=== PATIENT | male | born 1950 | race Caucasian/White ===

== ENCOUNTER 2019-10-01 10:00 | Outpatient (CLI) | payer MEDICARE, OTHER, SELFPAY ==
[2019-10-01 13:16] LABS: Basophils % 0.8 %; Eosinophils # 0.2 10^3/uL (0.0-0.8); Eosinophils % 4.8 %; Hemoglobin 15.4 g/dL (11.7-16.6); Lymphocytes # 1.1 10^3/uL (0.8-4.8); Lymphocytes % 23.4 %; Mean Corpuscular HGB Conc 32.8 g/dL (30.0-36.0); Mean Corpuscular Hemoglobin 33.3 pg (28.0-34.0); Mean Corpuscular Volume 101.5 fL (80-94); Mean Platelet Volume 9.5 fL (7.4-10.4); Monocytes # 0.6 10^3/uL (0.2-0.9); Monocytes % 11.6 %; Neutrophils # 2.8 10^3/uL (1.8-7.7); Nucleated Red Blood Cells % 0 %; Platelet Count 330 10^3/cmm (130-400); Red Blood Count 4.63 10^6/uL (4.1-5.3); White Blood Count 4.8 10^3/uL (4.0-10.0)
[2019-10-01 13:28] LABS: Alanine Aminotransferase 15 U/L (0-41); Albumin Level 4.5 g/dL (3.5-5.2); Alkaline Phosphatase 76 IU/L (40-130); Aspartate Amino Transferase 16 U/L (0-40); Blood Urea Nitrogen 10 mg/dL (8-23); Calcium 9.8 mg/dL (8.5-10.5); Carbon Dioxide 25 mmol/L (22-29); Chloride 103 mmol/L (98-107); Globulin 2.9 g/dL (1.3-4.6); Glomerular Filtration Rate 74.8 mL/min (90-130); Glucose 75 mg/dL (65-115); Lactate Dehydrogenase 199 U/L (135-225); Osmolality Calculated 289 mOsm/kg (285-295); Sodium 142 mmol/L (136-145); Total Bilirubin 0.4 mg/dL (0.15-1.2); Total Protein 7.4 g/dL (6.6-8.7)
== END 2019-10-01 10:01 | disposition home or self-care (01) ==
LOC: ONCMED 15:09
PROVIDERS: Visit Provider Internal Medicine Hematology & Oncology
DX: C82.15 Follicular lymphoma grade II, lymph nodes of inguinal region and lower limb (principal)
CPT/HCPCS: 36415; 80053; 83615; 85025

== ENCOUNTER → 2019-12-31 11:06 | Outpatient (BNVA) | payer MEDICARE, OTHER, SELFPAY | PROVIDERS: Visit Provider Internal Medicine Hematology & Oncology | DX: C82.15 Follicular lymphoma grade II, lymph nodes of inguinal region and lower limb (principal) | CPT/HCPCS: 80053; 83615; 85025 ==

== ENCOUNTER 2020-01-02 08:36 | Outpatient (CLI) | payer MEDICARE, OTHER, SELFPAY ==
--- NOTE | 2020-01-02 09:17 | ONC FU_ITS ---
Dr. Landaverde follow up note Patient: Ricky Lobo Unit #: [id number]: 1950 Dicatated By: Andres Landaverde M.D.Date of Visit:Jan 02, 2020 Onc Med Follow-up/Prog Note History of Present Illness: Mr. 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 Further workup including bone marrow biopsy was done on 06/02/2018 which was [address] scan of chest abdomen pelvis done on 05/03/2018 showed lymphadenopathy both sides of diaphragm. The largest conglomerate was lobulated soft tissue mass measuring 5.6 x 5.8 x 4.8 cm within the central mesentery to the left of midline. There was no splenomegaly. Patient had no B symptoms and patient was referred to Dr. Guy , oncologist in [place] and observation with active surveillance was recommended and planned. His follow-up CT scan of neck chest abdomen done on 08/31/2018 showed mild enlargement of lymph node in the left axillary region otherwise stable exam. Patient denies any specific complaint, no night sweats, no fever or chills, no weight loss, no abdominal fullness. Ulcerative colitis is under control with Asacol. Follow-up CT PET scan done on 12/23/2018 showed multiple hypermetabolic lymph nodes from the level of head and neck to the level of pelvis representing active lymphoma. Solitary malignant soft tissue implant posterior to right femur Patient was referred to lymphoma clinic at [facility] where he was seen by on 01/16/2019 and his impression was patient has stage 1-2, IPI is intermediate due to age,GELF score is low. And recommendation was to continue to monitor as patient may require treatment with the next few years given patient's existing lymph node size close to the measurements as indicated by GELF criteria warranting chemotherapy and there were focal grade 2 on the path report. She did lab workup which include CBC CMP LDH and IgG level as IgG level is some time low in patient with follicular lymphoma even untreated. These reports are not available to me at this point we will request a copy Came for follow-up, denies any specific complaints, denies any fever chills denies nausea or vomiting, denies any night sweats, denies any peripheral lymphadenopathy, in fact, as per patient, lymph node in the left lower neck is not even palpable now. Denies any abdominal fullness., Patient is watching his diet. Medications: florify 1 Capsule daily, Mesalamine 2 Tablet (of 800 mg) Tablet, enteric coated Oral b.i.d., Omeprazole 1 Capsule (of 20 mg) Capsule Delayed Release Oral daily, Probiotic 3 Tablet Tablet, enteric coated Oral b.i.d., Turmeric 1 Capsule (of 500 mg) Oral daily, Vitamin B-12 1 Tablet (of 500 mcg) Oral daily Allergies: No Known Allergies. Review of Systems: Constitutional - Appetite is good and weight is stable. No fever, chills, hot flashes, or night sweats. Energy level is good, ENMT - No sinus congestion/drainage. No mouth sores. No sore throat or difficulty swallowing, Hematologic/Lymphatic - Pt reports easy bruising, Respiratory - No shortness of breath. No cough. No pleuritic pain or hemoptysis, Cardiovascular - No angina pain. No palpitations, Gastrointestinal - No nausea or vomiting. Positive for heartburn (Pt takes medication for this). No diarrhea or constipation. No blood in the stool or black stools, Genitourinary (M) - No dysuria or hematuria. No urinary frequency. No urgency or incontinence, Musculoskeletal - No joint or bone pain, Neurologic - No headache or dizziness. No numbness/paresthesias or other focal neurologic symptoms, Psychiatric - No anxiety or depression. No insomnia. Vital Signs: Performed on Jan 02, 2020 08:47 Height - 69.00 in Weight - 185.0 lbs (LOW) BSA - 2.00 sq.m BMI - 27.32 Temperature - 98.2 F (LOW) Pulse - 81 /min Respiration - 20 /min BP - 129/85 mm(hg) O2 Sat - 96 % Pain - 0 Performance Status: 0 - Fully active, able to carry on all predisease activities without restrictions. (ECOG) Physical Examination: ENMT - No mouth sores no thrush, no jaundice, Respiratory - Lungs are clear, Cardiovascular - Regular rate and rhythm of heart, Abdomen - Soft, bowel sounds present, no obvious organomegaly, Extremities - No visible edema or rash or peripheral lymphadenopathy. Lab/Imaging: Test performed on Dec 31, 2019 11:06 Glucose 110 mg/dL BUN 12 mg/dL Creatinine 1.1 mg/dL Cr Clearance (Est) 77.35 mL/min Sodium 141 mmol/L Potassium 4.1 mmol/L Chloride 106 mmol/L CO2 21 mmol/L Calcium 8.7 mg/dL Protein, Total 6.5 g/dL Albumin 4.2 g/dL Globulin 2.3 g/dL Bilirubin, Total 0.5 mg/dL Alkaline Phosphatase 73 IU/L AST (SGOT) 15 IU/L ALT (SGPT) 12 IU/L WBC 4.9 10^9/L RBC 4.36 10^12/L HGB 14.7 g/dL HCT 43.8 % MCV 100.5 fl MCH 33.7 pg MCHC 33.6 g/dL RDW 13.1 % Platelet Count 297 10^9/L MPV 9.9 fL Neutrophils (Gran) 2.73 10^9/L Lymphocytes 1.3 10^9/L Monocytes 0.6 10^9/L Eosinophils 0.2 10^9/L Basophils 0.1 10^9/L Manual Lymphocytes 25.7 % Manual Monocytes 12.6 % Manual Eosinophils 4.9 % Manual Basophils 1.2 % Test performed on Oct 01, 2019 10:00 LDH (Total) 199 U/L Anion Gap 18.0 eGFR 74.8 mL/min Neutrophil % 59.0 % Lymphocyte % 23.4 % Monocyte % 11.6 % Eosinophil % 4.8 % Basophils % 0.8 % Impression: Stage III follicular lymphoma predominantly grade 1-2 and only 10-20% of grade 3a component in the right inguinal excisional lymph node biopsy done on 03/29/2018, [place] IPI score 4-high risk CT scan of neck chest abdomen pelvis done on 08/31/2018 showed interval enlargement of left external iliac lymph node, interval decrease in subcarinal lymph node, unchanged left mesenteric soft tissue mass, measuring 6.5 x 5.1 cm Follow-up CT PET scan done on 12/23/2018 showed multiple FDG positive lymph nodes from the level of her neck to the level of pelvis consistent with active lymphoma there are 2 nodes in the left cervical level V measuring up to 2.4 cm with SUV of 10.3. In the left upper quadrant mesentery there is a solid 4.4 x 5.2 near the duodenum/jejunal junction with SUV of 20.4. Additional smaller nodes are present in the pelvis in the left common iliac, left inguinal, bilateral femoral arteries. And index right femoral node measuring 2.7 with SUV of 19. There is an additional 1.7 cm muscle implant posterior to the right femur with SUV of 10.5 Ulcerative colitis on Asacol since 1994 Plan: Discussed with patient regarding his labs white blood count 4.9 hemoglobin 14.7 hematocrit 43.8 platelets 297,000 CMP within normal limits LDH is pending Clinically, patient doing well with no B symptoms or any other symptom suggestive of disease progression. No obvious palpable peripheral lymphadenopathy. Lab work-up is within normal range, will continue to monitor and he will return to clinic in 6 months with CBC CMP and LDH. Patient was advised to call us in case he has any drenching night sweats, unusual weight loss, recurrent fevers, any abdominal fullness or progressive peripheral lymphadenopathy. Signed By: Andres Landaverde M.D. <<Signature on File>>
== END 2020-01-02 08:37 | disposition home or self-care (01) ==
LOC: ONCMED 08:43
PROVIDERS: Visit Provider Internal Medicine Hematology & Oncology
DX: C82.15 Follicular lymphoma grade II, lymph nodes of inguinal region and lower limb (principal); K51.90 Ulcerative colitis, unspecified, without complications
CPT/HCPCS: G0463

== ENCOUNTER 2020-07-09 08:15 | Outpatient (CLI) | payer MEDICARE, OTHER, SELFPAY ==
--- NOTE | 2020-07-09 09:07 | ONC FU_ITS ---
Dr. Landaverde follow up note Patient: Ricky Lobo Unit #: [id number]: 1950 Dicatated By: Andres Landaverde M.D.Date of Visit:Jul 09, 2020 Onc Med Follow-up/Prog Note History of Present Illness: Mr. 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 Further workup including bone marrow biopsy was done on 06/02/2018 which [address] scan of chest abdomen pelvis done on 05/03/2018 showed lymphadenopathy both sides of diaphragm. The largest conglomerate was lobulated soft tissue mass measuring 5.6 x 5.8 x 4.8 cm within the central mesentery to the left of midline. There was no splenomegaly. Patient had no B symptoms and patient was referred to Dr. Guy , oncologist in [place] and observation with active surveillance was recommended and planned. His follow-up CT scan of neck chest abdomen done on 08/31/2018 showed mild enlargement of lymph node in the left axillary region otherwise stable exam. Patient denies any specific complaint, no night sweats, no fever or chills, no weight loss, no abdominal fullness. Ulcerative colitis is under control with Asacol. Follow-up CT PET scan done on 12/23/2018 showed multiple hypermetabolic lymph nodes from the level of head and neck to the level of pelvis representing active lymphoma. Solitary malignant soft tissue implant posterior to right femur Patient was referred to lymphoma clinic at [facility] where he was seen by on 01/16/2019 and his impression was patient has stage 1-2, IPI is intermediate due to age,GELF score is low. And recommendation was to continue to monitor as patient may require treatment with the next few years given patient's existing lymph node size close to the measurements as indicated by GELF criteria warranting chemotherapy and there were focal grade 2 on the path report. he did lab workup which include CBC CMP LDH and IgG level as IgG level is some time low in patient with follicular lymphoma even untreated. These reports are not available to me at this point we will request a copy Came for follow-up, patient denies any specific complaints, no fever chills, no nausea or vomiting, no diarrhea constipation, no night sweats, no weight loss rather gain, no recurrent fever, no abdominal fullness as per patient he underwent colonoscopy last week with Dr. Alberts and he was told there is no evidence of ulcerative colitis or any other abnormality and patient still taking Asacol for ulcerative colitis. Medications: florify 1 Capsule daily, Mesalamine 2 Tablet (of 800 mg) Tablet, enteric coated Oral b.i.d., Omeprazole 1 Capsule (of 20 mg) Capsule Delayed Release Oral daily, Probiotic 3 Tablet Tablet, enteric coated Oral b.i.d., Turmeric 1 Capsule (of 500 mg) Oral daily, Vitamin B-12 1 Tablet (of 500 mcg) Oral daily Allergies: No Known Allergies. Review of Systems: Constitutional - Appetite is good and weight is stable. No fever, chills, hot flashes, or night sweats. Energy level is good, ENMT - No sinus congestion/drainage. No mouth sores. No sore throat or difficulty swallowing, Hematologic/Lymphatic - Pt reports easy bruising, Respiratory - No shortness of breath. No cough. No pleuritic pain or hemoptysis, Cardiovascular - No angina pain. No palpitations, Gastrointestinal - No nausea or vomiting. Positive for heartburn (Pt takes medication for this). No diarrhea or constipation. No blood in the stool or black stools, Genitourinary (M) - No dysuria or hematuria. No urinary frequency. No urgency or incontinence, Musculoskeletal - No joint or bone pain, Neurologic - No headache or dizziness. No numbness/paresthesias or other focal neurologic symptoms, Psychiatric - No anxiety or depression. No insomnia. Vital Signs: Performed on Jul 09, 2020 08:35 Height - 69.00 in Weight - 197.2 lbs (HIGH) BSA - 2.05 sq.m BMI - 29.12 Temperature - 96.5 F (LOW) Pulse - 86 /min Respiration - 16 /min BP - 123/82 mm(hg) O2 Sat - 96 % Pain - 0 Performance Status: 0 - Fully active, able to carry on all predisease activities without restrictions. (ECOG) Physical Examination: ENMT - No mouth sores, no thrush, no jaundice no cervical or axillary lymphadenopathy, Respiratory - Lungs are clear to auscultation, Cardiovascular - Regular rate and rhythm of heart, Abdomen - Soft, bowel sounds present, Extremities - No visible edema. Lab/Imaging: Test performed on Jul 04, 2020 10:14 Glucose 86 mg/dL LDH, Total 153 IU/L BUN 11 mg/dL Creatinine 1.05 mg/dL Cr Clearance (Est) 81.03 mL/min Sodium 140 mmol/L Potassium 4.3 mmol/L Chloride 104 mmol/L CO2 28 mmol/L Calcium 9.6 mg/dL Protein, Total 6.9 g/dL Albumin 4.0 g/dL Bilirubin, Total 0.3 mg/dL Alkaline Phosphatase 82 IU/L AST (SGOT) 15 IU/L ALT (SGPT) 12 IU/L WBC 5.4 10^9/L RBC 4.6 10^12/L HGB 15.3 g/dL HCT 44.9 % MCV 97.6 fl MCH 33.3 pg MCHC 34.1 g/dL RDW 12.7 % Platelet Count 295 10^9/L Neutrophils (Gran) 3.02 10^9/L Lymphocytes 1.41 10^9/L Monocytes 0.66 10^9/L Eosinophils 0.27 10^9/L Basophils 0.05 10^9/L Impression: Stage III follicular lymphoma predominantly grade 1-2 and only 10-20% of grade 3a component in the right inguinal excisional lymph node biopsy done on 03/29/2018, [place] IPI score 4-high risk CT scan of neck chest abdomen pelvis done on 08/31/2018 showed interval enlargement of left external iliac lymph node, interval decrease in subcarinal lymph node, unchanged left mesenteric soft tissue mass, measuring 6.5 x 5.1 cm Follow-up CT PET scan done on 12/23/2018 showed multiple FDG positive lymph nodes from the level of her neck to the level of pelvis consistent with active lymphoma there are 2 nodes in the left cervical level V measuring up to 2.4 cm with SUV of 10.3. In the left upper quadrant mesentery there is a solid 4.4 x 5.2 near the duodenum/jejunal junction with SUV of 20.4. Additional smaller nodes are present in the pelvis in the left common iliac, left inguinal, bilateral femoral arteries. And index right femoral node measuring 2.7 with SUV of 19. There is an additional 1.7 cm muscle implant posterior to the right femur with SUV of 10.5 Ulcerative colitis on Asacol since 1994 Colonoscopy done in the last week of June [address] Alberts, as per patient showed no evidence of ulcerative colitis or other abnormality Plan: Discussed with patient regarding his labs white blood count 5.4 hemoglobin 15.3 hematocrit 44.9 platelets 259,000 CMP within normal limits LDH 153 Clinically, patient is doing well with no new signs symptoms or B symptoms suggestive of disease progression his lab work-up is within normal range including LDH, on physical exam no evidence of disease progression, at this point, we will continue to monitor. Patient return to clinic in 6 months with CBC CMP and LDH and follow-up CT scan of chest abdomen pelvis to assess central lymphadenopathy status Signed By: Andres Landaverde M.D. <<Signature on File>>
== END 2020-07-09 08:16 | disposition home or self-care (01) ==
LOC: ONCMED 08:20
PROVIDERS: Visit Provider Internal Medicine Hematology & Oncology
DX: K51.90 Ulcerative colitis, unspecified, without complications (principal)
CPT/HCPCS: G0463

== ENCOUNTER 2021-01-02 09:19 | Outpatient (CLI) | payer MEDICARE, OTHER, SELFPAY ==
--- NOTE | 2021-01-02 10:40 | CT_ITS ---
WS: [id number] CT CHEST, ABDOMEN, AND PELVIS TECHNIQUE: Contrast-enhanced CT of the chest, abdomen, and pelvis with coronal and sagittal reformatt ed images. CLINICAL INFORMATION: FOLLICULAR LYMPHOMA COMPARISON: CT 3 and PET/CT . CT 11 . DLP: 1716.[address] scans at [facility] use at least one of these dose optimization techniques: automat ed exposure control; mA and/or kV adjustment per patient size (includes targeted exams where dose is matched to clinical indication); or iterative reconstruction. CT CHEST: Moderate chronic emphysematous changes. No acute pulmonary infiltrates. No focal consolidation or ple ural fluid. Slight bibasilar atelectasis. A few calcified granulomas. Normal caliber thoracic aorta. No mediastinal or hilar lymphadenopathy. No axillary lymphadenopathy. CT ABDOMEN AND PELVIS: Diffuse fatty infiltration liver. Cholelithiasis. Mild hepatomegaly measuring 16.3 cm craniocaudal. C holelithiasis. Normal GE junction. Fatty atrophy of the pancreas. Adrenal glands are normal. Normal renal parenchymal enhancement. No hydronephrosis. Small right renal cyst. Caliber abdominal aorta. No evidence of small or large bowel obstruction. Normal sigmoid colon. Previously described mass at t he duodenal jejunal junction on the the prior PET/CT has significantly improved and nearly resolved. Minimal wispy mesenteric soft tissue in this region measuring 2.6 x 1.5 cm. No evidence of bowel obst ruction. No upper abdominal lymphadenopathy. No periaortic or retroperitoneal lymphadenopathy. No iliac or ing uinal lymphadenopathy. Slight prominent right inguinal lymph node measuring 8 mm not pathologically e nlarged and decreased in size from the prior studies. CT/CT chest abd pel w con* IMPRESSION: 1. No evidence of progressed disease. 2. No mediastinal or hilar lymphadenopathy. No abdominal or pelvic lymphadenop athy. 3. No suspicious pulmonary parenchymal abnormalities. 4. Previously described left duodenal jejunal mass has essentially resolved wi th a small amount of residual soft tissue thickening and induration in the mese ntery. Residual wispy soft tissue measures approximately 2.6 x 1.5 cm. 5. Slightly prominent right inguinal lymph node measuring 8 mm not pathologica lly enlarged and improved from the prior studies. 6. Cholelithiasis. 7. Mild hepatomegaly with diffuse fatty infiltration.
[2021-01-02 11:54] LABS: Blood Urea Nitrogen 12 mg/dL (8-23); Glomerular Filtration Rate 83.9 mL/min (90-130)
[2021-01-02] MEDS: iohexol 300 mg/mL 100 mL Btl IV (12:26)
[2021-01-02] MEDS: iohexol 300 mg/mL 50 mL Btl PO (12:27)
== END 2021-01-02 09:20 | disposition home or self-care (01) ==
LOC: RAD 09:30
PROVIDERS: PCP Family Medicine; Visit Provider Internal Medicine Hematology & Oncology
DX: C82.15 Follicular lymphoma grade II, lymph nodes of inguinal region and lower limb (principal); K80.20 Calculus of gallbladder without cholecystitis without obstruction; R16.0 Hepatomegaly, not elsewhere classified; K76.0 Fatty (change of) liver, not elsewhere classified
CPT/HCPCS: 71260; 74177; 82565; 84520

== ENCOUNTER 2021-01-08 11:23 | Outpatient (CLI) | payer MEDICARE, OTHER, SELFPAY ==
[2021-01-08 12:42] LABS: Basophils # 0.1 10^3/uL (0.0-0.1); Basophils % 1.1 %; Eosinophils # 0.3 10^3/uL (0.0-0.8); Eosinophils % 5.9 %; Hemoglobin 15.4 g/dL (11.7-16.6); Lymphocytes # 1.2 10^3/uL (0.8-4.8); Mean Corpuscular HGB Conc 33.5 g/dL (30.0-36.0); Mean Corpuscular Hemoglobin 33.5 pg (28.0-34.0); Mean Platelet Volume 9.5 fL (7.4-10.4); Monocytes # 0.7 10^3/uL (0.2-0.9); Monocytes % 13.1 %; Neutrophils # 3.09 10^3/uL (1.8-7.7); Neutrophils % 57.3 %; Nucleated Red Blood Cells % 0 %; Platelet Count 296 10^3/cmm (130-400); Red Cell Distribution Width 12.8 % (12.1-15.1); White Blood Count 5.4 10^3/uL (4.0-10.0)
[2021-01-08 13:11] LABS: Alanine Aminotransferase 12 U/L (0-41); Alkaline Phosphatase 79 IU/L (40-130); Anion Gap 13.3 (5-19); Aspartate Amino Transferase 15 U/L (0-40); Blood Urea Nitrogen 10 mg/dL (8-23); Calcium 9.1 mg/dL (8.5-10.5); Carbon Dioxide 26 mmol/L (22-29); Chloride 104 mmol/L (98-107); Globulin 2.7 g/dL (1.3-4.6); Glomerular Filtration Rate 83.9 mL/min (90-130); Glucose 82 mg/dL (65-115); Lactate Dehydrogenase 173 U/L (135-225); Osmolality Calculated 286 mOsm/kg (285-295); Potassium 4.3 mmol/L (3.5-5.1); Sodium 139 mmol/L (136-145); Total Bilirubin 0.4 mg/dL (0.15-1.2); Total Protein 6.7 g/dL (6.6-8.7)
--- NOTE | 2021-01-08 14:15 | ONC FU_ITS ---
Dr. Landaverde follow up note Patient: Ricky Lobo Unit #: [id number]: 1950 Dicatated By: Andres Landaverde M.D.Date of Visit:Jan 08, 2021 Onc Med Follow-up/Prog Note History of Present Illness: Mr. Ricyk Lobo is a 70-year-old gentleman with long-standing history of ulcerative colitis now being treated with Asacol since 1994, noted intermittent mass/lymph node in his right groin area, underwent excisional biopsy of on 03/29/2018 which confirmed follicular lymphoma with foci of grade 3a ( 10 to 20%) in a background of predominantly grade 1-2 (80-90%) and prior to that and ultrasound done on 03/09/2018 showed 2 mixed echogenicity masses as well as 2 adjacent lymph nodes in right inguinal area, pelvic CT scan was done on 03/15/2018 showed abnormal right inguinal lymph nodes subsequently underwent biopsy as mentioned above on 03/29/2018. Further workup including bone marrow biopsy was done on 06/02/[address] which [address] scan of chest abdomen pelvis done on 05/03/2018 showed lymphadenopathy both sides of diaphragm. The largest conglomerate was lobulated soft tissue mass measuring 5.6 x 5.8 x 4.8 cm within the central mesentery to the left of midline. There was no splenomegaly. Patient had no B symptoms and patient was referred to Dr. Guy , oncologist in [place] and observation with active surveillance was recommended and planned. His follow-up CT scan of neck chest abdomen done on 08/31/2018 showed mild enlargement of lymph node in the left axillary region otherwise stable exam. Patient denies any specific complaint, no night sweats, no fever or chills, no weight loss, no abdominal fullness. Ulcerative colitis is under control with Asacol. Follow-up CT PET scan done on 12/23/2018 showed multiple hypermetabolic lymph nodes from the level of head and neck to the level of pelvis representing active lymphoma. Solitary malignant soft tissue implant posterior to right femur Patient was referred to lymphoma clinic at [facility] where he was seen by on 01/16/2019 and his impression was patient has stage 1-2, IPI is intermediate due to age,GELF score is low. And recommendation was to continue to monitor as patient may require treatment with the next few years given patient's existing lymph node size close to the measurements as indicated by GELF criteria warranting chemotherapy and there were focal grade 2 on the path report. he did lab workup which include CBC CMP LDH and IgG level as IgG level is some time low in patient with follicular lymphoma even untreated. These reports are not available to me at this point we will request a copy CT scan of chest abdomen pelvis done on January 02, 2021 shows no evidence of disease progression no mediastinal or hilar lymphadenopathy no suspicious pulmonary parenchymal abnormalities. Previously described left duodenal jejunal mass has essentially resolved with a small amount of residual soft tissue thickening and induration in the mesentery. Residual soft tissue mass measuring 2.6 x 1.5 cm. Slightly prominent right inguinal lymph node measuring 8 mm not pathological. Cholelithiasis. Hepatomegaly with diffuse fatty infiltration mmild Came for follow-up, denies any specific complaints, no fever chills, no nausea or vomiting, no diarrhea constipation, no melena or hematochezia, no hemoptysis or hematemesis, no night sweats, no weight loss, no recurrent fever, no peripheral lymphadenopathy, no abdominal fullness Medications: florify 1 Capsule daily, Mesalamine 2 Tablet (of 800 mg) Tablet, enteric coated Oral b.i.d., Omeprazole 1 Capsule (of 20 mg) Capsule Delayed Release Oral daily, Probiotic 3 Tablet Tablet, enteric coated Oral b.i.d., Turmeric 1 Capsule (of 500 mg) Oral daily, Vitamin B-12 1 Tablet (of 500 mcg) Oral daily Allergies: No Known Allergies. Review of Systems: Review of Systems is not available for this patient. Vital Signs: Performed on Jan 08, 2021 13:50 Height - 69.00 in Weight - 196 lbs (LOW) BSA - 2.05 sq.m BMI - 28.94 Temperature - 97.7 F (LOW) Pulse - 113 /min (HIGH) Respiration - 18 /min BP - 106/74 mm(hg) O2 Sat - 96 % Pain - 0 Fatigue - 0 Performance Status: 0 - Fully active, able to carry on all predisease activities without restrictions. (ECOG) Physical Examination: ENMT - No mouth sores, no thrush, no jaundice, No cervical lymphadenopathy, Respiratory - Lungs are clear to auscultation, Cardiovascular - Regular rate and rhythm of heart, Abdomen - Soft, bowel sounds present, Extremities - No visible edema. Lab/Imaging: Most recent lab results are not available for this patient. Impression: Stage III follicular lymphoma predominantly grade 1-2 and only 10-20% of grade 3a component in the right inguinal excisional lymph node biopsy done on 03/29/2018, FL IPI score 4-high risk CT scan of neck chest abdomen pelvis done on 08/31/2018 showed interval enlargement of left external iliac lymph node, interval decrease in subcarinal lymph node, unchanged left mesenteric soft tissue mass, measuring 6.5 x 5.1 cm Follow-up CT PET scan done on 12/23/2018 showed multiple FDG positive lymph nodes from the level of her neck to the level of pelvis consistent with active lymphoma there are 2 nodes in the left cervical level V measuring up to 2.4 cm with SUV of 10.3. In the left upper quadrant mesentery there is a solid 4.4 x 5.2 near the duodenum/jejunal junction with SUV of 20.4. Additional smaller nodes are present in the pelvis in the left common iliac, left inguinal, bilateral femoral arteries. And index right femoral node measuring 2.7 with SUV of 19. There is an additional 1.7 cm muscle implant posterior to the right femur with SUV of 10.5 Ulcerative colitis on Asacol since 1994 Colonoscopy done in the last week of June [address] Alberts, as per patient showed no evidence of ulcerative colitis or other abnormality Follow-up CT scan of chest abdomen pelvis done on January 02, 2021 showed no evidence of mediastinal or hilar lymphadenopathy, no abdominal pelvic lymphadenopathy, previously described left duodenal jejunal mass has essentially resolved with small amount of residual soft tissue thickening and induration in the mesentery. Residual soft tissue minor 2.6 x 1.5 cm. Plan: Discussed with patient regarding his labs white blood count 5.4 hemoglobin 15.4 hematocrit 46 platelets 296,000 CMP within normal limits including LDH and follow-up CT scan of chest abdomen pelvis shows no evidence of disease progression or recurrence, previously seen left duodenal/jejunal mass has essentially resolved with small amount of residual soft tissue thickening and induration and mesentery. Residual soft tissue mild 2.6 x 1.5 cm Clinically, patient doing well with no new signs symptom suggestive of recurrence of disease, no B symptoms, no peripheral lymphadenopathy, no abdominal fullness his follow-up lab work-up is within normal range including LDH, follow-up CT scan of chest abdomen pelvis shows no evidence of disease progression previously seen left duodenal/jejunum or mesenteric mass is essentially resolved now with small amount of residual soft tissue measuring 2.6 x 1.5 cm. At this point we will continue to monitor he will return to clinic in 6 months with CBC CMP and LDH and follow-up CT scan of abdomen pelvis, patient was advised in case he has any B symptoms or any peripheral lymphadenopathy, he need to call us otherwise return to clinic in 6 months as mentioned above Signed By: Andres Landaverde M.D. <<Signature on File>>
== END 2021-01-08 11:24 | disposition home or self-care (01) ==
LOC: ONCMED 11:26
PROVIDERS: PCP Family Medicine; Visit Provider Internal Medicine Hematology & Oncology
DX: Z08 Encounter for follow-up examination after completed treatment for malignant neoplasm (principal); Z85.72 Personal history of non-Hodgkin lymphomas; K51.90 Ulcerative colitis, unspecified, without complications; Z79.899 Other long term (current) drug therapy
CPT/HCPCS: 36415; 80053; 83615; 85025; 99214

== ENCOUNTER 2021-07-06 10:57 | Outpatient (CLI) | payer MEDICARE, OTHER, SELFPAY ==
--- NOTE | 2021-07-06 11:06 | CT_ITS ---
WS: [id number] CT ABDOMEN AND PELVIS WITH CONTRAST HISTORY: FOLLICULAR LYMPHOMA TECHNIQUE: Imaging performed of the abdomen and pelvis with IV contrast. Single phase imaging of the abdomen. Coronal and sagittal reformats are submitted. All CT scans at [facility] use at [address] one of these dose optimization techniques: automated exposure control; mA and/or kV adjustment per patient size (includes targeted exams where dose is matched to clinical indication); or iterative re construction. IV CONTRAST: Omnipaque 300; 95 mL IV. Oral contrast: Yes. DLP: 695.73 mGy.cm COMPARISON: 01/02/2021 and 08/31/2018 Lower thorax: Increased dependent changes at the lung bases. Heart is normal size. No hiatal hernia. Liver/biliary system: Normal size with no intrahepatic dilatation. Gallbladder: Numerous stones within the gallbladder. No acute cholecystitis. No bile duct dilatation. Pancreas: Normal size pancreas and pancreatic duct. No adjacent inflammation. Spleen: Normal size spleen. No mass or infarct. Adrenal glands: Normal. Right kidney: Mild perinephric stranding. There are a few small hypodensities which are too small to characterize. No solid mass is appreciated. No obstruction. Left kidney: Normal. Aorta: Moderate atherosclerosis with no aneurysm. Lymphadenopathy: None. Free fluid: None. GI tract: No GI tract obstruction. The appendix is normal. No obstruction or acute inflammation. Ther e is mild persistent soft tissue stranding and thickening in the central mesentery measuring 3.8 x 1. 3 cm. Near the distal duodenum and proximal jejunum. Abdominal wall: Unremarkable abdominal wall. No hernia. Pelvis: Postsurgical changes in the RIGHT inguinal region may be from prior hernia repair. Urinary bl adder is moderately well distended. Very minimal encroachment into the posterior bladder by the prost ate gland. Bones: Unremarkable. CT/CT abdomen pelvis w con* [id number] IMPRESSION: 1. No adenopathy within the abdomen or pelvis. 2. No splenomegaly. 3. No ascites. 4. Cholelithiasis without acute cholecystitis. 5. Postsurgical changes in the RIGHT inguinal region. 6. Very mild persistent soft tissue stranding in the central mesentery similar to the prior study. Similar to 01/02/2021 significantly improved since 9.
[2021-07-06] MEDS: iohexol 300 mg/mL 50 mL Btl PO (12:27)
[2021-07-06 12:33] LABS: Blood Urea Nitrogen 10 mg/dL (8-23); Glomerular Filtration Rate 96.1 mL/min (90-130)
[2021-07-06] MEDS: iohexol 300 mg/mL 100 mL Btl IV (12:50)
== END 2021-07-06 10:58 | disposition home or self-care (01) ==
LOC: RAD 10:59
PROVIDERS: PCP Family Medicine; Visit Provider Internal Medicine Hematology & Oncology
DX: C82.15 Follicular lymphoma grade II, lymph nodes of inguinal region and lower limb (principal); K80.20 Calculus of gallbladder without cholecystitis without obstruction
CPT/HCPCS: 74177; 82565; 84520

== ENCOUNTER 2021-07-17 08:04 | Outpatient (CLI) | payer MEDICARE, OTHER, SELFPAY ==
[2021-07-17 08:40] LABS: Basophils # 0.1 10^3/uL (0.0-0.1); Eosinophils # 0.3 10^3/uL (0.0-0.8); Eosinophils % 6.6 %; Hematocrit 42.3 % (42.0-52.0); Hemoglobin 14.1 g/dL (11.7-16.6); Lymphocytes # 1.2 10^3/uL (0.8-4.8); Lymphocytes % 23.6 %; Mean Corpuscular HGB Conc 33.3 g/dL (30.0-36.0); Mean Corpuscular Hemoglobin 33.6 pg (28.0-34.0); Mean Corpuscular Volume 100.7 fl (80-94); Mean Platelet Volume 8.6 fL (7.4-10.4); Monocytes # 0.8 10^3/uL (0.2-0.9); Monocytes % 14.9 %; Neutrophils # 2.77 10^3/uL (1.8-7.7); Neutrophils % 53.3 %; Nucleated Red Blood Cells % 0 %; Platelet Count 405 10^3/cmm (130-400); Red Cell Distribution Width 13.2 % (12.1-15.1); White Blood Count 5.2 10^3/uL (4.0-10.0)
[2021-07-17 09:06] LABS: Alanine Aminotransferase 18 U/L (0-41); Albumin Level 3.9 g/dL (3.5-5.2); Alkaline Phosphatase 101 IU/L (40-130); Anion Gap 15.2 (5-19); Aspartate Amino Transferase 17 U/L (0-40); Blood Urea Nitrogen 7 mg/dL (8-23); Calcium 8.6 mg/dL (8.5-10.5); Carbon Dioxide 24 mmol/L (22-29); Chloride 106 mmol/L (98-107); Glomerular Filtration Rate 74.3 mL/min (90-130); Glucose 87 mg/dL (65-115); Lactate Dehydrogenase 186 U/L (135-225); Osmolality Calculated 289 mOsm/kg (285-295); Potassium 4.2 mmol/L (3.5-5.1); Sodium 141 mmol/L (136-145); Total Bilirubin 0.3 mg/dL (0.15-1.2); Total Protein 6.9 g/dL (6.6-8.7)
--- NOTE | 2021-07-20 18:28 | ONC FU_ITS ---
Dr. Landaverde follow up note Patient: Ricky Lobo Unit #: [id number]: 1950 Dicatated By: Andres Landaverde M.D.Date of Visit:Jul 17, 2021 Onc Med Follow-up/Prog Note History of Present Illness: Mr. Ricky Lobo is a 70-year-old gentleman with long-standing history of ulcerative colitis now being treated with Asacol since 1994, noted intermittent mass/lymph node in his right groin area, underwent excisional biopsy of on 03/29/2018 which confirmed follicular lymphoma with foci of grade 3a ( 10 to 20%) in a background of predominantly grade 1-2 (80-90%) and prior to that and ultrasound done on 03/09/2018 showed 2 mixed echogenicity masses as well as 2 adjacent lymph nodes in right inguinal area, pelvic CT scan was done on 03/15/2018 showed abnormal right inguinal lymph nodes subsequently underwent biopsy as mentioned above on 03/29/2018. Further workup including bone marrow biopsy was done on 06/02/2018 which was [address]. CT scan of chest abdomen pelvis done on 05/03/2018 showed lymphadenopathy both sides of diaphragm. The largest conglomerate was lobulated soft tissue mass measuring 5.6 x 5.8 x 4.8 cm within the central mesentery to the left of midline. There was no splenomegaly. Patient had no B symptoms and patient was referred to Dr. Guy , oncologist in [place] and observation with active surveillance was recommended and planned. His follow-up CT scan of neck chest abdomen done on 08/31/2018 showed mild enlargement of lymph node in the left axillary region otherwise stable exam. Patient denies any specific complaint, no night sweats, no fever or chills, no weight loss, no abdominal fullness. Ulcerative colitis is under control with Asacol. Follow-up CT PET scan done on 12/23/2018 showed multiple hypermetabolic lymph nodes from the level of head and neck to the level of pelvis representing active lymphoma. Solitary malignant soft tissue implant posterior to right femur Patient was referred to lymphoma clinic at [facility] where he was seen by on 01/16/2019 and his impression was patient has stage 1-2, IPI is intermediate due to age,GELF score is low. And recommendation was to continue to monitor as patient may require treatment with the next few years given patient's existing lymph node size close to the measurements as indicated by GELF criteria warranting chemotherapy and there were focal grade 2 on the path report. he did lab workup which include CBC CMP LDH and IgG level as IgG level is some time low in patient with follicular lymphoma even untreated. These reports are not available to me at this point we will request a copy CT scan of chest abdomen pelvis done on January 02, 2021 shows no evidence of disease progression no mediastinal or hilar lymphadenopathy no suspicious pulmonary parenchymal abnormalities. Previously described left duodenal jejunal mass has essentially resolved with a small amount of residual soft tissue thickening and induration in the mesentery. Residual soft tissue mass measuring 2.6 x 1.5 cm. Slightly prominent right inguinal lymph node measuring 8 mm not pathological. Cholelithiasis. Hepatomegaly with diffuse fatty infiltration mmild Follow-up CT scan of abdomen pelvis done on July 06, 2021 showed no adenopathy within the abdomen pelvis, no splenomegaly, no ascites, postsurgical change in the right inguinal region. Very mild persistent soft tissue stranding in the central mesentery similar to prior study done on January 02, 2021 Came for follow-up, denies any specific complaint except was diagnosed with Covid infection about a month ago, did not require any treatment now recovered, denies any fever chills, denies any nausea or vomiting denies any diarrhea constipation denies any loss of smell, denies any night sweats, denies any weight loss, denies any recurrent fever, denies any peripheral lymphadenopathy denies any abdominal fullness. Medications: florify 1 Capsule daily, Mesalamine 2 Tablet (of 800 mg) Tablet, enteric coated Oral b.i.d., Omeprazole 1 Capsule (of 20 mg) Capsule Delayed Release Oral daily, Probiotic 3 Tablet Tablet, enteric coated Oral b.i.d., Turmeric 1 Capsule (of 500 mg) Oral daily, Vitamin B-12 1 Tablet (of 500 mcg) Oral daily Allergies: No Known Allergies. Review of Systems: Review of Systems is not available for this patient. Vital Signs: Performed on Jul 17, 2021 09:19 Height - 69.00 in Weight - 189.6 lbs (LOW) BSA - 2.02 sq.m BMI - 28.00 Temperature - 97.1 F (LOW) Pulse - 104 /min (HIGH) Respiration - 17 /min BP - 136/89 mm(hg) O2 Sat - 93 % (LOW) Pain - 0 Fatigue - 2 Performance Status: 0 - Fully active, able to carry on all predisease activities without restrictions. (ECOG) Physical Examination: ENMT - No mouth sores, no thrush, no jaundice, no cervical lymphadenopathy, Respiratory - Lungs are clear to auscultation, Cardiovascular - Regular rate and rhythm of heart, Abdomen - Soft, bowel sounds present, Extremities - No visible edema. Lab/Imaging: Most recent lab results are not available for this patient. Impression: Stage III follicular lymphoma predominantly grade 1-2 and only 10-20% of grade 3a component in the right inguinal excisional lymph node biopsy done on 03/29/2018, [place] IPI score 4-high risk CT scan of neck chest abdomen pelvis done on 08/31/2018 showed interval enlargement of left external iliac lymph node, interval decrease in subcarinal lymph node, unchanged left mesenteric soft tissue mass, measuring 6.5 x 5.1 cm Follow-up CT PET scan done on 12/23/2018 showed multiple FDG positive lymph nodes from the level of her neck to the level of pelvis consistent with active lymphoma there are 2 nodes in the left cervical level V measuring up to 2.4 cm with SUV of 10.3. In the left upper quadrant mesentery there is a solid 4.4 x 5.2 near the duodenum/jejunal junction with SUV of 20.4. Additional smaller nodes are present in the pelvis in the left common iliac, left inguinal, bilateral femoral arteries. And index right femoral node measuring 2.7 with SUV of 19. There is an additional 1.7 cm muscle implant posterior to the right femur with SUV of 10.5 Ulcerative colitis on Asacol since 1994 Colonoscopy done in the last week of June [address] Alberts, as per patient showed no evidence of ulcerative colitis or other abnormality Follow-up CT scan of chest abdomen pelvis done on January 02, 2021 showed no evidence of mediastinal or hilar lymphadenopathy, no abdominal pelvic lymphadenopathy, previously described left duodenal jejunal mass has essentially resolved with small amount of residual soft tissue thickening and induration in the mesentery. Residual soft tissue minor 2.6 x 1.5 cm. follow-up CT scan of abdomen pelvis done on July 06, 2021 showed no adenopathy within abdomen pelvis. Very mild persistent soft tissue stranding in the central mesentery similar to the prior study done on January 02, 2021 Plan: Discussed with patient regarding his labs white blood count 5.2 hemoglobin 14.1 hematocrit 42.3 platelets 405,000 CMP within normal limits including LDH which is 186 and follow-up CT scan of abdomen pelvis done on July 06, 2021 showed no adenopathy within abdomen pelvis. Very mild persistent soft tissue stranding in the central mesentery similar to the prior study done on January 02, 2021 Clinically, patient doing well with no new signs symptom including B symptoms suggestive of recurrence of disease, his follow-up CT scan of abdomen pelvis shows no lymphadenopathy or organomegaly, his lab work-up is also within normal range including LDH, at this point patient has no evidence of recurrence, clinically as well as radiologically, will continue to monitor and he will return to clinic in 6 months with CBC CMP LDH and CT scan of abdomen pelvis Signed By: Andres Landaverde M.D. <<Signature on File>>
== END 2021-07-17 08:05 | disposition home or self-care (01) ==
LOC: ONCMED 08:11
PROVIDERS: PCP Family Medicine; Visit Provider Internal Medicine Hematology & Oncology
DX: Z08 Encounter for follow-up examination after completed treatment for malignant neoplasm (principal); Z85.72 Personal history of non-Hodgkin lymphomas; K51.90 Ulcerative colitis, unspecified, without complications; Z79.899 Other long term (current) drug therapy
CPT/HCPCS: 36415; 80053; 83615; 85025; 99214

== ENCOUNTER 2022-01-29 11:37 | Oncology outpatient (recurring) (ONCR) | payer MEDICARE, OTHER, SELFPAY ==
--- NOTE | 2022-01-29 11:57 | CT_ITS ---
WS: [id number] CT CHEST, ABDOMEN AND PELVIS WITH CONTRAST HISTORY: FOLLICULAR LYMPHOMA TECHNIQUE: Contiguous 5 mm axial imaging performed through the chest, abdomen and pelvis with IV cont rast, oral contrast has been provided. Coronal and sagittal reformats chest. Coronal and sagittal ref ormats through the abdomen and pelvis. All CT scans at [facility] use at least one of these d ose optimization techniques: automated exposure control; mA and/or kV adjustment per patient size (in cludes targeted exams where dose is matched to clinical indication); or iterative reconstruction. CONTRAST: Omnipaque 350; 95 mL IV. DLP: 1844.38 mGy.cm COMPARISON: 07/06/2021, 01/02/[address] 12/23/[address]: Mild pulmonary hyperexpansion. Peripheral reticular interstitial opacities. No interval paty nge since the prior examinations. Bilateral increased pleural-based fat noted posteriorly. LEFT supra clavicular 6.3 mm lymph node. There is been a slight increase in size of the hilar and subcarinal lym ph nodes. The largest lymph node is subcarinal measuring 41 x 21 mm. Maximum diameter RIGHT hilar lym ph node is 12 mm which has slightly increased in size. The lymphoid tissue at the hilar regions is al so more prominent. RIGHT thyroid lobe extends substernal. Mild atherosclerosis aorta. Normal size pulmonary artery with no proximal filling defect. Heart is normal size with no pericardial effusion. Abdomen CT: Small hiatal hernia. Liver is normal size. Normal portal vein. No bile duct dilatation. N ormally distended gallbladder with numerous stones. No acute cholecystitis. Spleen is normal size. No adrenal mass. Normal pancreas. Extensive atherosclerosis aorta. Kidneys are normal size with no mass or obstruction. No gastrohepatic or gastrosplenic adenopathy. No lymph nodes at the naman hepatis around the celiac a xis. Wispy soft tissue stranding at the junction of the duodenum and jejunum is stable measuring 37 x 11 mm. No additional lymph nodes in the abdomen. No increase in size of lymph nodes or new lymph nod es along the iliac chains. No obturator lymph nodes. No GI tract obstruction. No wall thickening. There are small filling defects in the small bowel surro unded by contrast. Filling defects or just to the RIGHT of midline. Very nonspecific and may be vinod l GI contents. Pelvic CT: No change in the RIGHT inguinal lymph node measuring 10 mm in diameter. Postsurgical clips are present at the RIGHT inguinal region also. Bladder is normally distended. No prostate gland enla rgement. Degenerative spondylitic changes throughout the spine thoracic and lumbar spines. Bilateral femoral h ead osteonecrosis. No destructive bone lesions. CT/CT chest abd pel w con* IMPRESSION: 1. Mild progression of hilar and subcarinal lymph nodes. The largest lymph nod e is subcarinal measuring 41 x 21 mm. Increased in size from the prior examinat ion of 01/02/2021, measurement at that time was 28 x 16 mm. 2. No pulmonary mass. 3. 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 4. No new or increasing retroperitoneal or iliac chain lymph nodes. Stable RIG HT inguinal lymph node. 5. No splenomegaly. 6. Cholelithiasis without acute cholecystitis.
[2022-01-29] MEDS: iohexol 350 mg/mL 100 mL Btl IV (12:20)
[2022-01-29 13:57] LABS: Blood Urea Nitrogen 12 mg/dL (8-23); Glomerular Filtration Rate 74.1 mL/min (90-130)
== END 2022-02-03 23:59 | disposition home or self-care (01) ==
LOC: RAD 11:41 → ONCMED 02-02 04:35
PROVIDERS: PCP Family Medicine; Visit Provider Internal Medicine Hematology & Oncology
DX: C82.15 Follicular lymphoma grade II, lymph nodes of inguinal region and lower limb (principal); K80.20 Calculus of gallbladder without cholecystitis without obstruction
CPT/HCPCS: 71260; 74177; 82565; 84520

== ENCOUNTER 2022-02-05 08:37 | Oncology outpatient (recurring) (ONCR) | payer MEDICARE, OTHER, SELFPAY ==
[2022-02-05 09:15] LABS: Basophils # 0.1 10^3/uL (0.0-0.1); Basophils % 0.9 %; Eosinophils # 0.6 10^3/uL (0.0-0.8); Eosinophils % 10.8 %; Hematocrit 45.3 % (42.0-52.0); Lymphocytes # 1.2 10^3/uL (0.8-4.8); Lymphocytes % 21.7 %; Mean Corpuscular HGB Conc 33.1 g/dL (30.0-36.0); Mean Corpuscular Hemoglobin 33.6 pg (28.0-34.0); Mean Corpuscular Volume 101.3 fl (80-94); Mean Platelet Volume 9.1 fL (7.4-10.4); Monocytes # 0.7 10^3/uL (0.2-0.9); Monocytes % 13.8 %; Neutrophils # 2.81 10^3/uL (1.8-7.7); Neutrophils % 52.2 %; Nucleated Red Blood Cells % 0 %; Platelet Count 277 10^3/cmm (130-400); Red Blood Count 4.47 10^6/uL (4.1-5.3); Red Cell Distribution Width 13.1 % (12.1-15.1); White Blood Count 5.4 10^3/uL (4.0-10.0)
[2022-02-05 09:36] LABS: Alanine Aminotransferase 16 U/L (0-41); Albumin Level 4.1 g/dL (3.5-5.2); Alkaline Phosphatase 88 U/L (40-130); Anion Gap 15.6 (5-19); Aspartate Amino Transferase 18 U/L (0-40); Blood Urea Nitrogen 10 mg/dL (8-23); Calcium 9.2 mg/dL (8.5-10.5); Carbon Dioxide 25 mmol/L (22-29); Chloride 104 mmol/L (98-107); Globulin 2.7 g/dL (1.3-4.6); Glomerular Filtration Rate 83.7 mL/min (90-130); Glucose 97 mg/dL (65-115); Lactate Dehydrogenase 177 U/L (135-225); Osmolality Calculated 289 mOsm/kg (285-295); Potassium 4.6 mmol/L (3.5-5.1); Sodium 140 mmol/L (136-145); Total Bilirubin 0.5 mg/dL (0.15-1.2); Total Protein 6.8 g/dL (6.6-8.7)
== END 2022-03-05 23:59 | disposition home or self-care (01) ==
LOC: ONCMED 08:38
PROVIDERS: PCP Family Medicine; Visit Provider Internal Medicine Hematology & Oncology
DX: C82.15 Follicular lymphoma grade II, lymph nodes of inguinal region and lower limb (principal); K51.90 Ulcerative colitis, unspecified, without complications; K80.20 Calculus of gallbladder without cholecystitis without obstruction; R16.0 Hepatomegaly, not elsewhere classified; K76.0 Fatty (change of) liver, not elsewhere classified; Z79.899 Other long term (current) drug therapy
CPT/HCPCS: 36415; 80053; 83615; 85025; 99214

== ENCOUNTER 2022-06-21 13:59 | Outpatient (CLI) | payer OTHER, SELFPAY ==
--- NOTE | 2022-06-21 14:10 | USCV_ITS ---
Ricky Lobo Age: 71 Gender: M : 1950 Exam Date: 06/21/2022 14:31 Ordering Phys: Nicolasa Trujillo MD Technologist: ANDERS [place] [facility] [place] AAA Screen. HX of Smoker HISTORY: Diameter (cm) AP x Transverse x Length Velocity (cm/s) Waveform Prox Aorta: 1.88 x 1.76 x 92.40 Triphasic Mid Aorta: 1.62 x 1.42 x 103.70 Triphasic Distal Aorta: 1.19 x 1.38 x 173.90 Triphasic Right Iliac Prox: 1.20 x 1.16 x 82.40 Triphasic Left Iliac Prox: 1.17 x 1.16 x 61.00 Triphasic Stent Prox Landing x x Aneurysmal Sac Max x x Lt Lat Sac Dim Rt Lat Sac Dim Stent Dist Landing x x Right Iliac Stent x x Left Iliac Stent x x Right Renal Art Left Renal Art FINDINGS: Comparison: none available. A complete assessment of the abdominal aorta was not possible. Limited by body habitus. No evidence of abdominal aortic aneurysm. Ectatic abdominal aorta with evidence of atherosclerotic plaque noted. There is evidence of atherosclerotic plaque no significan stenosis in the right common iliac artery. There is evidence of atherosclerotic plaque no significan stenosis in the left common iliac artery. CONCLUSIONS Limited but NO AAA seen. Dr. Melida Barron DO (Electronically Signed) Final Date: 21 June 2022 15:24 S
== END 2022-06-21 14:00 | disposition home or self-care (01) ==
LOC: RAD 14:02
PROVIDERS: PCP Family Medicine; Visit Provider Family Medicine
DX: Z13.6 Encounter for screening for cardiovascular disorders (principal)
CPT/HCPCS: 76706

== ENCOUNTER 2022-09-18 05:47 | Outpatient (CLI) | payer OTHER, SELFPAY ==
--- NOTE | 2022-09-18 07:30 | PETR_ITS ---
PROCEDURE INFORMATION: Exam: PET/CT Skull Base to Mid-thigh Exam date and time: 09/18/2022 8:17 AM Age: 71 years old Clinical indication: Condition or disease and abnormal findings; Primary cancer: Follicular lymphoma grade iiia; CT shows progression; Additional info: CT shows progression, cassandra LABS AND CLINICAL REPORTS: Glucose: 116 mg/dl Treatment strategy for malignancy (PET staging): Restaging (PS) TECHNIQUE: Imaging protocol: Following at least four-hour fasting and following the injection of radiopharmaceutical, low dose CT images were obtained. Then, PET images were obtained. Attenuation corrected images were constructed using the CT scan. Fused images of PET and CT were reviewed. The standardized uptake values (SUV) reported below are maximum values within a region of interest, expressed in gm/ml. Exam includes orbital meatal line to mid-thigh. Radiopharmaceutical: 13.59 mCi F-18 FDG (Fluorodeoxyglucose), IV. Time of imaging post radiopharmaceutical administration: 1 hour Injection site: Right antecubital vein COMPARISON: PET-CT 12/23/2018, CT chest abdomen pelvis 01/29/2022 FINDINGS: Brain: Visualized brain has normal physiologic uptake. Paranasal sinuses: There is persistent mucosal thickening in paranasal sinuses with no air-fluid levels compatible with chronic sinusitis currently more prominent in the left maxillary sinus. Pharynx: No abnormal uptake. Larynx: No abnormal uptake. Lungs, pleura and trachea: Slightly increased uptake of 3.4 SUV noted adjacent to the anterior segment of the left 3rd rib on image 73 representing either peripheral lung consolidation or focal pleural thickening. There are stable calcified granulomas in both lungs. Heart: There is no cardiomegaly. There is no pericardial effusion. Coronary arteries: Coronary artery calcification is present. Mediastinal space: No abnormal uptake. Liver: No abnormal uptake. Gallbladder and bile ducts: No abnormal uptake. There are stable calcified gallstones in the gallbladder measuring up to 1 cm. Pancreas: No abnormal uptake. Spleen: No abnormal uptake. No splenomegaly. Adrenal glands: No abnormal uptake. No nodules. Kidneys and ureters: Normal physiologic uptake. No hydronephrosis. Stomach and bowel: No abnormal uptake. Vasculature: No abnormal uptake. No aortic aneurysm. Lymph nodes: Right inguinal lymph node with a short axis of 1.1 cm measures 6.5 SUV stable in size since 01/29/2022 (previously 2 cm/19 SUV on 12/23/2018). Borderline uptake of 2 SUV noted within normal size left superficial inguinal lymph node with a short axis of 0.7 cm on image 173. There is stable sequela of exposure to granulomatous disease with small calcified mediastinal and bilateral hilar lymph nodes. Bones/joints: No abnormal uptake. No suspicious lytic or sclerotic bone lesions. Soft tissues: No abnormal uptake in the visualized head, neck, chest, abdomen, pelvis, and extremities. Stable surgical clips in the right groin. PET/PET [facility] SUBSEQ [id number] IMPRESSION: Abnormal uptake of 6.5 SUV in a single right superficial inguinal lymph node which is stable in size since 01/29/2022 may be due to malignancy or benign active inflammatory process. All other implants of lymphoma in the left lower neck, mesentery, left pelvis, both groins and the right proximal thigh present on the prior exam on 12/23/2018 have completely resolved. Mildly FDG avid linear opacity in the left upper lobe adjacent to the chest wall likely represents benign inflammatory finding.
== END 2022-09-18 05:48 | disposition home or self-care (01) ==
LOC: RAD 09-20 05:47
PROVIDERS: Family Provider Family Medicine; PCP Family Medicine; Visit Provider Internal Medicine Hematology & Oncology
DX: C82.30 Follicular lymphoma grade IIIa, unspecified site (principal)
CPT/HCPCS: 78815; A9552

== ENCOUNTER 2022-09-29 09:57 | Oncology outpatient (recurring) (ONCR) | payer OTHER, SELFPAY ==
[2022-09-29 10:30] LABS: Basophils % 0.6 %; Eosinophils # 0.2 10^3/uL (0.0-0.8); Eosinophils % 4.6 %; Hematocrit 43.8 % (42.0-52.0); Hemoglobin 14.6 g/dL (11.7-16.6); Lymphocytes # 1.4 10^3/uL (0.8-4.8); Lymphocytes % 28.6 %; Mean Corpuscular HGB Conc 33.3 g/dL (30.0-36.0); Mean Corpuscular Hemoglobin 32.8 pg (28.0-34.0); Mean Corpuscular Volume 98.4 fl (80-94); Mean Platelet Volume 8.9 fL (7.4-10.4); Monocytes # 0.8 10^3/uL (0.2-0.9); Neutrophils # 2.54 10^3/uL (1.8-7.7); Neutrophils % 50.8 %; Nucleated Red Blood Cells % 0 %; Platelet Count 280 10^3/cmm (130-400); Red Blood Count 4.45 10^6/uL (4.1-5.3); Red Cell Distribution Width 12.9 % (12.1-15.1)
[2022-09-29 10:46] LABS: Alanine Aminotransferase 14 U/L (0-41); Albumin Level 4.1 g/dL (3.5-5.2); Alkaline Phosphatase 84 U/L (40-130); Anion Gap 15.1 (5-19); Aspartate Amino Transferase 16 U/L (0-40); Blood Urea Nitrogen 11 mg/dL (8-23); Carbon Dioxide 24 mmol/L (22-29); Chloride 103 mmol/L (98-107); Globulin 2.6 g/dL (1.3-4.6); Glomerular Filtration Rate 83.7 mL/min (90-130); Glucose 91 mg/dL (65-115); Lactate Dehydrogenase 148 U/L (135-225); Osmolality Calculated 285 mOsm/kg (285-295); Potassium 4.1 mmol/L (3.5-5.1); Sodium 138 mmol/L (136-145); Total Bilirubin 0.5 mg/dL (0.15-1.2); Total Protein 6.7 g/dL (6.6-8.7)
== END 2022-10-03 23:59 | disposition home or self-care (01) ==
PROVIDERS: Absent Provider Family Medicine; Family Provider Family Medicine; PCP Family Medicine; Visit Provider Internal Medicine Hematology & Oncology
DX: C82.15 Follicular lymphoma grade II, lymph nodes of inguinal region and lower limb (principal); R06.01 Orthopnea; Z79.899 Other long term (current) drug therapy; K80.20 Calculus of gallbladder without cholecystitis without obstruction; Z87.891 Personal history of nicotine dependence
CPT/HCPCS: 36415; 80053; 83615; 85025; 99214

== ENCOUNTER → 2022-11-11 14:14 | Outpatient (BNVA) | payer OTHER, SELFPAY | PROVIDERS: Family Provider Family Medicine; PCP Family Medicine; Visit Provider Internal Medicine | DX: R07.9 Chest pain, unspecified (principal); I45.10 Unspecified right bundle-branch block; R06.01 Orthopnea; C82.30 Follicular lymphoma grade IIIa, unspecified site | CPT/HCPCS: 93005; 99204 ==

== ENCOUNTER 2022-11-26 12:59 | Outpatient (CLI) | payer OTHER, SELFPAY ==
--- NOTE | 2022-11-26 13:30 | USCV_ITS ---
Yamil Ricky Age: 71 Gender: M : 1950 Exam Date: 11/26/2022 13:08 Ordering Phys: David Cleaning M.D ([email or web address]) Technologist: CT Exam [place] [facility] [place]: sob BP: 145 / 73 HR: 67 Rhythm: Sinus Technical Quality: Adequate MEASUREMENTS (Male / Female) Normal Values 2D ECHO LV Diastolic Diameter PLAX 5.4 cm 4.2 - 5.9 / 3.9 - 5.3 cm LV Systolic Diameter PLAX 3.4 cm IVS Diastolic Thickness 0.8 cm 0.6 - 1.0 / 0.6 - 0.9 cm IVS Systolic Thickness 1.4 cm LVPW Diastolic Thickness 1.1 cm 0.6 - 1.0 / 0.6 - 0.9 cm LVPW Systolic Thickness 1.3 cm LVOT Diameter 2.2 cm LV Ejection Fraction 2D Teich 67.4 % LV Ejection Fraction MOD 2C 62.4 % LV Ejection Fraction 2C AL 63.5 % LA Diameter 4.6 cm Aorta at Sinotubular Diameter 2.8 cm IVC Diameter 2.1 cm M-MODE Aortic Annulus Diameter 2.7 cm LA Ao Ratio MM 1.7 MV E Point Septal Separation 0.8 cm DOPPLER AV Peak Velocity 132.0 cm/s LVOT Peak Velocity 87.0 cm/s AV Area Cont Eq vti 2.9 cm squared AV Area Cont Eq pk 2.5 cm squared MV Peak Velocity 69.0 cm/s MV Area PHT 4.3 cm squared Mitral E to A Ratio 0.9 MV E' Velocity 36.0 cm/s Mitral E to MV E' Ratio 5.1 Mitral E to LV E' Lateral Ratio 5.0 Mitral E to LV E' Septal Ratio 5.2 Right Atrial Pressure 3.0 mmHg PV Peak Velocity 108.0 cm/s FINDINGS Left Ventricle Left ventricle is normal size. LV systolic function is normal with EF of 55 to 60%. No regional wall motion abnormalities are seen. Grade 1 diastolic dysfunction Right Ventricle Normal in size and function Right Atrium Normal in size Left Atrium Dilated Mitral Valve Structurally normal mitral valve. Mild mitral regurgitation. Aortic Valve Structurally normal aortic valve. No significant stenosis or regurgitation. Tricuspid Valve Trace tricuspid regurgitation. Pulmonic Valve Not well visualized Pericardium Normal Aorta Normal in size IVC Appears to be normal CONCLUSIONS LV systolic function is normal with EF 55 to 60%. Grade 1 diastolic dysfunction Left atrial dilation Mild mitral regurgitation Trace tricuspid regurgitation No comparison studies are available. David Cleaning MD (Electronically Signed) Final Date: 05 December 2022 12:47 S
== END 2022-11-26 13:00 | disposition home or self-care (01) ==
PROVIDERS: Family Provider Family Medicine; PCP Family Medicine; Visit Provider Internal Medicine
DX: R07.9 Chest pain, unspecified (principal); R06.02 Shortness of breath
CPT/HCPCS: 93306

== ENCOUNTER → 2022-12-21 14:03 | Outpatient (BNVA) | payer OTHER, SELFPAY | PROVIDERS: Family Provider Family Medicine; PCP Family Medicine; Visit Provider Dermatology | DX: L57.0 Actinic keratosis (principal); Z85.828 Personal history of other malignant neoplasm of skin; Z87.891 Personal history of nicotine dependence | CPT/HCPCS: 17004; 99213 ==

== ENCOUNTER → 2023-03-24 14:05 | Outpatient (BNVA) | payer OTHER, SELFPAY | PROVIDERS: Family Provider Family Medicine; PCP Family Medicine; Visit Provider Dermatology | DX: L57.0 Actinic keratosis (principal) | CPT/HCPCS: 96567 ==

== ENCOUNTER 2023-03-29 07:58 | Outpatient (CLI) | payer OTHER, SELFPAY ==
[2023-03-29 08:23] LABS: Basophils % 0.7 %; Eosinophils # 0.3 10^3/uL (0.0-0.8); Eosinophils % 5.3 %; Hematocrit 45.1 % (37-53); Lymphocytes # 1.2 10^3/uL (0.8-4.8); Lymphocytes % 22.5 %; Mean Corpuscular HGB Conc 33.9 g/dL (30-55); Mean Corpuscular Hemoglobin 33.8 pg (27-33); Mean Corpuscular Volume 99.6 fl (82-101); Mean Platelet Volume 8.8 fL (7.4-10.4); Monocytes # 0.9 10^3/uL (0.2-0.9); Monocytes % 15.6 %; Neutrophils # 3.04 10^3/uL (1.8-7.7); Neutrophils % 55.4 %; Nucleated Red Blood Cells % 0 %; Platelet Count 245 10^3/cmm (157-399); Red Blood Count 4.53 10^6/uL (3.85-5.65); Red Cell Distribution Width 13.1 % (12.1-15.1)
[2023-03-29 08:40] LABS: Alanine Aminotransferase 16 U/L (0-41); Albumin Level 4.3 g/dL (3.5-5.2); Alkaline Phosphatase 94 U/L (40-130); Anion Gap 13.1 (5-19); Aspartate Amino Transferase 16 U/L (0-40); Blood Urea Nitrogen 12 mg/dL (8-23); Calcium 9.3 mg/dL (8.5-10.5); Carbon Dioxide 26 mmol/L (22-29); Chloride 101 mmol/L (98-107); Globulin 2.5 g/dL (1.3-4.6); Glomerular Filtration Rate 73.9 mL/min (90-130); Glucose 112 mg/dL (65-115); Lactate Dehydrogenase 146 U/L (135-225); Osmolality Calculated 283 mOsm/kg (285-295); Potassium 4.1 mmol/L (3.5-5.1); Sodium 136 mmol/L (136-145); Total Bilirubin 0.5 mg/dL (0.15-1.2); Total Protein 6.8 g/dL (6.6-8.7)
[2023-03-29] MEDS: iohexol 350 mg/mL 500 mL Btl (per mL) PO (08:50)
[2023-03-29] MEDS: iohexol 350 mg/mL 500 mL Btl (per mL) IV (09:06)
--- NOTE | 2023-03-29 09:15 | CT_ITS ---
WS: [id number] CT CHEST, ABDOMEN AND PELVIS WITH CONTRAST HISTORY: Follow up follicular lymphoma TECHNIQUE: Contiguous 5 mm axial imaging performed through the chest, abdomen and pelvis with IV cont rast, oral contrast has been provided. Coronal and sagittal reformats chest. Coronal and sagittal ref ormats through the abdomen and pelvis. All CT scans at [facility] use at least one of these d ose optimization techniques: automated exposure control; mA and/or kV adjustment per patient size (in cludes targeted exams where dose is matched to clinical indication); or iterative reconstruction. CONTRAST: Omnipaque 350; 100 mL IV. DLP: 1129.93 mGy.cm COMPARISON: 01/29/2022, PET/CT 09/18/[address]: Mild peripheral interstitial thickening throughout both lungs. Similar to the prior studies . Benign calcified granulomata. No new or enlarging nodules. Mild pleural thickening at the lung base s is prominent pleural fat. Heart is normal size. No pericardial or pleural effusions. Mild atheroscl erosis aorta. Normal sized pulmonary artery. Mediastinal and hilar lymph nodes are reidentified. Lymp h nodes have not increased in size. RIGHT hilar lymph node measures 1.6 x 1.0 cm. Subcarinal lymph no de measures 1.6 x 1.8 cm. These lymph nodes appears stable. No axillary lymph nodes. Abdomen CT: Normal size liver with mild hepatic steatosis. Normal portal vein. Cholelithiasis without acute cholecystitis. Normal spleen and pancreas. No adrenal mass. No renal obstruction or solid mass . Moderate atherosclerotic plaque aorta. No GI tract obstruction. No submucosal edema. Normal appendix. No mesenteric or retroperitoneal adenopathy. No ascites. Pelvic CT: No free fluid. Urinary bladder is negative. No intraluminal filling defect. Small inguinal lymph nodes are identified. The largest has a normal fatty hilum. There is surgical clips at the RIG HT inguinal region from a prior lymph node biopsy most likely. Early changes of bilateral femoral head osteonecrosis. IMPRESSION: 1. No new or enlarging adenopathy within the chest, abdomen or pelvis. 2. No metastatic nodules within the lungs. 3. Mild hepatic steatosis. 4. Cholelithiasis without acute cholecystitis. 5. Bilateral femoral head osteonecrosis.
== END 2023-03-29 07:59 | disposition home or self-care (01) ==
PROVIDERS: Family Provider Family Medicine; PCP Family Medicine; Visit Provider Internal Medicine Medical Oncology
DX: C82.30 Follicular lymphoma grade IIIa, unspecified site (principal); D50.8 Other iron deficiency anemias; K76.0 Fatty (change of) liver, not elsewhere classified; K80.20 Calculus of gallbladder without cholecystitis without obstruction; M87.852 Other osteonecrosis, left femur; M87.851 Other osteonecrosis, right femur
CPT/HCPCS: 36415; 71260; 74177; 80053; 83615; 85025; Q9967

== ENCOUNTER → 2023-03-30 07:56 | Outpatient (BNVA) | payer OTHER, SELFPAY | PROVIDERS: Family Provider Family Medicine; PCP Family Medicine; Visit Provider Dermatology | DX: L57.0 Actinic keratosis (principal) | CPT/HCPCS: 96567 ==

== ENCOUNTER 2023-03-31 11:24 | Oncology outpatient (recurring) (ONCR) | payer OTHER, SELFPAY | END 2023-04-05 23:59 | disposition home or self-care (01) | PROVIDERS: Absent Provider Family Medicine; Family Provider Family Medicine; PCP Family Medicine; Visit Provider Internal Medicine Medical Oncology | DX: C82.15 Follicular lymphoma grade II, lymph nodes of inguinal region and lower limb (principal); K51.90 Ulcerative colitis, unspecified, without complications; K80.20 Calculus of gallbladder without cholecystitis without obstruction; R16.0 Hepatomegaly, not elsewhere classified; K76.0 Fatty (change of) liver, not elsewhere classified; Z79.899 Other long term (current) drug therapy | CPT/HCPCS: 99214 ==

== ENCOUNTER 2023-05-04 08:27 | Outpatient (CLI) | payer OTHER, SELFPAY ==
--- NOTE | 2023-05-04 08:35 | USCV_ITS ---
Ricky Lobo Age: 72 Gender: M : 1950 Exam Date: 05/04/2023 08:55 Ordering Phys: Nicolasa Trujillo MD Technologist: [place] [facility] [place] screening aaa HISTORY: Diameter (cm) AP x Transverse x Length Velocity (cm/s) Waveform Prox Aorta: 1.92 x 1.92 x 81.60 Mid Aorta: 1.88 x 1.85 x 83.50 Distal Aorta: 2.16 x 1.71 x 102.50 Right Iliac Prox: 1.10 x 1.16 x 71.90 Left Iliac Prox: 1.19 x 1.19 x 89.20 Stent Prox Landing x x Aneurysmal Sac Max x x Lt Lat Sac Dim Rt Lat Sac Dim Stent Dist Landing x x Right Iliac Stent x x Left Iliac Stent x x Right Renal Art Left Renal Art FINDINGS: Comparison 06/28 CONCLUSIONS No abdominal aortic aneurysm Slightly ectatic distal abdominal aorta measuring 2.1 x 1.7cm AP x trans Normal iliac arteries Moderate atheromatous disease Abel Rubio MD (Electronically Signed) Final Date: 04 May 2023 10:44 S
== END 2023-05-04 08:28 | disposition home or self-care (01) ==
LOC: RAD 08:28
PROVIDERS: Family Provider Family Medicine; PCP Family Medicine; Visit Provider Family Medicine
DX: Z13.6 Encounter for screening for cardiovascular disorders (principal); I77.811 Abdominal aortic ectasia
CPT/HCPCS: 17004; 76706; 99213

== ENCOUNTER → 2023-05-19 08:38 | Outpatient (BNVA) | payer OTHER, SELFPAY | PROVIDERS: Family Provider Family Medicine; PCP Family Medicine; Visit Provider Student in an Organized Health Care Education/Training Program | DX: M25.551 Pain in right hip (principal); M25.552 Pain in left hip; M87.051 Idiopathic aseptic necrosis of right femur; M87.052 Idiopathic aseptic necrosis of left femur; R06.01 Orthopnea; C82.30 Follicular lymphoma grade IIIa, unspecified site; Z87.891 Personal history of nicotine dependence | CPT/HCPCS: 73523; 99203; 99214 ==

== ENCOUNTER 2023-08-24 12:30 | Oncology outpatient (recurring) (ONCR) | payer OTHER, SELFPAY ==
[2023-08-24 14:29] LABS: Basophils % 0.7 %; Eosinophils # 0.3 10^3/uL (0.0-0.8); Eosinophils % 6.3 %; Lymphocytes # 1.5 10^3/uL (0.8-4.8); Lymphocytes % 32.5 %; Mean Corpuscular HGB Conc 33.9 g/dL (30-55); Mean Corpuscular Hemoglobin 33.2 pg (27-33); Mean Platelet Volume 9.1 fL (7.4-10.4); Monocytes # 0.7 10^3/uL (0.2-0.9); Monocytes % 14.4 %; Neutrophils # 2.09 10^3/uL (1.8-7.7); Neutrophils % 45.7 %; Nucleated Red Blood Cells % 0 %; Platelet Count 259 10^3/cmm (157-399); Red Blood Count 4.49 10^6/uL (3.85-5.65); Red Cell Distribution Width 13.1 % (12.1-15.1); White Blood Count 4.58 10^3/uL (3.29-11.43)
[2023-08-24 14:30] LABS: Erythrocyte Sedimentation Rate 4 mm/hr (0-10)
[2023-08-24 14:51] LABS: Alanine Aminotransferase 12 U/L (0-41); Alkaline Phosphatase 94 U/L (40-130); Aspartate Amino Transferase 14 U/L (0-40); Blood Urea Nitrogen 11 mg/dL (8-23); C Reactive Protein 4.1 mg/L (0.0-4.9); Carbon Dioxide 26 mmol/L (22-29); Chloride 106 mmol/L (98-107); Creatinine Clr Calc Pharmacy 77.9508; Glomerular Filtration Rate 73.9 mL/min (90-130); Glucose 94 mg/dL (65-115); Osmolality Calculated 291 mOsm/kg (285-295); Sodium 141 mmol/L (136-145); Total Bilirubin 0.3 mg/dL (0.15-1.2)
[2023-08-24 14:57] LABS: Anion Gap 13.4 (5-19); Potassium 4.4 mmol/L (3.5-5.1)
[2023-08-24 14:58] LABS: Lactate Dehydrogenase 166 U/L (135-225)
== END 2023-09-04 23:59 | disposition home or self-care (01) ==
PROVIDERS: Absent Provider Family Medicine; Family Provider Family Medicine; PCP Family Medicine; Visit Provider Internal Medicine Medical Oncology
DX: C82.15 Follicular lymphoma grade II, lymph nodes of inguinal region and lower limb (principal); K51.90 Ulcerative colitis, unspecified, without complications; K80.20 Calculus of gallbladder without cholecystitis without obstruction; R16.0 Hepatomegaly, not elsewhere classified; K76.0 Fatty (change of) liver, not elsewhere classified; Z79.899 Other long term (current) drug therapy
CPT/HCPCS: 36415; 80053; 83615; 85025; 85651; 86140; 99214

== ENCOUNTER 2023-09-06 10:19 | Outpatient (CLI) | payer OTHER, SELFPAY ==
--- NOTE | 2023-09-06 11:00 | PETR_ITS ---
PROCEDURE INFORMATION: Exam: PET/CT Skull Base to Mid-thigh Exam date and time: 09/06/2023 11:19 AM Age: 72 years old Clinical indication: Condition or disease; Primary cancer: Follicular lymphoma grade iiia; Prior surgery; Surgery date: 6+ months; Surgery type: Hernia LABS AND CLINICAL REPORTS: Glucose: 91 mg/dl Treatment strategy for malignancy (PET staging): Restaging (PS) TECHNIQUE: Imaging protocol: Following at least four-hour fasting and following the injection of radiopharmaceutical, low dose CT images were obtained. Then, PET images were obtained. Attenuation corrected images were constructed using the CT scan. Fused images of PET and CT were reviewed. The standardized uptake values (SUV) reported below are maximum values within a region of interest, expressed in gm/ml. Exam includes orbital meatal line to mid-thigh. Radiopharmaceutical: 13.1 mCi F-18 FDG (Fluorodeoxyglucose), IV. Time of imaging post radiopharmaceutical administration: 1 hour Injection site: Right antecubital vein COMPARISON: PET -CT 09/18/2022, CT chest abdomen pelvis 03/29/2023 FINDINGS: Brain: Visualized brain has normal physiologic uptake. New line paranasal sinuses: No abnormal uptake. Stable mucosal thickening in the maxillary sinuses with no air-fluid levels compatible with chronic sinusitis Pharynx: Focal uptake in the right side of the nasopharynx on axial image 10 currently measures 8.5 SUV increased from 5.9 SUV on the prior exam. Slightly increased uptake in the right tonsil Larynx: No abnormal uptake. Lungs, pleura and trachea: There is progressive FDG avid small linear subpleural consolidation in the left upper lobe concerning for lymphoma. Currently it measures about 2 cm in width and 0.6 cm in thickness with maximum uptake of 6.6 SUV increased from 3.4 SUV on the prior exam. Stable calcified granulomas in both lungs. No pleural effusion. Heart: Normal physiologic uptake. Mediastinal space: No abnormal uptake. Liver: No abnormal uptake. Gallbladder and bile ducts: No abnormal uptake. Stable calcified gallstones in the gallbladder measuring up to 1 cm. pancreas: No abnormal uptake. Spleen: No abnormal uptake. No splenomegaly. Adrenal glands: No abnormal uptake. No nodules. Kidneys and ureters: Normal physiologic uptake. No hydronephrosis. Stomach and bowel: No abnormal uptake. Vasculature: No abnormal uptake. No aortic aneurysm. Lymph nodes: There is new and progressive FDG avid lymphadenopathy compatible with progressive disease. New about 1 cm right retropharyngeal lymph node on axial image 20 measures will 4.6 SUV. New 1.6 x 1.2 cm right upper jugular lymph node on axial image 25 measures 7.5 SUV. New left mesenteric node on axial image 135 measures 2.1 x 2.1 cm/8 SUV. The largest right inguinal lymph node on axial image 233 increased in uptake from 6.5 SUV to 11 SUV and increased in the short axis from 1.2 cm to 1.7 cm. There is new lower right inguinal lymph node on axial image 257 measuring 1.3 x 1.2 cm/6.7 SUV. New 1.5 x 1.1 cm left inguinal lymph node measures 6.8 SUV. No FDG avid lymphadenopathy in the chest, pelvis, and the axillas. Stable sequela of exposure to granulomatous disease with small calcified subcarinal and bilateral hilar lymph nodes. Bones/joints: No abnormal uptake in the visualized axial and appendicular skeleton. Soft tissues: No abnormal uptake in the visualized head, neck, chest, abdomen, pelvis, and extremities. PET/PET [facility] SUBSEQ [id number] IMPRESSION: There is progressive disease with increase in size and activity of previously present right inguinal lymph node, and new FDG avid lymphadenopathy in bilateral groins, left mesentery, right upper neck, right retropharyngeal area. Progressive small subpleural FDG avid consolidation in the left upper lobe is concerning for extranodal lymphoma. Increased uptake focally in the right side of the nasopharynx is indeterminate, can be malignant or benign.
== END 2023-09-06 10:20 | disposition home or self-care (01) ==
LOC: RAD 10:21
PROVIDERS: PCP Family Medicine; Visit Provider Internal Medicine Medical Oncology
DX: C82.30 Follicular lymphoma grade IIIa, unspecified site (principal); R59.1 Generalized enlarged lymph nodes; R91.8 Other nonspecific abnormal finding of lung field
CPT/HCPCS: 78815; A9552

== ENCOUNTER → 2023-09-22 10:47 | Outpatient (BNVA) | payer OTHER, SELFPAY | PROVIDERS: PCP Family Medicine; Visit Provider Dermatology | DX: L57.0 Actinic keratosis (principal); L82.0 Inflamed seborrheic keratosis; L85.3 Xerosis cutis; L81.4 Other melanin hyperpigmentation; Z85.828 Personal history of other malignant neoplasm of skin | CPT/HCPCS: 17004; 17110; 99213 ==

== ENCOUNTER 2023-11-22 13:20 | Oncology outpatient (recurring) (ONCR) | payer OTHER, SELFPAY ==
[2023-11-22 13:42] LABS: Basophils % 0.4 %; Eosinophils # 0.2 10^3/uL (0.0-0.8); Eosinophils % 4.2 %; Hematocrit 43.4 % (37-53); Lymphocytes # 1.3 10^3/uL (0.8-4.8); Lymphocytes % 24.2 %; Mean Corpuscular HGB Conc 34.6 g/dL (30-55); Mean Corpuscular Volume 98.4 fl (82-101); Mean Platelet Volume 9.3 fL (7.4-10.4); Monocytes # 0.6 10^3/uL (0.2-0.9); Monocytes % 10.9 %; Neutrophils # 3.15 10^3/uL (1.8-7.7); Neutrophils % 59.9 %; Nucleated Red Blood Cells % 0 %; Platelet Count 260 10^3/cmm (157-399); Red Blood Count 4.41 10^6/uL (3.85-5.65); Red Cell Distribution Width 13.2 % (12.1-15.1); White Blood Count 5.25 10^3/uL (3.29-11.43)
[2023-11-22 13:55] LABS: Anion Gap 15.1 (5-19); Blood Urea Nitrogen 14 mg/dL (8-23); Carbon Dioxide 25 mmol/L (22-29); Chloride 103 mmol/L (98-107); Glomerular Filtration Rate 73.9 mL/min (90-130); Potassium 4.1 mmol/L (3.5-5.1); Sodium 139 mmol/L (136-145)
[2023-11-22 13:56] LABS: Alanine Aminotransferase 15 U/L (0-41); Albumin Level 4.1 g/dL (3.5-5.2); Alkaline Phosphatase 97 U/L (40-130); Aspartate Amino Transferase 15 U/L (0-40); Calcium 8.8 mg/dL (8.5-10.5); Globulin 2.8 g/dL (1.3-4.6); Glucose 132 mg/dL (65-115); Lactate Dehydrogenase 162 U/L (135-225); Osmolality Calculated 290 mOsm/kg (285-295); Total Bilirubin 0.3 mg/dL (0.15-1.2); Total Protein 6.9 g/dL (6.6-8.7)
== END 2023-12-04 23:59 | disposition home or self-care (01) ==
PROVIDERS: Nurse Practitioner Family; Absent Provider Family Medicine; PCP Family Medicine; Visit Provider Internal Medicine Medical Oncology
DX: C82.15 Follicular lymphoma grade II, lymph nodes of inguinal region and lower limb (principal); C82.30 Follicular lymphoma grade IIIa, unspecified site
CPT/HCPCS: 36415; 80053; 83615; 85025; 99214

== ENCOUNTER → 2023-12-05 10:35 | Outpatient (BNVA) | payer OTHER, SELFPAY | PROVIDERS: PCP Family Medicine; Visit Provider Podiatrist Foot & Ankle Surgery | DX: L60.3 Nail dystrophy (principal) | CPT/HCPCS: 99203 ==

== ENCOUNTER 2023-12-20 15:07 | Oncology outpatient (recurring) (ONCR) | payer OTHER, SELFPAY | END 2024-01-04 23:59 | disposition home or self-care (01) | LOC: ONCMED 15:07 | PROVIDERS: Absent Provider Family Medicine; PCP Family Medicine; Visit Provider Internal Medicine Medical Oncology | DX: C82.15 Follicular lymphoma grade II, lymph nodes of inguinal region and lower limb (principal); C82.30 Follicular lymphoma grade IIIa, unspecified site; K51.90 Ulcerative colitis, unspecified, without complications; K80.20 Calculus of gallbladder without cholecystitis without obstruction; R16.0 Hepatomegaly, not elsewhere classified; K76.0 Fatty (change of) liver, not elsewhere classified; Z79.899 Other long term (current) drug therapy | CPT/HCPCS: 99214 ==

== ENCOUNTER → 2024-01-02 10:32 | Outpatient (BNVA) | payer OTHER, SELFPAY | PROVIDERS: PCP Family Medicine; Visit Provider Podiatrist Foot & Ankle Surgery | DX: L60.3 Nail dystrophy (principal); L30.9 Dermatitis, unspecified; G57.63 Lesion of plantar nerve, bilateral lower limbs | CPT/HCPCS: 99213 ==

== ENCOUNTER → 2024-02-02 12:09 | Outpatient (BNVA) | payer OTHER, SELFPAY | PROVIDERS: PCP Family Medicine; Visit Provider Nurse Practitioner Family | DX: D48.5 Neoplasm of uncertain behavior of skin (principal); L57.0 Actinic keratosis; L57.8 Other skin changes due to chronic exposure to nonionizing radiation; L81.4 Other melanin hyperpigmentation; L82.1 Other seborrheic keratosis; Z85.828 Personal history of other malignant neoplasm of skin | CPT/HCPCS: 11102; 17000; 99214 ==

== ENCOUNTER → 2024-02-16 09:37 | Outpatient (BNVA) | payer OTHER, SELFPAY | PROVIDERS: PCP Family Medicine; Visit Provider Dermatology | DX: C44.319 Basal cell carcinoma of skin of other parts of face (principal) | CPT/HCPCS: 99214 ==

== ENCOUNTER 2024-02-21 07:42 | Outpatient (CLI) | payer OTHER, SELFPAY ==
--- NOTE | 2024-02-21 08:00 | PETR_ITS ---
PROCEDURE INFORMATION: Exam: PET/CT Skull Base to Mid-thigh Exam date and time: 02/21/2024 9:07 AM Age: 73 years old Clinical indication: Grade 3A follicular lymphoma; Follow-up oncological assessment. LABS AND CLINICAL REPORTS: Glucose: 116 mg/dl Treatment strategy for malignancy (PET staging): Restaging (PS) TECHNIQUE: Imaging protocol: Following at least four-hour fasting and following the injection of radiopharmaceutical, low dose CT images were obtained. Then, PET images were obtained. Attenuation corrected images were constructed using the CT scan. Fused images of PET and CT were reviewed. The standardized uptake values (SUV) reported below are maximum values within a region of interest, expressed in gm/ml. Exam includes orbital meatal line to mid-thigh. Radiopharmaceutical: 9.97 mCi F-18 FDG (Fluorodeoxyglucose), IV. Time of imaging post radiopharmaceutical administration: 1 hour Injection site: Left antecubital vein COMPARISON: PT PET skull to thigh SUBS [id number] 09/06/2023 FINDINGS: Brain: Visualized brain has normal physiologic uptake. Pharynx: No abnormal uptake. Larynx: No abnormal uptake. Lungs, pleura and trachea: Stable elongated subpleural opacity anteriorly in the left upper lobe with the highest thickness of 0.6 cm measures 6.6 SUV, previously 6.7 SUV. There are stable calcified granulomas in the lingula and in the bilateral lower lobes. No pleural effusion. Heart: Normal physiologic uptake. Mediastinal space: See below in lymph nodes . Stable small hiatal hernia. Liver: No abnormal uptake. Gallbladder and biliary ducts: No abnormal uptake. Stable calcified gallstones measuring up to 1.2 cm. Pancreas: No abnormal uptake. Spleen: No abnormal uptake. No splenomegaly. Adrenal glands: No abnormal uptake. No nodules. Kidneys and ureters: Normal physiologic uptake. No hydronephrosis. Stomach and bowel: No abnormal uptake. Vasculature: No abnormal uptake. No aortic aneurysm. Lymph nodes: There is progressive lymphadenopathy. Right retropharyngeal lymph node increased in size and increased in uptake from 8.6 SUV to 16.2 SUV. There is new FDG avid left retropharyngeal lymph node measuring 13.1 SUV. Previously present right upper jugular lymph node increased from 1.5 x 1 cm/8.6 SUV to 3.4 x 2 cm/15.7 SUV. There are multiple new right jugular and supraclavicular lymph nodes measuring up to 1.8 cm in the short axis with the highest uptake of 15.8 SUV. There is new increased uptake of 5.9 SUV within normal size right hilar lymph nodes. Left lateral mesenteric mass in the upper abdomen increased from 2.2 x 1.7 cm/8 SUV to 3.8 x 3.2 cm/10.2 SUV. There is new 3.6 x 2.4 cm mesenteric mass adjacent to the loop of jejunum in the upper abdomen measuring 17.3 SUV. There is new uptake of 9.7 SUV within small elongated right obturator lymph node in the pelvis. There is progressive bilateral inguinal lymphadenopathy with the largest right superficial inguinal lymph node increased from 2.5 x 1.4 cm/11.2 SUV to 3.2 x 2.1 cm/14.2 SUV. Inferior right inguinal lymph node increased from 1.4 x 1.1 cm/6.7 SUV to 1.6 x 1.3 cm/14.7 SUV. Stable in size left superficial inguinal lymph node increased in uptake from 6.8 SUV to 12.9 SUV. There are new small bilateral inguinal lymph nodes with the highest uptake up to 11.5 SUV. There is stable sequela of exposure to granulomatous disease with calcified subcarinal and bilateral hilar lymph nodes. Skeleton: There is new subarticular subcentimeter focus of increased uptake of 5.8 SUV in the right distal clavicle. Soft tissues: No abnormal uptake in the visualized head, neck, chest, abdomen, pelvis, and extremities. Stable sequela of the right inguinal hernia repair. PET/PET skull to thigh SUBS [id number] IMPRESSION: In comparison with 09/06/2023 there is progressive disease. Multicompartmental lymphadenopathy increased in size and activity, and there is new new lymphadenopathy in the left retropharyngeal area, right neck, mesentery, right pelvis and the groins.New increased uptake in the right hilum is indeterminate. Small left lung opacity concerning for lymphomatous involvement is unchanged. New subarticular subcentimeter FDG avid focus in the right distal clavicle is indeterminate.
== END 2024-02-21 07:43 | disposition home or self-care (01) ==
PROVIDERS: PCP Family Medicine; Visit Provider Internal Medicine Medical Oncology
DX: C82.30 Follicular lymphoma grade IIIa, unspecified site (principal); J91.8 Pleural effusion in other conditions classified elsewhere; J84.10 Pulmonary fibrosis, unspecified; K80.20 Calculus of gallbladder without cholecystitis without obstruction; R59.9 Enlarged lymph nodes, unspecified; R93.7 Abnormal findings on diagnostic imaging of other parts of musculoskeletal system
CPT/HCPCS: 78815; A9552

== ENCOUNTER 2024-02-23 12:01 | Oncology outpatient (recurring) (ONCR) | payer OTHER, SELFPAY ==
[2024-02-23 13:09] LABS: Basophils % 0.7 %; Eosinophils # 0.2 10^3/uL (0.0-0.8); Eosinophils % 4.1 %; Hematocrit 43.6 % (37-53); Lymphocytes # 1.2 10^3/uL (0.8-4.8); Lymphocytes % 20.9 %; Mean Corpuscular HGB Conc 33.7 g/dL (30-55); Mean Corpuscular Hemoglobin 33.3 pg (27-33); Mean Corpuscular Volume 98.9 fl (82-101); Mean Platelet Volume 9.1 fL (7.4-10.4); Monocytes # 0.8 10^3/uL (0.2-0.9); Neutrophils # 3.33 10^3/uL (1.8-7.7); Neutrophils % 59.9 %; Nucleated Red Blood Cells % 0 %; Platelet Count 266 10^3/cmm (157-399); Red Blood Count 4.41 10^6/uL (3.85-5.65); Red Cell Distribution Width 13.1 % (12.1-15.1); White Blood Count 5.56 10^3/uL (3.29-11.43)
[2024-02-23 13:35] LABS: Alanine Aminotransferase 10 U/L (0-41); Albumin Level 4.1 g/dL (3.5-5.2); Alkaline Phosphatase 98 U/L (40-130); Anion Gap 14.7 (5-19); Aspartate Amino Transferase 12 U/L (0-40); Blood Urea Nitrogen 15 mg/dL (8-23); Calcium 8.8 mg/dL (8.5-10.5); Carbon Dioxide 26 mmol/L (22-29); Chloride 107 mmol/L (98-107); Creatinine Clr Calc Pharmacy 74.8378; Globulin 2.8 g/dL (1.3-4.6); Glucose 95 mg/dL (65-115); Lactate Dehydrogenase 144 U/L (135-225); Osmolality Calculated 297 mOsm/kg (285-295); Potassium 4.7 mmol/L (3.5-5.1); Sodium 143 mmol/L (136-145); Total Bilirubin 0.4 mg/dL (0.15-1.2); Total Protein 6.9 g/dL (6.6-8.7)
== END 2024-03-05 23:59 | disposition home or self-care (01) ==
LOC: ONCMED 12:01
PROVIDERS: Absent Provider Family Medicine; PCP Family Medicine; Visit Provider Internal Medicine Medical Oncology
DX: C82.38 Follicular lymphoma grade IIIa, lymph nodes of multiple sites; Z87.891 Personal history of nicotine dependence
CPT/HCPCS: 36415; 80053; 83615; 85025; 99214

== ENCOUNTER → 2024-05-14 09:30 | Outpatient (BNVA) | payer OTHER, SELFPAY | PROVIDERS: PCP Family Medicine; Visit Provider Podiatrist Foot & Ankle Surgery | DX: L60.8 Other nail disorders (principal); L60.3 Nail dystrophy; I73.9 Peripheral vascular disease, unspecified | CPT/HCPCS: 99213 ==

== ENCOUNTER 2024-05-16 11:01 | Oncology outpatient (recurring) (ONCR) | payer OTHER, SELFPAY ==
[2024-05-16 12:08] LABS: Basophils # 0.1 10^3/uL (0.0-0.1); Eosinophils # 0.2 10^3/uL (0.0-0.8); Eosinophils % 4.8 %; Hematocrit 44.9 % (37-53); Lymphocytes # 0.9 10^3/uL (0.8-4.8); Lymphocytes % 17.7 %; Mean Corpuscular HGB Conc 33.4 g/dL (30-55); Mean Corpuscular Hemoglobin 32.8 pg (27-33); Mean Platelet Volume 8.9 fL (7.4-10.4); Monocytes # 0.7 10^3/uL (0.2-0.9); Monocytes % 15.4 %; Neutrophils % 60.7 %; Nucleated Red Blood Cells % 0 %; Platelet Count 276 10^3/cmm (157-399); Red Blood Count 4.58 10^6/uL (3.85-5.65); Red Cell Distribution Width 13.2 % (12.1-15.1); White Blood Count 4.79 10^3/uL (3.29-11.43)
[2024-05-16 12:30] LABS: Alanine Aminotransferase 11 U/L (0-41); Albumin Level 4.3 g/dL (3.5-5.2); Alkaline Phosphatase 99 U/L (40-130); Anion Gap 14.6 (5-19); Aspartate Amino Transferase 15 U/L (0-40); Blood Urea Nitrogen 12 mg/dL (8-23); Calcium 9.6 mg/dL (8.5-10.5); Carbon Dioxide 26 mmol/L (22-29); Chloride 102 mmol/L (98-107); Creatinine Clr Calc Pharmacy 94.0633; Globulin 3.1 g/dL (1.3-4.6); Glucose 98 mg/dL (65-115); Lactate Dehydrogenase 207 U/L (135-225); Osmolality Calculated 286 mOsm/kg (285-295); Potassium 4.6 mmol/L (3.5-5.1); Sodium 138 mmol/L (136-145); Total Bilirubin 0.4 mg/dL (0.15-1.2); Total Protein 7.4 g/dL (6.6-8.7)
[2024-05-16 15:46] LABS: Hepatitis A Antibody IgM Non-Reactive (Nonreactive); Hepatitis B Core AB, Total Non-Reactive (Nonreactive); Hepatitis B Surface AB < 3.5 (11.5-1000); Hepatitis B Surface Antigen Non-Reactive (Nonreactive); Hepatitis C Virus Antibody Non-Reactive (Nonreactive)
== END 2024-06-05 23:59 | disposition home or self-care (01) ==
PROVIDERS: Internal Medicine Medical Oncology; Absent Provider Family Medicine; PCP Family Medicine; Visit Provider Internal Medicine Medical Oncology
DX: C82.38 Follicular lymphoma grade IIIa, lymph nodes of multiple sites (principal); Z87.891 Personal history of nicotine dependence
CPT/HCPCS: 36415; 80053; 83615; 85025; 86705; 86706; 86709; 86803; 87340; 99214

== ENCOUNTER → 2024-05-17 10:00 | Outpatient (BNVA) | payer OTHER, SELFPAY | PROVIDERS: PCP Family Medicine; Visit Provider Internal Medicine | DX: R06.01 Orthopnea (principal); C82.30 Follicular lymphoma grade IIIa, unspecified site; I34.0 Nonrheumatic mitral (valve) insufficiency | CPT/HCPCS: 99213 ==

== ENCOUNTER → 2024-06-07 12:53 | Outpatient (BNVA) | payer OTHER, SELFPAY | PROVIDERS: PCP Family Medicine; Referring Provider Internal Medicine Medical Oncology; Visit Provider Student in an Organized Health Care Education/Training Program | DX: C82.30 Follicular lymphoma grade IIIa, unspecified site (principal) | CPT/HCPCS: 99204 ==

== ENCOUNTER 2024-06-11 06:22 | Day surgery (SDC) | payer OTHER, SELFPAY ==
[2024-06-11] VITALS (7 sets, daily range): BP systolic 82–127; BP diastolic 62–94; PULSE 84–100; RESP 7–20; TEMP 36.1–36.4; O2SAT 91–95; BMI 27.5
--- NOTE | 2024-06-11 06:27 | SC_ITS ---
WS: [id number] INTRAOPERATIVE TECHNIQUE: 2 Spot fluoroscopic images for intraoperative purposes. FLUOROSCOPY TIME: 12.0 seconds CLINICAL INFORMATION: port placement FINDINGS: LEFT Port-A-Cath with tip in the distal LEFT brachiocephalic vein/SVC junction. No pneumothorax. SC/C-arm [place] for CVA [id number] IMPRESSION: Images obtained for intraoperative purposes.
[2024-06-11] MEDS: sodium chloride 0.9% 1,000 ML 30 ML IV (06:47)
--- NOTE | 2024-06-11 08:46 | ANES.PREANE2 ---
Pre-Anesthetic Assessment Height/Weight: Height 1.78 m Weight 87.09 kg Temp Pulse Resp BP Pulse Ox O2 Del Method 97.3 F L 100 16 105/81 95 Room Air 06/11/24 06:32 06/11/24 06:32 06/11/24 06:32 06/11/24 06:32 06/11/24 06:32 06/11/24 06:32 Operation Date: 06/11/24 07:00 Proposed Procedures p Portacath Placement 58762, C82.30(Not Applicable) - Milton Westbrook MD Familial anesthetic complications: none Was Beta Terrance taken within 24 hours: N/A Was Clonidine taken within 24 hours: N/A Last intake: Intake Last Liquid Date 06/10/24 Last Liquid Time 20:30 Last Solid Date 06/10/24 Last Solid Time 17:00 Social No alcohol and No tobacco Exam alert, oriented x 3, clear to auscultation bilaterally and regular rate & rhythm Airway Submandibular: within normal limits Cervical ROM: within normal limits Mallampati: Class II Dentition: chipped Comments: Comments: Missing some CV/HEM Murmur (MR) and Peripheral Vascular Disease Lymphoma GI Gastroesophageal Reflux Disease Anesthetic Plan ASA status: 3 Anesthesia: MAC Medications/Allergies Home Medications Medication Instructions Recorded Confirmed Last Taken Type mesalamine 800 mg tablet,delayed 3,400 mg PO DAILY 09/01/21 06/08/24 06/10/24 History release omeprazole 40 mg capsule,delayed 40 mg PO DAILY 09/01/21 06/08/24 06/10/24 History release white petrolatum (Vaseline jelly, 1 applic topical DAILY 03/31/23 06/08/24 06/10/24 History topical) custom molded accomodative #1 ea 01/02/24 06/07/24 Unknown Rx orthotics triamcinolone acetonide 0.1 % 1 applic topical BID #454 grams 01/02/24 06/08/24 06/10/24 Rx topical cream imiquimod 5 % topical cream packet 1 applic topical PRN PRN scaly skin 02/23/24 06/08/24 Unknown History urea 40 % topical cream 1 applic topical TID #198 grams 05/14/24 06/08/24 06/10/24 Rx allopurinol 300 mg tablet 300 mg PO DAILY #30 tabs 05/17/24 06/08/24 06/10/24 Rx fluconazole 100 mg tablet 100 mg PO DAILY #90 tabs 05/17/24 06/08/24 06/10/24 Rx lorazepam 1 mg tablet 0.5 - 1 mg (0.5 - 1 x 1 mg) PO Q6H 05/17/24 06/08/24 Unknown Rx PRN severe nausea #30 tabs ondansetron HCl 4 mg tablet 4 mg PO Q6H PRN nausea and 05/17/24 06/08/24 Unknown Rx vomiting #30 tabs prochlorperazine maleate 10 mg 10 mg PO Q4H PRN mild nausea #30 05/17/24 06/08/24 Unknown Rx tablet (Compazine) tabs sulfamethoxazole 800 1 tab PO MOWEFR #24 tabs 05/17/24 06/08/24 Unknown Rx mg-trimethoprim 160 mg tablet (Bactrim DS) valacyclovir 500 mg tablet 500 mg PO BID #60 tabs 05/17/24 06/08/24 06/10/24 Rx Allergies Allergy/AdvReac Type Severity Reaction Status Date / Time No Known Allergies Allergy Verified 06/08/24 09:02 Current Medications Generic Name Dose Route Start Last Admin Trade Name Freq PRN Reason Stop Dose Admin Sodium Chloride 1,000 mls @ 30 mls/hr 06/11/24 06:30 06/11/24 06:47 Sodium Chloride 0.9% IV 06/12/24 06:29 30 mls/hr .Q24H SARAH Administration PFSH Anesthesia Medical History Avascular necrosis of bones of both hips History of nonmelanoma skin cancer Follicular lymphoma grade 3a Ulcerative colitis Surgical History History of bone marrow biopsy (05/04/18) History of lymph node biopsy (03/29/18) Right inguinal lymph node biopsy History of facial fracture repair Bilateral femur fractures History of shoulder surgery History of umbilical hernia repair Family History Father Cancer Lung Mother Dementia Other Clotting disorder Hypertension Denies family history of Diabetes CAD (coronary artery disease) Hyperlipidemia Psychiatric illness Chronic kidney disease (CKD) Suicide Anesthesia complication Bleeding disorder Lung disease Stroke Social History Smoking and tobacco/nicotine status: former use of tobacco/nicotine Quit status (tobacco/nicotine): has quit using Year quit tobacco: 1984 Former quit date comment: approx 35 years Second hand smoke exposure: Yes Alcohol intake: current Alcohol intake frequency: holidays/special occasions only Data Anesthesia Cardiac Studies: Echocardiogram 11/26/22
[2024-06-11] MEDS: ceFAZolin 2,000 mg SDV 2000 MG IVP (09:15)
[2024-06-11] MEDS: BUPivacaine 0.25% INJ 30 mL INJECTION (09:37)
[2024-06-11] MEDS: heparin, porcine 1,000 unit/mL INJ 10 mL 10000 UNIT IRRIGATION (09:37)
[2024-06-11] MEDS: lidocaine-epi 1% PF 1:200,000 30 mL SDV INJECTION (09:37)
--- NOTE | 2024-06-11 10:04 | P.OP_ITS ---
Operative Report Date of procedure: June 11, 2024 Pre-op diagnosis: lymphoma Post-op diagnosis: same Post-op findings: Left IJ port placed. Tip confirmed at atriocaval junction using intraoperative fluoroscopy. Procedure done: Port placement (left internal jugular vein accessed) Implants: Port-a-cath Specimens removed/disposition: NA Pathology: none sent Surgeon: Milton Westbrook MD Applications Engineer Manufacturing: [employer] Anesthesia: MAC Estimated blood loss (mL): 5 Complications: None Findings: Left IJ port placed. Tip confirmed at atriocaval junction using intraoperative fluoroscopy. Condition: stable Disposition: same day Brief History: 73yo male who presented for port placement for chemotherapy administration. D iscussed risks and benefits and patient agreed to proceed. Procedure: Patient was brought into the operating room and a timeout was carried out. Procedure was done under MAC. Patient was placed supine with the arms tucked and in Trendelenburg. Patient was prepped and draped in the usual sterile fashion. Using ultrasound guidance the left internal jugular vein was accessed. A guidewire was then placed down to the atriocaval junction using fluoroscopy. The finder needle was removed and the guidewire was secured. I then turned my attention to creating a pocket over the left chest. Make sure to locally infiltrated using plain lidocaine and bupivacaine at the site of the pocket and throughout the tunnel site. I confirmed adequate hemostasis at the pocket. I then proceeded to place the port that was already preassembled and flushed with heparinized saline and the chest pocket. I tunneled the catheter from the chest to the neck at the site where I accessed the internal jugular vein. I measured and adjusted the length of the catheter so it would reach the atrial caval junction. At this point, I used a dilator to dilate the tract into the internal jugular vein using fluoroscopy. I removed the guidewire and proceeded to thread the central venous catheter through the introducer. In the process, I removed the sheath as a completely pushed the catheter into the internal jugular vein. I then confirmed adequate placement of the catheter by performing intraoperative interpretation of fluoroscopy. The tip of the catheter was confirmed to be placed in the atriocaval junction. There were no kinks noted throughout the trajectory of the catheter. I then proceeded to test the port and was satisfied with its functionality. I proceeded to flushed the catheter without any issues. I then hep-locked the port. Skin was closed using deep dermal 3-0 Vicryl, subcuticular 4-0 Monocryl, and Dermabond. Patient was then transferred to PACU without any complications.
--- NOTE | 2024-06-11 10:08 | W.PM.OPSUD ---
Surgery/Procedure H&P Update DATE OF PROCEDURE: June 11, 2024 DATE H&P PERFORMED: 06/07/23 H&P UPDATE INFORMATION: I have reviewed H&P completed within last 30 days, I have examined patient prior to procedure and No changes to prior documentation PLANNED PROCEDURE: Operation Date: 06/11/24 07:00 Proposed Procedures p Portacath Placement 26560, C82.30(Not Applicable) - Milton Westbrook MD
--- NOTE | 2024-06-11 12:15 | ANE.PACU2 ---
Inpatient post-anesthesia follow up: Airway intact: Yes Vital signs: Temperature 97.5 F Pulse Rate 84 Respiratory Rate 18 Blood Pressure 127/94 Pulse Oximetry 94 Oxygen Delivery Me thod Room Air Oxygen Flow Rate 8 Fraction of Inspir ed Oxygen Hydration adequate: Yes Nausea and vomiting: No Pain level: 1 Mental status: Baseline
== END 2024-06-11 11:19 | disposition home or self-care (01) ==
PROVIDERS: PCP Family Medicine; Visit Provider Student in an Organized Health Care Education/Training Program
PROC: (CPT 36561; principal; 2024-06-11 07:00)
DX: C82.30 Follicular lymphoma grade IIIa, unspecified site (principal); K21.9 Gastro-esophageal reflux disease without esophagitis; Z87.891 Personal history of nicotine dependence
CPT/HCPCS: 36561; 77001; C1788; J0690; J1644; J2250; J2704; J3010; J3490; J7030

== ENCOUNTER 2024-06-20 07:30 | Oncology outpatient (recurring) (ONCR) | payer OTHER, SELFPAY ==
--- NOTE | 2024-06-13 12:00 | USCV_ITS ---
Ricky Lobo Age: 73 Gender: M : 1950 Exam Date: 06/13/2024 11:43 Ordering Phys: David Cleaning M.D ([email or web address]) Technologist: CT Exam Location: [facility] [place] Indication: sob BP: 119 / 82 HR: 70 Rhythm: Sinus Technical Quality: Adequate MEASUREMENTS (Male / Female) Normal Values 2D ECHO LVOT Diameter 2.1 cm LV Ejection Fraction MOD 4C 54.5 % LV Ejection Fraction MOD 2C 68.5 % LV Ejection Fraction 2C AL 69.8 % LA Diameter 4.3 cm RA Systolic Volume 4C AL 39.3 ml RA Systolic Volume 4C MOD 38.4 ml LA Sys Volume AL 63.5 cm cubed LA Sys Volume Index AL 30.5 cm cubed/m squared Aorta at Sinotubular Diameter 3.0 cm M-MODE LA Ao Ratio MM 1.4 AV Cusp Separation MM 2.3 cm DOPPLER AV Peak Velocity 102.0 cm/s LVOT Peak Velocity 85.0 cm/s AV Area Cont Eq vti 2.5 cm squared AV Area Cont Eq pk 2.8 cm squared MV Peak Velocity 66.0 cm/s MV Area PHT 3.5 cm squared Mitral E to A Ratio 1.0 TR Peak Velocity 160.0 cm/s TR Peak Gradient 10.2 mmHg TV Peak E Velocity 72.0 cm/s PV Peak Velocity 109.0 cm/s FINDINGS Left Ventricle Left ventricle is normal size. LV systolic function is normal with EF 55 to 60%. No regional wall abnormalities seen. Right Ventricle Normal in size and function Right Atrium Normal in size Left Atrium Normal in size Mitral Valve Structurally normal mitral valve. Trace mitral regurgitation. Aortic Valve Structurally normal aortic valve. Mild aortic regurgitation. Tricuspid Valve Insufficient TR jet to evaluate RVSP. Pulmonic Valve Not well visualized Pericardium Normal Aorta Normal in size IVC Appears to be normal CONCLUSIONS LV systolic function is normal with EF of 55-60% Trace mitral regurgitation Mild aortic regurgitation David Cleaning MD (Electronically Signed) Final Date: 15 June 2024 11:54 S
[2024-06-20] VITALS (14 sets, daily range): BP systolic 112–139; BP diastolic 65–86; PULSE 64–88; RESP 16–17; TEMP 35.6–36.8; O2SAT 93–98; BMI 27.3
[2024-06-20 07:45] LABS: Basophils # 0.1 10^3/uL (0.0-0.1); Eosinophils # 0.4 10^3/uL (0.0-0.8); Eosinophils % 7.8 %; Hematocrit 43.3 % (37-53); Lymphocytes # 1.2 10^3/uL (0.8-4.8); Lymphocytes % 23.1 %; Mean Corpuscular HGB Conc 33.9 g/dL (30-55); Mean Corpuscular Volume 97.1 fl (82-101); Mean Platelet Volume 8.7 fL (7.4-10.4); Monocytes # 0.8 10^3/uL (0.2-0.9); Monocytes % 16.1 %; Neutrophils # 2.66 10^3/uL (1.8-7.7); Neutrophils % 51.4 %; Nucleated Red Blood Cells % 0 %; Platelet Count 254 10^3/cmm (157-399); Red Blood Count 4.46 10^6/uL (3.85-5.65); Red Cell Distribution Width 13.2 % (12.1-15.1); White Blood Count 5.16 10^3/uL (3.29-11.43)
[2024-06-20 08:04] LABS: Alanine Aminotransferase 10 U/L (0-41); Alkaline Phosphatase 99 U/L (40-130); Anion Gap 14.2 (5-19); Aspartate Amino Transferase 15 U/L (0-40); Blood Urea Nitrogen 17 mg/dL (8-23); Calcium 9.2 mg/dL (8.5-10.5); Carbon Dioxide 25 mmol/L (22-29); Chloride 102 mmol/L (98-107); Creatinine Clr Calc Pharmacy 75.1855; Globulin 2.6 g/dL (1.3-4.6); Glucose 121 mg/dL (65-115); Lactate Dehydrogenase 185 U/L (135-225); Osmolality Calculated 287 mOsm/kg (285-295); Potassium 4.2 mmol/L (3.5-5.1); Sodium 137 mmol/L (136-145); Total Bilirubin 0.5 mg/dL (0.15-1.2); Total Protein 6.6 g/dL (6.6-8.7)
[2024-06-20 09:29] LABS: Bilirubin Urine Negative (Negative); Blood Urine Negative (Negative); Glucose Urine UA Negative (Normal); Ketones Urine Negative (Negative); Leukocyte Esterase Urine Negative (Negative); Nitrate Urine Negative (Negative); Protein Urine Negative (Negative); Specific Gravity, Urine 1.019 (1.005-1.030); Urine Appearance Clear (CLEAR); Urine Color Yellow (Yellow); pH Urine 5.5 (5-7)
[2024-06-20 09:34] LABS: Add Urine Microscopic? YES; Bacteria Urine None Seen /hpf; Hyaline Casts Urine 0-4 /lpf; RBC Urine 0-2 /hpf (0-2); Squamous Epithelial Cell Urine 0-5 /hpf (0-5); WBC Urine 0-5 /hpf (0-5)
[2024-06-20] MEDS: acetaminophen 325 mg Tablet 650 MG PO (10:06)
[2024-06-20] MEDS: sodium chloride 0.9% 250 ML 75 ML IV (10:08)
[2024-06-20] MEDS: dexamethasone 4 mg/mL INJ 5 mL 12 MG IVP (10:09)
[2024-06-20] MEDS: diphenhydrAMINE 50 mg/mL SDV 1mL 25 MG IVP ×2 (10:11→12:46)
[2024-06-20] MEDS: ondansetron 2 mg/ML SDV 2 mL 8 MG IVP (10:12)
[2024-06-20] MEDS: RITUXIMAB PVVR IV (10:35)
[2024-06-20] MEDS: SODIUM CHLORIDE 0.9% IV ×2 (10:35→15:56)
[2024-06-20] MEDS: sodium chloride 0.9% 1,000 ML 250 ML IV (12:47)
[2024-06-20] MEDS: methylPREDNISolone sod succ 40 mg/mL INJ IVP (12:53)
[2024-06-20] MEDS: BENDAMUSTINE IV (15:56)
== END 2024-06-20 23:59 | disposition home or self-care (01) ==
PROVIDERS: Nurse Practitioner Family; Absent Provider Family Medicine; PCP Family Medicine; Visit Provider Internal Medicine
DX: Z51.11 Encounter for antineoplastic chemotherapy (principal); Z53.9 Procedure and treatment not carried out, unspecified reason; Z51.12 Encounter for antineoplastic immunotherapy; C82.30 Follicular lymphoma grade IIIa, unspecified site; R39.89 Other symptoms and signs involving the genitourinary system; Z79.899 Other long term (current) drug therapy; Z79.52 Long term (current) use of systemic steroids; Z87.891 Personal history of nicotine dependence
CPT/HCPCS: 80053; 81001; 83615; 85025; 93306; 96375; 96376; 96413; 96415; 96417; 99215; J1100; J1200; J2405; J2919; J7030; J7040; J7050; J9034; Q5119

== ENCOUNTER → 2024-06-25 08:33 | Outpatient (BNVA) | payer OTHER, SELFPAY | PROVIDERS: PCP Family Medicine; Visit Provider Student in an Organized Health Care Education/Training Program | DX: Z95.828 Presence of other vascular implants and grafts (principal) | CPT/HCPCS: 99213 ==

== ENCOUNTER 2024-07-03 11:15 | Oncology outpatient (recurring) (ONCR) | payer OTHER, SELFPAY ==
[2024-06-21] MEDS: dexamethasone 4 mg/mL INJ 5 mL 12 MG IVP (11:25)
[2024-06-21] MEDS: sodium chloride 0.9% 250 ML 75 ML IV (11:25)
[2024-06-21] MEDS: palonosetron 0.25 mg/5 mL SDV IVP (11:27)
[2024-06-21] MEDS: SODIUM CHLORIDE 0.9% IV (11:51)
[2024-06-21] MEDS: BENDAMUSTINE IV (11:51)
[2024-06-21 12:10] VITALS: BP 124/67; PULSE 76; RESP 18; TEMP 36.6; O2SAT 98
[2024-06-27 09:50] LABS: Basophils # 0.1 10^3/uL (0.0-0.1); Basophils % 0.8 %; Eosinophils # 0.6 10^3/uL (0.0-0.8); Eosinophils % 8.8 %; Hematocrit 42.8 % (37-53); Lymphocytes # 0.3 10^3/uL (0.8-4.8); Lymphocytes % 4.2 %; Mean Corpuscular HGB Conc 33.2 g/dL (30-55); Mean Corpuscular Hemoglobin 32.9 pg (27-33); Mean Corpuscular Volume 99.3 fl (82-101); Monocytes # 1.1 10^3/uL (0.2-0.9); Monocytes % 16.9 %; Neutrophils # 4.23 10^3/uL (1.8-7.7); Neutrophils % 67.9 %; Nucleated Red Blood Cells % 0 %; Platelet Count 266 10^3/cmm (157-399); Red Blood Count 4.31 10^6/uL (3.85-5.65); Red Cell Distribution Width 13.2 % (12.1-15.1); White Blood Count 6.23 10^3/uL (3.29-11.43)
[2024-06-27 10:08] LABS: Alanine Aminotransferase 10 U/L (0-41); Alkaline Phosphatase 100 U/L (40-130); Anion Gap 15.6 (5-19); Aspartate Amino Transferase 13 U/L (0-40); Blood Urea Nitrogen 13 mg/dL (8-23); Calcium 9.2 mg/dL (8.5-10.5); Carbon Dioxide 25 mmol/L (22-29); Chloride 103 mmol/L (98-107); Creatinine Clr Calc Pharmacy 75.1855; Globulin 2.9 g/dL (1.3-4.6); Glucose 89 mg/dL (65-115); Lactate Dehydrogenase 181 U/L (135-225); Osmolality Calculated 288 mOsm/kg (285-295); Potassium 4.6 mmol/L (3.5-5.1); Sodium 139 mmol/L (136-145); Total Bilirubin 0.5 mg/dL (0.15-1.2); Total Protein 6.9 g/dL (6.6-8.7)
[2024-07-03 11:03] LABS: Basophils # 0.1 10^3/uL (0.0-0.1); Basophils % 0.9 %; Eosinophils # 0.4 10^3/uL (0.0-0.8); Eosinophils % 6.8 %; Hematocrit 41.9 % (37-53); Lymphocytes # 0.6 10^3/uL (0.8-4.8); Lymphocytes % 10.8 %; Mean Corpuscular HGB Conc 33.7 g/dL (30-55); Mean Corpuscular Hemoglobin 32.9 pg (27-33); Mean Corpuscular Volume 97.9 fl (82-101); Mean Platelet Volume 8.6 fL (7.4-10.4); Monocytes # 1.4 10^3/uL (0.2-0.9); Monocytes % 24.7 %; Neutrophils # 3.11 10^3/uL (1.8-7.7); Neutrophils % 56.1 %; Nucleated Red Blood Cells % 0 %; Platelet Count 307 10^3/cmm (157-399); Red Blood Count 4.28 10^6/uL (3.85-5.65); White Blood Count 5.55 10^3/uL (3.29-11.43)
[2024-07-03 11:34] LABS: Alanine Aminotransferase 11 U/L (0-41); Albumin Level 3.9 g/dL (3.5-5.2); Alkaline Phosphatase 110 U/L (40-130); Anion Gap 17.3 (5-19); Aspartate Amino Transferase 19 U/L (0-40); Blood Urea Nitrogen 9 mg/dL (8-23); Calcium 8.9 mg/dL (8.5-10.5); Carbon Dioxide 23 mmol/L (22-29); Chloride 102 mmol/L (98-107); Creatinine Clr Calc Pharmacy 75.1855; Globulin 2.5 g/dL (1.3-4.6); Glucose 96 mg/dL (65-115); Lactate Dehydrogenase 244 U/L (135-225); Osmolality Calculated 285 mOsm/kg (285-295); Potassium 4.3 mmol/L (3.5-5.1); Sodium 138 mmol/L (136-145); Total Bilirubin 0.5 mg/dL (0.15-1.2); Total Protein 6.4 g/dL (6.6-8.7)
[2024-07-03 14:03] LABS: Uric Acid 4.4 mg/dL (3.4-7.0)
== END 2024-07-06 23:59 | disposition home or self-care (01) ==
PROVIDERS: Nurse Practitioner Family; Absent Provider Family Medicine; PCP Family Medicine; Visit Provider Internal Medicine Medical Oncology
DX: Z53.9 Procedure and treatment not carried out, unspecified reason (principal); C82.30 Follicular lymphoma grade IIIa, unspecified site
CPT/HCPCS: 36591; 80053; 83615; 84550; 85025; 96375; 96409; 99213; J1100; J2469; J7050; J9034

== ENCOUNTER 2024-07-18 08:18 | Oncology outpatient (recurring) (ONCR) | payer OTHER, SELFPAY ==
[2024-07-18] MEDS: alteplase 1 mg/mL SDV 2 mL 2 MG INTRACATH (08:43)
[2024-07-18 08:46] LABS: Basophils # 0.1 10^3/uL (0.0-0.1); Basophils % 1.4 %; Eosinophils # 0.3 10^3/uL (0.0-0.8); Eosinophils % 9.8 %; Hematocrit 42.4 % (37-53); Lymphocytes # 0.8 10^3/uL (0.8-4.8); Mean Corpuscular HGB Conc 34.2 g/dL (30-55); Mean Corpuscular Hemoglobin 33.7 pg (27-33); Mean Corpuscular Volume 98.6 fl (82-101); Mean Platelet Volume 8.8 fL (7.4-10.4); Monocytes # 0.8 10^3/uL (0.2-0.9); Neutrophils # 1.46 10^3/uL (1.8-7.7); Neutrophils % 42.2 %; Nucleated Red Blood Cells % 0 %; Platelet Count 182 10^3/cmm (157-399); Red Cell Distribution Width 14.6 % (12.1-15.1); White Blood Count 3.46 10^3/uL (3.29-11.43)
[2024-07-18 09:02] LABS: Alanine Aminotransferase 14 U/L (0-41); Alkaline Phosphatase 114 U/L (40-130); Anion Gap 17.9 (5-19); Aspartate Amino Transferase 19 U/L (0-40); Blood Urea Nitrogen 13 mg/dL (8-23); Calcium 8.6 mg/dL (8.5-10.5); Carbon Dioxide 21 mmol/L (22-29); Chloride 103 mmol/L (98-107); Creatinine Clr Calc Pharmacy 93.5472; Globulin 2.6 g/dL (1.3-4.6); Glucose 90 mg/dL (65-115); Lactate Dehydrogenase 169 U/L (135-225); Osmolality Calculated 286 mOsm/kg (285-295); Potassium 3.9 mmol/L (3.5-5.1); Sodium 138 mmol/L (136-145); Total Bilirubin 0.3 mg/dL (0.15-1.2); Total Protein 6.6 g/dL (6.6-8.7)
[2024-07-18] MEDS: sodium chloride 0.9% 250 ML 75 ML IV (10:29)
[2024-07-18] MEDS: acetaminophen 325 mg Tablet 650 MG PO (10:29)
[2024-07-18] MEDS: dexamethasone 4 mg/mL INJ 5 mL 12 MG IVP (10:35)
[2024-07-18] MEDS: diphenhydrAMINE 50 mg/mL SDV 1mL 25 MG IVP (10:37)
[2024-07-18] MEDS: ondansetron 2 mg/ML SDV 2 mL 8 MG IVP (10:41)
[2024-07-18 11:23] VITALS: BP 129/80; PULSE 57; RESP 18; TEMP 36.6; O2SAT 97
[2024-07-18] MEDS: BENDAMUSTINE IV (14:09)
[2024-07-18] MEDS: SODIUM CHLORIDE 0.9% IV (14:09)
[2024-07-18 14:45] VITALS: BP 130/75; PULSE 66; RESP 18; TEMP 36.6; O2SAT 97
== END 2024-07-18 23:59 | disposition home or self-care (01) ==
PROVIDERS: Nurse Practitioner Family; Absent Provider Family Medicine; PCP Family Medicine; Visit Provider Internal Medicine Medical Oncology
DX: Z51.11 Encounter for antineoplastic chemotherapy (principal); Z51.12 Encounter for antineoplastic immunotherapy; C82.38 Follicular lymphoma grade IIIa, lymph nodes of multiple sites; Z87.891 Personal history of nicotine dependence; Z79.899 Other long term (current) drug therapy
CPT/HCPCS: 36415; 80053; 83615; 85025; 96375; 96413; 96415; 96417; 99214; J1100; J1200; J2405; J2997; J7040; J7050; J9034; Q5119

== ENCOUNTER 2024-08-02 11:00 | Oncology outpatient (recurring) (ONCR) | payer OTHER, SELFPAY ==
[2024-07-19] MEDS: sodium chloride 0.9% 250 ML 75 ML IV (10:59)
[2024-07-19] MEDS: palonosetron 0.25 mg/5 mL SDV IVP (11:01)
[2024-07-19] MEDS: dexamethasone 4 mg/mL INJ 5 mL 12 MG IVP (11:05)
[2024-07-19] MEDS: BENDAMUSTINE IV (11:31)
[2024-07-19] MEDS: SODIUM CHLORIDE 0.9% IV (11:31)
[2024-07-19 11:45] VITALS: BP 124/80; PULSE 64; RESP 17; TEMP 36.6; O2SAT 98
[2024-07-26 11:44] LABS: Basophils % 0.8 %; Eosinophils # 0.4 10^3/uL (0.0-0.8); Hematocrit 38.6 % (37-53); Lymphocytes # 0.2 10^3/uL (0.8-4.8); Lymphocytes % 2.8 %; Mean Corpuscular HGB Conc 34.5 g/dL (30-55); Mean Corpuscular Hemoglobin 34.8 pg (27-33); Mean Platelet Volume 9.3 fL (7.4-10.4); Monocytes # 0.9 10^3/uL (0.2-0.9); Neutrophils # 3.74 10^3/uL (1.8-7.7); Neutrophils % 70.7 %; Nucleated Red Blood Cells % 0 %; Platelet Count 225 10^3/cmm (157-399); Red Blood Count 3.82 10^6/uL (3.85-5.65); White Blood Count 5.29 10^3/uL (3.29-11.43)
[2024-07-26 12:02] LABS: Alanine Aminotransferase 17 U/L (0-41); Albumin Level 3.8 g/dL (3.5-5.2); Alkaline Phosphatase 96 U/L (40-130); Aspartate Amino Transferase 19 U/L (0-40); Blood Urea Nitrogen 12 mg/dL (8-23); Calcium 8.9 mg/dL (8.5-10.5); Carbon Dioxide 25 mmol/L (22-29); Chloride 105 mmol/L (98-107); Globulin 2.6 g/dL (1.3-4.6); Glucose 94 mg/dL (65-115); Osmolality Calculated 296 mOsm/kg (285-295); Sodium 143 mmol/L (136-145); Total Bilirubin 0.5 mg/dL (0.15-1.2); Total Protein 6.4 g/dL (6.6-8.7)
[2024-07-26 12:15] LABS: Anion Gap 17.7 (5-19); Lactate Dehydrogenase 200 U/L (135-225); Potassium 4.7 mmol/L (3.5-5.1)
[2024-08-02 10:39] LABS: Basophils % 1.3 %; Eosinophils # 0.2 10^3/uL (0.0-0.8); Eosinophils % 7.7 %; Hematocrit 39.5 % (37-53); Lymphocytes # 0.5 10^3/uL (0.8-4.8); Lymphocytes % 16.4 %; Mean Corpuscular HGB Conc 33.9 g/dL (30-55); Mean Corpuscular Hemoglobin 33.8 pg (27-33); Mean Corpuscular Volume 99.5 fl (82-101); Mean Platelet Volume 8.9 fL (7.4-10.4); Monocytes # 0.9 10^3/uL (0.2-0.9); Monocytes % 31.2 %; Neutrophils # 1.28 10^3/uL (1.8-7.7); Neutrophils % 43.1 %; Nucleated Red Blood Cells % 0 %; Platelet Count 290 10^3/cmm (157-399); Red Blood Count 3.97 10^6/uL (3.85-5.65); Red Cell Distribution Width 15.8 % (12.1-15.1); White Blood Count 2.98 10^3/uL (3.29-11.43)
[2024-08-02 10:51] LABS: Alanine Aminotransferase 19 U/L (0-41); Alkaline Phosphatase 95 U/L (40-130); Aspartate Amino Transferase 25 U/L (0-40); Blood Urea Nitrogen 13 mg/dL (8-23); Calcium 8.9 mg/dL (8.5-10.5); Carbon Dioxide 24 mmol/L (22-29); Chloride 107 mmol/L (98-107); Globulin 2.6 g/dL (1.3-4.6); Glucose 110 mg/dL (65-115); Osmolality Calculated 295 mOsm/kg (285-295); Sodium 142 mmol/L (136-145); Total Bilirubin 0.3 mg/dL (0.15-1.2); Total Protein 6.6 g/dL (6.6-8.7)
[2024-08-02 10:58] LABS: Anion Gap 15.4 (5-19); Lactate Dehydrogenase 216 U/L (135-225); Potassium 4.4 mmol/L (3.5-5.1)
== END 2024-08-03 23:59 | disposition home or self-care (01) ==
PROVIDERS: Nurse Practitioner Family; Absent Provider Family Medicine; PCP Family Medicine; Visit Provider Internal Medicine Medical Oncology
DX: Z53.9 Procedure and treatment not carried out, unspecified reason (principal); C82.30 Follicular lymphoma grade IIIa, unspecified site
CPT/HCPCS: 36591; 80053; 83615; 85025; 96375; 96413; J1100; J2469; J7050; J9034

== ENCOUNTER 2024-08-15 08:15 | Oncology outpatient (recurring) (ONCR) | payer OTHER, SELFPAY ==
[2024-08-08 09:43] LABS: Basophils # 0.1 10^3/uL (0.0-0.1); Basophils % 1.8 %; Eosinophils # 0.3 10^3/uL (0.0-0.8); Eosinophils % 10.3 %; Lymphocytes # 0.6 10^3/uL (0.8-4.8); Lymphocytes % 20.5 %; Mean Corpuscular HGB Conc 33.9 g/dL (30-55); Mean Corpuscular Hemoglobin 34.2 pg (27-33); Mean Platelet Volume 8.8 fL (7.4-10.4); Monocytes % 36.6 %; Neutrophils % 30.1 %; Nucleated Red Blood Cells % 0 %; Platelet Count 229 10^3/cmm (157-399); Red Blood Count 4.06 10^6/uL (3.85-5.65); Red Cell Distribution Width 15.5 % (12.1-15.1); White Blood Count 2.73 10^3/uL (3.29-11.43)
[2024-08-08 10:00] LABS: Alanine Aminotransferase 14 U/L (0-41); Albumin Level 4.1 g/dL (3.5-5.2); Alkaline Phosphatase 96 U/L (40-130); Anion Gap 15.2 (5-19); Aspartate Amino Transferase 17 U/L (0-40); Blood Urea Nitrogen 12 mg/dL (8-23); Calcium 8.8 mg/dL (8.5-10.5); Carbon Dioxide 21 mmol/L (22-29); Chloride 107 mmol/L (98-107); Globulin 2.3 g/dL (1.3-4.6); Glucose 75 mg/dL (65-115); Lactate Dehydrogenase 172 U/L (135-225); Osmolality Calculated 286 mOsm/kg (285-295); Potassium 4.2 mmol/L (3.5-5.1); Sodium 139 mmol/L (136-145); Total Bilirubin 0.3 mg/dL (0.15-1.2); Total Protein 6.4 g/dL (6.6-8.7)
[2024-08-08 10:13] LABS: Neutrophils # 0.82 10^3/uL (1.8-7.7)
[2024-08-10 14:23] LABS: Testosterone Total 620.4 ng/dL (193-740)
[2024-08-15 08:38] LABS: Basophils # 0.1 10^3/uL (0.0-0.1); Basophils % 1.7 %; Eosinophils # 0.2 10^3/uL (0.0-0.8); Eosinophils % 6.9 %; Hematocrit 39.5 % (37-53); Lymphocytes # 0.6 10^3/uL (0.8-4.8); Lymphocytes % 18.5 %; Mean Corpuscular HGB Conc 33.9 g/dL (30-55); Mean Corpuscular Hemoglobin 34.2 pg (27-33); Mean Corpuscular Volume 100.8 fl (82-101); Mean Platelet Volume 9.2 fL (7.4-10.4); Monocytes # 0.9 10^3/uL (0.2-0.9); Monocytes % 29.7 %; Neutrophils % 42.9 %; Nucleated Red Blood Cells % 0 %; Platelet Count 185 10^3/cmm (157-399); Red Blood Count 3.92 10^6/uL (3.85-5.65); Red Cell Distribution Width 15.5 % (12.1-15.1); White Blood Count 3.03 10^3/uL (3.29-11.43)
[2024-08-15 09:36] VITALS: BP 130/87; PULSE 56; RESP 18; TEMP 36.1; O2SAT 98
[2024-08-15 09:44] LABS: Alanine Aminotransferase 16 U/L (0-41); Albumin Level 3.9 g/dL (3.5-5.2); Alkaline Phosphatase 93 U/L (40-130); Anion Gap 13.9 (5-19); Aspartate Amino Transferase 18 U/L (0-40); Blood Urea Nitrogen 9 mg/dL (8-23); Calcium 8.9 mg/dL (8.5-10.5); Carbon Dioxide 24 mmol/L (22-29); Chloride 104 mmol/L (98-107); Creatinine Clr Calc Pharmacy 94.2669; Globulin 2.5 g/dL (1.3-4.6); Glucose 85 mg/dL (65-115); Osmolality Calculated 284 mOsm/kg (285-295); Potassium 3.9 mmol/L (3.5-5.1); Sodium 138 mmol/L (136-145); Total Bilirubin 0.3 mg/dL (0.15-1.2); Total Protein 6.4 g/dL (6.6-8.7)
[2024-08-15] MEDS: acetaminophen 325 mg Tablet 650 MG PO (10:20)
[2024-08-15] MEDS: sodium chloride 0.9% 250 ML 75 ML IV (10:20)
[2024-08-15] MEDS: ondansetron 2 mg/ML SDV 2 mL 8 MG IVP (10:24)
[2024-08-15] MEDS: diphenhydrAMINE 50 mg/mL SDV 1mL 25 MG IVP (10:27)
[2024-08-15] MEDS: dexamethasone 4 mg/mL INJ 5 mL 12 MG IVP (10:30)
[2024-08-15] MEDS: SODIUM CHLORIDE 0.9% IV ×2 (10:59→13:54)
[2024-08-15] MEDS: RITUXIMAB PVVR IV (10:59)
[2024-08-15 11:00] VITALS: BP 144/89; PULSE 54; RESP 18; TEMP 36.1; O2SAT 98
[2024-08-15 11:30] VITALS: BP 151/88; PULSE 84; RESP 16; TEMP 36.1; O2SAT 98
[2024-08-15 12:00] VITALS: BP 147/86; PULSE 61; RESP 17; TEMP 36.1; O2SAT 98
[2024-08-15 12:30] VITALS: BP 147/88; PULSE 61; RESP 16; TEMP 36.1; O2SAT 98
[2024-08-15] MEDS: BENDAMUSTINE IV (13:54)
[2024-08-15 14:03] VITALS: BP 157/76; PULSE 76; RESP 18; TEMP 36.1; O2SAT 97
== END 2024-08-15 23:59 | disposition home or self-care (01) ==
PROVIDERS: Internal Medicine; Nurse Practitioner Family; Urology; Absent Provider Family Medicine; PCP Family Medicine; Visit Provider Internal Medicine Medical Oncology
DX: Z53.9 Procedure and treatment not carried out, unspecified reason; Z51.11 Encounter for antineoplastic chemotherapy; C82.38 Follicular lymphoma grade IIIa, lymph nodes of multiple sites; Z79.52 Long term (current) use of systemic steroids; Z87.891 Personal history of nicotine dependence; Z79.899 Other long term (current) drug therapy; D70.1 Agranulocytosis secondary to cancer chemotherapy; T45.1X5A Adverse effect of antineoplastic and immunosuppressive drugs, initial encounter
CPT/HCPCS: 36591; 80053; 83615; 84153; 84403; 85025; 96368; 96375; 96413; 96415; 99213; J1100; J1200; J2405; J7040; J7050; J9034; Q5119

== ENCOUNTER → 2024-08-21 11:07 | Outpatient (BNVA) | payer OTHER, SELFPAY | PROVIDERS: PCP Family Medicine; Visit Provider Dermatology | DX: L24.9 Irritant contact dermatitis, unspecified cause (principal); L57.0 Actinic keratosis | CPT/HCPCS: 17000; 99213 ==

== ENCOUNTER 2024-08-22 13:45 | Oncology outpatient (recurring) (ONCR) | payer OTHER, SELFPAY ==
[2024-08-16] MEDS: dexamethasone 4 mg/mL INJ 5 mL 12 MG IVP (09:32)
[2024-08-16] MEDS: palonosetron 0.25 mg/5 mL SDV IVP (09:32)
[2024-08-16] MEDS: sodium chloride 0.9% 250 ML 75 ML IV (09:32)
[2024-08-16] MEDS: BENDAMUSTINE IV (09:59)
[2024-08-16] MEDS: SODIUM CHLORIDE 0.9% IV (09:59)
[2024-08-16 10:33] VITALS: BP 118/74; PULSE 73; RESP 18; TEMP 36.6; O2SAT 97
[2024-08-22 13:23] LABS: Basophils % 1.1 %; Eosinophils # 0.2 10^3/uL (0.0-0.8); Eosinophils % 5.7 %; Hematocrit 37.8 % (37-53); Lymphocytes # 0.1 10^3/uL (0.8-4.8); Lymphocytes % 3.4 %; Mean Corpuscular HGB Conc 34.7 g/dL (30-55); Mean Corpuscular Hemoglobin 35.8 pg (27-33); Mean Corpuscular Volume 103.3 fl (82-101); Mean Platelet Volume 9.1 fL (7.4-10.4); Monocytes # 0.5 10^3/uL (0.2-0.9); Monocytes % 19.7 %; Neutrophils # 1.81 10^3/uL (1.8-7.7); Neutrophils % 68.6 %; Nucleated Red Blood Cells % 0 %; Platelet Count 231 10^3/cmm (157-399); Red Blood Count 3.66 10^6/uL (3.85-5.65); Red Cell Distribution Width 15.9 % (12.1-15.1); White Blood Count 2.64 10^3/uL (3.29-11.43)
[2024-08-22 13:41] LABS: Alanine Aminotransferase 12 U/L (0-41); Albumin Level 3.8 g/dL (3.5-5.2); Alkaline Phosphatase 90 U/L (40-130); Anion Gap 14.7 (5-19); Aspartate Amino Transferase 15 U/L (0-40); Blood Urea Nitrogen 13 mg/dL (8-23); Calcium 8.7 mg/dL (8.5-10.5); Carbon Dioxide 26 mmol/L (22-29); Chloride 106 mmol/L (98-107); Globulin 2.2 g/dL (1.3-4.6); Glucose 138 mg/dL (65-115); Lactate Dehydrogenase 168 U/L (135-225); Osmolality Calculated 298 mOsm/kg (285-295); Potassium 3.7 mmol/L (3.5-5.1); Sodium 143 mmol/L (136-145); Total Bilirubin 0.3 mg/dL (0.15-1.2); Uric Acid 7.7 mg/dL (3.4-7.0)
== END 2024-09-03 23:59 | disposition home or self-care (01) ==
PROVIDERS: Internal Medicine; Nurse Practitioner Family; Absent Provider Family Medicine; PCP Family Medicine; Visit Provider Internal Medicine Medical Oncology
DX: Z53.9 Procedure and treatment not carried out, unspecified reason (principal); C82.31 Follicular lymphoma grade IIIa, lymph nodes of head, face, and neck; C82.35 Follicular lymphoma grade IIIa, lymph nodes of inguinal region and lower limb; R82.90 Unspecified abnormal findings in urine; K51.90 Ulcerative colitis, unspecified, without complications; Z79.899 Other long term (current) drug therapy; Z87.891 Personal history of nicotine dependence
CPT/HCPCS: 80053; 83615; 84550; 85025; 96375; 96413; 99214; J1100; J2469; J7050; J9034

== ENCOUNTER 2024-09-12 08:21 | Oncology outpatient (recurring) (ONCR) | payer OTHER, SELFPAY ==
--- NOTE | 2024-09-07 09:00 | PETR_ITS ---
PROCEDURE INFORMATION: Exam: PET/CT Skull Base to Mid-thigh Exam date and time: 09/07/2024 9:56 AM Age: 73 years old Clinical indication: Restaging of lymphoma. 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 Dr. Mcgee would like this on 09/07/24 due to patient treatment LABS AND CLINICAL REPORTS: Glucose: 96 mg/dl Treatment strategy for malignancy (PET staging): Restaging (PS) TECHNIQUE: Imaging protocol: Following at least four-hour fasting and following the injection of radiopharmaceutical, low dose CT images were obtained. Then, PET images were obtained. Attenuation corrected images were constructed using the CT scan. Fused images of PET and CT were reviewed. The standardized uptake values (SUV) reported below are maximum values within a region of interest, expressed in gm/ml. Exam includes orbital meatal line to mid-thigh. SUV normalization method: BodyWeight Radiopharmaceutical: 11.64 mCi F-18 FDG (Fluorodeoxyglucose), IV. Time of imaging post radiopharmaceutical administration: 47 minutes Injection site: left ac COMPARISON: PT PET skull to thigh SUBS [id number] 02/21/2024 FINDINGS: Tubes, catheters and devices: Port catheter placed via the left internal jugular vein terminates in the superior vena cava. Brain: Normal physiologic uptake. Pharynx: No abnormal uptake. Larynx: No abnormal uptake. Lungs, pleura and trachea: No abnormal uptake. FDG avid subpleural opacity in the left upper lobe present on the prior exam has resolved. Stable small calcified granulomas in the lungs. No pleural effusion. Heart: No abnormal uptake. No cardiomegaly. Coronary artery calcification is present. There is no pericardial effusion. Mediastinal space: No abnormal uptake. Maximal mediastinal blood pool uptake 3 SUV. Liver: No abnormal uptake. Maximum uptake is 3.7 SUV. Gallbladder and biliary ducts: No abnormal uptake. There are stable calcified gallstones. Pancreas: No abnormal uptake. Spleen: No abnormal uptake. No splenomegaly. Adrenal glands: No abnormal uptake. No nodules. Kidneys and ureters: Normal physiologic uptake. No hydronephrosis. Stomach and bowel: Focal increased uptake involving about 4 cm long segment in the splenic flexure of the colon with no corresponding CT abnormality new since prior exam is probably benign. Intraperitoneal and retroperitoneal spaces: No abnormal uptake. No ascites. Urinary bladder: Normal physiologic uptake. Reproductive: No abnormal uptake. Vasculature: No abnormal uptake. Lymph nodes: No FDG avid lymphadenopathy in the neck, chest, abdomen, pelvis, and extremities. Previously present FDG avid lymphadenopathy in bilateral neck, bilateral pelvis and in bilateral groins has resolved. Previously present mesenteric masses in the central and left abdomen have nearly completely resolved. The largest mass in the root of mesentery decreased from 3.5 x 3.2 cm to 2.4 x 1 cm as seen on axial image 198 with low-grade uptake of 1.7 SUV. 3.5 x 2.8 cm left mesenteric/omental tumor decreased to 1.4 x 0.9 cm with low-grade uptake of 1.1 SUV. Skeleton: No abnormal uptake in the visualized axial and appendicular skeleton. Soft tissues: No abnormal uptake in the visualized head, neck, chest, abdomen, pelvis, and extremities. PET/PET skull to thigh SUBS [id number] IMPRESSION: In comparison with prior exam on 02/21/2024 there is complete response to treatment with no abnormal radiotracer uptake to suggest residual malignancy. The response score is 2 based on Deauville 5 point scale. New segmental increased uptake in the splenic flexure of the colon with no corresponding CT abnormality is probably benign.
[2024-09-12 08:48] LABS: Basophils # 0.1 10^3/uL (0.0-0.1); Basophils % 1.5 %; Eosinophils # 0.3 10^3/uL (0.0-0.8); Eosinophils % 6.9 %; Hematocrit 39.2 % (37-53); Lymphocytes # 0.6 10^3/uL (0.8-4.8); Lymphocytes % 15.3 %; Mean Corpuscular HGB Conc 34.7 g/dL (30-55); Mean Corpuscular Hemoglobin 35.9 pg (27-33); Mean Corpuscular Volume 103.4 fl (82-101); Mean Platelet Volume 9.2 fL (7.4-10.4); Monocytes % 24.7 %; Neutrophils # 1.95 10^3/uL (1.8-7.7); Neutrophils % 49.6 %; Nucleated Red Blood Cells % 0 %; Platelet Count 182 10^3/cmm (157-399); Red Blood Count 3.79 10^6/uL (3.85-5.65); Red Cell Distribution Width 15.7 % (12.1-15.1); White Blood Count 3.93 10^3/uL (3.29-11.43)
[2024-09-12 09:04] LABS: Alanine Aminotransferase 18 U/L (0-41); Albumin Level 4.2 g/dL (3.5-5.2); Alkaline Phosphatase 97 U/L (40-130); Aspartate Amino Transferase 26 U/L (0-40); Blood Urea Nitrogen 11 mg/dL (8-23); Calcium 9.2 mg/dL (8.5-10.5); Carbon Dioxide 22 mmol/L (22-29); Chloride 108 mmol/L (98-107); Creatinine Clr Calc Pharmacy 74.6638; Globulin 2.5 g/dL (1.3-4.6); Glucose 87 mg/dL (65-115); Lactate Dehydrogenase 292 U/L (135-225); Osmolality Calculated 293 mOsm/kg (285-295); Sodium 142 mmol/L (136-145); Total Bilirubin 0.5 mg/dL (0.15-1.2); Total Protein 6.7 g/dL (6.6-8.7)
[2024-09-12] MEDS: sodium chloride 0.9% 250 ML 75 ML IV (09:41)
[2024-09-12] MEDS: alteplase 1 mg/mL SDV 2 mL 2 MG INTRACATH (10:06)
[2024-09-12] MEDS: acetaminophen 325 mg Tablet 650 MG PO (10:51)
[2024-09-12] MEDS: dexamethasone 4 mg/mL INJ 5 mL 12 MG IVP (10:52)
[2024-09-12] MEDS: diphenhydrAMINE 50 mg/mL SDV 1mL 25 MG IVP (10:55)
[2024-09-12] MEDS: ondansetron 2 mg/ML SDV 2 mL 8 MG IVP (10:57)
[2024-09-12] MEDS: SODIUM CHLORIDE 0.9% IV ×2 (11:04→13:56)
[2024-09-12] MEDS: RITUXIMAB PVVR IV (11:04)
[2024-09-12 11:10] VITALS: BP 132/88; PULSE 63; RESP 16; TEMP 36.2; O2SAT 97
[2024-09-12 11:40] VITALS: BP 138/80; PULSE 53; RESP 18; TEMP 36.4; O2SAT 97
[2024-09-12 12:40] VITALS: BP 119/70; PULSE 56; RESP 17; TEMP 36.4; O2SAT 97
[2024-09-12 13:35] VITALS: BP 122/77; PULSE 56; RESP 18; TEMP 36.4; O2SAT 97
[2024-09-12] MEDS: BENDAMUSTINE IV (13:56)
== END 2024-09-12 23:59 | disposition home or self-care (01) ==
PROVIDERS: Absent Provider Family Medicine; PCP Family Medicine; Visit Provider Internal Medicine
DX: Z53.9 Procedure and treatment not carried out, unspecified reason; Z51.11 Encounter for antineoplastic chemotherapy; Z51.12 Encounter for antineoplastic immunotherapy; C82.38 Follicular lymphoma grade IIIa, lymph nodes of multiple sites; D70.9 Neutropenia, unspecified; Z79.52 Long term (current) use of systemic steroids; Z87.891 Personal history of nicotine dependence; Z79.899 Other long term (current) drug therapy
CPT/HCPCS: 36593; 78815; 80053; 83615; 85025; 96368; 96375; 96413; 96415; 99213; A9552; J1100; J1200; J2405; J2997; J7040; J7050; J9034; J9999; Q5119

== ENCOUNTER → 2024-09-17 09:33 | Outpatient (BNVA) | payer OTHER, SELFPAY | PROVIDERS: PCP Family Medicine; Visit Provider Podiatrist Foot & Ankle Surgery | DX: I73.9 Peripheral vascular disease, unspecified (principal); L60.8 Other nail disorders; L60.3 Nail dystrophy | CPT/HCPCS: 11721 ==

== ENCOUNTER 2024-09-19 08:31 | Oncology outpatient (recurring) (ONCR) | payer OTHER, SELFPAY ==
[2024-09-13] MEDS: sodium chloride 0.9% 250 ML 75 ML IV (09:23)
[2024-09-13] MEDS: dexamethasone 4 mg/mL INJ 5 mL 12 MG IVP (09:25)
[2024-09-13] MEDS: palonosetron 0.25 mg/5 mL SDV IVP (09:25)
[2024-09-13] MEDS: SODIUM CHLORIDE 0.9% IV (10:05)
[2024-09-13] MEDS: BENDAMUSTINE IV (10:05)
[2024-09-13 10:30] VITALS: BP 127/78; PULSE 37; RESP 17; TEMP 35.8; O2SAT 95
[2024-09-19 09:05] LABS: Basophils % 0.9 %; Eosinophils # 0.3 10^3/uL (0.0-0.8); Eosinophils % 12.1 %; Hematocrit 36.3 % (37-53); Lymphocytes # 0.1 10^3/uL (0.8-4.8); Lymphocytes % 2.6 %; Mean Corpuscular HGB Conc 34.7 g/dL (30-55); Mean Corpuscular Volume 103.7 fl (82-101); Mean Platelet Volume 9.2 fL (7.4-10.4); Monocytes # 0.5 10^3/uL (0.2-0.9); Monocytes % 22.5 %; Neutrophils % 60.6 %; Nucleated Red Blood Cells % 0 %; Platelet Count 178 10^3/cmm (157-399); Red Cell Distribution Width 15.2 % (12.1-15.1); White Blood Count 2.31 10^3/uL (3.29-11.43)
[2024-09-19 09:20] LABS: Alanine Aminotransferase 12 U/L (0-41); Alkaline Phosphatase 85 U/L (40-130); Aspartate Amino Transferase 21 U/L (0-40); Blood Urea Nitrogen 12 mg/dL (8-23); Calcium 8.9 mg/dL (8.5-10.5); Carbon Dioxide 26 mmol/L (22-29); Chloride 103 mmol/L (98-107); Globulin 2.3 g/dL (1.3-4.6); Glucose 90 mg/dL (65-115); Lactate Dehydrogenase 261 U/L (135-225); Osmolality Calculated 289 mOsm/kg (285-295); Phosphorus 2.7 mg/dL (2.5-4.5); Sodium 140 mmol/L (136-145); Total Bilirubin 0.5 mg/dL (0.15-1.2); Total Protein 6.3 g/dL (6.6-8.7); Uric Acid 7.2 mg/dL (3.4-7.0)
== END 2024-10-03 23:59 | disposition home or self-care (01) ==
PROVIDERS: Absent Provider Family Medicine; PCP Family Medicine; Visit Provider Internal Medicine
DX: Z53.9 Procedure and treatment not carried out, unspecified reason; C82.35 Follicular lymphoma grade IIIa, lymph nodes of inguinal region and lower limb; E79.0 Hyperuricemia without signs of inflammatory arthritis and tophaceous disease; Z87.891 Personal history of nicotine dependence; Z79.899 Other long term (current) drug therapy; Z87.19 Personal history of other diseases of the digestive system
CPT/HCPCS: 36591; 80053; 83615; 84100; 84550; 85025; 96375; 96413; 99213; J1100; J2469; J7050; J9034

== ENCOUNTER 2024-10-10 08:40 | Oncology outpatient (recurring) (ONCR) | payer OTHER, SELFPAY ==
[2024-10-10 09:24] LABS: Basophils # 0.1 10^3/uL (0.0-0.1); Basophils % 1.7 %; Eosinophils # 0.2 10^3/uL (0.0-0.8); Eosinophils % 7.1 %; Lymphocytes # 0.6 10^3/uL (0.8-4.8); Lymphocytes % 19.6 %; Mean Corpuscular HGB Conc 34.7 g/dL (30-55); Mean Corpuscular Hemoglobin 36.7 pg (27-33); Mean Corpuscular Volume 105.6 fl (82-101); Mean Platelet Volume 9.2 fL (7.4-10.4); Monocytes # 0.9 10^3/uL (0.2-0.9); Monocytes % 30.7 %; Neutrophils # 1.19 10^3/uL (1.8-7.7); Neutrophils % 40.2 %; Nucleated Red Blood Cells % 0 %; Platelet Count 219 10^3/cmm (157-399); White Blood Count 2.96 10^3/uL (3.29-11.43)
[2024-10-10 09:41] LABS: Alanine Aminotransferase 15 U/L (0-41); Albumin Level 4.1 g/dL (3.5-5.2); Alkaline Phosphatase 100 U/L (40-130); Anion Gap 16.9 (5-19); Aspartate Amino Transferase 19 U/L (0-40); Blood Urea Nitrogen 12 mg/dL (8-23); Carbon Dioxide 24 mmol/L (22-29); Chloride 101 mmol/L (98-107); Creatinine Clr Calc Pharmacy 82.9597; Globulin 2.6 g/dL (1.3-4.6); Glucose 84 mg/dL (65-115); Lactate Dehydrogenase 193 U/L (135-225); Osmolality Calculated 285 mOsm/kg (285-295); Potassium 3.9 mmol/L (3.5-5.1); Sodium 138 mmol/L (136-145); Total Bilirubin 0.4 mg/dL (0.15-1.2); Total Protein 6.7 g/dL (6.6-8.7)
[2024-10-10] MEDS: sodium chloride 0.9% 250 ML IV (10:13)
[2024-10-10] MEDS: acetaminophen 325 mg Tablet 650 MG PO (10:13)
[2024-10-10] MEDS: dexamethasone 4 mg/mL INJ 5 mL 12 MG IVP (10:14)
[2024-10-10] MEDS: diphenhydrAMINE 50 mg/mL SDV 1mL 25 MG IVP (10:14)
[2024-10-10] MEDS: ondansetron 2 mg/ML SDV 2 mL 8 MG IVP (10:15)
[2024-10-10] MEDS: SODIUM CHLORIDE 0.9% IV ×2 (10:47→13:49)
[2024-10-10] MEDS: RITUXIMAB PVVR IV (10:47)
[2024-10-10 10:53] VITALS: BP 119/76; PULSE 55; RESP 18; TEMP 36.4; O2SAT 98
[2024-10-10 11:22] VITALS: BP 125/75; PULSE 51; TEMP 36.5
[2024-10-10 12:25] VITALS: BP 132/69; PULSE 66; RESP 18; TEMP 36.1; O2SAT 96
[2024-10-10] MEDS: BENDAMUSTINE IV (13:49)
[2024-10-10 13:57] VITALS: BP 120/77; PULSE 48; RESP 17; TEMP 36.1; O2SAT 99
[2024-10-10 14:05] VITALS: BP 124/74; PULSE 75; RESP 18; TEMP 36.4; O2SAT 98
== END 2024-10-10 23:59 | disposition home or self-care (01) ==
PROVIDERS: PCP Family Medicine; Visit Provider Internal Medicine
DX: Z51.11 Encounter for antineoplastic chemotherapy (principal); Z51.12 Encounter for antineoplastic immunotherapy; C82.35 Follicular lymphoma grade IIIa, lymph nodes of inguinal region and lower limb; K51.90 Ulcerative colitis, unspecified, without complications; Z79.52 Long term (current) use of systemic steroids; Z87.891 Personal history of nicotine dependence; Z79.899 Other long term (current) drug therapy
CPT/HCPCS: 80053; 83615; 85025; 96375; 96411; 96413; 96415; 99213; J1100; J1200; J2405; J7040; J7050; J9034; J9999; Q5119

== ENCOUNTER 2024-10-11 08:38 | Oncology outpatient (recurring) (ONCR) | payer OTHER, SELFPAY | END 2024-10-12 15:33 | disposition home or self-care (01) | PROVIDERS: PCP Family Medicine; Visit Provider Internal Medicine | DX: Z53.9 Procedure and treatment not carried out, unspecified reason (principal) ==

== ENCOUNTER 2024-10-17 10:00 | Oncology outpatient (recurring) (ONCR) | payer OTHER, SELFPAY ==
[2024-10-11] MEDS: sodium chloride 0.9% 250 ML IV (09:01)
[2024-10-11] MEDS: dexamethasone 4 mg/mL INJ 5 mL 12 MG IVP (09:02)
[2024-10-11] MEDS: palonosetron 0.25 mg/5 mL SDV IVP (09:03)
[2024-10-11] MEDS: SODIUM CHLORIDE 0.9% IV (09:27)
[2024-10-11] MEDS: BENDAMUSTINE IV (09:27)
[2024-10-11 09:58] VITALS: BP 119/76; PULSE 61; RESP 17; TEMP 36.7; O2SAT 94
[2024-10-17 10:25] LABS: Basophils % 1.5 %; Eosinophils # 0.2 10^3/uL (0.0-0.8); Eosinophils % 8.1 %; Hematocrit 35.3 % (37-53); Lymphocytes # 0.1 10^3/uL (0.8-4.8); Lymphocytes % 3.3 %; Mean Corpuscular HGB Conc 34.8 g/dL (30-55); Mean Corpuscular Hemoglobin 36.7 pg (27-33); Mean Corpuscular Volume 105.4 fl (82-101); Mean Platelet Volume 9.4 fL (7.4-10.4); Monocytes # 0.7 10^3/uL (0.2-0.9); Monocytes % 25.6 %; Neutrophils # 1.65 10^3/uL (1.8-7.7); Neutrophils % 60.4 %; Nucleated Red Blood Cells % 0 %; Platelet Count 245 10^3/cmm (157-399); Red Blood Count 3.35 10^6/uL (3.85-5.65); Red Cell Distribution Width 13.9 % (12.1-15.1); White Blood Count 2.73 10^3/uL (3.29-11.43)
[2024-10-17 10:49] LABS: Alanine Aminotransferase 14 U/L (0-41); Albumin Level 3.9 g/dL (3.5-5.2); Alkaline Phosphatase 96 U/L (40-130); Anion Gap 14.9 (5-19); Aspartate Amino Transferase 20 U/L (0-40); Blood Urea Nitrogen 12 mg/dL (8-23); Calcium 8.9 mg/dL (8.5-10.5); Carbon Dioxide 26 mmol/L (22-29); Chloride 105 mmol/L (98-107); Creatinine Clr Calc Pharmacy 74.6638; Globulin 2.6 g/dL (1.3-4.6); Glucose 102 mg/dL (65-115); Magnesium 2.2 mg/dL (1.7-2.3); Osmolality Calculated 294 mOsm/kg (285-295); Potassium 3.9 mmol/L (3.5-5.1); Sodium 142 mmol/L (136-145); Total Bilirubin 0.6 mg/dL (0.15-1.2); Total Protein 6.5 g/dL (6.6-8.7); Uric Acid 7.5 mg/dL (3.4-7.0)
== END 2024-11-03 23:59 | disposition home or self-care (01) ==
PROVIDERS: Internal Medicine; Absent Provider Family Medicine; PCP Family Medicine; Visit Provider Internal Medicine Medical Oncology
DX: Z53.9 Procedure and treatment not carried out, unspecified reason; C82.18 Follicular lymphoma grade II, lymph nodes of multiple sites; K51.90 Ulcerative colitis, unspecified, without complications; Z87.891 Personal history of nicotine dependence; Z79.899 Other long term (current) drug therapy; Z95.828 Presence of other vascular implants and grafts
CPT/HCPCS: 36591; 80053; 83735; 84550; 85025; 96375; 96413; 99214; J1100; J2469; J7050; J9034

== ENCOUNTER 2024-11-14 07:30 | Oncology outpatient (recurring) (ONCR) | payer OTHER, SELFPAY ==
[2024-11-07 08:02] LABS: Basophils # 0.1 10^3/uL (0.0-0.1); Basophils % 1.9 %; Eosinophils # 0.4 10^3/uL (0.0-0.8); Eosinophils % 16.5 %; Hematocrit 35.9 % (37-53); Lymphocytes # 0.3 10^3/uL (0.8-4.8); Lymphocytes % 12.7 %; Mean Corpuscular HGB Conc 34.5 g/dL (30-55); Mean Corpuscular Hemoglobin 36.9 pg (27-33); Mean Corpuscular Volume 106.8 fl (82-101); Mean Platelet Volume 8.9 fL (7.4-10.4); Monocytes # 0.8 10^3/uL (0.2-0.9); Neutrophils % 35.5 %; Nucleated Red Blood Cells % 0 %; Platelet Count 177 10^3/cmm (157-399); Red Blood Count 3.36 10^6/uL (3.85-5.65); White Blood Count 2.67 10^3/uL (3.29-11.43)
[2024-11-07 08:21] LABS: Alanine Aminotransferase 12 U/L (0-41); Albumin Level 4.1 g/dL (3.5-5.2); Alkaline Phosphatase 98 U/L (40-130); Aspartate Amino Transferase 19 U/L (0-40); Blood Urea Nitrogen 12 mg/dL (8-23); Calcium 9.1 mg/dL (8.5-10.5); Carbon Dioxide 23 mmol/L (22-29); Chloride 105 mmol/L (98-107); Creatinine Clr Calc Pharmacy 82.9597; Globulin 2.2 g/dL (1.3-4.6); Glucose 76 mg/dL (65-115); Lactate Dehydrogenase 225 U/L (135-225); Osmolality Calculated 289 mOsm/kg (285-295); Sodium 140 mmol/L (136-145); Total Bilirubin 0.4 mg/dL (0.15-1.2); Total Protein 6.3 g/dL (6.6-8.7)
[2024-11-07 08:36] LABS: Neutrophils # 0.95 10^3/uL (1.8-7.7)
[2024-11-14 07:55] LABS: Basophils % 1.1 %; Eosinophils # 0.5 10^3/uL (0.0-0.8); Eosinophils % 18.2 %; Hematocrit 36.9 % (37-53); Lymphocytes # 0.4 10^3/uL (0.8-4.8); Lymphocytes % 13.8 %; Mean Corpuscular HGB Conc 34.7 g/dL (30-55); Mean Corpuscular Hemoglobin 36.9 pg (27-33); Mean Corpuscular Volume 106.3 fl (82-101); Mean Platelet Volume 8.8 fL (7.4-10.4); Monocytes # 0.5 10^3/uL (0.2-0.9); Monocytes % 19.3 %; Neutrophils # 1.26 10^3/uL (1.8-7.7); Neutrophils % 45.8 %; Nucleated Red Blood Cells % 0 %; Platelet Count 231 10^3/cmm (157-399); Red Blood Count 3.47 10^6/uL (3.85-5.65); Red Cell Distribution Width 13.9 % (12.1-15.1); White Blood Count 2.75 10^3/uL (3.29-11.43)
[2024-11-14 08:12] LABS: Alanine Aminotransferase 16 U/L (0-41); Alkaline Phosphatase 102 U/L (40-130); Anion Gap 14.8 (5-19); Aspartate Amino Transferase 22 U/L (0-40); Blood Urea Nitrogen 11 mg/dL (8-23); Calcium 8.9 mg/dL (8.5-10.5); Carbon Dioxide 22 mmol/L (22-29); Chloride 107 mmol/L (98-107); Creatinine Clr Calc Pharmacy 75.0118; Globulin 2.4 g/dL (1.3-4.6); Glucose 113 mg/dL (65-115); Lactate Dehydrogenase 218 U/L (135-225); Osmolality Calculated 290 mOsm/kg (285-295); Potassium 3.8 mmol/L (3.5-5.1); Sodium 140 mmol/L (136-145); Total Bilirubin 0.3 mg/dL (0.15-1.2); Total Protein 6.4 g/dL (6.6-8.7)
[2024-11-14] MEDS: sodium chloride 0.9% 250 ML 75 ML IV (09:10)
[2024-11-14] MEDS: acetaminophen 325 mg Tablet 650 MG PO (09:11)
[2024-11-14] MEDS: diphenhydrAMINE 50 mg/mL SDV 1mL 25 MG IVP (09:18)
[2024-11-14] MEDS: dexamethasone 4 mg/mL INJ 5 mL 12 MG IVP (09:18)
[2024-11-14] MEDS: ondansetron 2 mg/ML SDV 2 mL 8 MG IVP (09:19)
[2024-11-14] MEDS: RITUXIMAB PVVR IV (10:04)
[2024-11-14] MEDS: SODIUM CHLORIDE 0.9% IV ×2 (10:04→13:47)
[2024-11-14 10:05] VITALS: BP 121/81; PULSE 56; RESP 17; TEMP 36.3; O2SAT 99
[2024-11-14 10:35] VITALS: BP 133/84; PULSE 57; RESP 18; TEMP 36.3; O2SAT 98
[2024-11-14 11:10] VITALS: BP 135/85; PULSE 54; RESP 18; TEMP 36.3; O2SAT 99
[2024-11-14 11:40] VITALS: BP 149/84; PULSE 68; RESP 18; TEMP 36.3; O2SAT 98
[2024-11-14 12:55] VITALS: BP 119/70; PULSE 85; RESP 18; TEMP 36.1; O2SAT 95
[2024-11-14] MEDS: BENDAMUSTINE IV (13:47)
== END 2024-11-14 23:59 | disposition home or self-care (01) ==
PROVIDERS: Nurse Practitioner Family; Absent Provider Family Medicine; PCP Family Medicine; Visit Provider Internal Medicine
DX: Z51.11 Encounter for antineoplastic chemotherapy (principal); Z79.52 Long term (current) use of systemic steroids; C82.35 Follicular lymphoma grade IIIa, lymph nodes of inguinal region and lower limb; R03.0 Elevated blood-pressure reading, without diagnosis of hypertension; K51.90 Ulcerative colitis, unspecified, without complications; Z87.891 Personal history of nicotine dependence; Z95.828 Presence of other vascular implants and grafts; Z79.899 Other long term (current) drug therapy
CPT/HCPCS: 80053; 83615; 85025; 96375; 96413; 96415; 99214; J1100; J1200; J2405; J7040; J7050; J9034; J9999; Q5119

== ENCOUNTER 2024-11-22 11:45 | Oncology outpatient (recurring) (ONCR) | payer OTHER, SELFPAY ==
[2024-11-15 09:38] VITALS: BP 113/76; PULSE 78; RESP 18; TEMP 36.3; O2SAT 95
[2024-11-15] MEDS: sodium chloride 0.9% 250 ML IV (10:12)
[2024-11-15] MEDS: dexamethasone 4 mg/mL INJ 5 mL 12 MG IVP (10:13)
[2024-11-15] MEDS: palonosetron 0.25 mg/5 mL SDV IVP (10:13)
[2024-11-15] MEDS: SODIUM CHLORIDE 0.9% IV (10:56)
[2024-11-15] MEDS: BENDAMUSTINE IV (10:56)
[2024-11-22 11:56] LABS: Basophils % 1.9 %; Eosinophils # 0.4 10^3/uL (0.0-0.8); Eosinophils % 17.1 %; Hematocrit 35.2 % (37-53); Lymphocytes # 0.1 10^3/uL (0.8-4.8); Lymphocytes % 5.6 %; Mean Corpuscular HGB Conc 35.8 g/dL (30-55); Mean Corpuscular Hemoglobin 37.7 pg (27-33); Mean Corpuscular Volume 105.4 fl (82-101); Mean Platelet Volume 9.1 fL (7.4-10.4); Monocytes # 0.5 10^3/uL (0.2-0.9); Monocytes % 22.7 %; Neutrophils % 42.5 %; Nucleated Red Blood Cells % 0 %; Platelet Count 259 10^3/cmm (157-399); Red Blood Count 3.34 10^6/uL (3.85-5.65); Red Cell Distribution Width 14.2 % (12.1-15.1); White Blood Count 2.16 10^3/uL (3.29-11.43)
[2024-11-22 12:08] LABS: Alanine Aminotransferase 12 U/L (0-41); Albumin Level 4.1 g/dL (3.5-5.2); Alkaline Phosphatase 99 U/L (40-130); Anion Gap 16.6 (5-19); Aspartate Amino Transferase 19 U/L (0-40); Blood Urea Nitrogen 13 mg/dL (8-23); Calcium 9.1 mg/dL (8.5-10.5); Carbon Dioxide 25 mmol/L (22-29); Chloride 105 mmol/L (98-107); Globulin 2.5 g/dL (1.3-4.6); Glucose 91 mg/dL (65-115); Lactate Dehydrogenase 251 U/L (135-225); Osmolality Calculated 294 mOsm/kg (285-295); Potassium 4.6 mmol/L (3.5-5.1); Sodium 142 mmol/L (136-145); Total Bilirubin 0.3 mg/dL (0.15-1.2); Total Protein 6.6 g/dL (6.6-8.7)
[2024-11-22 12:31] LABS: Neutrophils # 0.92 10^3/uL (1.8-7.7)
[2024-11-22 12:32] LABS: Slide Review Slide Review Perform
== END 2024-12-03 23:59 | disposition home or self-care (01) ==
PROVIDERS: Absent Provider Family Medicine; PCP Family Medicine; Visit Provider Internal Medicine
DX: Z53.9 Procedure and treatment not carried out, unspecified reason; C82.30 Follicular lymphoma grade IIIa, unspecified site; Z85.828 Personal history of other malignant neoplasm of skin; L57.0 Actinic keratosis; L24.9 Irritant contact dermatitis, unspecified cause; L81.4 Other melanin hyperpigmentation; L82.1 Other seborrheic keratosis; D18.01 Hemangioma of skin and subcutaneous tissue
CPT/HCPCS: 17000; 36591; 80053; 83615; 85025; 96375; 96413; 96523; 99213; J1100; J2469; J7050; J9034

== ENCOUNTER → 2024-12-18 13:46 | Outpatient (BNVA) | payer OTHER, SELFPAY | PROVIDERS: PCP Family Medicine; Visit Provider Podiatrist Foot & Ankle Surgery | DX: E11.8 Type 2 diabetes mellitus with unspecified complications (principal); L60.3 Nail dystrophy; L60.8 Other nail disorders; I73.9 Peripheral vascular disease, unspecified | CPT/HCPCS: 11721 ==

== ENCOUNTER 2024-12-26 10:45 | Oncology outpatient (recurring) (ONCR) | payer OTHER, SELFPAY ==
--- NOTE | 2024-12-21 08:00 | PETR_ITS ---
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 Then, PET images were obtained. Attenuation corrected images were constructed using the CT scan. Fused images of PET and CT were reviewed. The standardized uptake values (SUV) reported below are maximum values within a region of interest, expressed in gm/ml. Exam includes orbital meatal line to mid-thigh. SUV normalization method: BodyWeight Radiopharmaceutical: 12.28 mCi F-18 FDG (Fluorodeoxyglucose), IV. Time of imaging post radiopharmaceutical administration: 47 minutes Injection site: RAC COMPARISON: PT PET skull to thigh SUBS [id number] 09/07/2024 9:56 AM FINDINGS: Brain: Visualized brain has normal physiologic uptake. Pharynx: No abnormal uptake. Larynx: No abnormal uptake. Lungs, pleura and trachea: No abnormal uptake. Heart: Normal physiologic uptake. Mediastinal space: No abnormal uptake. Liver: No abnormal uptake. Gallbladder and biliary ducts: No abnormal uptake. Pancreas: No abnormal uptake. Spleen: No abnormal uptake. Adrenal glands: No abnormal uptake. Kidneys and ureters: Normal physiologic uptake. Stomach and bowel: Colonic diverticulosis with similar focal metabolic activity in the splenic flexure, favored benign. Attention on follow-up. Vasculature: No abnormal uptake. Lymph nodes: Subcarinal lymph node measures 1.5 cm with SUV max of 4.5 (greater than liver). Skeleton: Moderate degenerative changes with associated tracer uptake in the right acromioclavicular and glenohumeral joints. Soft tissues: No abnormal uptake in the visualized head, neck, chest, abdomen, pelvis, and extremities. METRICS: Mediastinal blood pool: SUV max = 2.9 Liver uptake: SUV max = 3.6 PET/PET skull to thigh SUBS [id number] IMPRESSION: Increased metabolic activity of mildly enlarged subcarinal lymph node with SUV max now slightly greater than liver. Yesica 4.
[2024-12-26 11:07] LABS: Hematocrit 33.9 % (37-53); Hemoglobin 11.90 g/dL (11.27-16.99); Mean Corpuscular HGB Conc 35.1 g/dL (30-55); Mean Corpuscular Hemoglobin 38.4 pg (27-33); Mean Corpuscular Volume 109.4 fl (82-101); Nucleated Red Blood Cells % 0 %; Platelet Count 230 10^3/cmm (157-399); Red Blood Count 3.10 10^6/uL (3.85-5.65); White Blood Count 2.55 10^3/uL (3.29-11.43)
[2024-12-26 11:23] LABS: Alanine Aminotransferase 16 U/L (0-41); Albumin Level 4.1 g/dL (3.5-5.2); Alkaline Phosphatase 86 U/L (40-130); Anion Gap 14.0 (5-19); Aspartate Amino Transferase 20 U/L (0-40); Blood Urea Nitrogen 11 mg/dL (8-23); Calcium 8.7 mg/dL (8.5-10.5); Carbon Dioxide 23 mmol/L (22-29); Chloride 106 mmol/L (98-107); Globulin 2.1 g/dL (1.3-4.6); Glucose 88 mg/dL (65-115); Osmolality Calculated 287 mOsm/kg (285-295); Potassium 4.0 mmol/L (3.5-5.1); Sodium 139 mmol/L (136-145); Total Protein 6.2 g/dL (6.6-8.7)
== END 2025-01-03 23:59 | disposition home or self-care (01) ==
PROVIDERS: Nurse Practitioner Family; Absent Provider Family Medicine; PCP Family Medicine; Visit Provider Internal Medicine
DX: Z53.9 Procedure and treatment not carried out, unspecified reason; Z08 Encounter for follow-up examination after completed treatment for malignant neoplasm; Z85.72 Personal history of non-Hodgkin lymphomas; R03.0 Elevated blood-pressure reading, without diagnosis of hypertension; Z95.828 Presence of other vascular implants and grafts; Z92.21 Personal history of antineoplastic chemotherapy
CPT/HCPCS: 36591; 78815; 80053; 83615; 85025; 99213; A9552

== ENCOUNTER 2025-01-23 11:06 | Oncology outpatient (recurring) (ONCR) | payer OTHER, SELFPAY | END 2025-02-03 23:59 | disposition home or self-care (01) | PROVIDERS: Absent Provider Family Medicine; PCP Family Medicine; Visit Provider Internal Medicine | DX: Z45.2 Encounter for adjustment and management of vascular access device (principal); Z95.828 Presence of other vascular implants and grafts | CPT/HCPCS: 96523 ==

== ENCOUNTER 2025-02-20 11:05 | Oncology outpatient (recurring) (ONCR) | payer OTHER, SELFPAY ==
[2025-02-20 11:26] LABS: Hematocrit 34.5 % (37-53); Hemoglobin 12.10 g/dL (11.27-16.99); Mean Corpuscular HGB Conc 35.1 g/dL (30-55); Mean Corpuscular Hemoglobin 36.2 pg (27-33); Mean Corpuscular Volume 103.3 fl (82-101); Nucleated Red Blood Cells % 0 %; Platelet Count 220 10^3/cmm (157-399); Red Blood Count 3.34 10^6/uL (3.85-5.65); White Blood Count 3.00 10^3/uL (3.29-11.43)
[2025-02-20 11:45] LABS: Alanine Aminotransferase 14 U/L (0-41); Albumin Level 3.8 g/dL (3.5-5.2); Alkaline Phosphatase 97 U/L (40-130); Anion Gap 14.8 (5-19); Aspartate Amino Transferase 22 U/L (0-40); Blood Urea Nitrogen 7 mg/dL (8-23); Calcium 8.9 mg/dL (8.5-10.5); Carbon Dioxide 25 mmol/L (22-29); Chloride 104 mmol/L (98-107); Creatinine Clr Calc Pharmacy 74.4385; Globulin 2.9 g/dL (1.3-4.6); Glucose 114 mg/dL (65-115); Osmolality Calculated 289 mOsm/kg (285-295); Potassium 3.8 mmol/L (3.5-5.1); Sodium 140 mmol/L (136-145); Total Protein 6.7 g/dL (6.6-8.7)
--- NOTE | 2025-02-20 13:00 | XR_ITS ---
WS: [id number] XR chest 2V* [id number] REASON FOR EXAM: shortness of breath, cough FINDINGS: No previous chest x-ray for comparison. Chemotherapy infusion port overlying the left chest with trans left internal jugular infusion catheter. The tip is just beyond the junction of the innominate vein and superior vena cava. Mild to moderate tortuosity and ectasia of the thoracic aorta. Normal heart size. Flattening of the hemidiaphragms. Coarse reticular interstitial lung opacities in both lower lung finney of unknown chronicity. Right costophrenic angle is blunted. Cholelithiasis. XR/XR chest 2V* [id number] IMPRESSION: Hemidiaphragm and costophrenic angle changes may be pleural scarring. Interstitial changes in the lungs may be chronic as compared to a previous CT s can of the chest abdomen and pelvis 03/29/2023. Otherwise no acute chest abnormality identified.
== END 2025-03-05 23:59 | disposition home or self-care (01) ==
LOC: ONCMED 11:05
PROVIDERS: Nurse Practitioner Family; Absent Provider Family Medicine; PCP Family Medicine; Visit Provider Internal Medicine
DX: C82.30 Follicular lymphoma grade IIIa, unspecified site (principal); C44.91 Basal cell carcinoma of skin, unspecified; R03.0 Elevated blood-pressure reading, without diagnosis of hypertension; R05.9 Cough, unspecified; R06.02 Shortness of breath; Z87.891 Personal history of nicotine dependence; Z92.21 Personal history of antineoplastic chemotherapy; Z92.25 Personal history of immunosuppression therapy
CPT/HCPCS: 36591; 71046; 80053; 85025; 99214

== ENCOUNTER → 2025-02-25 10:06 | Outpatient (BNVA) | payer OTHER, SELFPAY | PROVIDERS: PCP Family Medicine; Visit Provider Dermatology | DX: L81.4 Other melanin hyperpigmentation (principal); L57.8 Other skin changes due to chronic exposure to nonionizing radiation; Z08 Encounter for follow-up examination after completed treatment for malignant neoplasm; Z85.828 Personal history of other malignant neoplasm of skin; L57.0 Actinic keratosis; D48.5 Neoplasm of uncertain behavior of skin | CPT/HCPCS: 11102; 17004; 99213 ==

== ENCOUNTER 2025-02-27 11:27 | Emergency (ER) | payer OTHER, SELFPAY ==
--- OUTSIDE RECORDS SUMMARY | 2025-01-16 06:10 | XMS_ITS ---
Author Organization [facility] Address [address] [place] [address] Care Team Providers Care Canal Equipment Mechanic Name Role Phone uLke ATWOOD, Simon Primary Care Provider Obed Lazaro Unavailable [phone] REASON FOR VISIT 5m f/u w repeat prostate exam Encounters Encounter Location Date Provider Diagnosis Counts Include [address] [facility] [address] [place] [address] 01/16/2025 Obed Boyd Plan Of Treatment Next Appt Details Provider Name:Nuris Person, 08/13/2025 11:00:00 AM, [address], [place], [address], Progress Notes * ANGELIKARickywardDOB: (74 yo M)Acc No.[id number]:01/16/2025 Progress Notes Patient: Ricky Jacques Provider: Lupillo Boyd MD :1950 A ge:74 Y S ex:Male Date:01/16/2025 Address:[address] Pcp:Simon Butler MD Subjective: * Chief Complaints: * 5 m f/u w repeat prostate exam * Electronic signature of Romel Boyd MD on 02/27/2025 at 11:31 AM CDT Sign off status: Pending * Provider: Lupillo Boyd MD Date: 0 01/16/2025 Generated for Esei ng/Fanicolleg/eTransmitting on: 0 02/27/2025 11:31 AM CDT
[2025-02-27] VITALS (12 sets, daily range): BP systolic 102–137; BP diastolic 66–85; PULSE 84–115; RESP 15–25; TEMP 37.7; O2SAT 85–97; BMI 25.2
--- NOTE | 2025-02-27 11:28 | XR_ITS ---
WS: [id number] Exam: XR chest 1V portable [id number] Date/Time of Exam: 02/27/2025 11:28 AM Reason For Exam: dyspnea/cough Comparison 02/20/2025. Lungs are fully inflated. No acute infiltrates. Chronic bibasal pulmonary changes. Unremarkable cardiomediastinal silhouette. LEFT subclavian port ends in the lower one third of the SVC. Bony structures are unremarkable. XR/XR chest 1V portable [id number] IMPRESSION: 1. Chronic bibasal changes. No acute process identified.
--- OUTSIDE RECORDS SUMMARY | 2025-02-27 11:31 | XMS_ITS | Encounter Summary ---
Author Organization [facility] Address [address] [place] [address] Care Team Providers Care Ribbon Inker Name Role Phone Vick Cox MD Primary Care Provider + Encounter Details Date Type Department Care Team (Latest Contact Info) Description 03/28/2002 Outpatient Historical [facility] [id number] [facility] [address] [place] [address] Josiah Hussein MD [address] [facility] [address] [place] [phone] ULCERATIVE COLITIS NOS (CMS/HCC) (Primary Dx) Social History Tobacco Use Types Packs/Day Years Used Date Smoking Tobacco: Never Assessed Sex and Gender Information Value Date Recorded Sex Assigned at Not on file Legal 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
--- OUTSIDE RECORDS SUMMARY | 2025-02-27 11:31 | XMS_ITS | Encounter Summary ---
Author Organization [facility] Address [address] [place] [address] Care Team Providers Care Spray Dry Operator Name Role Phone Vick Cox MD Primary Care Provider + Encounter Details Date Type Department Care Team (Latest Contact Info) Description 01/19/2007 Outpatient Historical [facility] [address] [place] [address] Josiah Hussein MD [address] [facility] [address] [place] [address] Other and Unspecified Noninfectious Gastroenteritis and Colitis (Primary Dx) Social History Tobacco Use Types Packs/Day Years Used Date Smoking Tobacco: Never Assessed Sex and Gender Information Value Date Recorded Sex Assigned at Not on file 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
--- OUTSIDE RECORDS SUMMARY | 2025-02-27 11:31 | XMS_ITS | Encounter Summary ---
Author Organization [facility] Address [address] [place] [address] Care Team Providers Care Gate Person Name Role Phone Vick Cox MD Primary Care Provider + Encounter Details Date Type Department Care Team (Latest Contact Info) Description 01/11/2006 Outpatient Historical [facility] [place] [id number] 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
--- OUTSIDE RECORDS SUMMARY | 2025-02-27 11:31 | XMS_ITS | Encounter Summary ---
Author Organization [facility] Address 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
--- OUTSIDE RECORDS SUMMARY | 2025-02-27 11:31 | XMS_ITS | Encounter Summary ---
Author Organization [facility] Address [address] [place] [address] Care Team Providers Care Clean Energy Policy Analyst Name Role Phone Obed Lewis MD Primary Care Provider + [phone] Encounter Details Date Type Department Care Team (Late Contact Info) Description 02/20/2025 [facility] [address] [facility] [address] [place] [phone] Sanjay Harrell MD [address] [place] [address] Social History Tobacco Use Types Packs/Day Years Used Date Smoking Tobacco: Never Smokeless Tobacco: Never Alcohol Use Standard Drinks/Week Comments Yes 0 (1 standard drink = 0.6 oz pur e alcohol) Feeling Safe Answer Date Recorded Are you in a relationship wi th someone who hurts you emotionally and/or physically? No 10/14/2024 Sex and Gender Information Value Date Recorded Sex Assigned at Not on file Legal Sex Male 2:59 PM GLASS RIBBON MACHINE OPERATOR ASSISTANT Gender Identity Not on file Sexual Orientation Not on file documented as of this encounter Plan of Treatment Upcoming Encounters Date Type Department Care Team (Late Contact Info) Description 03/13/2025 10:00 AM CDT Appointment [facility] [address] [facility] [address] [place] [address] Rene Alberts MD [address] [phone] documented as of this encounter Visit Diagnoses Not on filedocumented in this encounter Care Teams Clean Energy Policy Analyst Relationship Specialty Start Date End Date Obed Lewis MD [address] [place] [phone] PCP - General Family Practice 04/16/22 documented as of this encounter
--- OUTSIDE RECORDS SUMMARY | 2025-02-27 11:31 | XMS_ITS | Encounter Summary ---
Author Organization [facility] Address [address] [place] [address] Care Team Providers Care Sub Plant Manager Name Role Phone Vick Cox MD Primary Care Provider + Encounter Details Date Type Department Care Team (Latest Contact Info) Description 04/09/2004 Outpatient Historical [facility] Gastroenterology[address] [place] [address] Josiah Hussein MD [address] [facility] [address] [place] [phone] ULCERATIVE COLITIS NOS (CMS/HCC) (Primary Dx) Social History Tobacco Use Types Packs/Day Years Used Date Smoking Tobacco: Never Assessed Sex and Gender Information Value Date Recorded Sex Assigned at Not on file 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
--- OUTSIDE RECORDS SUMMARY | 2025-02-27 11:31 | XMS_ITS | Clinical Summary ---
Author Organization [facility] Address [address] [place]: [place] [address] Care Team Providers Care Road Tester Name Role Phone Obed Lewis MD Primary Care Provider Allergies No known active allergies Medications TURMERIC ROOT EXTRACT ORAL Take 500 mg by mouth. 8 Active cyanocobalamin (VITAMIN B-12) 500 mcg tablet Take 500 mcg by mouth daily. 8 Active Lactobac no.41/Bifidobact no.7 (PROBIOTIC-10 ORAL) Take by mouth. Activ e omeprazole (PriLOSEC) 20 mg Capsule, Delayed Release(E.C.) Take 20 mg by mouth daily. Active triamcinolone acetonide (KENALOG) 0.1 % CreamIndications :Contact dermatitis, unspecified contact dermatitis type, unspecified trigger Apply to affected area 2 times daily. 45 Gram 2 Active L. acidophilus/L. rhamnosus (PROBIOTIC ORAL) Take by mouth daily. 6 Active lactobacillus spp (BIO-K PLUS) Take by mouth daily. Active ammonium lactate (LAC-HYDRIN) 12 % Lotion APPLY SPARINGLY TO AFFECTED AREA(S) ONCE A DAY NEEDED FOR DRY SKIN. EXTERNAL USE ONLY. DO NOT APPLY TO RED, ITCHY, OR SORE SKIN. 2 Active ascorbic acid, vitamin C, (VITAMIN C) 500 mg tablet 1,000 mg. 2 Active cholecalciferol, vitamin D3, 1,000 unit 25 mcg. 2 Active predniSONE (DELTASONE) 20 mg tablet 20 mg. 2 Active zinc gluconate 50 mg Tablet 50 mg. 2 Active tadalafil (CIALIS) 10 mg tablet 10 mg. 2 Active mesalamine (LIALDA) 1.2 gram Tablet, Delayed Release (E.C.) 4,800 mg. 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 Cancer Staging:Clinical stage from 05/08/2018:Stage III(Follicular lymphoma) - Signed by Chun Guy MD on 05/08/2018 Gastroesophageal reflux disease 05/21/2016 Ulcerative colitis without complications 016 Umbilical hernia without mention of obstruction or gangrene 11/14/2008 Encounters Date Type Department Care Team Description 02/20/2025 Orders Only [facility] [address] [facility] [address] [place] [address] Sanjay Harrell MD 02/19/2025 External Device Data ST[facility] ABSTRACTION Provider, Abstract 02/05/2025 External Device Data [facility] ABSTRACTION Provider, Abstract 02/01/2025 Orders Only [facility] Admitting [address] [facility] [address] [place] [address] Nicolasa Trujillo MD Personal history of colon polyps, unspecified (Primary Dx) 01/09/2025 External Device Data STL ABSTRACTION Provider, Abstract 01/08/2025 External Device Data ST[facility] ABSTRACTION Provider, Abstract 12/11/2024 External Device Data STL ABSTRACTION Provider, Abstract from Last 3 Months Family History Medical History Relation Name Comments Lung Cancer Father Colon Cancer Neg Hx Relation Name Status Comments Father Maternal Grandfather Maternal Grandmother Mother Alive Paternal Grandfather Paternal Grandmother Sister Alive Social History Tobacco Use Types Packs/Day Years [...] on file 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 Gender Identity Not on file Sexual Orientation Not on file Last Filed Vital Signs Vital Sign Reading Time Taken Comments Blood Pressure 123/77 10/14/2024 9:26 AM CDT Pulse 90 10/14/2024 9:26 AM CDT Temperature 37 C (98.6 F) 10/14/2024 9:26 AM CDT Respiratory Rate 16 10/14/2024 9:26 AM CDT Oxygen Saturation 96% 10/14/2024 9:26 AM CDT Inhaled Oxygen Concentration - - Weight 84.6 kg (186 lb 9.6 oz) 10/14/2024 9:26 A M CDT Height 177.8 cm (5' 10 ) 10/14/2024 9:26 AM CDT Body Mass Index 26.77 10/14/2024 9:26 AM CDT Plan of Treatment Upcoming Encounters Date Type Department Care Team (Late st Contact Info) Description 03/13/2025 10:00 AM CDT Appointment [facility] [address] [address] Rene Alberts MD [address] [phone] Health Maintenance Due Date Last Done Comments FIT-DNA Q 3 years 1997 FIT/FOBT Q 1 year 1997 Flex Sig/CT Colonography Q 5 years 1997 PNEUMOCOCCAL VACCINE 50+ YEA RS (1 of 1 - PCV) 2002 ZOSTER VACCINE (1 of 2) 2002 DTAP/TDAP/TD VACCINES (4 - T d or Tdap) 03/08/2024 03/08/2014, 10/06/2005, 10/06/2005 COLORECTAL SCREENING 06/10/2024 06/10/2023, 06/11/2019, 06/11/2019, Additional history exists Colorectal Cancer Screening 06/10/2024 INFLUENZA VACCINE (#1) 2025 RSV VACCINE (60+ or ) (1 - 1-dose 75+ series) 12/01/2027 Medical Devices Implanted Type Area Treatment Plant Mechanic Device Identifier Shelf Expiration Date Model / Serial / Lot Mesh Ventralight St 6x8in [id number] - Sna Implanted:Qty: 1 on 03/04/2016 by Alvarado Yo MD Mesh N/A: Abdomen CR [employer] 12/31/2017 [id number] / NA / [id number] Procedures Procedure Name Priority Date/Time Associated Diagnosis Comments COLONOSCOPY REPORT 06/11/2019 8:25 AM BOOK EDITOR from Last 3 Months or Most Recently Relevant to Health Maintenance Results * COLONOSCOPY REPORT (06/11/2019 8:25 AM BOOK EDITOR) Josiah Hussein MD GI PROCEDURE ORDERABLES Fin al Result from Last 3 Months or Most Recently Relevant to Health Maintenance Insurance MEDICARE PART A AND B * Guarantor: [employer] [facility] Account Type Relation to Patient Date of Phone Billing Address Corporate Other DEFAULT ADDRESS [address] [employer] * Guarantor: [employer] [facility] Account Type Relation to Patient Date of Phone Billing Address Corporate Other DEFAULT ADDRESS [address] [employer] * Guarantor: [employer] Account Type Relation to Patient Date of Phone Billing Address Corporate Other DEFAULT ADDRESS [address] [employer] Advance Directives For more information, please contact: [phone] * Full Code (Latest Code Status on File) Date Activated Date Inactivated Comments 06/10/2023 8:00 AM 06/10/2023 12:[address] Tester Relationship Specialty Start Date End Date Obed Lewis MD [address] [place] [phone] PCP - General Family Practice 04/16/22
--- OUTSIDE RECORDS SUMMARY | 2025-02-27 11:31 | XMS_ITS | Encounter Summary ---
Author Organization [facility] Address [address] [place] [address] Care Team Providers Care Plating Machine Operator Name Role Phone Vick Cox MD Primary Care Provider + Encounter Details Date Type Department Care Team (Latest Contact Info) Description 06/21/2003 Outpatient Historical [facility] Gastroenterology- [address] [place] [address] Josiah Hussein MD [address] [facility] [address] [place] [address] ESOPHAGEAL REFLUX (Primary Dx); ULCERATIVE COLITIS NOS ([facility]) Social History Tobacco Use Types Packs/Day Years Used Date Smoking Tobacco: Never Assessed Sex and Gender Information Value Date Recorded Sex Assigned at Not on file 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
--- OUTSIDE RECORDS SUMMARY | 2025-02-27 11:31 | XMS_ITS | Encounter Summary ---
Author Organization [facility] Address [address] [place] [address] Care Team Providers Care Measurement Superintendent Name Role Phone Vick Cox MD Primary Care Provider + Encounter Details Date Type Department Care Team (Latest Contact Info) Description 12/20/2006 Outpatient Historical [facility] [place] [address] [facility] [address] [place] [address] Josiah Hussein MD [address] [facility] [address] [place] [phone] Unspecified Ulcerative Colitis (CMS/HCC) (Primary Dx) Social History Tobacco Use Types Packs/Day Years Used Date Smoking Tobacco: Never Assessed Sex and Gender Information Value Date Recorded Sex Assigned at Not on file 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
--- OUTSIDE RECORDS SUMMARY | 2025-02-27 11:31 | XMS_ITS | Encounter Summary ---
Author Organization [facility] Address [address] [place] [address] Care Team Providers Care Steel Analyst Name Role Phone Vick Cox MD Primary Care Provider + Encounter Details Date Type Department Care Team (Latest Contact Info) Description 02/26/2003 Outpatient Historical [facility] Gastroenterology[address] [place] [address] Josiah Hussein MD [address] [facility] [address] [place] [phone] ULCERATIVE COLITIS NOS (CMS/HCC) (Primary Dx) Social History Tobacco Use Types Packs/Day Years Used Date Smoking Tobacco: Never Assessed Sex and Gender Information Value Date Recorded Sex Assigned at Not on file 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
--- OUTSIDE RECORDS SUMMARY | 2025-02-27 11:31 | XMS_ITS | Patient Health Record ---
Author Organization [facility] Address [address] [place] [address] Care Team Providers Care Call Or Contact Centre Manager Name Role Phone Simon Butler MD Primary Care Provider Obed Lazaro Unavailable [phone] Nuris Hawkins Unavailable Allergies Allergen (clinical drug ingredient) Drug/Non Drug Allergy documented on EMR Reaction Allergy Type Onset Date Status No Known Drug Allergy Unknown Drug Allergy Active Results Component Value Reference Range Notes UA Without Micro-[place], [place] - [id number] Reviewed date:07/12/2024 09:57:44 AM Interpretation: Performing Lab: Notes/Report: Glucose - Bili - Ketones - Sp [place] 1.020 Blood - pH 5.5 Protein - Urobili - Nitrites - Leukocytes - Reason For Referral Reason Erectile Dysfunction Diagnosis 1 Erectile dysfunction (N52.9) Referring Provider First Name [facility] Referring Provider Last Name [place] [facility]erring Provider [facility] Referred Organization [facility] Referred Provider Obed Boyd Referred Address [address],[place], [place],[address], Referred Provider Specialty Urology Referral Priority Routine Medications Medication SIG (Take, Route, Frequency, Duration) Notes Start Date End Date Status Imiquimod 5 % Cream 1 application at bedtime, leave on for 8 hours then wash off Externally Three times a Week Active Fluticasone Propionate 50 MCG/ACT Suspension 1 spray in each nostril Nasally Twice a day Active Tadalafil 10 MG Tablet 1 tablet as neede d Orally every 5 days as needed 07/12/2024 Active Fluconazole 100 MG Tablet 1 tablet Orally Active Sulfamethoxazole-Trimethopri m 800-160 MG Tablet 1 tablet Orally 3 times a week 07/12/2024 Active Cetirizine HCl 10 MG Tablet 1 tablet Ora lly Once a day Active Rosuvastatin Calcium 20 MG Tablet 1 tablet Orally Once a day Active Allopurinol 300 MG Tablet 1 tablet Orall y Once a day Active Prochlorperazine Maleate 10 MG Tablet 1 tablet as needed Orally Three times a day Active Ondansetron 4 MG Tablet Disintegrating 1 tablet on the tongue and allow to dissolve Orally Once a day Active Omeprazole 20 MG Capsule Delayed Release 1 capsule 1/2 to 1 hour before morning meal Orally Once a day Active Mesalamine Active LORazepam 1 MG Tablet 1 tablet at bedtim e as needed Orally Once a day Active Zinc Gluconate 50 MG Tablet 1 tablet Ora lly Once a day Active Lactobacillus Active valACYclovir HCl 500 MG Tablet 1 tablet Orally Once a day Active Urea 40 % Cream 1 application as nee ded Externally Once a day Active Social History Section Notes: Former smoker quit 35+ years ago Admits alcohol-2-3 drinks per week Admits caffiene- 1-2 cups per day Former smoker quit 35+ years ago Admits alcohol-2-3 drinks per week Admits caffiene- 1-2 cups per day Former smoker quit 35+ years ago Admits alcohol-2-3 drinks per week Admits caffiene- 1-2 cups per day Problems Problem Type SNOMED Code ICD Code Onset Dates Problem Status W/U Status Risk Notes Problem Erectile dysfunction (623096188) Erectile dysfunction (N52.9) Active confirmed Problem 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.31) Active confirmed Vital Signs Heart Rate 80 /min 02/12/2025 Temperature 98.6 degrees Fahrenheit 02/12/2025 Height-cm 177.8 cm 02/12/2025 Blood pressure diastolic 40 mm Hg 02/12/2025 Weight-kg 86.64 kg 02/12/2025 Height 70 in 02/12/2025 Blood pressure systolic 102 mm Hg 02/12/2025 Weight 191 lbs 02/12/2025 BMI 27.4 kg/m2 02/12/2025 Encounters Encounter Location Date Provider Diagnosis [facility] [address] [place] [address] [address] [place] [address] 07/12/2024 Obed Boyd Male erectile dysfunction, unspecified N52.9 ; Prostate cancer screening Z12.5 and Orgasm dysfunction F52.31 [facility] [address] [place] [address] Dr [address] [place] [address] 08/14/2024 Obed Boyd Male erectile dysfunction, unspecified N52.9 ; Orgasm dysfunction F52.31 and Abnormal prostate on physical examination N42.9 [facility] [address] [place] [address] Dr [address] [place] [address] 02/12/2025 Obed Boyd Orgasm dysfunction F52.31 and Erectile dysfunction N52.9 [facility] [address] [place] [address] Dr [address] [place] [address] 07/12/2024 Obed Boyd Male erectile dysfunction, unspecified N52.9 [facility] [address] [place] [address] Dr [address] [place] [address] 08/02/2024 Obed Boyd Encounter for screening for malignant neoplasm of prostate Z12.5 [facility] [address] [place] [address] Dr [address] [place] [address] 01/15/2025 Obed Boyd [facility] [address] [place] [address] Dr [address] [place] [address] 02/12/2025 Nuris Hawkins Encounter for screening for malignant neoplasm of prostate Z12.5 Assessments Encounter Date Diagnosis (ICD Code) Assessment Notes Treatment Notes Treatment Clinical Notes Section Notes 07/12/2024 Male erectile dysfunction, unspecified (ICD-10 - N52.9) 08/02/2024 Encounter for screening for malignant neoplasm of prostate (ICD-10 - Z12.5) 08/14/2024 Male erectile dysfunction, unspecified (ICD-10 - N52.9) 08/14/2024 Orgasm dysfunction (ICD-10 - F52.31) 07/12/2024 Male erectile dysfunction, unspecified (ICD-10 - N52.9) 07/12/2024 Prostate cancer screening (ICD-10 - Z12.5) 02/12/2025 Erectile dysfunction (ICD-10 - N52.9) 02/12/2025 Orgasm dysfunction (ICD-10 - F52.31) 02/12/2025 Encounter for screening for malignant neoplasm of prostate (ICD-10 - Z12.5) 07/12/2024 Orgasm dysfunction (ICD-10 - F52.31) 08/14/2024 Abnormal prostate on physical examination (ICD-10 - N42.9) 07/12/2024 Other Current PSA. With testosterone Continue tadalafil 10mg as needed. May use up to 20mg. Monitor prostate exam. It is borderline firm on the right. If his psa is elevated will need to consider prostate biopsy. My next available. Discussed that delay in reaching orgasm can be related to age. He is not taking lorazepam. I do not see another medication that I am aware would delay orgasm that he is taking. 08/14/2024 Other Continue tadalafil 10 to 20 mg as needed. Bring meds with him next visit to confirm. Follow-up 5 months for repeat prostate exam. PSA is normal. 02/12/2025 Other 6 months with Maida with PSA. If PSA remains normal, then monitor yearly continue tadalafil or sildenafil as needed. Do not take within 48 hours of each medication. Erectile function is stable. Plan Of Treatment Pending Test Test Name Order Date PSA Diagnostic--[id number] 07/12/2024 PSA Diagnostic--[id number] 08/02/2024 Testosterone Total [id number] 07/12/2024 Future Test Test Name Order Date PSA Diagnostic--[id number] 07/07/2025 Next Appt Details Provider Name:Nuris Person, 08/13/2025 11:00:00 AM, [address] [facility] [address], [place], [address], Insurance Providers Payer Name Payer Address Payer Phone Subscriber Number Group Number Insured Name Patient Relationship to Insured Coverage Start Date Coverage End Date [employer] [address] [place] [address] [id number] Ricky Lobo Self - patient is the insured Medical (General) History Medical History History ICD Code lymphoma Surgical History Surgery Date(Month/Year) Vasectomy Right shoulder 1982 Bilateral legs-broken Hernia, inguinal
--- OUTSIDE RECORDS SUMMARY | 2025-02-27 11:31 | XMS_ITS | Encounter Summary ---
Author Organization [facility] Address [address] [place] [address] Care Team Providers Care Hedis Analyst Name Role Phone Vick Cox MD Primary Care Provider + Encounter Details Date Type Department Care Team (Latest Contact Info) Description 01/19/2007 Outpatient Historical [facility] [place] [address] [facility] [address] [place] [address] Josiah Hussein MD [address] [facility] [address] [place] [phone] Unspecified Ulcerative Colitis (CMS/HCC) (Primary Dx) Social History Tobacco Use Types Packs/Day Years Used Date Smoking Tobacco: Never Assessed Sex and Gender Information Value Date Recorded Sex Assigned at Not on file 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
--- OUTSIDE RECORDS SUMMARY | 2025-02-27 11:31 | XMS_ITS | Encounter Summary ---
Author Organization [facility] Address [address] [place] [address] Care Team Providers Care Heavy Threader Name Role Phone Vick Cox MD Primary Care Provider + Encounter Details Date Type Department Care Team (Latest Contact Info) Description 12/20/2001 Outpatient Historical [facility] [place] [address] [facility] [address] [place] [address] Josiah Hussein MD [address] [facility] [address] [place] [address] ULCERATIVE COLITIS NOS (CMS/HCC) (Primary Dx) Social History Tobacco Use Types Packs/Day Years Used Date Smoking Tobacco: Never Assessed Sex and Gender Information Value Date Recorded Sex Assigned at Not on file Legal Sex Male 5:36 AM AUDIT SPEC Gender Identity Not on file Sexual Orientation Not on file documented as of this encounter Plan of Treatment Not on file documented as of this encounter Visit Diagnoses Diagnosis Ulcerative colitis, unspecified- Primary documented in this encounter Care Teams Heavy Threader Relationship Specialty Start Date End Date Vick Cox MD PCP - General Family Practice 05/21/16 documented as of this encounter
--- OUTSIDE RECORDS SUMMARY | 2025-02-27 11:31 | XMS_ITS | Encounter Summary ---
Author Organization [facility] Address [address] [place] [address] Care Team Providers Care Digital Sales Planner Name Role Phone Vick Cox MD Primary Care Provider + Encounter Details Date Type Department Care Team (Latest Contact Info) Description 08/27/2003 Outpatient Historical [facility] Gastroenterology[address] [place] [address] Josiah Hussein MD [address] [facility] [address] [place] [address] ULCERATIVE COLITIS NOS (CMS/HCC) (Primary Dx) Social History Tobacco Use Types Packs/Day Years Used Date Smoking Tobacco: Never Assessed Sex and Gender Information Value Date Recorded Sex Assigned at Not on file Legal 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
--- OUTSIDE RECORDS SUMMARY | 2025-02-27 11:31 | XMS_ITS | Encounter Summary ---
Author Organization [facility] Address [address] [place] [address] Care Team Providers Care Dictionary Editor Name Role Phone Vick Cox MD Primary Care Provider + Encounter Details Date Type Department Care Team (Latest Contact Info) Description 12/02/2005 Outpatient Historical [facility] [place] [address] [facility] [address] [place] [address] Josiah Hussein MD [address] [facility] [address] [place] [address] Unspecified Ulcerative Colitis (CMS/HCC) (Primary Dx) Social History Tobacco Use Types Packs/Day Years Used Date Smoking Tobacco: Never Assessed Sex and Gender Information Value Date Recorded Sex Assigned at Not on file 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
--- OUTSIDE RECORDS SUMMARY | 2025-02-27 11:31 | XMS_ITS | Encounter Summary ---
Author Organization [facility] Address [address] [place] [address] Care Team Providers Care Slabber Name Role Phone Vick Cox MD Primary Care Provider + Encounter Details Date Type Department Care Team (Latest Contact Info) Description 08/02/2002 Outpatient Historical [facility] Gastroenterology[address] [place] [address] Josiah Hussein MD 1029 [facility] [address] [place] [phone] ULCERATIVE COLITIS NOS (CMS/HCC) (Primary Dx) Social History Tobacco Use Types Packs/Day Years Used Date Smoking Tobacco: Never Assessed Sex and Gender Information Value Date Recorded Sex Assigned at Not on file 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
--- OUTSIDE RECORDS SUMMARY | 2025-02-27 11:31 | XMS_ITS | Encounter Summary ---
Author Organization [facility] Address [address] [place] [address] Care Team Providers Care Sand Mill Operator Name Role Phone Vick Cox MD Primary Care Provider + Encounter Details Date Type Department Care Team (Latest Contact Info) Description 12/17/2004 Outpatient Historical 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
--- OUTSIDE RECORDS SUMMARY | 2025-02-27 11:31 | XMS_ITS | Clinical Summary ---
Author Organization [facility] [address] Address [address] [place] [address] Care Team Providers Care Court Manager Name Role Phone Vick Cox MD Primary Care Provider + Allergies No known active allergies Medications OMEPRAZOLE 20 mg Oral CpDR Take 20 mg by mouth daily. Active MESALAMINE 400 mg Oral TbEC Take 800 mg by mouth 3 times daily . Active L. ACIDOPHILUS/L. RHAMNOSUS (PROBIOTIC ORAL) Take by mouth daily. Active cyanocobalamin (VITAMIN B-12) 500 mcg tablet Take 500 mcg by mouth daily. Active TURMERIC ROOT EXTRACT ORAL Take 500 mg by mouth. 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 Cancer Staging:Clinical stage from 05/08/2018:Stage III(Follicular lymphoma) - Signed by Chun Guy MD on 05/08/2018 Gastroesophageal reflux disease 05/21/2016 Ulcerative colitis without complications 016 Umbilical hernia without mention of obstruction or gangrene 11/14/2008 Family History Medical History Relation Name Comments Lung Cancer Father Colon Cancer Neg Hx Relation Name Status Comments Father Maternal Grandfather Maternal Grandmother Mother Alive Paternal Grandfather Paternal Grandmother Sister Alive Social History Tobacco Use Types Packs/Day Years Used Date Smoking Tobacco: Never Smokeless Tobacco: Never Alcohol Use Standard Drinks/Week Comments Yes 0 (1 standard drink = 0.6 oz pur e alcohol) socially Sex and Gender Information Value Date Recorded Sex Assigned at Not on file Legal Sex Male 5:36 AM RESPOOLER Gender Identity Not on file Sexual Orientation Not on file Last Filed Vital Signs Vital Sign Reading Time Taken Comments Blood Pressure 111/82 06/11/2019 8:38 AM RESPOOLER Pulse 76 06/11/2019 8:38 AM RESPOOLER Temperature 36.3 C (97.3 F) 09/04/2018 2:03 PM CDT Respiratory Rate 27 06/11/2019 8:38 AM RESPOOLER Oxygen Saturation 93% 06/11/2019 8:38 AM RESPOOLER Inhaled Oxygen Concentration - - Weight 86.2 kg (190 lb) 05/29/2019 1:42 PM RESPOOLER Height 177.8 cm (5' 10 ) 05/29/2019 1:42 PM RESPOOLER Body Mass Index 27.26 05/29/2019 1:42 PM RESPOOLER Plan of Treatment Health Maintenance Due Date Last Done Comments DTAP/TDAP/TD VACCINES (1 - Tdap) 12/01/1971 FIT-DNA Q 3 years 1997 FIT/FOBT Q 1 year 1997 Flex Sig/CT Colonography Q 5 years 1997 PNEUMOCOCCAL VACCINE 50+ YEA RS (1 of 1 - PCV) 2002 ZOSTER VACCINE (1 of 2) 2002 COLORECTAL SCREENING 06/11/2020 06/11/2019, 06/11/2019, 12/16/2016, Additional history exists Colorectal Cancer Screening 06/11/2020 INFLUENZA VACCINE (#1) 2025 RSV VACCINE (60+ or ) (1 - 1-dose 75+ series) 12/01/2027 Medical Devices Implanted Type Area Upholstery Sewer Device Identifier Shelf Expiration Date Model / Serial / Lot Mesh Ventralight St 6x8in [id number] - Sna Implanted:Qty: 1 on 03/04/2016 by Alvarado Yo MD at [facility] Mesh N/A: Abdomen CR [employer] 12/31/2017 [id number] / NA / [id number] Procedures Procedure Name Priority Date/Time Associated Diagnosis Comments COLONOSCOPY REPORT 06/11/2019 8: 25 AM RESPOOLER from Last 3 Months or Most Recently Relevant to Health Maintenance Results * COLONOSCOPY REPORT (06/11/2019 8:25 AM RESPOOLER) Narrative Procedure Note Josiah Hussein MD - 06/11/2019 8:24 AM CST [facility] GI Patient Name: Ricky Lobo Procedure Date: 06/11/2019 Date of : 1950 Admit Type: Outpatient Age: 68 Attending MD: Josiah Hussein , Procedure: Colonoscopy Indications: High risk colon cancer surveillance: Ulcerative pancolitis of 8 (or more) years duration Providers: Analia Rahman, Talib Johnson, RN Referring MD: Luis A Lopez Medicines: Midazolam 3 mg IV, Fentanyl 50 micrograms IV Complications: No immediate complications. Procedure: After I obtained informed consent, the scope was passed under direct vision. Throughout the procedure, the patient's blood pressure, pulse, and oxygen saturations were monitored continuously. The Colonoscope was introduced through the anus and advanced to the terminal ileum, with identification of the appendiceal orifice and IC valve. The colonoscopy was performed without difficulty. The patient tolerated the procedure well. The quality of the bowel preparation was adequate. Estimated Blood Loss: Estimated blood loss was minimal. Findings: The perianal and digital rectal examinations were normal. The terminal ileum appeared normal. Inflammation characterized by erythema was found in a continuous and circumferential pattern from the rectum to the descending colon. This was mild in severity. Staining chromoscopy with methylene blue was performed. A 6 mm polyp was found in the sigmoid colon. The polyp was flat. The polyp was removed with a cold snare. Resection and retrieval were complete. Impression: - The examined portion of the ileum was normal. - Left-sided ulcerative colitis. Inflammation was found from the rectum to the descending colon. This was mild in severity. Chromoscopy performed. - One 6 mm polyp in the sigmoid colon, removed with a cold snare. Resected and retrieved. Recommendation: - Repeat colonoscopy in 1 year for surveillance. Josiah Hussein, 06/11/2019 8:24:16 AM Number of Addenda: 0 Note Initiated On: 06/11/2019 7:51 AM Scope Withdrawal Time 0 hours 10 minutes 12 seconds Scope In: 8:07:51 AM Scope Out: 8:19:56 AM [address] [place] Josiah Hussein MD GI PROCEDURE ORDERABLES Fin al Result from Last 3 Months or Most Recently Relevant to Health Maintenance Insurance MEDICARE PART A AND B [facility] Advance Directives For more information, please contact: [phone] * Full Code (Latest Code Status on File) Date Activated Date Inactivated Comments 06/11/2019 7:16 AM 06/11/2019 10:44 AM * Full Code Date Activated Date Inactivated Comments 03/29/2018 12:35 PM 03/29/2018 7:24 PM * Full Code Date Activated Date Inactivated Comments 03/29/2018 9:18 AM 03/29/2018 12:35 PM * Full Code Date Activated Date Inactivated Comments 12/14/2016 7:48 AM 12/14/2016 11:34 AM * Full Code Date Activated Date Inactivated Comments 03/04/2016 11:10 AM 03/04/2016 2:[address] Manager Relationship Specialty Start Date End Date Vick Cox MD PCP - General Family Practice 05/21/16
--- OUTSIDE RECORDS SUMMARY | 2025-02-27 11:31 | XMS_ITS | Encounter Summary ---
Author Organization [facility] Address [address] [place] [address] Care Team Providers Care Boom Worker Name Role Phone Vick Cox MD Primary Care Provider + Encounter Details Date Type Department Care Team (Latest Contact Info) Description 02/01/2002 Outpatient Historical [facility] Gastroenterology[address] [place] [address] Josiah Hussein MD 1029 [facility] [address] [place] [address] ULCERATIVE COLITIS NOS (CMS/HCC) (Primary Dx) Social History Tobacco Use Types Packs/Day Years Used Date Smoking Tobacco: Never Assessed Sex and Gender Information Value Date Recorded Sex Assigned at Not on file Legal 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
--- OUTSIDE RECORDS SUMMARY | 2025-02-27 11:31 | XMS_ITS | Encounter Summary ---
Author Organization [facility] Address [address] [place] [address] Care Team Providers Care Retail Branch Manager Name Role Phone Vick Cox MD Primary Care Provider + Encounter Details Date Type Department Care Team (Latest Contact Info) Description 01/04/[address] 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
--- OUTSIDE RECORDS SUMMARY | 2025-02-27 11:31 | XMS_ITS | Encounter Summary ---
Author Organization [facility] Address [address] [place] [address] Care Team Providers Care Pharmaceutical Assistant Name Role Phone Vick Cox MD Primary Care Provider + Encounter Details Date Type Department Care Team (Latest Contact Info) Description 12/17/2004 Outpatient Historical [facility] Endoscopy [place] [address] [place] [address] Josiah Hussein MD 1029 [facility] [address] [place] [address] NONINFEC GASTROENTERIT NEC (Primary Dx) Social History Tobacco Use Types Packs/Day Years Used Date Smoking Tobacco: Never Assessed Sex and Gender Information Value Date Recorded Sex Assigned at Not on file Legal Sex Male 5:36 AM 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
--- OUTSIDE RECORDS SUMMARY | 2025-02-27 11:31 | XMS_ITS | Encounter Summary ---
Author Organization [facility] Address [address] [place] [address] Care Team Providers Care Document Management Specialist Name Role Phone Vick Cox MD Primary Care Provider + Encounter Details Date Type Department Care Team (Latest Contact Info) Description 10/10/2003 Outpatient Historical [facility] Gastroenterology[address] [place] [address] Josiah Hussein MD 1029 [facility] [address] [place] [phone] ULCERATIVE COLITIS NOS (CMS/HCC) (Primary Dx) Social History Tobacco Use Types Packs/Day Years Used Date Smoking Tobacco: Never Assessed Sex and Gender Information Value Date Recorded Sex Assigned at Not on file Legal Sex Male 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
--- OUTSIDE RECORDS SUMMARY | 2025-02-27 11:31 | XMS_ITS | Encounter Summary ---
Author Organization [facility] Address [address] [place] [address] Care Team Providers Care Agricultural Research Engineer Name Role Phone Vick Cox MD Primary Care Provider + Encounter Details Date Type Department Care Team (Latest Contact Info) Description 01/25/2002 Outpatient Historical [facility] [place] [address] [facility] [address] [place] [address] Josiah Hussein MD 1029 [facility] [address] [place] [address] ULCERATIVE COLITIS NOS (CMS/HCC) (Primary Dx) Social History Tobacco Use Types Packs/Day Years Used Date Smoking Tobacco: Never Assessed Sex and Gender Information Value Date Recorded Sex Assigned at Not on file Legal Sex Male 5:36 AM DENTAL 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
--- OUTSIDE RECORDS SUMMARY | 2025-02-27 11:31 | XMS_ITS | Encounter Summary ---
Author Organization [facility] Address 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 [place] [phone] PCP - General Family Practice 04/16/22 documented as of this encounter
--- OUTSIDE RECORDS SUMMARY | 2025-02-27 11:31 | XMS_ITS ---
Author Organization [facility] Address [address] [facility] [address] 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 Past Treatment and Therapy Plans No past plan information found. Lifetime Dose Tracking * Chemical Lifetime Dose Automatic Entry Manual Entr y Effective Dose 23.3 mSv 0 mSv 23.3 mSv Total DLP 1,783 DLP 0 DLP 1,783 DLP CTDIvol Max 65.8 mGy 0 mGy 65.8 mGy CTDIvol Min 63.2 mGy 0 mGy 63.2 mGy
--- OUTSIDE RECORDS SUMMARY | 2025-02-27 11:31 | XMS_ITS | Encounter Summary ---
Author Organization [facility] Address [address] [place] [address] Care Team Providers Care Manager Special Events Name Role Phone Vick Cox MD Primary Care Provider + Encounter Details Date Type Department Care Team (Latest Contact Info) Description 01/17/2002 Outpatient Historical [facility] Gastroenterology[address] [place] [address] Josiah Hussein MD 1029 [facility] [address] [place] [address] ULCERATIVE COLITIS NOS (CMS/HCC) (Primary Dx) Social History Tobacco Use Types Packs/Day Years Used Date Smoking Tobacco: Never Assessed Sex and Gender Information Value Date Recorded Sex Assigned at Not on file Legal Sex Male 5:36 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
--- OUTSIDE RECORDS SUMMARY | 2025-02-27 11:31 | XMS_ITS ---
Author Organization [facility]3] [place] [address] Address [address] [place] [address] Care Team Providers Care Process Controller Name Role Phone Vick Cox MD Primary Care Provider + Active Problems Problem Noted Date Diagnosed Date [...] Manual Entr y Effective Dose 23.3 mSv 23.3 mSv 0 mSv Total DLP 1,783 DLP 1,783 DLP 0 DLP CTDIvol Max 65.8 mGy 65.8 mGy 0 mGy CTDIvol Min 63.2 mGy 63.2 mGy 0 mGy
--- OUTSIDE RECORDS SUMMARY | 2025-02-27 11:31 | XMS_ITS | Encounter Summary ---
Author Organization [facility] Address [address] [place] [address] Care Team Providers Care Gang Leader Name Role Phone Vick Cox MD Primary Care Provider + Encounter Details Date Type Department Care Team (Latest Contact Info) Description 12/02/2004 Outpatient Historical [facility] Gastroenterology[address] [place] [address] Josiah Hussein MD 1029 [facility] [address] [place] [address] ULCERATIVE COLITIS NOS (CMS/HCC) (Primary Dx) Social History Tobacco Use Types Packs/Day Years Used Date Smoking Tobacco: Never Assessed Sex and Gender Information Value Date Recorded Sex Assigned at Not on file Legal Sex Male 5:36 AM FLANGER Gender Identity Not on file Sexual Orientation Not on file documented as of this encounter Plan of Treatment Not on file documented as of this encounter Visit Diagnoses Diagnosis Ulcerative colitis, unspecified- Primary documented in this encounter Care Teams Gang Leader Relationship Specialty Start Date End Date Vick Cox MD PCP - General Family Practice 05/21/16 documented as of this encounter
--- OUTSIDE RECORDS SUMMARY | 2025-02-27 11:31 | XMS_ITS | Encounter Summary ---
Author Organization [facility] Address [address] [place] [address] Care Team Providers Care Manager Internship Name Role Phone Vick Cox MD Primary Care Provider + Encounter Details Date Type Department Care Team (Latest Contact Info) Description 01/11/2006 Outpatient Historical [facility] End[place] [address] [place] [address] Josiah Hussein MD 1029 [facility] [address] [place] [address] Other and Unspecified Noninfectious Gastroenteritis and Colitis (Primary Dx) Social History Tobacco Use Types Packs/Day Years Used Date Smoking Tobacco: Never Assessed Sex and Gender Information Value Date Recorded Sex Assigned at Not on file Legal 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
--- NOTE | 2025-02-27 11:32 | ECG_ITS ---
[facility] 2025-02-27 Pat Name: Ricky Lobo Department: Room: Gender: Male Marble Cleaner: : 1950 Requested By: Erick Jewell Order Number: [id number] Nasima MD: Wilmer Temple M.D. Measurements Intervals [place] Rate: 109 P: 39 ND: 170 QRS: 21 QRSD: 124 T: -21 QT: 328 QTc: 443 Interpretive Statements SINUS TACHYCARDIA RIGHT BUNDLE BRANCH BLOCK [120+ ms QRS DURATION, UPRIGHT V1, 40+ ms S IN I/aVL/V4/V5/V6] Compared to ECG 11/11/2022 14:24:33 NO SIGNIFICANT CHANGE Electronically Signed On 02-27-2025 21:29:35 CDT by Wilmer Temple M.D. [email or web address]
--- NOTE | 2025-02-27 11:36 | ED_ITS ---
HPI - Chest Pain 2 General: Chief Complaint: Chest Pain Stated Complaint: Respiratory Time Seen by Provider: 02/27/25 11:28 History of Present Illness: 74-year-old male presents emergency room complaining of shortness of breath. He is not having any chest pain at this time. He has been short of breath. Nonproductive cough generally not felt well for the last 2 weeks with shortness of breath the last couple of days. He has not had any productive cough. When he first arrived he is 85% on room air. Denies hemoptysis. Patient has a known history of lymphoma. Associated symptoms: Deny abdominal pain, dyspnea or fever(s) Related Data Home Medications ?Medication ?Instructions ?Recorded ?Confirmed mesalamine 800 mg tablet,delayed 3,400 mg PO DAILY 02/27/25 release omeprazole 40 mg capsule,delayed 40 mg PO DAILY 02/27/25 release urea 40 % topical cream 1 applic topical BID PRN Dry Skin 02/27/25 02/27/25 Previous Rx's ?Medication ?Instructions ?Recorded lorazepam 1 mg tablet 0.5 - 1 mg (0.5 - 1 x 1 mg) PO Q6H 05/17/24 PRN severe nausea #30 tabs albuterol sulfate 90 mcg/actuation 2 inh inhalation Q4 H PRN shortness 02/27/25 aerosol inhaler of breath or wheezing #18 gr ams doxycycline hyclate 100 mg capsule 100 mg PO BID 10 da ys #20 caps 02/27/25 prednisone 20 mg tablet 20 mg PO TID #15 tabs Allergies Allergy/AdvReac Type Severity Reaction Status Date / Time No Known Allergies Allergy Verified 02/20/25 11:57 Review of Systems 2 Const: Denies: fever(s) or chills Card: Denies: chest pain Resp: Denies: dyspnea GI: Denies: abdominal pain : Denies: dysuria, urinary frequency or urinary urgency Musc: Denies: neck pain or back pain Skin/Breast: Denies: rash PFSH ED 2 PFSH: Medical History Avascular necrosis of bones of both hips History of nonmelanoma skin cancer Follicular lymphoma grade 3a Ulcerative colitis Surgical History History of bone marrow biopsy (05/04/18) History of lymph node biopsy (03/29/18) Right inguinal lymph node biopsy History of facial fracture repair Bilateral femur fractures History of shoulder surgery History of umbilical hernia repair Family History Father Cancer Lung Mother Dementia Other Clotting disorder Hypertension Denies family history of Diabetes CAD (coronary artery disease) Hyperlipidemia Psychiatric illness Chronic kidney disease (CKD) Suicide Anesthesia complication Bleeding disorder Lung disease Stroke Social History Smoking and tobacco/nicotine status: former use of tobacco/nicotine Quit status (tobacco/nicotine): has quit using Year quit tobacco: 1984 Former quit date comment: approx 35 years Second hand smoke exposure: Yes Alcohol intake: current Alcohol intake frequency: holidays/special occasions only Physical Exam 2 Const: GENERAL APPEARANCE: cooperative ORIENTATION/CONSCIOUSNESS: Yes awake, Yes oriented to person, Yes oriented to place and Yes oriented to time HENMT: COMMON NORMALS: normocephalic, atraumatic and hearing grossly normal bilaterally HEAD & SCALP: normocephalic and atraumatic Resp: COMMON NORMALS: normal respiratory effort, No retractions, No use of accessory muscles and clear to auscultation bilaterally AUSCULTATION: clear to auscultation bilaterally Cardio: COMMON NORMALS: regular rate, regular rhythm and No murmurs present (Cardio) RATE: regular rate RHYTHM: regular rhythm GI: COMMON NORMALS: Soft to palpation and No hepatosplenomegaly present A USCULTATION: Yes normoactive bowel sounds PALPATION: Yes Soft to palpation, No Tenderness to palpation present (GI), No Guarding due to palpation present (GI) and Yes No hepatosplenomegaly present Extremity: COMMON NORMALS: normal to inspection, capillary refill normal, no clubbing, cyanosis or edema, no calf tenderness and no pedal edema Neuro: SENSORIUM/ORIENTATION: Yes oriented to person, Yes oriented to place and Yes oriented to time Skin: COMMON NORMALS: no rashes or lesions noted GENERAL SKIN EXAM: no rashes or lesions noted Course 2 Vital Signs: Vital signs: Vital Signs Temperature 100 F H 02/27/25 11:28 Pulse Rate 84 02/27/25 17:41 Respiratory Rate 15 02/27/25 16:12 Blood Pressure 120/83 02/27/25 17:41 Pulse Oximetry 96 02/27/25 17:41 Oxygen Delivery Me thod Nasal Cannula 02/27/25 14:31 Oxygen Flow Rate 2 02/27/25 14:31 MDM - Chest Pain Medical Decision Making Cardiac enzymes and EKG did not show any acute changes. Patient is tachycardic but he is feeling much better after steroids and nebulizer. He did require supportive oxygen offered admission for observation with treatment of acute exacerbation COPD he declines. Patient has chronic leukocytopenia. CTA of his chest is negative for PE pneumothorax pneumonia no evidence of CHF. Flu COVID and RSV are negative. No chest pain at this time. After discussion with patient he prefers to go home we will discharge home on albuterol inhaler steroid taper doxycycline oxygen at 2 L/min return if he has further problems. CT o Medical Records I reviewed the patient's medical records. Lab Data I reviewed the patient's lab results. 02/27/25 11:21 02/27/25 11:21 Radiology Impressions Chest X-Ray 02/27/25 11:28 IMPRESSION: 1. Chronic bibasal changes. No acute process identified. Chest CTA 02/27/25 11:49 IMPRESSION: 1. No evidence of pulmonary embolus. 2. Advanced chronic emphysematous changes with bibasilar atelectasis. 3. No focal consolidation or pleural fluid. Laboratory Results WBC 2.93 10^3/uL (3.29-11.43) L 02/27/25 11:21 RBC 3.63 10^6/uL (3.85-5.65) L 02/27/25 11:21 Hgb 13.20 g/dL (11.27-16.99) 02/27/25 11:21 Hct 37.3 % (37-53) 02/27/25 11:21 MCV 102.8 fl (82-101) H 02/27/25 11:21 MCH 36.4 pg (27-33) H 02/27/25 11:21 MCHC 35.4 g/dL (30-55) 02/27/25 11:21 RDW 12.1 % (12.1-15.1) 02/27/25 11:21 Plt Count 230 10^3/cmm (157-399) 02/27/25 11:21 MPV 9.0 fL (7.4-10.4) 02/27/25 11:21 Neut % (Auto) 69.5 % 02/27/25 11:21 Lymph % (Auto) 7.2 % 02/27/25 11:21 [place] % (Auto) 10.6 % 02/27/25 11:21 Eos % (Auto) 8.9 % 02/27/25 11:21 Baso % (Auto) 0.7 % 02/27/25 11:21 Neut # (Auto) 2.04 10^3/uL (1.8-7.7) 02/27/25 11:21 Lymph # (Auto) 0.2 10^3/uL (0.8-4.8) L 02/27/25 11:21 [place] # (Auto) 0.3 10^3/uL (0.2-0.9) 02/27/25 11:21 Eos # (Auto) 0.3 10^3/uL (0.0-0.8) 02/27/25 11:21 Baso # (Auto) 0.0 10^3/uL (0.0-0.1) 02/27/25 11:21 Nucleated RBC % (auto) 0 % 02/27/25 11:21 Nucleated RBCs # 0.0 /100WBC 02/27/25 11:21 Sodium 138 mmol/L (136-145) 02/27/25 11:21 Potassium 3.9 mmol/L (3.5-5.1) 02/27/25 11:21 Chloride 100 mmol/L (98-107) 02/27/25 11:21 Carbon Dioxide 25 mmol/L (22-29) 02/27/25 11:21 Anion Gap 16.9 (5-19) 02/27/25 11:21 BUN 8 mg/dL (8-23) 02/27/25 11:21 Creatinine 1.0 mg/dL (0.7-1.2) 02/27/25 11:21 GFR Calculation Not Reportable 02/27/25 11:21 Glucose 111 mg/dL (65-115) 02/27/25 11:21 Calculated Osmolality 285 mOsm/kg (285-295) 02/27/25 11:21 Calcium 9.6 mg/dL (8.5-10.5) 02/27/25 11:21 Total Bilirubin 0.5 mg/dL (0.15-1.2) 02/27/25 11:21 AST 32 U/L (0-40) 02/27/25 11:21 ALT 18 U/L (0-41) 02/27/25 11:21 Alkaline Phosphatase 108 U/L (40-130) 02/27/25 11:21 Troponin T Baseline 23 ng/L (0-15) H 02/27/25 11:21 Troponin T 120 Minute 17.92 ng/L (0-15) H 02/27/25 13:05 Delta Troponin T -5.08 ABS# (0-10) L 02/27/25 13:05 NT-Pro-B Natriuret Pep 221 pg/mL (0-125) H 02/27/25 11:21 Total Protein 7.5 g/dL (6.6-8.7) 02/27/25 11:21 Albumin 4.1 g/dL (3.5-5.2) 02/27/25 11:21 Globulin 3.4 g/dL (1.3-4.6) 02/27/25 11:21 Urine Color Dark yellow (Yellow) A 02/27/25 11:50 Urine Appearance Clear (CLEAR) 02/27/25 11:50 Urine pH 5.5 (5-7) 02/27/25 11:50 Ur Specific Wall 1.022 (1.005-1.030) 02/27/25 11:50 Urine Protein 1+ (Negative) A 02/27/25 11:50 Urine Glucose (UA) Negative (Normal) 02/27/25 11:50 Urine Ketones Trace (Negative) 02/27/25 11:50 Urine Blood Negative (Negative) 02/27/25 11:50 Urine Nitrate Negative (Negative) 02/27/25 11:50 Urine Bilirubin Negative (Negative) 02/27/25 11:50 Urine Urobilinogen 1.0 mg/dL (Negative) 02/27/25 11:50 Ur Leukocyte Esterase Negative (Negative) 02/27/25 11:50 Urine RBC 0-2 /hpf (0-2) 02/27/25 11:50 Urine WBC 0-5 /hpf (0-5) 02/27/25 11:50 Ur Squamous Epith Cells 0-5 /hpf (0-5) 02/27/25 11:50 Amorphous Sediment Not Reportable 02/27/25 11:50 Urine Bacteria None seen /hpf (NONE) 02/27/25 11:50 Hyaline Casts 0.81 /lpf 02/27/25 11:50 Influenza A (PCR) Negative (Negative) 02/27/25 14:24 Influenza Type B (PCR) Negative (Negative) 02/27/25 14:24 RSV (PCR) Negative (Negative) 02/27/25 14:24 SARS-CoV-2 (PCR) Negative (Negative) 02/27/25 14:24 All radiology interpretation(s) finalized by discharge EKG Data EKG 1: Interpretation: EKG 02/27/2025 11:32 AM sinus tachycardia rate of 109 right bundle branch block. AR interval 170 QTc 443 no acute changes from previous EKG compared from 11/11/2022 EKG 2: Interpretation: EKG 02/27/2025 1323 sinus tachycardia rate 104 AR interval 159 QTc 467. Right bundle branch block. Compared to EKG done earlier today no acute acute changes Discharge Plan Discharge Patient Disposition: Home Clinical Impression: Acute exacerbation of chronic obstructive pulmonary disease Condition: Stable Prescriptions: New doxycycline hyclate 100 mg capsule 100 mg PO BID 10 Days Qty: 20 0RF prednisone 20 mg tablet 20 mg PO TID Qty: 15 0RF Rx Instructions: 1 p.o. 3 times daily x3 days, 1 p.o. twice daily x2 days, 1 p.o. daily x2 days albuterol sulfate 90 mcg/actuation HFA aerosol inhaler 2 inh INHALATION Q4H PRN (Reason: shortness of breath or wheezing) Qty: 18 0RF No Action omeprazole 40 mg capsule,delayed release(DR/EC) 40 mg PO DAILY mesalamine 800 mg tablet,delayed release (DR/EC) 3,400 mg PO DAILY Rx Instructions: must be taken on empty stomach; no food 1 hr after or 2-3 hrs before dose lorazepam 1 mg tablet 0.5 - 1 mg PO Q6H PRN (Reason: severe nausea) Qty: 30 3RF urea 40 % cream 1 applic topical BID PRN (Reason: Dry Skin) Discharge Orders: Discharge ED (Routine); Ordered 02/27/25 Ordered By: Erick Manning Other Ambulatory Orders: DME: Oxygen (Order) Location: None Selected Ordered By: Erick Manning Referrals: Nicolasa Trujillo MD [Primary Care Provider, Family Practice] Discharge Diet: Usual diet Discharge Activity: Limit activity as instructed Patient Instructions: Opioid Safety, Pain Management, Patient Portal & Shivani Instructions Activity Restrictions/Additional Instructions: [facility]. It is very important that you follow up as instructed or that you return to the Emergency Department should you have concerns or if your condition changes or worsens in any way. Emergency department visits are focused on emergent conditions, in some cases you may require further evaluation on an outpatient basis. You were seen in the emergency room with complaints of shortness of breath with activity. Your cardiac enzymes and your EKGs were normal CTA of your chest to evaluate for blood clots in the lungs was negative, there was also no evidence of heart failure or pneumonia. You did report significant improvement with the breathing treatments and the steroid you were given here. Will discharge you home on a steroid taper. You had a low-grade fever while here suspect there may be some viral component to this as well. Will prophylactically cover you with doxycycline 1 tablet twice a day for 10 days finally give you albuterol to use as needed you should follow-up within the next 3 to 5 days with your primary care provider return to the emergency room if you have any worsening symptoms. (Please note that included in your discharge packet is information concerning opioid safety and pain management. This information is given to all patients were discharged from the ER regardless of their discharge diagnosis or the medicines they usually take or are prescribed.) Print Language: Mauritanian Coding Level of Care Code ED Benefits Representative for Merly Kelley
[2025-02-27 11:37] LABS: Hematocrit 37.3 % (37-53); Hemoglobin 13.20 g/dL (11.27-16.99); Mean Corpuscular HGB Conc 35.4 g/dL (30-55); Mean Corpuscular Hemoglobin 36.4 pg (27-33); Mean Corpuscular Volume 102.8 fl (82-101); Nucleated Red Blood Cells % 0 %; Platelet Count 230 10^3/cmm (157-399); Red Blood Count 3.63 10^6/uL (3.85-5.65); White Blood Count 2.93 10^3/uL (3.29-11.43)
--- NOTE | 2025-02-27 11:49 | CT_ITS ---
WS: [id number] CTA OF THE CHEST WITH PULMONARY EMBOLISM PROTOCOL TECHNIQUE: High-resolution contrast enhanced CTA of the chest with coronal and sagittal reformatted images with pulmonary embolism protocol. MIP images are also reviewed. CLINICAL INFORMATION: Tachycardia dyspnea on exertion COMPARISON: CT 2022 DLP: 350.[address] scans at [facility] use at least one of these dose optimization techniques: automated exposure control; mA and/or kV adjustment per patient size (includes targeted exams where dose is matched to clinical indication); or iterative reconstruction. FINDINGS: Proximal main pulmonary arteries are normal. Normal segmental and subsegmental pulmonary arteries. No evidence of pulmonary embolus. Cardiomegaly. Normal caliber thoracic aorta. Coronary calcification. Adrenal glands are normal. Small esophageal hiatal hernia. Inferior projecting RIGHT thyroid nodule unchanged measuring 1.5 cm. Advanced chronic emphysematous changes. Bibasilar atelectasis. Cholelithiasis. CT/CT angio chest PE protcl [id number] IMPRESSION: 1. No evidence of pulmonary embolus. 2. Advanced chronic emphysematous changes with bibasilar atelectasis. 3. No focal consolidation or pleural fluid.
[2025-02-27 11:56] LABS: Slide Review Slide Review Perform
[2025-02-27 12:01] LABS: Glucose Urine UA Negative (Normal); Nitrate Urine Negative (Negative); Specific Gravity, Urine 1.022 (1.005-1.030)
[2025-02-27] MEDS: iohexol 350 mg/mL 500 mL Btl (per mL) IV (12:01)
[2025-02-27 12:03] LABS: Add Urine Microscopic? YES
[2025-02-27 12:07] LABS: Alanine Aminotransferase 18 U/L (0-41); Albumin Level 4.1 g/dL (3.5-5.2); Alkaline Phosphatase 108 U/L (40-130); Anion Gap 16.9 (5-19); Aspartate Amino Transferase 32 U/L (0-40); Blood Urea Nitrogen 8 mg/dL (8-23); Calcium 9.6 mg/dL (8.5-10.5); Carbon Dioxide 25 mmol/L (22-29); Chloride 100 mmol/L (98-107); Creatinine Clr Calc Pharmacy 71.5254; Globulin 3.4 g/dL (1.3-4.6); Glucose 111 mg/dL (65-115); Osmolality Calculated 285 mOsm/kg (285-295); Potassium 3.9 mmol/L (3.5-5.1); Sodium 138 mmol/L (136-145); Total Protein 7.5 g/dL (6.6-8.7)
[2025-02-27 12:17] LABS: NT Pro B Type Natriuretic Pept 221 pg/mL (0-125)
[2025-02-27 12:25] LABS: Troponin(5th) Baseline 23 ng/L (0-15)
[2025-02-27 13:41] LABS: Troponin 5 2HR 17.92 ng/L (0-15); Troponin 5 2HR Delta -5.08 ABS# (0-10)
--- NOTE | 2025-02-27 13:50 | ECG_ITS ---
[facility] Date: 2025-02-27 Pat Name: Ricky Lobo Department: Room: Gender: Male Senior Net Programmer: : 1950 Requested By: Erick Jewell Order Number: [id number] Nasima MD: Wilmer Temple M.D. Measurements Intervals [place] Rate: 104 P: 23 FL: 159 QRS: 3 QRSD: 128 T: -22 QT: 355 QTc: 467 Interpretive Statements SINUS TACHYCARDIA RIGHT BUNDLE BRANCH BLOCK [120+ ms QRS DURATION, UPRIGHT V1, 40+ ms S IN I/aVL/V4/V5/V6] Compared to ECG 02/27/2025 11:32:59 No significant changes Electronically Signed On 02-27-2025 22:35:22 CDT by Wilmer Temple M.D. [email or web address]
[2025-02-27 15:06] LABS: Respiratory Syncytial Virus Ce NEGATIVE (Negative); SARS-CoV-2 PCR NEGATIVE (Negative)
--- NOTE | 2025-02-27 15:15 | PC.NURSE ---
[facility]; no answer. HOME unable to d/c pt with oxygen d/t being [facility]. this nurse contacted Kylie Todd RN for Kylie caro to contact case management and return phone call with update. pt notified.
--- NOTE | 2025-02-27 15:18 | PC.NURSE ---
nancy Todd RN, Amelia in case management is working on contacting [facility] [place].
--- NOTE | 2025-02-27 15:26 | PC.SOCIAL ---
[facility] to [facility] at [facility]. They will call with ETA once they process the orders.
--- NOTE | 2025-02-27 16:35 | PC.NURSE ---
per Nneka BELL, will be bringing oxygen; states will call back with an ETA
--- NOTE | 2025-02-27 16:57 | PC.NURSE ---
per [facility], will arrive @1830 with oxygen tank
--- NOTE | 2025-02-27 17:17 | PC.NURSE ---
this nurse spoke with [facility] in [place] and informed outpatient pharmacy manager that medications would not need to be sent to pt, pt picking up medications at [facility] pharmacy. this nurse called medications in to [facility].
== END 2025-02-27 18:46 | disposition home or self-care (01) ==
PROVIDERS: Emergency Provider Family Medicine; PCP Family Medicine
DX: J44.1 Chronic obstructive pulmonary disease with (acute) exacerbation (principal); Z11.52 Encounter for screening for COVID-19; Z87.891 Personal history of nicotine dependence; Z85.828 Personal history of other malignant neoplasm of skin
CPT/HCPCS: 36415; 71045; 71275; 80053; 81001; 83880; 84484; 85025; 87637; 93005; 94640; 94760; 99285; J9999

== ENCOUNTER 2025-03-11 12:22 | Inpatient (IN) | payer OTHER, SELFPAY ==
--- OUTSIDE RECORDS SUMMARY | 2025-01-16 06:10 | XMS_ITS ---
Author Organization [facility] Address [address] [place] [address] Care Team Providers Care Shop Tailor Name Role Phone Luke ATWOOD, Simon Primary Care Provider Obed Lazaro Unavailable [phone] REASON FOR VISIT 5m f/u w repeat prostate exam Encounters Encounter Location Date Provider Diagnosis [facility] [address] [place] [address] 01/16/2025 Obed Boyd Plan Of Treatment Next Appt Details Provider Name:Nuris Carter Person, 08/13/2025 11:00:00 AM, [address], [place], [address], Progress Notes * NAGELIKARickywardDOB: (74 yo M)Acc No.[id number]:01/16/2025 Progress Notes Patient: Ricky Jacques Provider: Lupillo Boyd MD :1950 A ge:74 Y S ex:Male Date:01/16/2025 Address:[address] Pcp:Simon Butler MD Subjective: * Chief Complaints: * 5 m f/u w repeat prostate exam * Electronic signature of Romel Boyd MD on 03/11/2025 at 12:26 PM CDT Sign off status: Pending * Provider: Lupillo Boyd MD Date: 0 01/16/2025 Generated for Esei ng/Fanicolleg/eTransmitting on: 1 12:26 PM CDT
[2025-03-11] VITALS (11 sets, daily range): BP systolic 94–150; BP diastolic 62–88; PULSE 80–138; RESP 16–28; TEMP 36.7–38.2; O2SAT 89–98; BMI 26.4
--- OUTSIDE RECORDS SUMMARY | 2025-03-11 12:25 | XMS_ITS | Clinical Summary ---
Author Organization [facility] [address] Address 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 Gender Identity Not on file Sexual Orientation Not on file Last Filed Vital Signs Vital Sign Reading Time Taken Comments Blood Pressure 111/82 06/11/2019 8:38 AM BUTTER WRAPPER Pulse 76 06/11/2019 8:38 AM BUTTER WRAPPER Temperature 36.3 C (97.3 F) 09/04/2018 2:03 PM CDT Respiratory Rate 27 06/11/2019 8:38 AM BUTTER WRAPPER Oxygen Saturation 93% 06/11/2019 8:38 AM BUTTER WRAPPER Inhaled Oxygen Concentration - - Weight 86.2 kg (190 lb) 05/29/2019 1:42 PM BUTTER WRAPPER Height 177.8 cm (5' 10 ) 05/29/2019 1:42 PM BUTTER WRAPPER Body Mass Index 27.26 05/29/2019 1:42 PM BUTTER WRAPPER Plan of Treatment Health Maintenance Due Date [...] series) 12/01/2027 Medical Devices Implanted Type Area Supervisor Train Operations Device Identifier Shelf Expiration Date Model / Serial / Lot Mesh Ventralight St 6x8in [id number] - Sna Implanted:Qty: 1 on 03/04/2016 by Alvarado Yo MD at [facility] Mesh N/A: Abdomen CR [employer] 12/31/2017 [id number] / NA / [id number] Procedures Procedure Name Priority Date/Time Associated Diagnosis Comments COLONOSCOPY REPORT 06/11/2019 8: 25 AM BUTTER WRAPPER from Last 3 Months or Most Recently Relevant to Health Maintenance Results * COLONOSCOPY REPORT (06/11/2019 8:25 AM BUTTER WRAPPER) Narrative Procedure Note Josiah Hussein MD - 06/11/2019 8:24 AM CST [facility] [facility] Patient Name: Ricky Lobo Procedure Date: [...] Scope Out: 8:19:56 AM [address] [place] Josiah Hussein MD GI PROCEDURE ORDERABLES Fin al Result from Last 3 Months or Most Recently Relevant to Health Maintenance Insurance MEDICARE PART A AND B [facility] Advance Directives For more information, please contact: [phone] * Full Code (Latest Code Status on [...] 11:10 AM 03/04/2016 2:09 PM Care Teams Supervisor Fishing Relationship Specialty Start Date End Date Vick Cox MD PCP - General Family Practice 05/21/16
--- OUTSIDE RECORDS SUMMARY | 2025-03-11 12:25 | XMS_ITS | Encounter Summary ---
Author Organization [facility] Address [address] [place] [address] Care Team Providers Care Milk Driver Name Role Phone Vick Cox MD Primary Care Provider + Encounter Details Date Type Department Care Team (Latest Contact Info) Description 02/26/2003 Outpatient Historical [facility] Gastroenterology[address] [place] [address] Josiah Hussein MD [address] [facility] [address] [place] [phone] ULCERATIVE COLITIS NOS (CMS/HCC) (Primary Dx) Social History Tobacco Use Types Packs/Day Years Used Date Smoking Tobacco: Never Assessed Sex and Gender Information Value Date Recorded Sex Assigned at Not on file Legal 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
--- OUTSIDE RECORDS SUMMARY | 2025-03-11 12:25 | XMS_ITS | Encounter Summary ---
Author Organization [facility] Address [address] [place] [address] Care Team Providers Care Multi Sensor Operator Name Role Phone Vick Cox MD Primary Care Provider + Encounter Details Date Type Department Care Team (Latest Contact Info) Description 12/02/2004 Outpatient Historical [facility] Gastroenterology[address] [place] [address] Josiah Hussein MD [address] [facility] [address] [place] [phone] ULCERATIVE COLITIS NOS (CMS/HCC) (Primary Dx) Social History Tobacco Use Types Packs/Day Years Used Date Smoking Tobacco: Never Assessed Sex and Gender Information Value Date Recorded Sex Assigned at Not on file 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
--- OUTSIDE RECORDS SUMMARY | 2025-03-11 12:25 | XMS_ITS | Encounter Summary ---
Author Organization [facility] Address [address] [place] [address] Care Team Providers Care Professor Of Archaeology Name Role Phone Vick Cox MD Primary Care Provider + Encounter Details Date Type Department Care Team (Latest Contact Info) Description 08/27/2003 Outpatient Historical [facility] Gastroenterology[address] [place] [address] Josiah Hussein MD [address] [facility] [address] [place] [phone] ULCERATIVE COLITIS NOS (CMS/HCC) (Primary Dx) Social History Tobacco Use Types Packs/Day Years Used Date Smoking Tobacco: Never Assessed Sex and Gender Information Value Date Recorded Sex Assigned at Not on file Legal Sex Male 5:36 AM BUG TRIMMER Gender Identity Not on file Sexual Orientation Not on file documented as of this encounter Plan of Treatment Not on file documented as of this encounter Visit Diagnoses Diagnosis Ulcerative colitis, unspecified- Primary documented in this encounter Care Teams Professor Of Archaeology Relationship Specialty Start Date End Date Vick Cox MD PCP - General Family Practice 05/21/16 documented as of this encounter
--- OUTSIDE RECORDS SUMMARY | 2025-03-11 12:25 | XMS_ITS | Encounter Summary ---
Author Organization [facility] Address [address] [place] [address] Care Team Providers Care Armoured Corps Officer Name Role Phone Vick Cox MD Primary Care Provider + Encounter Details Date Type Department Care Team (Latest Contact Info) Description 12/02/2005 Outpatient Historical [facility] Gastroenterology[address] [place] [address] Josiah Hussein MD [address] [facility] [address] [place] [phone] Unspecified Ulcerative Colitis (CMS/HCC) (Primary Dx) Social History Tobacco Use Types Packs/Day Years Used Date Smoking Tobacco: Never Assessed Sex and Gender Information Value Date Recorded Sex Assigned at Not on file Legal 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
--- OUTSIDE RECORDS SUMMARY | 2025-03-11 12:25 | XMS_ITS | Encounter Summary ---
Author Organization [facility] Address [address] [place] [address] Care Team Providers Care Pool Installer Name Role Phone Vick Cox MD Primary Care Provider + Encounter Details Date Type Department Care Team (Latest Contact Info) Description 12/20/2001 Outpatient Historical [facility] [place] [id number] [facility] [address] [place] [address] Josiah Hussein MD [address] [facility] [address] [place] [phone] ULCERATIVE COLITIS NOS (CMS/HCC) (Primary Dx) Social History Tobacco Use Types Packs/Day Years Used Date Smoking Tobacco: Never Assessed Sex and Gender Information Value Date Recorded Sex Assigned at Not on file Legal 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
--- OUTSIDE RECORDS SUMMARY | 2025-03-11 12:25 | XMS_ITS | Encounter Summary ---
Author Organization [facility] Address [address] [place] [address] Care Team Providers Care Combination Technician Name Role Phone Vick Cox MD Primary Care Provider + Encounter Details Date Type Department Care Team (Latest Contact Info) Description 06/21/2003 Outpatient Historical [facility] Gastroenterology- [address] [place] [address] Josiah Hussein MD [address] [facility] [address] [place] [address] ESOPHAGEAL REFLUX (Primary Dx); ULCERATIVE COLITIS NOS ([facility]) Social History Tobacco Use Types Packs/Day Years Used Date Smoking Tobacco: Never Assessed Sex and Gender Information Value Date Recorded Sex Assigned at Not on file Legal Sex Male 5:36 AM FIRST ASSISTANT MANAGER Gender Identity Not on file Sexual Orientation Not on file documented as of this encounter Plan of Treatment Not on file documented as of this encounter Visit Diagnoses Diagnosis Esophageal reflux- Primary Ulcerative colitis, unspecified documented in this encounter Care Teams Combination Technician Relationship Specialty Start Date End Date Vick Cox MD PCP - General Family Practice 05/21/16 documented as of this encounter
--- OUTSIDE RECORDS SUMMARY | 2025-03-11 12:25 | XMS_ITS | Encounter Summary ---
Author Organization [facility] Address [address] [place] [address] Care Team Providers Care Electron Tube Assembler Name Role Phone Vick Cox MD Primary Care Provider + Encounter Details Date Type Department Care Team (Latest Contact Info) Description 02/01/2002 Outpatient Historical [facility] Gastroenterology[address] [place] [address] Josiah Hussein MD 1029 [facility] [address] [place] [address] ULCERATIVE COLITIS NOS (CMS/HCC) (Primary Dx) Social History Tobacco Use Types Packs/Day Years Used Date Smoking Tobacco: Never Assessed Sex and Gender Information Value Date Recorded Sex Assigned at Not on file Legal Sex Male 5:36 AM GERM DRIER Gender Identity Not on file Sexual Orientation Not on file documented as of this encounter Plan of Treatment Not on file documented as of this encounter Visit Diagnoses Diagnosis Ulcerative colitis, unspecified- Primary documented in this encounter Care Teams Electron Tube Assembler Relationship Specialty Start Date End Date Vick Cox MD PCP - General Family Practice 05/21/16 documented as of this encounter
--- OUTSIDE RECORDS SUMMARY | 2025-03-11 12:25 | XMS_ITS | Encounter Summary ---
Author Organization [facility] Address [address] [facility] 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
--- OUTSIDE RECORDS SUMMARY | 2025-03-11 12:25 | XMS_ITS | Encounter Summary ---
Author Organization [facility] Address [address] [place] [address] Care Team Providers Care Christmas Tree Grader Name Role Phone Vick Cox MD Primary Care Provider + Encounter Details Date Type Department Care Team (Latest Contact Info) Description 01/04/2002 Outpatient Historical [facility] [place] [address] [facility] [address] [place] [address] Josiah Hussein MD 1029 [facility] [address] [place] [phone] ULCERATIVE COLITIS NOS (CMS/HCC) (Primary Dx) Social History Tobacco Use Types Packs/Day Years Used Date Smoking Tobacco: Never Assessed Sex and Gender Information Value Date Recorded Sex Assigned at Not on file Legal Sex Male 5:36 AM SEARCH PLANNER Gender Identity Not on file Sexual Orientation Not on file documented as of this encounter Plan of Treatment Not on file documented as of this encounter Visit Diagnoses Diagnosis Ulcerative colitis, unspecified- Primary documented in this encounter Care Teams Christmas Tree Grader Relationship Specialty Start Date End Date Vick Cox MD PCP - General Family Practice 05/21/16 documented as of this encounter
--- OUTSIDE RECORDS SUMMARY | 2025-03-11 12:25 | XMS_ITS | Encounter Summary ---
Author Organization [facility] Address [address] [place] [address] Care Team Providers Care Laundry Tub Maker Name Role Phone Vick Cox MD Primary Care Provider + Encounter Details Date Type Department Care Team (Latest Contact Info) Description 12/17/2004 Outpatient Historical [facility] Endoscopy [place] [address] [place] [address] Josiah Hussein MD 1029 [facility] [address] [place] [address] NONINFEC GASTROENTERIT NEC (Primary Dx) Social History Tobacco Use Types Packs/Day Years Used Date Smoking Tobacco: Never Assessed Sex and Gender Information Value Date Recorded Sex Assigned at Not on file Legal Sex Male 5:36 AM CONTRACTS ATTORNEY Gender Identity Not on file Sexual Orientation Not on file documented as of this encounter Plan of Treatment Not on file documented as of this encounter Visit Diagnoses Diagnosis Other and unspecified noninfectious gastroenteritis and colitis(558.9)- Primary Other and unspecified noninfectious gastroenteritis and colitis documented in this encounter Care Teams Laundry Tub Maker Relationship Specialty Start Date End Date Vick Cox MD PCP - General Family Practice 05/21/16 documented as of this encounter
--- OUTSIDE RECORDS SUMMARY | 2025-03-11 12:25 | XMS_ITS | Encounter Summary ---
Author Organization [facility] Address [address] [place] [address] Care Team Providers Care Gold Nib Grinder Name Role Phone Vick Cox MD Primary Care Provider + Encounter Details Date Type Department Care Team (Latest Contact Info) Description 12/17/2004 Outpatient Historical [facility] Gastroenterology[address] [place] [address] Josiah Hussein MD 1029 [facility] [address] [place] [address] ULCERATIVE COLITIS NOS (CMS/HCC) (Primary Dx); RECTAL & ANAL DIS NEC; INT HEMORRHOID W/O COMPL Social History Tobacco Use Types Packs/Day Years Used Date Smoking Tobacco: Never Assessed Sex and Gender Information Value Date Recorded Sex Assigned at Not on file Legal Sex Male 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
--- OUTSIDE RECORDS SUMMARY | 2025-03-11 12:25 | XMS_ITS | Encounter Summary ---
Author Organization [facility] Address [address] [place] [address] Care Team Providers Care Gas Processing Plant Operator Name Role Phone Vick Cox MD Primary Care Provider + Encounter Details Date Type Department Care Team (Latest Contact Info) Description 12/20/2006 Outpatient Historical [facility] [place]enter[place] [address] [facility] [address] [place] [address] Josiah Hussein MD 1029 [facility] [address] [place] [address] Unspecified Ulcerative Colitis (CMS/HCC) (Primary Dx) Social History Tobacco Use Types Packs/Day Years Used Date Smoking Tobacco: Never Assessed Sex and Gender Information Value Date Recorded Sex Assigned at Not on file Legal Sex Male 5:36 AM CLASSER Gender Identity Not on file Sexual Orientation Not on file documented as of this encounter Plan of Treatment Not on file documented as of this encounter Visit Diagnoses Diagnosis Ulcerative colitis, unspecified- Primary documented in this encounter Care Teams Gas Processing Plant Operator Relationship Specialty Start Date End Date Vick Cox MD PCP - General Family Practice 05/21/16 documented as of this encounter
--- OUTSIDE RECORDS SUMMARY | 2025-03-11 12:25 | XMS_ITS ---
Author Organization [facility] Address [address] [address]: [place] [address] Care Team Providers Care Manager Hris Name Role Phone Obed Lewis MD Primary [...]
--- OUTSIDE RECORDS SUMMARY | 2025-03-11 12:25 | XMS_ITS ---
Author Organization [facility] [address] Address [address] [place] [address] Care Team Providers Care Sba Underwriter Name Role Phone Vick Cox MD Primary [...]
--- OUTSIDE RECORDS SUMMARY | 2025-03-11 12:25 | XMS_ITS | Encounter Summary ---
Author Organization [facility] Address [address] [place] [address] Care Team Providers Care Operating Room Specialist Name Role Phone Vick Cox MD Primary Care Provider + Encounter Details Date Type Department Care Team (Latest Contact Info) Description 08/02/2002 Outpatient Historical [facility] Gastroenterology[address] [place] [address] Josiah Hussein MD 1029 [facility] [address] [place] [address] ULCERATIVE COLITIS NOS (CMS/HCC) (Primary Dx) Social History Tobacco Use Types Packs/Day Years Used Date Smoking Tobacco: Never Assessed Sex and Gender Information Value Date Recorded Sex Assigned at Not on file Legal Sex Male 5:36 AM MERCHANDISE MARKER Gender Identity Not on file Sexual Orientation Not on file documented as of this encounter Plan of Treatment Not on file documented as of this encounter Visit Diagnoses Diagnosis Ulcerative colitis, unspecified- Primary documented in this encounter Care Teams Operating Room Specialist Relationship Specialty Start Date End Date Vick Cox MD PCP - General Family Practice 05/21/16 documented as of this encounter
--- OUTSIDE RECORDS SUMMARY | 2025-03-11 12:25 | XMS_ITS | Clinical Summary ---
Author Organization [facility] Address [address] [facility] [address] [facility] [address]: [place] [address] Care Team Providers Care Line Driver Name Role Phone Obed Lewis MD Primary [...] Department Care Team Description 02/20/2025 Orders Only [facility] [address] [facility] [address] [place] [address] Sanjay Harrell MD 02/19/2025 External Device Data [facility] ABSTRACTION Provider, Abstract 02/05/2025 External Device Data [facility] ABSTRACTION Provider, Abstract 02/01/2025 Orders Only [facility] Admitting [address] [facility] [address] [place] [address] Nicolasa Trujillo MD Personal history of colon [...] on file Legal Sex Male 2:59 PM SYSTEMS SECURITY CONSULTANT Gender Identity Not on file Sexual Orientation [...] Info) Description 03/13/2025 10:00 AM CDT Appointment [facility] [address] [address] Rene Alberts MD [address] [phone] Health Maintenance Due Date Last Done Comments [...] series) 12/01/2027 Medical Devices Implanted Type Area Boiler Fireman Device Identifier Shelf Expiration Date Model / Serial / Lot Mesh Ventralight St 6x8in [id number] - Sna Implanted:Qty: 1 on 03/04/2016 by Alvarado Yo MD Mesh N/A: Abdomen CR [employer] 12/31/2017 [id number] / NA / [id number] Procedures Procedure Name Priority Date/Time Associated Diagnosis Comments COLONOSCOPY REPORT 06/11/2019 8:25 AM SYSTEMS SECURITY CONSULTANT from Last 3 Months or Most Recently Relevant to Health Maintenance Results * COLONOSCOPY REPORT (06/11/2019 8:25 AM SYSTEMS SECURITY CONSULTANT) Josiah Hussein MD GI PROCEDURE ORDERABLES Fin al Result from Last 3 Months or Most Recently Relevant to Health Maintenance Insurance MEDICARE PART A AND B * Guarantor: [employer] Account Type Relation to Patient Date of Phone Billing Address Corporate Other DEFAULT ADDRESS [address] [employer] * Guarantor: [employer] Account Type Relation to Patient Date of Phone Billing Address Corporate Other DEFAULT ADDRESS [address] [employer] * Guarantor: [employer] Account Type Relation to Patient Date of Phone Billing Address Corporate Other DEFAULT ADDRESS [address] [employer] Advance Directives For more information, please contact: [phone] * Full Code (Latest Code Status on File) Date Activated Date Inactivated Comments 06/10/2023 8:00 AM 06/10/2023 12:59 PM Care Teams Line Driver Relationship Specialty Start Date End Date Obed Lewis MD [address] [place] [phone] PCP - General Family Practice 04/16/22
--- OUTSIDE RECORDS SUMMARY | 2025-03-11 12:25 | XMS_ITS | Encounter Summary ---
Author Organization [facility] Address [address] [place] [address] Care Team Providers Care Road Advisor Name Role Phone Vick Cox MD Primary Care Provider + Encounter Details Date Type Department Care Team (Latest Contact Info) Description 03/28/2002 Outpatient Historical [facility] [place] [address] [facility] [address] [place] [address] Josiah Hussein MD 1029 [facility] [address] [place] [phone] ULCERATIVE COLITIS NOS (CMS/HCC) (Primary Dx) Social History Tobacco Use Types Packs/Day Years Used Date Smoking Tobacco: Never Assessed Sex and Gender Information Value Date Recorded Sex Assigned at Not on file Legal 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
--- OUTSIDE RECORDS SUMMARY | 2025-03-11 12:25 | XMS_ITS | Encounter Summary ---
Author Organization [facility] Address [address] [place] [address] Care Team Providers Care Stator Connector Name Role Phone Vick Cox MD Primary Care Provider + Encounter Details Date Type Department Care Team (Latest Contact Info) Description 01/25/2002 Outpatient Historical [facility] [address] [facility] [address] [place] [address] Josiah Hussein MD 10[address] [facility] [address] [place] [address] ULCERATIVE COLITIS NOS (CMS/HCC) (Primary Dx) Social History Tobacco Use Types Packs/Day Years Used Date Smoking Tobacco: Never Assessed Sex and Gender Information Value Date Recorded Sex Assigned at Not on file Legal Sex Male 5:36 AM DESULFURIZER OPERATOR Gender Identity Not on file Sexual Orientation Not on file documented as of this encounter Plan of Treatment Not on file documented as of this encounter Visit Diagnoses Diagnosis Ulcerative colitis, unspecified- Primary documented in this encounter Care Teams Stator Connector Relationship Specialty Start Date End Date Vick Cox MD PCP - General Family Practice 05/21/16 documented as of this encounter
--- OUTSIDE RECORDS SUMMARY | 2025-03-11 12:25 | XMS_ITS | Encounter Summary ---
Author Organization [facility] Address [address] [place] [address] Care Team Providers Care Waiter/Waitress Cafeteria Name Role Phone Vick Cox MD Primary Care Provider + Encounter Details Date Type Department Care Team (Latest Contact Info) Description 04/09/2004 Outpatient Historical [facility] Gastroenterology[address] [place] [address] Josiah Hussein MD 1029 [facility] [address] [place] [address] ULCERATIVE COLITIS NOS (CMS/HCC) (Primary Dx) Social History Tobacco Use Types Packs/Day Years Used Date Smoking Tobacco: Never Assessed Sex and Gender Information Value Date Recorded Sex Assigned at Not on file Legal Sex Male 5:36 AM DISASTER OR DAMAGE CONTROL SPECIALIST Gender Identity Not on file Sexual Orientation Not on file documented as of this encounter Plan of Treatment Not on file documented as of this encounter Visit Diagnoses Diagnosis Ulcerative colitis, unspecified- Primary documented in this encounter Care Teams Waiter/Waitress Cafeteria Relationship Specialty Start Date End Date Vick Cox MD PCP - General Family Practice 05/21/16 documented as of this encounter
--- OUTSIDE RECORDS SUMMARY | 2025-03-11 12:25 | XMS_ITS | Encounter Summary ---
Author Organization [facility] Address [address] [place] [address] Care Team Providers Care Seasonal Retail Merchandiser Name Role Phone Vick Cox MD Primary Care Provider + Encounter Details Date Type Department Care Team (Latest Contact Info) Description 01/17/2002 Outpatient Historical [facility] Gastroenterology[address] [place] [address] Josiah Hussein MD 10[address] [facility] [address] [place] [address] ULCERATIVE COLITIS NOS (CMS/HCC) (Primary Dx) Social History Tobacco Use Types Packs/Day Years Used Date Smoking Tobacco: Never Assessed Sex and Gender Information Value Date Recorded Sex Assigned at Not on file Legal Sex Male 5:36 AM MEDICAL LEAD Gender Identity Not on file Sexual Orientation Not on file documented as of this encounter Plan of Treatment Not on file documented as of this encounter Visit Diagnoses Diagnosis Ulcerative colitis, unspecified- Primary documented in this encounter Care Teams Seasonal Retail Merchandiser Relationship Specialty Start Date End Date Vick Cox MD PCP - General Family Practice 05/21/16 documented as of this encounter
--- OUTSIDE RECORDS SUMMARY | 2025-03-11 12:25 | XMS_ITS | Encounter Summary ---
Author Organization [facility] Address [address] [place] [address] Care Team Providers Care Joss House Keeper Name Role Phone Vick Cox MD Primary Care Provider + Encounter Details Date Type Department Care Team (Latest Contact Info) Description 10/10/2003 Outpatient Historical [facility] Gastroenterology[address] [place] [address] Josiah Hussein MD 1029 [facility] [place] [address] [place] [phone] ULCERATIVE COLITIS NOS (CMS/HCC) (Primary Dx) Social History Tobacco Use Types Packs/Day Years Used Date Smoking Tobacco: Never Assessed Sex and Gender Information Value Date Recorded Sex Assigned at Not on file Legal Sex Male 5:36 AM MANAGER GARDEN Gender Identity Not on file Sexual Orientation Not on file documented as of this encounter Plan of Treatment Not on file documented as of this encounter Visit Diagnoses Diagnosis Ulcerative colitis, unspecified- Primary documented in this encounter Care Teams Joss House Keeper Relationship Specialty Start Date End Date Vick Cox MD PCP - General Family Practice 05/21/16 documented as of this encounter
--- OUTSIDE RECORDS SUMMARY | 2025-03-11 12:26 | XMS_ITS | Encounter Summary ---
Author Organization [facility] Address [address] [place] [address] Care Team Providers Care Solid Center Winder Name Role Phone Vick Cox MD Primary Care Provider + Encounter Details Date Type Department Care Team (Latest Contact Info) Description 01/19/2007 Outpatient Historical [facility] [place] [address] [facility] [address] [place] [address] Josiah Hussein MD 1029 [facility] [address] [place] [address] Unspecified Ulcerative Colitis (CMS/HCC) (Primary Dx) Social History Tobacco Use Types Packs/Day Years Used Date Smoking Tobacco: Never Assessed Sex and Gender Information Value Date Recorded Sex Assigned at Not on file Legal Sex Male 5:36 AM FRYER OPERATOR Gender Identity Not on file Sexual Orientation Not on file documented as of this encounter Plan of Treatment Not on file documented as of this encounter Visit Diagnoses Diagnosis Ulcerative colitis, unspecified- Primary documented in this encounter Care Teams Solid Center Winder Relationship Specialty Start Date End Date Vick Cox MD PCP - General Family Practice 05/21/16 documented as of this encounter
--- OUTSIDE RECORDS SUMMARY | 2025-03-11 12:26 | XMS_ITS | Encounter Summary ---
Author Organization [facility] Address [address] [place] [address] Care Team Providers Care Collar Runner Name Role Phone Vick Cox MD Primary Care Provider + Encounter Details Date Type Department Care Team (Latest Contact Info) Description 01/19/2007 Outpatient Historical [facility] Endoscopy [place] [address] [place] [address] Josiah Hussein MD 1029 [facility] [address] [place] [address] Other and Unspecified Noninfectious Gastroenteritis and Colitis (Primary Dx) Social History Tobacco Use Types Packs/Day Years Used Date Smoking Tobacco: Never Assessed Sex and Gender Information Value Date Recorded Sex Assigned at Not on file Legal Sex Male 5:36 AM VACUUM CLEANER OPERATOR Gender Identity Not on file Sexual Orientation Not on file documented as of this encounter Plan of Treatment Not on file documented as of this encounter Visit Diagnoses Diagnosis Other and unspecified noninfectious gastroenteritis and colitis(558.9)- Primary Other and unspecified noninfectious gastroenteritis and colitis documented in this encounter Care Teams Collar Runner Relationship Specialty Start Date End Date Vick Cox MD PCP - General Family Practice 05/21/16 documented as of this encounter
--- OUTSIDE RECORDS SUMMARY | 2025-03-11 12:26 | XMS_ITS | Patient Health Record ---
Author Organization [facility] Address [address] [place] [address] Care Team Providers Care Restaurant District Manager Name Role Phone Simon Butler MD Primary Care Provider Obed Lazaro Unavailable [phone] Nuris Hawkins Unavailable Allergies Allergen (clinical drug ingredient) Drug/Non Drug Allergy documented on EMR Reaction Allergy Type Onset Date Status No Known Drug Allergy Unknown Drug Allergy Active Results Component Value Reference Range Notes UA Without Micro-[place], [place] - [id number] Reviewed date:07/12/2024 09:57:44 AM Interpretation: Performing Lab: Notes/Report: Glucose - Bili - Ketones - Sp [place] 1.020 Blood - pH 5.5 Protein - Urobili - Nitrites - Leukocytes - Reason For Referral Reason Erectile Dysfunction Diagnosis 1 Erectile dysfunction (N52.9) Referring Provider First Name Nneka [facility] Referring Provider Last Name SC Referring Provider Speciality [facility] Referred Organization [facility] Referred Provider Obed Boyd Referred Address [address],[place], [place],[address], Referred Provider Specialty Urology Referral Priority Routine [...] W/U Status Risk Notes Problem Erectile dysfunction (157747070) Erectile dysfunction (N52.9) Active confirmed Problem 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 Vital Signs Heart Rate 80 /min 02/12/2025 Temperature 98.6 degrees Fahrenheit 02/12/2025 Height-cm 177.8 cm 02/12/2025 Blood pressure diastolic 40 mm Hg 02/12/2025 Weight-kg 86.64 kg 02/12/2025 Height 70 in 02/12/2025 Blood pressure systolic 102 mm Hg 02/12/2025 Weight 191 lbs 02/12/2025 BMI 27.4 kg/m2 02/12/2025 Encounters Encounter Location Date Provider Diagnosis [facility] [address] [place] [address] [address] [place] [address] 07/12/2024 Obed Boyd Male erectile dysfunction, unspecified N52.9 ; Prostate cancer screening Z12.5 and Orgasm dysfunction F52.31 [facility] [address] [place] [address] [address] [place] [address] 08/14/2024 Obed Boyd Male erectile dysfunction, unspecified N52.9 ; Orgasm dysfunction F52.31 and Abnormal prostate on physical examination N42.9 [facility] [address] [place] [address] [address] [place] [address] 02/12/2025 Obed Boyd Orgasm dysfunction F52.31 and Erectile dysfunction N52.9 [facility] [address] [place] [address] [address] [place] [address] 07/12/2024 Obed Boyd Male erectile dysfunction, unspecified N52.9 [facility] [address] [place] [address] [address] [place] [address] 08/02/2024 Obed Boyd Encounter for screening for malignant neoplasm of prostate Z12.5 [facility] [address] [place] [address] [address] [place] [address] 01/15/2025 Obed Boyd [facility] [address] [place] [address] [address] [place] [address] 02/12/2025 Nuris Hawkins Encounter for screening for [...] Pending Test Test Name Order Date PSA Diagnostic--[id number] 07/12/2024 PSA Diagnostic--[id number] 08/02/2024 Testosterone Total [id number] 07/12/2024 Future Test Test Name Order Date PSA Diagnostic--[id number] 07/07/2025 Next Appt Details Provider Name:Nuris Person, 08/13/2025 11:00:00 AM, [address] [facility] [address], [place], [address], Insurance Providers Payer Name Payer Address Payer Phone Subscriber Number Group Number Insured Name Patient Relationship to Insured Coverage Start Date Coverage End Date [employer] [address] [place] [address] [id number] Ricky Lobo Self - patient is the insured Medical (General) History Medical History History ICD Code lymphoma Surgical History Surgery Date(Month/Year) Bilateral legs-broken Right shoulder 1982 Vasectomy Hernia, inguinal
--- OUTSIDE RECORDS SUMMARY | 2025-03-11 12:26 | XMS_ITS | Encounter Summary ---
Author Organization [facility] Address [address] [place] [address] Care Team Providers Care Infrastructure Engineer Name Role Phone Vick Cox MD Primary Care Provider + Encounter Details Date Type Department Care Team (Latest Contact Info) Description 01/11/2006 Outpatient Historical [facility] [place] [id number] [facility] [address] [place] [address] Josiah Hussein MD [address] [facility] [address] [place] [id number] Unspecified Ulcerative Colitis (CMS/HCC) (Primary Dx) Social History Tobacco Use Types Packs/Day Years Used Date Smoking Tobacco: Never Assessed Sex and Gender Information Value Date Recorded Sex Assigned at Not on file Legal Sex Male 5:36 AM PRORATION CLERK Gender Identity Not on file Sexual Orientation Not on file documented as of this encounter Plan of Treatment Not on file documented as of this encounter Visit Diagnoses Diagnosis Ulcerative colitis, unspecified- Primary documented in this encounter Care Teams Infrastructure Engineer Relationship Specialty Start Date End Date Vick Cox MD PCP - General Family Practice 05/21/16 documented as of this encounter
--- OUTSIDE RECORDS SUMMARY | 2025-03-11 12:26 | XMS_ITS | Encounter Summary ---
Author Organization [facility] Address [address] [place] [address] Care Team Providers Care Bale Breaker Operator Name Role Phone Vick Cox MD Primary Care Provider + Encounter Details Date Type Department Care Team (Latest Contact Info) Description 01/11/2006 Outpatient Historical [facility] [address] [place] [address] Josiah Hussein MD [address] [facility] [address] [place] [address] Other and Unspecified Noninfectious Gastroenteritis and Colitis (Primary Dx) Social History Tobacco Use Types Packs/Day Years Used Date Smoking Tobacco: Never Assessed Sex and Gender Information Value Date Recorded Sex Assigned at Not on file 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
--- NOTE | 2025-03-11 12:38 | XR_ITS ---
WS: [id number] Portable AP upright chest, 03/11/2025 Clinical Data: Weakness Comparison: Portable chest, 02/27/2025 Findings: There is a patchy left lower lobe and retrocardiac opacity which could represent pneumonia and/or atelectasis. There is blunting of the right costophrenic angle unchanged. No nodules, masses or effusions are seen. The heart is enlarged. The pulmonary vascularity is not increased. No pneumonia or pneumothorax is seen. The aortic arch and descending thoracic aorta show tortuosity. There is a left internal jugular infusion catheter which ends in the superior vena cava. There are monitor leads on the chest wall. XR/XR chest 1V portable [id number] Impression: 1. Patchy opacity in the left lower lobe and retrocardiac area which could repr esent pneumonia and/or atelectasis. 2. Cardiomegaly and atherosclerosis.
--- NOTE | 2025-03-11 12:48 | W.ED.FEVER ---
HPI - Fever General: Chief Complaint: Fever Stated Complaint: Low grade fever and low heart late Time Seen by Provider: 03/11/25 12:46 History of Present Illness: 74-year-old man with a history of follicular lymphoma, mitral regurgitation, peripheral vascular disease, who presents emergency room with fever, shortness of breath and a dry cough. He was seen over a week ago with similar type symptoms in the emergency room and started on antibiotics. He had a negative CTA at the time. When he reports today he is hypoxemic febrile and tachycardic. No altered mental status. No chest pain. No abdominal pain. Related Data Home Medications ?Medication ?Instructions ?Recorded ?Confirmed mesalamine 800 mg tablet,delayed 3,400 mg PO DAILY 09/01/21 02/27/25 release omeprazole 40 mg capsule,delayed 40 mg PO DAILY 09/01/21 02/27/25 release urea 40 % topical cream 1 applic topical BID PRN Dry Skin 02/27/25 02/27/25 Previous Rx's ?Medication ?Instructions ?Recorded lorazepam 1 mg tablet 0.5 - 1 mg (0.5 - 1 x 1 mg) PO Q6H 05/17/24 PRN severe nausea #30 tabs albuterol sulfate 90 mcg/actuation 2 inh inhalation Q4H PRN shortness 02/27/25 aerosol inhaler of breath or wheezing #18 grams prednisone 20 mg tablet 20 mg PO TID #15 tabs 02/27/25 Allergies Allergy/AdvReac Type Severity Reaction Status Date / Time No Known Allergies Allergy Verified 02/20/25 11:57 Review of Systems Narrative: Constitutional symptoms: Negative except as documented in HPI. Skin symptoms: Negative except as documented in HPI. Eye symptoms: Negative except as documented in HPI. ENMT symptoms: Negative except as documented in HPI. Respiratory symptoms: Negative except as documented in HPI. Cardiovascular symptoms: Negative except as documented in HPI. Gastrointestinal symptoms: Negative except as documented in HPI. Genitourinary symptoms: Negative except as documented in HPI. Musculoskeletal symptoms: Negative except as documented in HPI. Neurologic symptoms: Negative except as documented in HPI. Psychiatric symptoms: Negative except as documented in HPI. Endocrine symptoms: Negative except as documented in HPI. PFS ED PFSH: Medical History (Updated 03/11/25 @ 15:48 by Evangelina Eaton MD) Avascular necrosis of bones of both hips History of nonmelanoma skin cancer Follicular lymphoma grade 3a Ulcerative colitis Surgical History History of bone marrow biopsy (05/04/18) History of lymph node biopsy (03/29/18) Right inguinal lymph node biopsy History of facial fracture repair Bilateral femur fractures History of shoulder surgery History of umbilical hernia repair Family History Father Cancer Lung Mother Dementia Other Clotting disorder Hypertension Denies family history of Diabetes CAD (coronary artery disease) Hyperlipidemia Psychiatric illness Chronic kidney disease (CKD) Suicide Anesthesia complication Bleeding disorder Lung disease Stroke Social History Smoking and tobacco/nicotine status: former use of tobacco/nicotine Quit status (tobacco/nicotine): has quit using Year quit tobacco: 1984 Former quit date comment: approx 35 years Second hand smoke exposure: Yes Alcohol intake: current Alcohol intake frequency: holidays/special occasions only Physical Exam Narrative: EXAM NARRATIVE: General: Alert, no acute distress. Skin: Warm, dry. Head: Normocephalic, atraumatic. Neck: Supple, trachea midline. Eye: Extraocular movements are intact. Ears, nose, mouth and throat: mucosa moist. Cardiovascular: Regular, tachycardic, Normal peripheral perfusion. Respiratory: Lungs are clear to auscultation, respirations are non-labored, breath sounds are equal, Symmetrical chest wall expansion. Gastrointestinal: Soft, Nontender, Non distended Musculoskeletal: Normal ROM, no deformity. Neurological: Alert and oriented, No focal neurological deficit observed. Psychiatric: Cooperative, appropriate mood & affect. Course Vital Signs: Vital signs: Vital Signs Temperature 100.8 F H 03/11/25 12:35 Pulse Rate 97 03/11/25 15:01 Respiratory Rate 16 03/11/25 15:01 Blood Pressure 106/71 03/11/25 15:01 Pulse Oximetry 96 03/11/25 15:01 Oxygen Delivery Me thod Nasal Cannula 03/11/25 15:01 Oxygen Flow Rate 4 03/11/25 15:01 MDM - Fever Medical Decision Making Differential diagnosis for patient with shortness of breath includes but is not limited to and based on the above HPI, review of systems and physical exam: Pneumonia. Bronchitis. Asthma or COPD with acute exacerbation. Acute coronary syndrome / IN. Pulmonary embolism. Anxiety. Congestive heart failure. Viral infections including influenza and Covid-19. Atrial fibrillation. Anxiety. Pleural effusion. Pneumothorax. Orders placed to evaluate differential diagnosis based on the above differential, HPI and physical exam EKG: Time 1311. Rate 118. Sinus tachycardia, No ST-T changes, no ectopy, normal VA & QRS intervals, This was reviewed and interpreted by myself the ER physician at 1315. Lab Review: Laboratory results were reviewed and interpreted by myself the emergency room physician. Leukopenia with a white count of 2.6. No anemia. No renal failure. Lactate is slightly elevated at 2.3. Urinalysis negative for infection. Flu COVID and RSV are negative. proBNP is mildly elevated at 400. CRP is extremely elevated at 74. Serial troponins are negative. Chest x-ray: Patchy opacity in the left lower lobe that might represent pneumonia or atelectasis. Cardiomegaly. This was reviewed and interpreted by myself the emergency room physician. I also reviewed the radiology report. CTA of chest PE protocol. No PE. Emphysematous changes. Atelectasis and progressing ground glass opacities. This was reviewed and interpreted by myself the emergency room physician. I also reviewed the radiology report. I reviewed the patient's medical record. Patient was last seen on 02/27 with similar symptoms. At that time he was sent home on doxycycline and prednisone with some albuterol. No leukocytosis. No anemia. Urinalysis was negative. Flu COVID and RSV were negative. CTA of the chest was negative. Reexamination: No altered mental status. O2 sats are in the 90s on 4 L nasal cannula. He is not on oxygen at home Consultation: I spoke with Dr. Sousa who is on-call for the hospital service who agrees to admission. Assessment and plan: Sepsis Fever Hypoxemia Tachycardia Pneumonia COPD with acute exacerbation -2.5 L normal saline bolus. Fluid volumes based on ideal body weight. -Broad-spectrum antibiotics were administered. -Sepsis quality measures. -Lactic acid with a reflex was ordered. -Blood cultures were ordered. ?I reevaluated the patient's volume status after sepsis fluids were given. Pressure has still remained a little bit soft. ?IV Solu-Medrol and a breathing treatment as well. -I discussed the patient with the hospitalist on-call who is admitting the patient. - Discussed findings and plan with patient. Answered any questions. - All laboratory values were reviewed and interpreted personally by myself, the ER physician - All imaging was reviewed and interpreted personally by myself, the ER physician. - Evaluation and treatment of this problem were appropriate in the emergency setting Critical Care: -I spent a total of 45 minutes of critical care time managing the patient, independent of any other practitioner. -The time involved in the performance of separately reportable procedures was not counted towards critical care time. Lab Data 03/11/25 13:07 03/11/25 13:07 Radiology Impressions Chest X-Ray 03/11/25 12:38 Impression: 1. Patchy opacity in the left lower lobe and retrocardiac area which could represent pneumonia and/or atelectasis. 2. Cardiomegaly and atherosclerosis. Chest CTA 03/11/25 13:35 IMPRESSION: 1. No evidence of pulmonary embolus. 2. Advanced chronic emphysematous changes. 3. Bibasilar atelectasis with hazy groundglass opacities in the lung bases slightly progressed compared to 02/27/2025. Mild interstitial edema. 4. No other acute findings. Laboratory Results WBC 2.63 10^3/uL (3.29-11.43) L 03/11/25 13:07 RBC 3.50 10^6/uL (3.85-5.65) L 03/11/25 13:07 Hgb 12.40 g/dL (11.27-16.99) 03/11/25 13:07 Hct 36.6 % (37-53) L 03/11/25 13:07 MCV 104.6 fl (82-101) H 03/11/25 13:07 MCH 35.4 pg (27-33) H 03/11/25 13:07 MCHC 33.9 g/dL (30-55) 03/11/25 13:07 RDW 13.6 % (12.1-15.1) 03/11/25 13:07 Plt Count 224 10^3/cmm (157-399) 03/11/25 13:07 MPV 9.0 fL (7.4-10.4) 03/11/25 13:07 Neut % (Auto) 72.6 % 03/11/25 13:07 Lymph % (Auto) 7.2 % 03/11/25 13:07 Rabun % (Auto) 8.7 % 03/11/25 13:07 Eos % (Auto) 4.2 % 03/11/25 13:07 Baso % (Auto) 0.8 % 03/11/25 13:07 Neut # (Auto) 1.91 10^3/uL (1.8-7.7) 03/11/25 13:07 Lymph # (Auto) 0.2 10^3/uL (0.8-4.8) L 03/11/25 13:07 Rabun # (Auto) 0.2 10^3/uL (0.2-0.9) 03/11/25 13:07 Eos # (Auto) 0.1 10^3/uL (0.0-0.8) 03/11/25 13:07 Baso # (Auto) 0.0 10^3/uL (0.0-0.1) 03/11/25 13:07 Nucleated RBC % (auto) 0 % 03/11/25 13:07 Nucleated RBCs # 0.0 /100WBC 03/11/25 13:07 Specimen Type Arterial 03/11/25 13:07 Sample Site Brachial, right 03/11/25 13:07 ABG pH 7.52 (7.35-7.45) H 03/11/25 13:07 ABG pCO2 31.1 mmHg (35-45) L 03/11/25 13:07 ABG pO2 49.1 mmHg (80.0-100.0) L 03/11/25 13:07 ABG PO2/FiO2 Ratio 233 03/11/25 13:07 ABG HCO3 25.2 mmol/L (22-26) 03/11/25 13:07 ABG O2 Saturation 88.2 03/11/25 13:07 ABG Base Excess 2.8 mmol/L (-2.0-2.0) H 03/11/25 13:07 Wilder Test N/a 03/11/25 13:07 A-a O2 Gradient 8.1 mmHg (5-10) 03/11/25 13:07 Hematocrit 38.8 % (42-52) L 03/11/25 13:07 Hgb O2 Saturation 86.5 % (95-100) L 03/11/25 13:07 Carboxyhemoglobin 1.7 %THgb (0.4-20.1) 03/11/25 13:07 Methemoglobin 0.1 % (0.4-1.5) L 03/11/25 13:07 Total Hemoglobin 12.7 g/dL (14-18) L 03/11/25 13:07 Sodium 137.0 mmol/L (131-143) 03/11/25 13:07 Potassium 3.6 mmol/L (3.5-5.0) 03/11/25 13:07 Glucose 112.0 mg/dL (70-115) 03/11/25 13:07 Ionized Calcium 1.1 mmol/L (1.1-1.4) 03/11/25 13:07 O2 Delivery Device Room air 03/11/25 13:07 FiO2 21.0 % 03/11/25 13:07 Senior Ios Developer ID Amh 03/11/25 13:07 Sodium 136 mmol/L (136-145) 03/11/25 13:07 Potassium 3.8 mmol/L (3.5-5.1) 03/11/25 13:07 Chloride 98 mmol/L (98-107) 03/11/25 13:07 Carbon Dioxide 23 mmol/L (22-29) 03/11/25 13:07 Anion Gap 18.8 (5-19) 03/11/25 13:07 BUN 6 mg/dL (8-23) L 03/11/25 13:07 Creatinine 0.8 mg/dL (0.7-1.2) 03/11/25 13:07 GFR Calculation Not Reportable 03/11/25 13:07 Glucose 117 mg/dL (65-115) H 03/11/25 13:07 Calculated Osmolality 281 mOsm/kg (285-295) L 03/11/25 13:07 Lactic Acid 2.3 mmol/L (0.5-2.2) H 03/11/25 13:07 Calcium 8.3 mg/dL (8.5-10.5) L 03/11/25 13:07 Total Bilirubin 0.5 mg/dL (0.15-1.2) 03/11/25 13:07 AST 22 U/L (0-40) 03/11/25 13:07 ALT 20 U/L (0-41) 03/11/25 13:07 Alkaline Phosphatase 90 U/L (40-130) 03/11/25 13:07 Troponin T Baseline 16 ng/L (0-15) H 03/11/25 13:07 Troponin T 120 Minute 15.91 ng/L (0-15) H 03/11/25 14:51 Delta Troponin T -0.09 ABS# (0-10) L 03/11/25 14:51 C-Reactive Protein 74.1 mg/L (0.0-4.9) H 03/11/25 13:07 NT-Pro-B Natriuret Pep 422 pg/mL (0-125) H 03/11/25 13:07 Total Protein 5.9 g/dL (6.6-8.7) L 03/11/25 13:07 Albumin 3.9 g/dL (3.5-5.2) 03/11/25 13:07 Globulin 2.0 g/dL (1.3-4.6) 03/11/25 13:07 Procalcitonin 0.08 ng/mL (0-0.5) 03/11/25 13:07 Urine Color Dark yellow (Yellow) A 03/11/25 13:25 Urine Appearance Clear (CLEAR) 03/11/25 13:25 Urine pH 5.5 (5-7) 03/11/25 13:25 Ur Specific [place] 1.018 (1.005-1.030) 03/11/25 13:25 Urine Protein Trace (Negative) A 03/11/25 13:25 Urine Glucose (UA) Negative (Normal) 03/11/25 13:25 Urine Ketones Trace (Negative) 03/11/25 13:25 Urine Blood Negative (Negative) 03/11/25 13:25 Urine Nitrate Negative (Negative) 03/11/25 13:25 Urine Bilirubin Negative (Negative) 03/11/25 13:25 Urine Urobilinogen 1.0 mg/dL (Negative) 03/11/25 13:25 Ur Leukocyte Esterase Negative (Negative) 03/11/25 13:25 Urine RBC None /hpf (0-2) 03/11/25 13:25 Urine WBC 0-4 /hpf (0-5) H 03/11/25 13:25 Ur Squamous Epith Cells 0-4 /hpf (0-5) H 03/11/25 13:25 Ur Transition Epith Cell 0-4 /hpf 03/11/25 13:25 Amorphous Sediment Not Reportable 03/11/25 13:25 Urine Bacteria None /hpf (NONE) 03/11/25 13:25 Urine Mucus None /hpf 03/11/25 13:25 Ur Oval Fat Bodies Rare /hpf 03/11/25 13:25 Influenza A (PCR) Negative (Negative) 03/11/25 13:09 Influenza Type B (PCR) Negative (Negative) 03/11/25 13:09 RSV (PCR) Negative (Negative) 03/11/25 13:09 SARS-CoV-2 (PCR) Negative (Negative) 03/11/25 13:09 All radiology interpretation(s) finalized by discharge Discharge Plan Discharge Patient Disposition: Admitted As Inpatient Admit Provider: Vick Wang Clinical Impression: Sepsis, Pneumonia, Acute hypoxemic respiratory failure, COPD with acute exacerbation, Fever Condition: Stable Coding Level of Care Code ED Fellmongery Worker for Merly Kelley
--- NOTE | 2025-03-11 13:11 | ECG_ITS ---
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 Measurements Intervals [place] Rate: 118 P: 17 MI: 155 QRS: -6 QRSD: 122 T: -20 QT: 316 QTc: 444 Interpretive Statements SINUS TACHYCARDIA POSSIBLE RIGHT VENTRICULAR CONDUCTION DELAY [RSR (QR) IN V1/V2] ST DEVIATION AND MODERATE T-WAVE ABNORMALITY, CONSIDER ANTEROLATERAL ISCHEMIA [-0.1+ mV T-WAVE IN V3-V6] Compared to ECG 02/27/2025 13:23:21 T-wave abnormality now present Possible ischemia now present Right bundle-branch block no longer present Electronically Signed On 03-11-2025 23:31:14 CDT by Satnam Cannon M.D. [email or web address] [id number]
[2025-03-11 13:18] LABS: ABG PH Result 7.52 (7.35-7.45); Blood Gas Operator Identificat AMH; Blood Gas Sample Site Brachial, right; Blood Gas Sample Type Arterial; Glucose Level-ABG 112.0 mg/dL (70-115); HCO3 ABG 25.2 mmol/L (22-26); Ionized Calcium Level - ABG 1.1 mmol/L (1.1-1.4); Potassium Level - ABG 3.6 mmol/L (3.5-5.0)
[2025-03-11 13:19] LABS: ABG PCO2 31.1 mmHg (35-45); Alveolar-Arterial Oxygen Gradi 8.1 mmHg (5-10); Arterial Blood Gas Hematocrit 38.8 % (42-52); Carboxyhemoglobin 1.7 %THgb (0.4-20.1); Methemoglobin 0.1 % (0.4-1.5); Oxygen Saturation ABG 88.2; PO2 ABG 49.1 mmHg (80.0-100.0); PO2 FiO2 Ratio Arterial Blood 233; Sodium Level - ABG 137.0 mmol/L (131-143)
[2025-03-11] MEDS: acetaminophen 1,000 MG/100 ML PIGGYBACK 400 MG IV (13:22)
[2025-03-11 13:25] LABS: Hematocrit 36.6 % (37-53); Hemoglobin 12.40 g/dL (11.27-16.99); Mean Corpuscular HGB Conc 33.9 g/dL (30-55); Mean Corpuscular Hemoglobin 35.4 pg (27-33); Mean Corpuscular Volume 104.6 fl (82-101); Nucleated Red Blood Cells % 0 %; Platelet Count 224 10^3/cmm (157-399); Red Blood Count 3.50 10^6/uL (3.85-5.65); White Blood Count 2.63 10^3/uL (3.29-11.43)
--- NOTE | 2025-03-11 13:35 | CT_ITS ---
WS: [id number] CTA OF THE CHEST WITH PULMONARY EMBOLISM PROTOCOL TECHNIQUE: High-resolution contrast enhanced CTA of the chest with coronal and sagittal reformatted images with pulmonary embolism protocol. MIP images are also reviewed. CLINICAL INFORMATION: tachycardia and hypoxemia COMPARISON: CTA 02/27/2025 DLP: 342.[address] scans at [facility] use at least one of these dose optimization techniques: automated exposure control; mA and/or kV adjustment per patient size (includes targeted exams where dose is matched to clinical indication); or iterative reconstruction. FINDINGS: Proximal main pulmonary arteries are normal. Normal segmental and subsegmental pulmonary arteries. No evidence of pulmonary embolus. Cardiomegaly. Coronary calcification. Normal caliber thoracic aorta. Adrenal glands are normal. Small esophageal hiatal hernia. Advanced chronic emphysematous changes. Bibasilar atelectasis with a few hazy groundglass opacities appears slightly progressed. Interstitial edema in the lung bases. Cholelithiasis. Stable 1.5 cm RIGHT thyroid nodule. No axillary lymphadenopathy. CT/CT angio chest PE protcl [id number] IMPRESSION: 1. No evidence of pulmonary embolus. 2. Advanced chronic emphysematous changes. 3. Bibasilar atelectasis with hazy groundglass opacities in the lung bases sli ghtly progressed compared to 02/27/2025. Mild interstitial edema. 4. No other acute findings.
[2025-03-11 13:38] LABS: Glucose Urine UA Negative (Normal); Nitrate Urine Negative (Negative); Specific Gravity, Urine 1.018 (1.005-1.030)
[2025-03-11 13:44] LABS: Lactic Sepsis W/Reflex 2.3 mmol/L (0.5-2.2)
[2025-03-11 13:49] LABS: Troponin(5th) Baseline 16 ng/L (0-15)
[2025-03-11 14:00] LABS: Oval Fat Bodies Urine RARE /hpf
[2025-03-11 14:05] LABS: Slide Review Slide Review Perform
[2025-03-11 14:08] LABS: NT Pro B Type Natriuretic Pept 422 pg/mL (0-125); Procalcitonin 0.08 ng/mL (0-0.5)
[2025-03-11 14:10] LABS: Respiratory Syncytial Virus Ce NEGATIVE (Negative); SARS-CoV-2 PCR NEGATIVE (Negative)
[2025-03-11] MEDS: iohexol 350 mg/mL 500 mL Btl (per mL) IV (14:18)
[2025-03-11 14:19] LABS: Alanine Aminotransferase 20 U/L (0-41); Albumin Level 3.9 g/dL (3.5-5.2); Alkaline Phosphatase 90 U/L (40-130); Anion Gap 18.8 (5-19); Aspartate Amino Transferase 22 U/L (0-40); Blood Urea Nitrogen 6 mg/dL (8-23); Calcium 8.3 mg/dL (8.5-10.5); Carbon Dioxide 23 mmol/L (22-29); Chloride 98 mmol/L (98-107); Creatinine Clr Calc Pharmacy 91.1205; Globulin 2.0 g/dL (1.3-4.6); Glucose 117 mg/dL (65-115); Osmolality Calculated 281 mOsm/kg (285-295); Potassium 3.8 mmol/L (3.5-5.1); Sodium 136 mmol/L (136-145); Total Protein 5.9 g/dL (6.6-8.7)
--- NOTE | 2025-03-11 14:34 | PC.NURSE ---
The delay in accessing the port is no port needles. We are looking around for port needles at this time.
[2025-03-11] MEDS: methylPREDNISolone sod succ 125 mg/2 mL INJ IVP (14:46)
[2025-03-11] MEDS: linezolid premix 600 MG/300 ML PREMIX 300 MG IV (14:48)
[2025-03-11 15:04] LABS: Reflex Lactate Order REFLEX LACTIC ORDERD
[2025-03-11 15:26] LABS: Troponin 5 2HR 15.91 ng/L (0-15)
[2025-03-11 15:28] LABS: Troponin 5 2HR Delta -0.09 ABS# (0-10)
--- NOTE | 2025-03-11 15:48 | PM.HP ---
Providers/Chief Complaint Admitting Physician: Vick Wang MD Primary Care Provider: Nicolasa Trujillo MD Chief Complaint: SOB, malaise. Recent PNA. History of Present Illness Ricky Lobo is a 74 year old male presenting with ongoing SOB and malaise. He was in the ER on 02/27 with similar symptoms and discharged home with treatment for pneumonia with possible COPD exacerbation. PMHx is significant for non-Hodgkin's lymphoma. He completed his treatment for this about 3 months ago and is in remission. No other significant past medical issues. He completed the course of treatment from prior ER visit, but has been gradually getting worse since then. He presents to the ER again today with ongoing SOB on O2. He was recently given oxygen from the [facility] but hasn't been on O2 until recently. He initially visited the [facility] and was sent here for further evaluation. Review of Systems Const: Reports: fever(s) and malaise Eyes: Denies: change in vision or blurry vision ENMT: Denies: throat pain or uvular edema Card: Denies: chest pain, palpitations or syncope Resp: Reports: dyspnea GI: Denies: abdominal pain, nausea or vomiting : Denies: flank pain Musc: Denies: neck pain, back pain, extremity pain or extremity swelling Skin/Breast: Denies: rash, pruritus, erythema or skin swelling Neuro: Denies: numbness in extremities, weakness in extremities, sensory changes or confusion Psych: Denies: anxiety or depression Medications/Allergies Home Medications ?Medication ?Instructions ?Recorded ?Confirmed ?Last Taken ?Type mesalamine 800 mg tablet,delayed 3,400 mg PO DAILY 09/01/21 02/27/25 02/27/25 History release omeprazole 40 mg capsule,delayed 40 mg PO DAILY 09/01/21 02/27/25 02/27/25 History release albuterol sulfate 90 mcg/actuation 2 inh inhalation Q4H PRN shortness 02/27/25 Unknown Rx aerosol inhaler of breath or wheezing #18 grams prednisone 20 mg tablet 20 mg PO TID #15 tabs 02/27/25 Unknown Rx urea 40 % topical cream 1 applic topical BID PRN Dry Skin 02/27/25 02/27/25 Unknown History doxycycline hyclate 100 mg capsule 100 mg PO BID 03/11/25 03/11/25 03/10/25 History Allergies Allergy/AdvReac Type Severity Reaction Status Date / Time No Known Allergies Allergy Verified 02/20/25 11:57 PFSH Acute PFSH: Medical History Avascular necrosis of bones of both hips History of nonmelanoma skin cancer Follicular lymphoma grade 3a Ulcerative colitis Surgical History History of bone marrow biopsy (05/04/18) History of lymph node biopsy (03/29/18) Right inguinal lymph node biopsy History of facial fracture repair Bilateral femur fractures History of shoulder surgery History of umbilical hernia repair Family History Father Cancer Lung Mother Dementia Other Clotting disorder Hypertension Denies family history of Diabetes CAD (coronary artery disease) Hyperlipidemia Psychiatric illness Chronic kidney disease (CKD) Suicide Anesthesia complication Bleeding disorder Lung disease Stroke Social History Smoking and tobacco/nicotine status: former use of tobacco/nicotine Quit status (tobacco/nicotine): has quit using Year quit tobacco: 1984 Former quit date comment: approx 35 years Second hand smoke exposure: Yes Alcohol intake: current Alcohol intake frequency: holidays/special occasions only Vitals/I&O/Wt Last Vital Signs Temp 100.8 F H 03/11/25 12:35 Pulse 97 03/11/25 15:01 Resp 16 03/11/25 15:01 BP 106/71 03/11/25 15:01 Pulse Ox 96 03/11/25 15:01 O2 Del Method Nasal Cannula 03/11/25 15:01 O2 Flow Rate 4 03/11/25 15:01 03/11/25 03/11/25 03/11/25 06:59 14:59 22:59 Intake Total 100 / 100 Balance 100 / 100 Weight last 48 hrs Weight 83.461 kg Physical Exam Const: COMMON NORMALS: no acute distress, average body habitus and patient oriented x3 HENMT: COMMON NORMALS: normocephalic and atraumatic Eye: COMMON NORMALS: Equal, round and reactive pupils present, EOMs intact bilaterally and no papilledema Resp: COMMON NORMALS: normal respiratory effort and No retractions AUSCULTATION: rales Cardio: COMMON NORMALS: negative for regular rate, negative for regular rhythm, negative for S1 normal heart sound present, negative for S2 normal heart sound present, negative for No gallops present (Cardio), negative for No murmurs present (Cardio) and negative for No rub (Cardio) GI: COMMON NORMALS: Soft to palpation, non-tender, No hepatosplenomegaly present and no masses Extremity: COMMON NORMALS: no clubbing, cyanosis or edema Neuro: COMMON NORMALS: patient oriented x3, CN's II-XII intact bilaterally, moves all extremities, no focal motor deficits and no sensory deficits noted Data 03/11/25 13:07 03/11/25 13:07 Micro: Microbiology 03/11/25 13:09 Blood Culture - Preliminary Blood SPECIMEN COLLECTED 03/11/25 13:07 Blood Culture - Preliminary Blood SPECIMEN COLLECTED A&P Assessment and plan 1. Acute hypoxemic respiratory failure: 2. COPD with acute exacerbation: 3. Fever: 4. Pneumonia: Plan: 74 year old male presenting with PNA PNA - no sepsis on admission. - recent CTA on 02/27 with bibasilar atelectasis, hazy groundglass opacities in lung bases, now slightly progressted on CTA done on admission. Mild interstitial edema - fevers without leukocytosis - given broad spectrum abx on admission, change to rocephin/doxy. - blood cultures pending - tylenol for fever. COPD - quit smoking about 40 years ago - cont home inhalers or eq. - duonebs q4h PRN - wean O2 as able PPx: lovenox, SCDs Diet: regular Disposition - full code - pending improvement in symptoms. PDMP PDMP Reviewed: Not Reviewed Attestations Medical Necessity Statement*: Anticipate inpatient stay > 3 midnights for pneumonia. Time Spent in Patient Care: 16 - 35 minutes (>than 50% of time spent in counselling and/or direct pt care on unit). Coding Level of Care Code Acute Code for [facility] Diagnoses Acute hypoxemic respiratory failure J96.01 COPD with acute exacerbation J44.1 Fever R50.9 Pneumonia J18.9
[2025-03-11 16:57] LABS: Lactic Acid level (Lactate) 1.5 mmol/L (0.5-2.2)
[2025-03-11] MEDS: cefTRIAXone 1,000 mg SDV 1000 MG IVP (17:09)
[2025-03-11] MEDS: doxycycline 100 MG in sodium chloride 0.9% (plus) 100 ML IV (17:09)
--- NOTE | 2025-03-11 17:12 | ECG_ITS ---
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 Measurements Intervals [place] Rate: 80 P: 26 SD: 152 QRS: -7 QRSD: 140 T: -14 QT: 405 QTc: 468 Interpretive Statements SINUS RHYTHM RIGHT BUNDLE BRANCH BLOCK [120+ ms QRS DURATION, UPRIGHT V1, 40+ ms S IN I/aVL/V4/V5/V6] MINIMAL VOLTAGE CRITERIA FOR LVH, CONSIDER NORMAL VARIANT [MEETS CRITERIA IN ONE OF: R(aVL), S(V1), R(V5), R(V5/V6)+S(V1)] MODERATE T-WAVE ABNORMALITY, CONSIDER LATERAL ISCHEMIA [-0.1+ mV T-WAVE IN I/aVL/V5/V6] Compared to ECG 03/11/2025 13:11:35 Right bundle-branch block now present Sinus tachycardia no longer present T-wave abnormality still present Possible ischemia still present Electronically Signed On 03-11-2025 23:29:23 CDT by Satnam Cannon M.D. [email or web address]
[2025-03-11 19:49] LABS: Troponin 5 6HR 12.68 ng/L (0-15)
[2025-03-11 20:06] LABS: Troponin 5 6HR Delta -3.32 ng/L (0-12)
[2025-03-12] VITALS: BP 124/67; PULSE 75; RESP 19; TEMP 36.6; O2SAT 93
[2025-03-12 03:26] LABS: Hematocrit 31.9 % (37-53); Hemoglobin 10.80 g/dL (11.27-16.99); Mean Corpuscular HGB Conc 33.9 g/dL (30-55); Mean Corpuscular Hemoglobin 35.8 pg (27-33); Mean Corpuscular Volume 105.6 fl (82-101); Nucleated Red Blood Cells % 0 %; Platelet Count 191 10^3/cmm (157-399); Red Blood Count 3.02 10^6/uL (3.85-5.65); White Blood Count 2.00 10^3/uL (3.29-11.43)
[2025-03-12 03:50] LABS: Anion Gap 16.1 (5-19); Blood Urea Nitrogen 10 mg/dL (8-23); Calcium 8.7 mg/dL (8.5-10.5); Carbon Dioxide 21 mmol/L (22-29); Chloride 107 mmol/L (98-107); Creatinine Clr Calc Pharmacy 91.1205; Glucose 155 mg/dL (65-115); Osmolality Calculated 292 mOsm/kg (285-295); Potassium 4.1 mmol/L (3.5-5.1); Sodium 140 mmol/L (136-145)
[2025-03-12 04:00] VITALS: BP 106/65; PULSE 62; RESP 20; TEMP 37.1; O2SAT 96
[2025-03-12 04:38] LABS: Slide Review Slide Review Perform
[2025-03-12] MEDS: doxycycline 100 MG in sodium chloride 0.9% (plus) 100 ML IV ×2 (05:10→18:12)
[2025-03-12 07:31] VITALS: BP 124/70; PULSE 66; RESP 24; TEMP 36.6; O2SAT 95
--- NOTE | 2025-03-12 09:47 | PC.CHAP ---
Pastoral Care Encounter/Spiritual Assessment Type of Contact [] Declined director of food and nutrition services visit [] Patient/Family/Request visit [] Outpatient visit [] Follow-up visit [] Physician referral [] Code/Alert [x] Routine visit [] Staff referral [] Actively dying [] Patient sleeping [x] Family support [] [] Out of room [] Palliative care [] [] Receiving care in room [] Pre-surgical visit [] Trauma [] Long length of stay [] ICU visit [] Other: Relational/Emotional Strength [x] Patient feels connected with others/family/visitors/staff [] Distress [] Loneliness/isolation [] Abandonment Spirituality of Patient [x] Person of Fatmata [] Attends Evangelical of their Fatmata [x] Believes in Prayer [] Reads Bible or Scientologist materials [] There are Spiritual issues to be addressed Interpersonal Communications Professor Interventions [x] Prayer [x] Active listening [] Non-anxious presence [x] Spiritual/emotional support [] Crisis/trauma care [] Spiritual counseling [] Bereavement support [] Provided bereavement packet [] Provided Bible/devotional materials [] Provided toy/stuffed animal, coloring book to patient or family member [] Provided Communion [] Anointing/[place] [] Salvation [x] Completed spiritual assessment [] Other: Impact on Illness or Injury [] Angry [] Fearful [] Anxious [] Often cries [] Exhaustion [] Unable to work [] Unable to attend anabaptism [] Unable to walk/stand [] Unable to read [] Unable to drive [] Unable to eat/drink [] Unable to sleep [] Unable to be with family [] Patient intubated [] Other: Summary Time spent with patient 10 min
[2025-03-12 12:00] VITALS: BP 105/67; PULSE 67; RESP 24; O2SAT 92
[2025-03-12 12:41] VITALS: PULSE 80; RESP 18; O2SAT 94
--- NOTE | 2025-03-12 12:48 | P.PN_ITS ---
Subjective 2 Subjective: on 4L O2 per NC. Vitals/I&O/Wt Last Vital Signs Temp 97.8 F 03/12/25 07:31 Pulse 80 03/12/25 12:41 Resp 18 03/12/25 12:41 BP 124/70 03/12/25 07:31 Pulse Ox 94 03/12/25 12:41 O2 Del Method Nasal Cannula 03/12/25 12:41 O2 Flow Rate 4 03/12/25 12:41 03/11/25 03/12/25 03/12/25 22:59 06:59 14:59 Intake Total 3140 / 3240 360 / 3600 460 / 460 Balance 3140 / 3240 360 / 3600 460 / 460 Weight last 48 hrs Weight 84.9 kg Weight 83.461 kg Weight 83.461 kg Physical Exam 2 Narrative: Physical Exam Const: no acute distress, average body habi tus and patient or iented x3 HENMT: normocephalic and atraumatic Eye: Equal, round and r eactive pupils pre sent, EOMs intact bilaterally and no papilledema Resp: normal respiratory effort and No ret ractions AUSCULTA TION: rales improv ed Cardio: regular rate & rhy thm, S1/S2 normal, No gallops, murmu rs, rubs GI: Soft to palpation, non-tender, No he patosplenomegaly p resent and no mass es Extremity: no clubbing, cyano sis or edema Neuro: patient oriented x 3, CN's II-XII int act bilaterally, m oves all extremiti es, no focal motor deficits and no s ensory deficits no marcos Data 03/12/25 02:52 03/12/25 02:52 Micro: Microbiology 03/11/25 13:09 Blood Culture - Preliminary Blood SPECIMEN COLLECTED 03/11/25 13:07 Blood Culture - Preliminary Blood SPECIMEN COLLECTED A&P Assessment and plan 1. Fever: 2. COPD with acute exacerbation: 3. Acute hypoxemic respiratory failure: 4. Pneumonia: Plan: 74 year old male presenting with PNA PNA - no sepsis on admission. - recent CTA on 02/27 with bibasilar atelectasis, hazy groundglass opacities in lung bases, now slightly progressted on CTA done on admission. Mild interstitial edema - fevers without leukocytosis - given broad spectrum abx on admission, change to rocephin/doxy. - received steroid bolus in ER, monitor off steroids without wheezing. - blood cultures pending - tylenol for fever. COPD - quit smoking about 40 years ago - cont home inhalers or eq. - duonebs q4h PRN - wean O2 as able, he was recently given O2 for home on prior admission. History of UC - cont. mesalamine - no recent flares on current regimen per patient. PPx: lovenox, SCDs Diet: regular Disposition - full code - pending improvement in symptoms. PDMP PDMP Reviewed: Not Reviewed Attestations 2 Medical Necessity Statement*: Ongoing inpatient for pneumonia Time Spent in Patient Care: 16 - 35 minutes (>than 50% of time sp ent in counselling and/or direct pt care on unit) . Coding Level of Care Code Acute Code for [facility] Diagnoses Fever R50.9 COPD with acute exacerbation J44.1 Acute hypoxemic respiratory failure J96.01 Pneumonia J18.9
[2025-03-12] MEDS: cefTRIAXone 1,000 mg SDV 1000 MG IVP (18:12)
[2025-03-12 19:46] VITALS: BP 125/67; PULSE 67; RESP 25; TEMP 37; O2SAT 93
[2025-03-13] VITALS: BP 128/80; PULSE 63; RESP 23; TEMP 37.3; O2SAT 100
[2025-03-13 03:11] LABS: Hematocrit 33.1 % (37-53); Hemoglobin 11.10 g/dL (11.27-16.99); Mean Corpuscular HGB Conc 33.5 g/dL (30-55); Mean Corpuscular Hemoglobin 35.8 pg (27-33); Mean Corpuscular Volume 106.8 fl (82-101); Nucleated Red Blood Cells % 0 %; Platelet Count 159 10^3/cmm (157-399); Red Blood Count 3.10 10^6/uL (3.85-5.65); White Blood Count 3.16 10^3/uL (3.29-11.43)
[2025-03-13 03:35] LABS: Anion Gap 15.1 (5-19); Blood Urea Nitrogen 10 mg/dL (8-23); Calcium 8.4 mg/dL (8.5-10.5); Carbon Dioxide 24 mmol/L (22-29); Chloride 110 mmol/L (98-107); Creatinine Clr Calc Pharmacy 81.6000; Glucose 99 mg/dL (65-115); Osmolality Calculated 299 mOsm/kg (285-295); Potassium 4.1 mmol/L (3.5-5.1); Sodium 145 mmol/L (136-145)
[2025-03-13 03:57] LABS: Slide Review Slide Review Perform
[2025-03-13 04:00] VITALS: BP 122/78; PULSE 83; RESP 28; TEMP 37.2; O2SAT 98
[2025-03-13] MEDS: doxycycline 100 MG in sodium chloride 0.9% (plus) 100 ML IV (04:51)
[2025-03-13 08:00] VITALS: BP 117/78; PULSE 101; RESP 24; TEMP 36.5; O2SAT 92
[2025-03-13] MEDS: MESALAMINE 1200 MG 4800 EACH PO (08:19)
--- NOTE | 2025-03-13 08:27 | PC.SOCIAL ---
IMM Updated pg 2 of IMM updated and reviewed w/ patient. Copy provided and copy dated, initialed and placed in chart.
[2025-03-13 10:29] VITALS: O2SAT 87; O2SAT 93; O2SAT 95
--- NOTE | 2025-03-13 11:16 | P.DS_ITS ---
Discharge Providers Date of Admission: 03/11/25 15:13 Date of Discharge: March 13, 2025 Attending Provider at Admission: Vick Wang MD Attending Provider at Discharge: Vick Wang MD Primary Care Provider: Nicolasa Trujillo MD Diagnoses at Discharge Discharge Diagnosis 1. Fever: 2. COPD with acute exacerbation: 3. Acute hypoxemic respiratory failure: 4. Pneumonia: Reason for Visit Reason for Visit: SOB, malaise. Recent PNA. Brief History: 74 year old male presenting with SOB, PN A. Hospital Course Hospital Course PNA - no sepsis on admission. - recent CTA on 02/27 with bibasilar atelectasis, hazy groundglass opacities in lung bases, now slightly progressed on CTA done on admission. Mild interstitial edema - fevers without leukocytosis - given broad spectrum abx on admission, change to rocephin/doxy. - received steroid bolus in ER, monitor off steroids without wheezing. - blood cultures NGTD, serologies negative for flu, RSV, COVID. - tylenol for fever. COPD - quit smoking about 40 years ago - cont home inhalers or eq. - duonebs q4h PRN - wean O2 as able, he was recently given O2 for home on prior admission. - exercise oximetry done this AM on 03/13 with result that the patient is requiring 2L O2 with exertion. History of UC - cont. mesalamine - no recent flares on current regimen per patient. PPx: lovenox, SCDs Diet: regular Disposition - full code - Discharge planning for today. - consider pulmonology follow up on D/C in 2-4 weeks. Physical Exam Narrative: Physical Exam Const: no acute distress, average body habitus and patient oriented x3 HENMT: normocephalic and atraumatic Eye: Equal, round and reactive to light, EOMs intact bilaterally Resp: normal respiratory effort and No retractions AUSCULTATION: rales improved, no wheezing. Cardio: regular rate & rhythm, S1/S2 normal, No gallops, murmurs, rubs GI: Soft to palpation, non-tender, No hepatosplenomegaly and no masses Extremity: no clubbing, cyanosis or edema Neuro: patient oriented x 3, CN's II-XII intact bilaterally, moves all extremities, no focal motor deficits and no sensory deficits noted Discharge Data Studies Completed and Pending Completed Studies During Hospitalization Category Date Time Status CTA chest [CT angio chest PE protcl [id number]] Stat Cat Scan 03/11/25 13:35 Completed XR chest 1V portable [id number] Stat Exams 03/11/25 12:38 Completed Pending at discharge Category Date Time Status Blood Culture Stat Lab 03/11/25 13:09 Results Radiology Impressions Chest X-Ray 03/11/25 12:38 Impression: 1. Patchy opacity in the left lower lobe and retrocardiac area which could represent pneumonia and/or atelectasis. 2. Cardiomegaly and atherosclerosis. Chest CTA 03/11/25 13:35 IMPRESSION: 1. No evidence of pulmonary embolus. 2. Advanced chronic emphysematous changes. 3. Bibasilar atelectasis with hazy groundglass opacities in the lung bases slightly progressed compared to 02/27/2025. Mild interstitial edema. 4. No other acute findings. Laboratory Results WBC 3.16 10^3/uL (3.29-11.43) L 03/13/25 03:00 RBC 3.10 10^6/uL (3.85-5.65) L 03/13/25 03:00 Hgb 11.10 g/dL (11.27-16.99) L 03/13/25 03:00 Hct 33.1 % (37-53) L 03/13/25 03:00 MCV 106.8 fl (82-101) H 03/13/25 03:00 MCH 35.8 pg (27-33) H 03/13/25 03:00 MCHC 33.5 g/dL (30-55) 03/13/25 03:00 RDW 13.8 % (12.1-15.1) 03/13/25 03:00 Plt Count 159 10^3/cmm (157-399) 03/13/25 03:00 MPV 8.9 fL (7.4-10.4) 03/13/25 03:00 Neut % (Auto) 77.3 % 03/13/25 03:00 Lymph % (Auto) 3.5 % 03/13/25 03:00 Tw[place]gs % (Auto) 5.7 % 03/13/25 03:00 Eos % (Auto) 2.8 % 03/13/25 03:00 Baso % (Auto) 0.6 % 03/13/25 03:00 Neut # (Auto) 2.44 10^3/uL (1.8-7.7) 03/13/25 03:00 Lymph # (Auto) 0.1 10^3/uL (0.8-4.8) L 03/13/25 03:00 [place]gs # (Auto) 0.2 10^3/uL (0.2-0.9) 03/13/25 03:00 Eos # (Auto) 0.1 10^3/uL (0.0-0.8) 03/13/25 03:00 Baso # (Auto) 0.0 10^3/uL (0.0-0.1) 03/13/25 03:00 Nucleated RBC % (auto) 0 % 03/13/25 03:00 Nucleated RBCs # 0.0 /100WBC 03/13/25 03:00 Specimen Type Arterial 03/11/25 13:07 Sample Site Brachial, right 03/11/25 13:07 ABG pH 7.52 (7.35-7.45) H 03/11/25 13:07 ABG pCO2 31.1 mmHg (35-45) L 03/11/25 13:07 ABG pO2 49.1 mmHg (80.0-100.0) L 03/11/25 13:07 ABG PO2/FiO2 Ratio 233 03/11/25 13:07 ABG HCO3 25.2 mmol/L (22-26) 03/11/25 13:07 ABG O2 Saturation 88.2 03/11/25 13:07 ABG Base Excess 2.8 mmol/L (-2.0-2.0) H 03/11/25 13:07 Wilder Test N/a 03/11/25 13:07 A-a O2 Gradient 8.1 mmHg (5-10) 03/11/25 13:07 Hematocrit 38.8 % (42-52) L 03/11/25 13:07 Hgb O2 Saturation 86.5 % (95-100) L 03/11/25 13:07 Carboxyhemoglobin 1.7 %THgb (0.4-20.1) 03/11/25 13:07 Methemoglobin 0.1 % (0.4-1.5) L 03/11/25 13:07 Total Hemoglobin 12.7 g/dL (14-18) L 03/11/25 13:07 Sodium 137.0 mmol/L (131-143) 03/11/25 13:07 Potassium 3.6 mmol/L (3.5-5.0) 03/11/25 13:07 Glucose 112.0 mg/dL (70-115) 03/11/25 13:07 Ionized Calcium 1.1 mmol/L (1.1-1.4) 03/11/25 13:07 O2 Delivery Device Room air 03/11/25 13:07 FiO2 21.0 % 03/11/25 13:07 Asian Studies Program Chair ID [facility] 03/11/25 13:07 Sodium 145 mmol/L (136-145) 03/13/25 03:00 Potassium 4.1 mmol/L (3.5-5.1) 03/13/25 03:00 Chloride 110 mmol/L (98-107) H 03/13/25 03:00 Carbon Dioxide 24 mmol/L (22-29) 03/13/25 03:00 Anion Gap 15.1 (5-19) 03/13/25 03:00 BUN 10 mg/dL (8-23) 03/13/25 03:00 Creatinine 0.9 mg/dL (0.7-1.2) 03/13/25 03:00 GFR Calculation Not Reportable 03/13/25 03:00 Glucose 99 mg/dL (65-115) 03/13/25 03:00 Calculated Osmolality 299 mOsm/kg (285-295) H 03/13/25 03:00 Lactic Acid 2.3 mmol/L (0.5-2.2) H 03/11/25 13:07 Lactic Acid (Sepsis) 1.5 mmol/L (0.5-2.2) 03/11/25 16:08 Calcium 8.4 mg/dL (8.5-10.5) L 03/13/25 03:00 Total Bilirubin 0.5 mg/dL (0.15-1.2) 03/11/25 13:07 AST 22 U/L (0-40) 03/11/25 13:07 ALT 20 U/L (0-41) 03/11/25 13:07 Alkaline Phosphatase 90 U/L (40-130) 03/11/25 13:07 Troponin T Baseline 16 ng/L (0-15) H 03/11/25 13:07 Troponin T 120 Minute 15.91 ng/L (0-15) H 03/11/25 14:51 Delta Troponin T -0.09 ABS# (0-10) L 03/11/25 14:51 Troponin T Hi Sens 6Hr 12.68 ng/L (0-15) 03/11/25 19:24 Troponin T Hi Sens 6Hr Delta -3.32 ng/L (0-12) L 03/11/25 19:24 C-Reactive Protein 74.1 mg/L (0.0-4.9) H 03/11/25 13:07 NT-Pro-B Natriuret Pep 422 pg/mL (0-125) H 03/11/25 13:07 Total Protein 5.9 g/dL (6.6-8.7) L 03/11/25 13:07 Albumin 3.9 g/dL (3.5-5.2) 03/11/25 13:07 Globulin 2.0 g/dL (1.3-4.6) 03/11/25 13:07 Procalcitonin 0.08 ng/mL (0-0.5) 03/11/25 13:07 Urine Color Dark yellow (Yellow) A 03/11/25 13: Urine Appearance Clear (CLEAR) 03/11/25 13:25 Urine pH 5.5 (5-7) 03/11/25 13:25 Ur Specific [place] 1.018 (1.005-1.030) 03/11/25 13:25 Urine Protein Trace (Negative) A 03/11/25 13:25 Urine Glucose (UA) Negative (Normal) 03/11/25 13:25 Urine Ketones Trace (Negative) 03/11/25 13:25 Urine Blood Negative (Negative) 03/11/25 13:25 Urine Nitrate Negative (Negative) 03/11/25 13:25 Urine Bilirubin Negative (Negative) 03/11/25 13:25 Urine Urobilinogen 1.0 mg/dL (Negative) 03/11/25 13:25 Ur Leukocyte Esterase Negative (Negative) 03/11/25 13:25 Urine RBC None /hpf (0-2) 03/11/25 13:25 Urine WBC 0-4 /hpf (0-5) H 03/11/25 13:25 Ur Squamous Epith Cells 0-4 /hpf (0-5) H 03/11/25 13:25 Ur Transition Epith Cell 0-4 /hpf 03/11/25 13:25 Amorphous Sediment Not Reportable 03/11/25 13:25 Urine Bacteria None /hpf (NONE) 03/11/25 13:25 Urine Mucus None /hpf 03/11/25 13:25 Ur Oval Fat Bodies Rare /hpf 03/11/25 13:25 Influenza A (PCR) Negative (Negative) 03/11/25 13:09 Influenza Type B (PCR) Negative (Negative) 03/11/25 13:09 RSV (PCR) Negative (Negative) 03/11/25 13:09 SARS-CoV-2 (PCR) Negative (Negative) 03/11/25 13:09 Vitals Last Vital Signs Temp 97.7 F 03/13/25 08:00 Pulse 101 H 03/13/25 08:00 Resp 24 H 03/13/25 08:00 BP 117/78 03/13/25 08:00 Pulse Ox 93 03/13/25 10:29 O2 Del Method Nasal Cannula 03/13/25 10:00 O2 Flow Rate 2 03/13/25 10:29 Discharge Plan Discharge Patient Disposition: Home Condition: Stable Prescriptions: New cefdinir 300 mg capsule 300 mg PO BID 10 Days Qty: 20 0RF doxycycline monohydrate 100 mg capsule 100 mg PO BID 7 Days Qty: 14 0RF Continued omeprazole 40 mg capsule,delayed release(DR/EC) 40 mg PO DAILY mesalamine 800 mg tablet,delayed release (DR/EC) 3,200 mg PO DAILY Rx Instructions: must be taken on empty stomach; no food 1 hr after or 2-3 hrs before dose urea 40 % cream 1 applic topical BID PRN (Reason: Dry Skin) albuterol sulfate 90 mcg/actuation HFA aerosol inhaler 2 inh INHALATION Q4H PRN (Reason: shortness of breath or wheezing) Qty: 18 0RF Discontinued doxycycline hyclate 100 mg capsule 100 mg PO BID Discharge Order = DC NOW: Discharge Order (Routine); Ordered 03/13/25 Ordered By: Vick Wang Referrals: Nicolasa Trujillo MD [Primary Care Provider, Family Practice] Patient Instructions: Opioid Safety, Patient Portal & Shivani Instructions Discharge Attestations Time Spent in Discharge Care*: greater than 30 min Specific Discharge Activities: educating patient, educating and/or supporting family/caregiver, discussing with pcp/other providers, discussing with embedded case manager/social workers/dc planners, documenting/other paperwork and evaluating patient/reviewing data Quality Metrics Clinical Quality Measures [ No reported AMI, CVA or VTE this stay] Coding Level of Care Code Acute Code for [facility] Diagnoses Fever R50.9 COPD with acute exacerbation J44.1 Acute hypoxemic respiratory failure J96.01 Pneumonia J18.9
[2025-03-13 12:00] VITALS: BP 136/77; PULSE 83; RESP 20; TEMP 37.1; O2SAT 92
[2025-03-13 16:07] VITALS: BP 136/77; PULSE 82; RESP 18; O2SAT 92
== END 2025-03-13 16:08 | disposition home or self-care (01) | DRG 193 ==
LOC: ER 14:29 → CSU 15:14
PROVIDERS: Admitting Provider Internal Medicine; Emergency Provider Emergency Medicine; PCP Family Medicine; Visit Provider Internal Medicine
DX: J18.9 Pneumonia, unspecified organism (principal); J96.01 Acute respiratory failure with hypoxia; J44.0 Chronic obstructive pulmonary disease with (acute) lower respiratory infection; K51.90 Ulcerative colitis, unspecified, without complications; Z87.891 Personal history of nicotine dependence; Z85.72 Personal history of non-Hodgkin lymphomas
CPT/HCPCS: 36415; 36600; 71045; 71275; 80048; 80051; 80053; 81001; 82330; 82805; 83605; 83880; 84145; 84484; 85025; 86140; 87040; 87637; 93005; 94640; 94664; 94760; 96365; 96372; 96375; 99285; J0131; J0696; J1650; J2020; J2185; J2919; J3490; J7030; J7040; J9999

== ENCOUNTER 2025-03-18 15:06 | Inpatient (IN) | payer OTHER, SELFPAY ==
--- OUTSIDE RECORDS SUMMARY | 2025-01-16 06:10 | XMS_ITS ---
Author Organization [facility] Address [address] [place] [address] Care Team Providers Care Director Medical Affairs Name Role Phone Luke ATWOOD, Simon Primary Care Provider Obed Lazaro Unavailable [phone] REASON FOR VISIT 5m f/u w repeat prostate exam Encounters Encounter Location Date Provider Diagnosis [facility] [address] [place] [address] 01/16/2025 Obed Boyd Plan Of Treatment Next Appt Details Provider Name:Nuris Carter Person, 08/13/2025 11:00:00 AM, [address], [place], [address], Progress Notes * ANGELIKARickywardDOB: (74 yo M)Acc No.[id number]:01/16/2025 Progress Notes Patient: Ricky Jacques Provider: Lupillo Boyd MD :1950 A ge:74 Y S ex:Male Date:01/16/2025 Address:[address] Pcp:Simon Butler MD Subjective: * Chief Complaints: * 5 m f/u w repeat prostate exam * Electronic signature of Romel Boyd MD on 03/18/2025 at 03:14 PM CDT Sign off status: Pending * Provider: Lupillo Boyd MD Date: 0 01/16/2025 Generated for Esei ng/Fanicolleg/eTransmitting on: 1 03:14 PM CDT
[2025-03-18] VITALS (11 sets, daily range): BP systolic 103–126; BP diastolic 69–95; PULSE 89–126; RESP 16–18; TEMP 36.8–37; O2SAT 90–94; BMI 25.9
--- NOTE | 2025-03-18 15:10 | XR_ITS ---
WS: [id number] XR chest 1V portable [id number] REASON FOR EXAM: sob FINDINGS: Comparison is made to previous examinations 02/20/2025, 02/27/2025, and 03/11/2025. While the current examination appears stable compared to the previous examination of 03/11/2025 both of these examinations demonstrate increased interstitial and groundglass opacities in the lower lungs compared to 02/20/2025. Previous CT scans on 03/11/2025 and 02/27/2025 demonstrated extensive chronic lung changes with increasing ground glass density in both lower lungs. No other interval change or new finding. XR/XR chest 1V portable [id number] IMPRESSION: Groundglass lung opacities usually are indicative of acute or subacute abnormal ity. The series of chest x-rays starting from 02/20/2025 are felt to represent a prog ressive superimposition of a subacute process on abnormal lung. Groundglass den sity is a nonspecific finding seen with multiple entities most commonly congest kevon heart failure and often with COVID pneumonitis.
--- OUTSIDE RECORDS SUMMARY | 2025-03-18 15:14 | XMS_ITS | Encounter Summary ---
Author Organization [facility] Address [address] 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
--- OUTSIDE RECORDS SUMMARY | 2025-03-18 15:14 | XMS_ITS | Clinical Summary ---
Author Organization [facility] Address [address] [place]: [place] [address] Care Team Providers Care Medical Claims Specialist Name Role Phone Obed Lewis MD [...] Department Care Team Description 02/20/2025 Orders Only [facility] [address] [facility] [address] [place] [address] Sanjay Harrell MD 02/19/2025 External Device Data STL ABSTRACTION Provider, Abstract 02/05/2025 External Device Data STL ABSTRACTION Provider, Abstract 02/01/2025 Orders [address] [facility] Admitting [address] [facility] [address] [place] [address] Nioclasa Trujillo MD Personal history of colon polyps, [...] on file Legal Sex Male 2:59 PM RAND SEWER Gender Identity Not on file Sexual Orientation [...] Care Team (Late st Contact Info) Description 04/03/2025 10:30 AM CDT Appointment [facility] [address] [address] Rene Alberts MD [address] [address] Health Maintenance Due Date Last Done Comments [...] series) 12/01/2027 Medical Devices Implanted Type Area Cognos Developer Device Identifier Shelf Expiration Date Model / Serial / Lot Mesh Ventralight St 6x8in [id number] - Sna Implanted:Qty: 1 on 03/04/2016 by Alvarado Yo MD Mesh N/A: Abdomen CR [employer] 12/31/2017 [id number] / NA / [id number] Procedures Procedure Name Priority Date/Time Associated Diagnosis Comments COLONOSCOPY REPORT 06/11/2019 8:25 AM RAND SEWER from Last 3 Months or Most Recently Relevant to Health Maintenance Results * COLONOSCOPY REPORT (06/11/2019 8:25 AM RAND SEWER) Josiah Hussein MD GI PROCEDURE ORDERABLES Fin al Result from Last 3 Months or Most Recently Relevant to Health Maintenance Insurance MEDICARE PART [place] [place] [address] [employer] * Guarantor: [employer] Account Type Relation to Patient Date of Phone Billing Address [facility] Other DEFAULT ADDRESS [address] [employer] Member Subscriber Plan / Payer (Ef fective 1998-Present) Name:Ricky Lobo Relation to Subscriber:Self Name:Ricky Lobo Payer ID:Not on file Group ID:Not on file Type:[place] Address: [place] [id number] * Guarantor: [employer] Account Type Relation to Patient Date of Phone Billing Address [facility] Other DEFAULT ADDRESS [address] [employer] * Guarantor: [facility] Account Type Relation to Patient Date of Phone Billing Address [facility] Other DEFAULT ADDRESS [address] [employer] Advance Directives For more information, please contact: [phone] * Full Code (Latest Code Status on File) Date Activated Date Inactivated Comments 06/10/2023 8:00 AM 06/10/2023 12:59 PM Care Teams Medical Claims Specialist Relationship Specialty Start Date End Date Obed Lewis MD [address] [place] [phone] PCP - General Family Practice 04/16/22
--- OUTSIDE RECORDS SUMMARY | 2025-03-18 15:14 | XMS_ITS | Encounter Summary ---
Author Organization [facility] Address [address] [place] [address] Care Team Providers Care Flight Radio Officer Name Role Phone Vick Cox MD Primary Care Provider + Encounter Details Date Type Department Care Team (Latest Contact Info) Description 04/09/2004 Outpatient Historical [facility] Gastroenterology[address] [place] [address] Josiah Hussein MD 1029 [facility] [place] [address] [place] [phone] ULCERATIVE COLITIS NOS (CMS/HCC) (Primary Dx) Social History Tobacco Use Types Packs/Day Years Used Date Smoking Tobacco: Never Assessed Sex and Gender Information Value Date Recorded Sex Assigned at Not on file 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
--- OUTSIDE RECORDS SUMMARY | 2025-03-18 15:14 | XMS_ITS | Encounter Summary ---
Author Organization [facility] Address [address] [place] [address] Care Team Providers Care Ham Passer Name Role Phone Vick Cox MD Primary Care Provider + Encounter Details Date Type Department Care Team (Latest Contact Info) Description 01/19/2007 Outpatient Historical [facility] [place] [address] [facility] [address] [place] [address] Josiah Hussein MD 1029 [facility] [place] [address] [place] [phone] Unspecified Ulcerative Colitis (CMS/HCC) (Primary Dx) Social History Tobacco Use Types Packs/Day Years Used Date Smoking Tobacco: Never Assessed Sex and Gender Information Value Date Recorded Sex Assigned at Not on file 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
--- OUTSIDE RECORDS SUMMARY | 2025-03-18 15:14 | XMS_ITS | Encounter Summary ---
Author Organization [facility] Address [address] [place] [address] Care Team Providers Care [facility] Name Role Phone Vick Cox MD Primary Care Provider + Encounter Details Date Type Department Care Team (Latest Contact Info) Description 12/20/2006 Outpatient Historical [facility] [place] [address] [facility] [address] [place] [address] Josiah Hussein MD 1029 [facility] [place] [address] [place] [phone] Unspecified Ulcerative Colitis (CMS/HCC) (Primary Dx) Social History Tobacco Use Types Packs/Day Years Used Date Smoking Tobacco: Never Assessed Sex and Gender Information Value Date Recorded Sex Assigned at Not on file 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
--- OUTSIDE RECORDS SUMMARY | 2025-03-18 15:14 | XMS_ITS | Encounter Summary ---
Author Organization [facility] Address [address] [place] [address] Care Team Providers Care Shore Hand Dredge Or Barge Name Role Phone Vick Cox MD Primary Care Provider + Encounter Details Date Type Department Care Team (Latest Contact Info) Description 12/17/2004 Outpatient Historical [facility] Gastroenterology[address] [place] [address] Josiah Hussein MD 1029 [facility] [address] [place] [address] ULCERATIVE COLITIS NOS (CMS/HCC) (Primary Dx); RECTAL & ANAL DIS NEC; INT HEMORRHOID W/O COMPL Social History Tobacco Use Types Packs/Day Years Used Date Smoking Tobacco: Never Assessed Sex and Gender Information Value Date Recorded Sex Assigned at Not on file Legal Sex Male 5:36 AM GROUP SALES COORDINATOR Gender Identity Not on file Sexual Orientation Not on file documented as of this encounter Plan of Treatment Not on file documented as of this encounter Visit Diagnoses Diagnosis Ulcerative colitis, unspecified- Primary Other specified disorder of rectum and anus Internal hemorrhoids without mention of complication documented in this encounter Care Teams Shore Hand Dredge Or Barge Relationship Specialty Start Date End Date Vick Cox MD PCP - General Family Practice 05/21/16 documented as of this encounter
--- OUTSIDE RECORDS SUMMARY | 2025-03-18 15:14 | XMS_ITS | Encounter Summary ---
Author Organization [facility] Address [address] [place] [address] Care Team Providers Care Medication Aid Name Role Phone Vick Cox MD Primary Care Provider + Encounter Details Date Type Department Care Team (Latest Contact Info) Description 10/10/2003 Outpatient Historical [facility] Gastroenterology[address] [place] [address] Josiah Hussein MD 1029 [facility] [place] [address] [place] [phone] ULCERATIVE COLITIS NOS (CMS/HCC) (Primary Dx) Social History Tobacco Use Types Packs/Day Years Used Date Smoking Tobacco: Never Assessed Sex and Gender Information Value Date Recorded Sex Assigned at Not on file Legal Sex Male 5:36 AM DIRECTOR OF HEALTH CARE MARKETING Gender Identity Not on file Sexual Orientation Not on file documented as of this encounter Plan of Treatment Not on file documented as of this encounter Visit Diagnoses Diagnosis Ulcerative colitis, unspecified- Primary documented in this encounter Care Teams Medication Aid Relationship Specialty Start Date End Date Vick Cox MD PCP - General Family Practice 05/21/16 documented as of this encounter
--- OUTSIDE RECORDS SUMMARY | 2025-03-18 15:14 | XMS_ITS | Encounter Summary ---
Author Organization [facility] Address [address] [place] [address] Care Team Providers Care Turbine Engine Assembler Name Role Phone Vick Cox MD Primary Care Provider + Encounter Details Date Type Department Care Team (Latest Contact Info) Description 12/02/2005 Outpatient Historical [facility] Gastroenterology[address] [place] [address] Josiah Hussein MD 1029 [facility] [place] [address] [place] [phone] Unspecified Ulcerative Colitis (CMS/HCC) (Primary Dx) Social History Tobacco Use Types Packs/Day Years Used Date Smoking Tobacco: Never Assessed Sex and Gender Information Value Date Recorded Sex Assigned at Not on file Legal Sex Male 5:36 AM EYEGLASS FITTER Gender Identity Not on file Sexual Orientation Not on file documented as of this encounter Plan of Treatment Not on file documented as of this encounter Visit Diagnoses Diagnosis Ulcerative colitis, unspecified- Primary documented in this encounter Care Teams Turbine Engine Assembler Relationship Specialty Start Date End Date Vick Cox MD PCP - General Family Practice 05/21/16 documented as of this encounter
--- OUTSIDE RECORDS SUMMARY | 2025-03-18 15:14 | XMS_ITS | Encounter Summary ---
Author Organization [facility] Address [address] [place] [address] Care Team Providers Care Integration Solution Architect Name Role Phone Vick Cox MD Primary Care Provider + Encounter Details Date Type Department Care Team (Latest Contact Info) Description 12/02/2004 Outpatient Historical [facility] Gastroenterology[address] [place] [address] Josiah Hussein MD 1029 [facility] [place] [address] [place] [phone] ULCERATIVE COLITIS NOS (CMS/HCC) (Primary Dx) Social History Tobacco Use Types Packs/Day Years Used Date Smoking Tobacco: Never Assessed Sex and Gender Information Value Date Recorded Sex Assigned at Not on file Legal Sex Male 5:36 AM MIXER FOAM RUBBER Gender Identity Not on file Sexual Orientation Not on file documented as of this encounter Plan of Treatment Not on file documented as of this encounter Visit Diagnoses Diagnosis Ulcerative colitis, unspecified- Primary documented in this encounter Care Teams Integration Solution Architect Relationship Specialty Start Date End Date Vick Cox MD PCP - General Family Practice 05/21/16 documented as of this encounter
--- OUTSIDE RECORDS SUMMARY | 2025-03-18 15:14 | XMS_ITS | Clinical Summary ---
Author Organization [facility] [address] Address [address] [place] [address] Care Team Providers Care Texture Artist Name Role Phone Vick Cox MD Primary [...] file Legal Sex Male 5:36 AM ENVIRONMENTAL SERVICES DIRECTOR Gender Identity Not on file Sexual Orientation Not on file Last Filed Vital Signs Vital Sign Reading Time Taken Comments Blood Pressure 111/82 06/11/2019 8:38 AM ENVIRONMENTAL SERVICES DIRECTOR Pulse 76 06/11/2019 8:38 AM ENVIRONMENTAL SERVICES DIRECTOR Temperature 36.3 C (97.3 F) 09/04/2018 2:03 PM CDT Respiratory Rate 27 06/11/2019 8:38 AM ENVIRONMENTAL SERVICES DIRECTOR Oxygen Saturation 93% 06/11/2019 8:38 AM ENVIRONMENTAL SERVICES DIRECTOR Inhaled Oxygen Concentration - - Weight 86.2 kg (190 lb) 05/29/2019 1:42 PM ENVIRONMENTAL SERVICES DIRECTOR Height 177.8 cm (5' 10 ) 05/29/2019 1:42 PM ENVIRONMENTAL SERVICES DIRECTOR Body Mass Index 27.26 05/29/2019 1:42 PM ENVIRONMENTAL SERVICES DIRECTOR Plan of Treatment Health Maintenance Due Date [...] series) 12/01/2027 Medical Devices Implanted Type Area Forensic Document Examiner Device Identifier Shelf Expiration Date Model / Serial / Lot Mesh Ventralight St 6x8in [id number] - Sna Implanted:Qty: 1 on 03/04/2016 by Alvarado Yo MD at [facility] Mesh N/A: Abdomen CR [employer] 12/31/2017 [id number] / NA / [id number] Procedures Procedure Name Priority Date/Time Associated Diagnosis Comments COLONOSCOPY REPORT 06/11/2019 8: 25 AM ENVIRONMENTAL SERVICES DIRECTOR from Last 3 Months or Most Recently Relevant to Health Maintenance Results * COLONOSCOPY REPORT (06/11/2019 8:25 AM ENVIRONMENTAL SERVICES DIRECTOR) Narrative Procedure Note Josiah Hussein MD - 06/11/2019 8:24 AM CST [facility] GI Patient Name: Ricky Lobo Procedure Date: [...] Scope Out: 8:19:56 AM [address] [place] Josiah Hussein MD GI PROCEDURE ORDERABLES Fin al Result from Last 3 Months or Most Recently Relevant to Health Maintenance Insurance MEDICARE PART A AND B [facility] Advance Directives For more information, please contact: [phone] * Full Code (Latest Code Status on [...] 11:10 AM 03/04/2016 2:09 PM Care Teams Texture Artist Relationship Specialty Start Date End Date Vick Cox MD PCP - General Family Practice 05/21/16
--- OUTSIDE RECORDS SUMMARY | 2025-03-18 15:14 | XMS_ITS | Encounter Summary ---
Author Organization [facility] Address [address] [place] [address] Care Team Providers Care Suction Worker Name Role Phone Vick Cox MD Primary Care Provider + Encounter Details Date Type Department Care Team (Latest Contact Info) Description 01/17/2002 Outpatient Historical [facility] Gastroenterology[address] [place] [address] Josiah Hussein MD 1029 [facility] [place] [address] [place] [address] ULCERATIVE COLITIS NOS (CMS/HCC) (Primary Dx) Social History Tobacco Use Types Packs/Day Years Used Date Smoking Tobacco: Never Assessed Sex and Gender Information Value Date Recorded Sex Assigned at Not on file Legal Sex Male 5:36 AM DIRECTOR FINANCIAL SERVICES Gender Identity Not on file Sexual Orientation Not on file documented as of this encounter Plan of Treatment Not on file documented as of this encounter Visit Diagnoses Diagnosis Ulcerative colitis, unspecified- Primary documented in this encounter Care Teams Suction Worker Relationship Specialty Start Date End Date Vick Cox MD PCP - General Family Practice 05/21/16 documented as of this encounter
--- OUTSIDE RECORDS SUMMARY | 2025-03-18 15:14 | XMS_ITS | Encounter Summary ---
Author Organization [facility] Address [address] [place] [address] Care Team Providers Care Credentialing Manager Name Role Phone Vick Cox MD Primary Care Provider + Encounter Details Date Type Department Care Team (Latest Contact Info) Description 01/19/2007 Outpatient Historical [facility] Endoscopy [place] [address] [place] [address] Josiah Hussein MD 1029 [facility] [address] [place] [address] Other and Unspecified Noninfectious Gastroenteritis and Colitis (Primary Dx) Social History Tobacco Use Types Packs/Day Years Used Date Smoking Tobacco: Never Assessed Sex and Gender Information Value Date Recorded Sex Assigned at Not on file Legal Sex Male 5:36 AM COBBLER APPRENTICE Gender Identity Not on file Sexual Orientation Not on file documented as of this encounter Plan of Treatment Not on file documented as of this encounter Visit Diagnoses Diagnosis Other and unspecified noninfectious gastroenteritis and colitis(558.9)- Primary Other and unspecified noninfectious gastroenteritis and colitis documented in this encounter Care Teams Credentialing Manager Relationship Specialty Start Date End Date Vick Cox MD PCP - General Family Practice 05/21/16 documented as of this encounter
--- OUTSIDE RECORDS SUMMARY | 2025-03-18 15:14 | XMS_ITS | Encounter Summary ---
Author Organization [facility] Address [address] [place] [address] Care Team Providers Care Dance Instructor Name Role Phone Vick Cox MD Primary Care Provider + Encounter Details Date Type Department Care Team (Latest Contact Info) Description 08/02/2002 Outpatient Historical [facility] Gastroenterology[address] [place] [address] Josiah Hussein MD 1029 [facility] [address] [place] [phone] ULCERATIVE COLITIS NOS (CMS/HCC) (Primary Dx) Social History Tobacco Use Types Packs/Day Years Used Date Smoking Tobacco: Never Assessed Sex and Gender Information Value Date Recorded Sex Assigned at Not on file Legal Sex Male 5:36 AM CONCRETE PAVEMENT INSTALLER Gender Identity Not on file Sexual Orientation Not on file documented as of this encounter Plan of Treatment Not on file documented as of this encounter Visit Diagnoses Diagnosis Ulcerative colitis, unspecified- Primary documented in this encounter Care Teams Dance Instructor Relationship Specialty Start Date End Date Vick Cox MD PCP - General Family Practice 05/21/16 documented as of this encounter
--- OUTSIDE RECORDS SUMMARY | 2025-03-18 15:14 | XMS_ITS | Encounter Summary ---
Author Organization [facility] Address [address] [place] [address] Care Team Providers Care Senior Compliance Analyst Name Role Phone Vick Cox MD Primary Care Provider + Encounter Details Date Type Department Care Team (Latest Contact Info) Description 01/11/[address] [facility] Endoscopy [place] [address] [place] [address] Josiah Hussein MD 1029 [facility] [address] [place] [address] Other and Unspecified Noninfectious Gastroenteritis and Colitis (Primary Dx) Social History Tobacco Use Types Packs/Day Years Used Date Smoking Tobacco: Never Assessed Sex and Gender Information Value Date Recorded Sex Assigned at Not on file Legal Sex Male 5:36 AM HUMAN RESOURCES RECEPTIONIST Gender Identity Not on file Sexual Orientation Not on file documented as of this encounter Plan of Treatment Not on file documented as of this encounter Visit Diagnoses Diagnosis Other and unspecified noninfectious gastroenteritis and colitis(558.9)- Primary Other and unspecified noninfectious gastroenteritis and colitis documented in this encounter Care Teams Senior Compliance Analyst Relationship Specialty Start Date End Date Vick Cox MD PCP - General Family Practice 05/21/16 documented as of this encounter
--- OUTSIDE RECORDS SUMMARY | 2025-03-18 15:14 | XMS_ITS ---
Author Organization [facility] [address] Address [address] [place] [address] Care Team Providers Care Dehydrating Press Operator Name Role Phone Vick Cox MD [...]
--- OUTSIDE RECORDS SUMMARY | 2025-03-18 15:14 | XMS_ITS | Encounter Summary ---
Author Organization [facility] Address [address] [place] [address] Care Team Providers Care Hand Stapler Name Role Phone Vick Cox MD Primary Care Provider + Encounter Details Date Type Department Care Team (Latest Contact Info) Description 12/20/2001 Outpatient Historical [facility] [place] [address] [facility] [address] [place] [address] Josiah Hussein MD 1029 [facility] [address] [place] [phone] ULCERATIVE COLITIS NOS (CMS/HCC) (Primary Dx) Social History Tobacco Use Types Packs/Day Years Used Date Smoking Tobacco: Never Assessed Sex and Gender Information Value Date Recorded Sex Assigned at Not on file Legal Sex Male 5:36 AM TRANSIT AUTHORITY POLICE OFFICER Gender Identity Not on file Sexual Orientation Not on file documented as of this encounter Plan of Treatment Not on file documented as of this encounter Visit Diagnoses Diagnosis Ulcerative colitis, unspecified- Primary documented in this encounter Care Teams Hand Stapler Relationship Specialty Start Date End Date Vick Cox MD PCP - General Family Practice 05/21/16 documented as of this encounter
--- OUTSIDE RECORDS SUMMARY | 2025-03-18 15:14 | XMS_ITS | Encounter Summary ---
Author Organization [facility] Address [address] [place] [address] Care Team Providers Care Case Sealer Name Role Phone Vick Cox MD Primary Care Provider + Encounter Details Date Type Department Care Team (Latest Contact Info) Description 01/25/2002 Outpatient Historical [facility] [place] [address] [facility] [address] [place] [address] Josiah Hussein MD 1029 [facility] [address] [place] [address] ULCERATIVE COLITIS NOS (CMS/HCC) (Primary Dx) Social History Tobacco Use Types Packs/Day Years Used Date Smoking Tobacco: Never Assessed Sex and Gender Information Value Date Recorded Sex Assigned at Not on file Legal Sex Male 5:36 AM DISPLAYER MERCHANDISE Gender Identity Not on file Sexual Orientation Not on file documented as of this encounter Plan of Treatment Not on file documented as of this encounter Visit Diagnoses Diagnosis Ulcerative colitis, unspecified- Primary documented in this encounter Care Teams Case Sealer Relationship Specialty Start Date End Date Vick Cox MD PCP - General Family Practice 05/21/16 documented as of this encounter
--- OUTSIDE RECORDS SUMMARY | 2025-03-18 15:14 | XMS_ITS | Encounter Summary ---
Author Organization [facility] Address [address] [place] [address] Care Team Providers Care Delinquent Tax Collector Assistant Name Role Phone Vick Cox MD Primary Care Provider + Encounter Details Date Type Department Care Team (Latest Contact Info) Description 02/01/2002 Outpatient Historical [facility] Gastroenterology[address] [place] [address] Josiah Hussein MD 1029 [facility] [address] [place] [address] ULCERATIVE COLITIS NOS (CMS/HCC) (Primary Dx) Social History Tobacco Use Types Packs/Day Years Used Date Smoking Tobacco: Never Assessed Sex and Gender Information Value Date Recorded Sex Assigned at Not on file Legal Sex Male 5:36 AM HINGING MACHINE OPERATOR Gender Identity Not on file Sexual Orientation Not on file documented as of this encounter Plan of Treatment Not on file documented as of this encounter Visit Diagnoses Diagnosis Ulcerative colitis, unspecified- Primary documented in this encounter Care Teams Delinquent Tax Collector Assistant Relationship Specialty Start Date End Date Vick Cox MD PCP - General Family Practice 05/21/16 documented as of this encounter
--- OUTSIDE RECORDS SUMMARY | 2025-03-18 15:14 | XMS_ITS | Encounter Summary ---
Author Organization [facility] Address [address] [place] [address] Care Team Providers Care Software Design Engineer Name Role Phone Vick Cox MD Primary Care Provider + Encounter Details Date Type Department Care Team (Latest Contact Info) Description 06/21/2003 Outpatient Historical [facility] Gastroenterology- [address] [place] [address] Josiah Hussein MD 1029 [facility], [facility] [address] [place] [address] ESOPHAGEAL REFLUX (Primary Dx); ULCERATIVE COLITIS NOS ([facility]) Social History Tobacco Use Types Packs/Day Years Used Date Smoking Tobacco: Never Assessed Sex and Gender Information Value Date Recorded Sex Assigned at Not on file Legal Sex Male 5:36 AM LIFE SKILLS COORDINATOR Gender Identity Not on file Sexual Orientation Not on file documented as of this encounter Plan of Treatment Not on file documented as of this encounter Visit Diagnoses Diagnosis Esophageal reflux- Primary Ulcerative colitis, unspecified documented in this encounter Care Teams Software Design Engineer Relationship Specialty Start Date End Date Vick Cox MD PCP - General Family Practice 05/21/16 documented as of this encounter
--- OUTSIDE RECORDS SUMMARY | 2025-03-18 15:14 | XMS_ITS | Encounter Summary ---
Author Organization [facility] Address [address] [place] [address] Care Team Providers Care Concert Pianist Name Role Phone Vick Cox MD Primary Care Provider + Encounter Details Date Type Department Care Team (Latest Contact Info) Description 03/28/2002 Outpatient Historical [facility] [place] [id number] [facility] [address] [place] [address] Josiah Hussein MD 1029 [facility] [address] [place] [address] ULCERATIVE COLITIS NOS (CMS/HCC) (Primary Dx) Social History Tobacco Use Types Packs/Day Years Used Date Smoking Tobacco: Never Assessed Sex and Gender Information Value Date Recorded Sex Assigned at Not on file Legal Sex Male 5:36 AM TOP LIFT COMPRESSER Gender Identity Not on file Sexual Orientation Not on file documented as of this encounter Plan of Treatment Not on file documented as of this encounter Visit Diagnoses Diagnosis Ulcerative colitis, unspecified- Primary documented in this encounter Care Teams Concert Pianist Relationship Specialty Start Date End Date Vick Cox MD PCP - General Family Practice 05/21/16 documented as of this encounter
--- OUTSIDE RECORDS SUMMARY | 2025-03-18 15:14 | XMS_ITS | Encounter Summary ---
Author Organization [facility] Address [address] [place] [address] Care Team Providers Care Forestry Biology Specialist Name Role Phone Vick Cox MD Primary Care Provider + Encounter Details Date Type Department Care Team (Latest Contact Info) Description 12/17/2004 Outpatient Historical [facility] [place] [address] [place] [address] Josiah Hussein MD 1029 [facility] [address] [place] [address] NONINFEC GASTROENTERIT NEC (Primary Dx) Social History Tobacco Use Types Packs/Day Years Used Date Smoking Tobacco: Never Assessed Sex and Gender Information Value Date Recorded Sex Assigned at Not on file Legal Sex Male 5:36 AM COMMUNITY DEVELOPMENT SPECIALIST Gender Identity Not on file Sexual Orientation Not on file documented as of this encounter Plan of Treatment Not on file documented as of this encounter Visit Diagnoses Diagnosis Other and unspecified noninfectious gastroenteritis and colitis(558.9)- Primary Other and unspecified noninfectious gastroenteritis and colitis documented in this encounter Care Teams Forestry Biology Specialist Relationship Specialty Start Date End Date Vick Cox MD PCP - General Family Practice 05/21/16 documented as of this encounter
--- OUTSIDE RECORDS SUMMARY | 2025-03-18 15:14 | XMS_ITS | Encounter Summary ---
Author Organization [facility] Address [address] [place] [address] Care Team Providers Care Merchandise Distributor Name Role Phone Vick Cox MD Primary Care Provider + Encounter Details Date Type Department Care Team (Latest Contact Info) Description 01/04/2002 Outpatient Historical [facility] [place] [id number] [facility] [address] [place] [address] Josiah Hussein MD 1029 [facility] [address] [place] [phone] ULCERATIVE COLITIS NOS (CMS/HCC) (Primary Dx) Social History Tobacco Use Types Packs/Day Years Used Date Smoking Tobacco: Never Assessed Sex and Gender Information Value Date Recorded Sex Assigned at Not on file Legal Sex Male 5:36 AM DUE DILIGENCE COORDINATOR Gender Identity Not on file Sexual Orientation Not on file documented as of this encounter Plan of Treatment Not on file documented as of this encounter Visit Diagnoses Diagnosis Ulcerative colitis, unspecified- Primary documented in this encounter Care Teams Merchandise Distributor Relationship Specialty Start Date End Date Vick Cox MD PCP - General Family Practice 05/21/16 documented as of this encounter
--- OUTSIDE RECORDS SUMMARY | 2025-03-18 15:14 | XMS_ITS | Encounter Summary ---
Author Organization [facility] Address [address] [place] [address] Care Team Providers Care Manager Hydraulic Name Role Phone Vick Cox MD Primary Care Provider + Encounter Details Date Type Department Care Team (Latest Contact Info) Description 08/27/2003 Outpatient Historical [facility] Gastroenterology[address] [place] [address] Josiah Hussein MD 1029 [facility] [address] [place] [address] ULCERATIVE COLITIS NOS (CMS/HCC) (Primary Dx) Social History Tobacco Use Types Packs/Day Years Used Date Smoking Tobacco: Never Assessed Sex and Gender Information Value Date Recorded Sex Assigned at Not on file Legal Sex Male 5:36 AM ACQUISITION ASSOCIATE Gender Identity Not on file Sexual Orientation Not on file documented as of this encounter Plan of Treatment Not on file documented as of this encounter Visit Diagnoses Diagnosis Ulcerative colitis, unspecified- Primary documented in this encounter Care Teams Manager Hydraulic Relationship Specialty Start Date End Date Vick Cox MD PCP - General Family Practice 05/21/16 documented as of this encounter
--- OUTSIDE RECORDS SUMMARY | 2025-03-18 15:14 | XMS_ITS ---
Author Organization [facility] Address [address] [place]: [place] [address] Care Team Providers Care Corporate Safety Director Name Role Phone Obed Lewis MD Primary [...]
--- OUTSIDE RECORDS SUMMARY | 2025-03-18 15:14 | XMS_ITS | Encounter Summary ---
Author Organization [facility] Address [address] [place] [address] Care Team Providers Care Greens Keeper Name Role Phone Vick Cox MD Primary Care Provider + Encounter Details Date Type Department Care Team (Latest Contact Info) Description 02/26/2003 Outpatient Historical [facility] Gastroenterology[address] [place] [address] Josiah Hussein MD 1029 [facility] [address] [place] [address] ULCERATIVE COLITIS NOS (CMS/HCC) (Primary Dx) Social History Tobacco Use Types Packs/Day Years Used Date Smoking Tobacco: Never Assessed Sex and Gender Information Value Date Recorded Sex Assigned at Not on file Legal Sex Male 5:36 AM SHUTTLE BUS DRIVER Gender Identity Not on file Sexual Orientation Not on file documented as of this encounter Plan of Treatment Not on file documented as of this encounter Visit Diagnoses Diagnosis Ulcerative colitis, unspecified- Primary documented in this encounter Care Teams Greens Keeper Relationship Specialty Start Date End Date Vick Cox MD PCP - General Family Practice 05/21/16 documented as of this encounter
--- OUTSIDE RECORDS SUMMARY | 2025-03-18 15:14 | XMS_ITS | Encounter Summary ---
Author Organization [facility] Address [address] [place] [address] Care Team Providers Care Fur Tinter Name Role Phone Vick Cox MD Primary Care Provider + Encounter Details Date Type Department Care Team (Latest Contact Info) Description 01/11/2006 Outpatient Historical [facility] [address] [facility] [address] [place] [address] Josiah Hussein MD 1029 [facility] [address] [place] [address] Unspecified Ulcerative Colitis (CMS/HCC) (Primary Dx) Social History Tobacco Use Types Packs/Day Years Used Date Smoking Tobacco: Never Assessed Sex and Gender Information Value Date Recorded Sex Assigned at Not on file Legal Sex Male 5:36 AM OPTICAL SCIENTIST Gender Identity Not on file Sexual Orientation Not on file documented as of this encounter Plan of Treatment Not on file documented as of this encounter Visit Diagnoses Diagnosis Ulcerative colitis, unspecified- Primary documented in this encounter Care Teams Fur Tinter Relationship Specialty Start Date End Date Vick Cox MD PCP - General Family Practice 05/21/16 documented as of this encounter
--- NOTE | 2025-03-18 15:15 | ECG_ITS ---
[facility] 2025-03[facility]18 Pat Name: Ricky Lobo Department: Room: Gender: Male Manager Storage: : 1950 Requested By: Ephraim Alberts Order Number: [id number] Del Real MD: Wilmer Temple M.D. Measurements Intervals [place] Rate: 127 P: 30 DE: 157 QRS: -1 QRSD: 130 T: -18 QT: 314 QTc: 458 Interpretive Statements SINUS TACHYCARDIA RIGHT BUNDLE BRANCH BLOCK [120+ ms QRS DURATION, UPRIGHT V1, 40+ ms S IN I/aVL/V4/V5/V6] Compared to ECG 03/11/2025 17:12:04 NO SIGNIFICANT CHANGE Electronically Signed On 03-20-2025 22:57:17 CDT by Wilmer Temple M.D. [email or web address]
--- OUTSIDE RECORDS SUMMARY | 2025-03-18 15:15 | XMS_ITS | Patient Health Record ---
Author Organization [facility] Address [address] [place] [address] Care Team Providers Care Erosion Control Specialist Name Role Phone Simon Butler MD Primary Care Provider Obed Lazaro Unavailable [phone] Nuris Hawkins Unavailable Allergies Allergen (clinical drug ingredient) Drug/Non Drug Allergy documented on EMR Reaction Allergy Type Onset Date Status No Known Drug Allergy Unknown Drug Allergy Active Results Component Value Reference Range Notes U[place] Without [place], [place] - [address] Reviewed date:07/12/2024 09:57:44 AM Interpretation: Performing Lab: Notes/Report: Glucose - Bili - Ketones - Sp [place] 1.020 Blood - pH 5.5 Protein - Urobili - Nitrites - Leukocytes - Reason For Referral Reason Erectile Dysfunction Diagnosis 1 Erectile dysfunction (N52.9) Referring Provider First Name [facility] Referring Provider Last Name CO Referring Provider [facility] Referred Organization [facility] Referred Provider Obed Boyd Referred Address [address],[place], [place],[address], Referred Provider Specialty Urology Referral Priority Routine [...] W/U Status Risk Notes Problem Erectile dysfunction (043722131) Erectile dysfunction (N52.9) Active confirmed Problem 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.31) Active confirmed Vital Signs Heart Rate 80 /min 02/12/2025 Temperature 98.6 degrees Fahrenheit 02/12/2025 Height-cm 177.8 cm 02/12/2025 Blood pressure diastolic 40 mm Hg 02/12/2025 Weight-kg 86.64 kg 02/12/2025 Height 70 in 02/12/2025 Blood pressure systolic 102 mm Hg 02/12/2025 Weight 191 lbs 02/12/2025 BMI 27.4 kg/m2 02/12/2025 Encounters Encounter Location Date Provider Diagnosis [facility] [address] [place] [address] [address] [place] [address] 07/12/2024 Obed Boyd Male erectile dysfunction, unspecified N52.9 ; Prostate cancer screening Z12.5 and Orgasm dysfunction F52.31 [facility] [address] [place] [address] [address] [place] [address] 08/14/2024 Obed Boyd Male erectile dysfunction, unspecified N52.9 ; Orgasm dysfunction F52.31 and Abnormal prostate on physical examination N42.9 [facility] [address] [place] [address] [address] [place] [address] 02/12/2025 Obed Boyd Orgasm dysfunction F52.31 and Erectile dysfunction N52.9 [facility] [address] [place] [address] Dr [address] [place] [address] 07/12/2024 Obed Boyd Male erectile dysfunction, unspecified N52.9 [facility] [address] [place] [address] [address] [place] [address] 08/02/2024 Obed Boyd Encounter for screening for malignant neoplasm of prostate Z12.5 [facility] [address] [place] [address] [address] [place] [address] 01/15/2025 Obed Boyd [facility] [address] [place] [address] [address] [place] [address] 02/12/2025 Nuris Hawkins Encounter for screening for malignant neoplasm of prostate Z12.5 Assessments Encounter Date Diagnosis (ICD Code) Assessment Notes Treatment Notes Treatment Clinical Notes Section Notes 08/02/2024 Encounter for screening for malignant neoplasm of prostate (ICD-10 - Z12.5) 02/12/2025 Erectile dysfunction (ICD-10 - N52.9) 02/12/2025 Orgasm dysfunction (ICD-10 - F52.31) 02/12/2025 Encounter for screening for malignant neoplasm of prostate (ICD-10 - Z12.5) 08/14/2024 Male erectile dysfunction, unspecified (ICD-10 - N52.9) 08/14/2024 Orgasm dysfunction (ICD-10 - F52.31) 07/12/2024 Male erectile dysfunction, unspecified (ICD-10 - N52.9) 07/12/2024 Male erectile dysfunction, unspecified (ICD-10 - N52.9) 07/12/2024 Prostate cancer screening (ICD-10 - Z12.5) 07/12/2024 Orgasm dysfunction (ICD-10 [...] Pending Test Test Name Order Date PSA Diagnostic--[id number] 07/12/2024 PSA Diagnostic--[id number] 08/02/2024 Testosterone Total [id number] 07/12/2024 Future Test Test Name Order Date PSA Diagnostic--[id number] 07/07/2025 Next Appt Details Provider Name:Nuris Person, 08/13/2025 11:00:00 AM, [address] , [place] [address], [place], [address], Insurance Providers Payer Name Payer Address Payer Phone Subscriber Number Group Number Insured Name Patient Relationship to Insured Coverage Start Date Coverage End Date [employer] [address] [place] [address] [id number] Ricky Lobo Self - patient is the insured Medical (General) History Medical History History ICD Code lymphoma Surgical History Surgery Date(Month/Year) Hernia, inguinal Bilateral legs-broken Right shoulder 1982 Vasectomy
--- NOTE | 2025-03-18 15:24 | W.ED.SOB ---
HPI - SOB/Dyspnea General: Chief Complaint: Shortness of Breath/Dyspnea Stated Complaint: Sob low grade fever Time Seen by Provider: 03/18/25 15:24 History of Present Illness: HPI Narrative: 74-year-old male with a history of follicular lymphoma, mitral regurgitation, peripheral vascular disease, and with recently diagnosed COPD and a hospital admission for which he was treated for pneumonia and sent home on oxygen for hypoxemia who presents to the emergency room with worsening shortness of breath. On presentation he is hypoxemic on 2 L. Currently requiring 6 L nasal cannula. He says he never really improved after he discharged but is gotten worse. No obvious new fevers. No altered mental status. He says he is continue to have low-grade fevers at home. He says when his oxygen drops down into the 80s he will start coughing and then whenever it comes back up he will stop. No chest pain. No altered mental status. No abdominal pain. No vomiting. Related Data Home Medications ?Medication ?Instructions ?Recorded ?Confirmed mesalamine 800 mg tablet,delayed 3,200 mg PO DAILY 09/01/21 03/11/25 release omeprazole 40 mg capsule,delayed 40 mg PO DAILY 09/01/21 03/12/25 release urea 40 % topical cream 1 applic topical BID PRN Dry Skin 02/27/25 03/12/25 Previous Rx's ?Medication ?Instructions ?Recorded albuterol sulfate 90 mcg/actuation 2 inh inhalation Q4H PRN shortness 02/27/25 aerosol inhaler of breath or wheezing #18 grams cefdinir 300 mg capsule 300 mg PO BID 10 days #20 caps 03/13/25 doxycycline monohydrate 100 mg 100 mg PO BID 7 days #14 caps 03/13/25 capsule Allergies Allergy/AdvReac Type Severity Reaction Status Date / Time No Known Allergies Allergy Verified 03/18/25 15:21 Review of Systems Narrative: Constitutional symptoms: Negative except as documented in HPI. Skin symptoms: Negative except as documented in HPI. Eye symptoms: Negative except as documented in HPI. ENMT symptoms: Negative except as documented in HPI. Respiratory symptoms: Negative except as documented in HPI. Cardiovascular symptoms: Negative except as documented in HPI. Gastrointestinal symptoms: Negative except as documented in HPI. Genitourinary symptoms: Negative except as documented in HPI. Musculoskeletal symptoms: Negative except as documented in HPI. Neurologic symptoms: Negative except as documented in HPI. Psychiatric symptoms: Negative except as documented in HPI. Endocrine symptoms: Negative except as documented in HPI. PFSH ED PFSH: Medical History (Updated 03/18/25 @ 17:46 by Evangelina Eaton MD) Avascular necrosis of bones of both hips History of nonmelanoma skin cancer Follicular lymphoma grade 3a Ulcerative colitis Surgical History History of bone marrow biopsy (05/04/18) History of lymph node biopsy (03/29/18) Right inguinal lymph node biopsy History of facial fracture repair Bilateral femur fractures History of shoulder surgery History of umbilical hernia repair Family History Father Cancer Lung Mother Dementia Other Clotting disorder Hypertension Denies family history of Diabetes CAD (coronary artery disease) Hyperlipidemia Psychiatric illness Chronic kidney disease (CKD) Suicide Anesthesia complication Bleeding disorder Lung disease Stroke Social History Smoking and tobacco/nicotine status: former use of tobacco/nicotine Quit status (tobacco/nicotine): has quit using Year quit tobacco: 1984 Former quit date comment: approx 35 years Second hand smoke exposure: Yes Alcohol intake: current Alcohol intake frequency: holidays/special occasions only Physical Exam Narrative: EXAM NARRATIVE: General: Alert, no acute distress. Skin: Warm, dry. Head: Normocephalic, atraumatic. Neck: Supple, trachea midline. Eye: Extraocular movements are intact. Ears, nose, mouth and throat: mucosa moist. Cardiovascular: Regular, tachycardic, normal peripheral perfusion. Respiratory: Some mild scattered wheeze, no increased work of breathing, respirations are non-labored, breath sounds are equal, Symmetrical chest wall expansion. Gastrointestinal: Soft, Nontender, Non distended Musculoskeletal: Normal ROM, no deformity. Neurological: Alert and oriented, No focal neurological deficit observed. Psychiatric: Cooperative, appropriate mood & affect. Course Vital Signs: Vital signs: Vital Signs Temperature 98.2 F 03/18/25 15:18 Pulse Rate 107 H 03/18/25 17:08 Respiratory Rate 18 03/18/25 17:08 Blood Pressure 104/76 03/18/25 17:08 Pulse Oximetry 92 03/18/25 17:08 Oxygen Delivery Me thod Nasal Cannula 03/18/25 17:08 Oxygen Flow Rate 6 03/18/25 17:08 MDM - SOB/Dyspnea Medical Decision Making Differential diagnosis for patient with shortness of breath includes but is not limited to and based on the above HPI, review of systems and physical exam: Pneumonia. Bronchitis. Asthma or COPD with acute exacerbation. Acute coronary syndrome / [place]. Pulmonary embolism. Anxiety. Congestive heart failure. Viral infections including influenza and Covid-19. Atrial fibrillation. Anxiety. Pleural effusion. Pneumothorax. Orders placed to evaluate differential diagnosis based on the above differential, HPI and physical exam EKG: Time 1515. Rate 127. Sinus tachycardia, No ST-T changes, no ectopy, right bundle branch block, This was reviewed and interpreted by myself the ER physician at 1520. .. Chest x-ray: Ground glass opacities that appear to be acute or subacute. They read this is most commonly consistent with congestive heart failure or COVID pneumonitis. This was reviewed and interpreted by myself the emergency room physician. I also reviewed the radiology report. CT of the chest without contrast: To further evaluate and compare previous imaging to what is going on now with his increased oxygen requirements. Appears similar without change. Chronic emphysematous changes and fibrosis. This was reviewed and interpreted by myself the emergency room physician. I also reviewed the radiology report. Lab Review: Laboratory results were reviewed and interpreted by myself the emergency room physician. Continued mild leukopenia. No anemia. No renal failure. Flu COVID and RSV are negative. I reviewed the patient's medical record. 74-year-old male with a history of follicular lymphoma, mitral regurgitation, peripheral vascular disease, and with recently diagnosed COPD and a hospital admission for which he was treated for pneumonia and sent home on oxygen for hypoxemia who presents to the emergency room with worsening shortness of breath. On presentation he is hypoxemic on 2 L. He went home on doxycycline and cefdinir. Reexamination: Patient remained stable. No increased work of breathing. No altered mental status. No focal motor deficits. Patient appears comfortable and does not have any increased work of breathing on 6 L nasal cannula. Consultation: I spoke with Dr. Osorio who is on-call for the hospitalist service who agrees to admission. Assessment and plan: COPD with acute exacerbation Acute on chronic hypoxemic respiratory failure Sinus tachycardia ?500 mL liter normal saline bolus in the emergency room. IV Solu-Medrol. Patient currently requiring 6 L of oxygen. -I discussed the patient with the hospitalist on-call who is admitting the patient. - Discussed findings and plan with patient. Answered any questions. - All laboratory values were reviewed and interpreted personally by myself, the ER physician - All imaging was reviewed and interpreted personally by myself, the ER physician. - Evaluation and treatment of this problem were appropriate in the emergency setting Lab Data 03/18/25 15:34 03/18/25 15:34 Labs/Radiology: Radiology Impressions Chest X-Ray 03/18/25 15:10 IMPRESSION: Groundglass lung opacities usually are indicative of acute or subacute abnormality. The series of chest x-rays starting from 02/20/2025 are felt to represent a progressive superimposition of a subacute process on abnormal lung. Groundglass density is a nonspecific finding seen with multiple entities most commonly congestive heart failure and often with COVID pneumonitis. Chest CT 03/18/25 16:05 IMPRESSION: 1. Chronic emphysematous changes and fibrosis not significantly changed from 03/11/2025. 2. Cholelithiasis COMMENTS: The presence of pulmonary emphysema on CT is an independent risk factor for lung cancer. In the absence of a history or active diagnosis of lung cancer, it is recommended that this patient with emphysema be evaluated for enrollment in a low dose CT lung cancer screening program. Laboratory Results WBC 3.10 10^3/uL (3.29-11.43) L 03/18/25 15:34 RBC 3.59 10^6/uL (3.85-5.65) L 03/18/25 15:34 Hgb 12.70 g/dL (11.27-16.99) 03/18/25 15:34 Hct 37.2 % (37-53) 03/18/25 15:34 MCV 103.6 fl (82-101) H 03/18/25 15:34 MCH 35.4 pg (27-33) H 03/18/25 15:34 MCHC 34.1 g/dL (30-55) 03/18/25 15:34 RDW 13.3 % (12.1-15.1) 03/18/25 15:34 Plt Count 228 10^3/cmm (157-399) 03/18/25 15:34 MPV 9.2 fL (7.4-10.4) 03/18/25 15:34 Neut % (Auto) 70.9 % 03/18/25 15:34 Lymph % (Auto) 7.4 % 03/18/25 15:34 [place] % (Auto) 9.7 % 03/18/25 15:34 Eos % (Auto) 3.9 % 03/18/25 15:34 Baso % (Auto) 1.0 % 03/18/25 15: Neut # (Auto) 2.20 10^3/uL (1.8-7.7) 03/18/25 15:34 Lymph # (Auto) 0.2 10^3/uL (0.8-4.8) L 03/18/25 15:34 [place] # (Auto) 0.3 10^3/uL (0.2-0.9) 03/18/25 15:34 Eos # (Auto) 0.1 10^3/uL (0.0-0.8) 03/18/25 15:34 Baso # (Auto) 0.0 10^3/uL (0.0-0.1) 03/18/25 15:34 Nucleated RBC % (auto) 0 % 03/18/25 15: Nucleated RBCs # 0.0 /100WBC 03/18/25 15:34 Specimen Type Arterial 03/18/25 15:54 Sample Site Brachial, left 03/18/25 15:54 ABG pH 7.47 (7.35-7.45) H 03/18/25 15:54 ABG pCO2 32.8 mmHg (35-45) L 03/18/25 15:54 ABG pO2 56.7 mmHg (80.0-100.0) L 03/18/25 15:54 ABG HCO3 23.7 mmol/L (22-26) 03/18/25 15:54 ABG O2 Saturation 92.7 03/18/25 15:54 ABG Base Excess 0.5 mmol/L (-2.0-2.0) 03/18/25 15:54 Wilder Test N/a 03/18/25 15:54 A-a O2 Gradient 6.8 mmHg (5-10) 03/18/25 15:54 Hematocrit 40.0 % (42-52) L 03/18/25 15:54 Hgb O2 Saturation 90.7 % (95-100) L 03/18/25 15:54 Carboxyhemoglobin 1.3 %THgb (0.4-20.1) 03/18/25 15:54 Methemoglobin 0.8 % (0.4-1.5) 03/18/25 15:54 Total Hemoglobin 13.1 g/dL (14-18) L 03/18/25 15:54 Sodium 133.0 mmol/L (131-143) 03/18/25 15:54 Potassium 3.5 mmol/L (3.5-5.0) 03/18/25 15:54 Glucose 117.0 mg/dL (70-115) H 03/18/25 15:54 Ionized Calcium 1.2 mmol/L (1.1-1.4) 03/18/25 15:54 O2 Delivery Device Oxy mask 03/18/25 15:54 O2 Liters/Min 7.0 % 03/18/25 15:54 Parts Identification Technician ID [facility] 03/18/25 15:54 Sodium 133 mmol/L (136-145) L 03/18/25 15:34 Potassium 3.9 mmol/L (3.5-5.1) 03/18/25 15:34 Chloride 94 mmol/L (98-107) L 03/18/25 15:34 Carbon Dioxide 23 mmol/L (22-29) 03/18/25 15:34 Anion Gap 19.9 (5-19) H 03/18/25 15:34 BUN 8 mg/dL (8-23) 03/18/25 15:34 Creatinine 0.8 mg/dL (0.7-1.2) 03/18/25 15:34 GFR Calculation Not Reportable 03/18/25 15:34 Glucose 123 mg/dL (65-115) H 03/18/25 15:34 Calculated Osmolality 276 mOsm/kg (285-295) L 03/18/25 15:34 Lactic Acid 3.1 mmol/L (0.5-2.2) H 03/18/25 15:34 Calcium 9.1 mg/dL (8.5-10.5) 03/18/25 15:34 Total Bilirubin 0.6 mg/dL (0.15-1.2) 03/18/25 15:34 AST 34 U/L (0-40) 03/18/25 15:34 ALT 18 U/L (0-41) 03/18/25 15:34 Alkaline Phosphatase 92 U/L (40-130) 03/18/25 15:34 C-Reactive Protein 83.3 mg/L (0.0-4.9) H 03/18/25 15:34 NT-Pro-B Natriuret Pep 175 pg/mL (0-125) H 03/18/25 15:34 Total Protein 6.7 g/dL (6.6-8.7) 03/18/25 15:34 Albumin 3.8 g/dL (3.5-5.2) 03/18/25 15:34 Globulin 2.9 g/dL (1.3-4.6) 03/18/25 15:34 Procalcitonin 0.09 ng/mL (0-0.5) 03/18/25 15:34 Influenza A (PCR) Negative (Negative) 03/18/25 15:56 Influenza Type B (PCR) Negative (Negative) 03/18/25 15:56 RSV (PCR) Negative (Negative) 03/18/25 15:56 SARS-CoV-2 (PCR) Negative (Negative) 03/18/25 15:56 All radiology interpretation(s) finalized by discharge Discharge Plan Discharge Patient Disposition: Admitted As Inpatient Clinical Impression: Acute on chronic hypoxic respiratory failure, COPD with acute exacerbation Condition: Stable Coding Level of Care Code ED Nutritional Assistant for Merly Kelley
[2025-03-18 15:45] LABS: Hematocrit 37.2 % (37-53); Hemoglobin 12.70 g/dL (11.27-16.99); Mean Corpuscular HGB Conc 34.1 g/dL (30-55); Mean Corpuscular Hemoglobin 35.4 pg (27-33); Mean Corpuscular Volume 103.6 fl (82-101); Nucleated Red Blood Cells % 0 %; Platelet Count 228 10^3/cmm (157-399); Red Blood Count 3.59 10^6/uL (3.85-5.65); White Blood Count 3.10 10^3/uL (3.29-11.43)
[2025-03-18 15:59] LABS: Lactic Sepsis W/Reflex 3.1 mmol/L (0.5-2.2)
[2025-03-18 16:05] LABS: ABG PCO2 32.8 mmHg (35-45); ABG PH Result 7.47 (7.35-7.45); Alveolar-Arterial Oxygen Gradi 6.8 mmHg (5-10); Arterial Blood Gas Hematocrit 40.0 % (42-52); Blood Gas LPM 7.0 %; Blood Gas Operator Identificat AMH; Blood Gas Sample Site Brachial, left; Blood Gas Sample Type Arterial; Carboxyhemoglobin 1.3 %THgb (0.4-20.1); Glucose Level-ABG 117.0 mg/dL (70-115); HCO3 ABG 23.7 mmol/L (22-26); Ionized Calcium Level - ABG 1.2 mmol/L (1.1-1.4); Methemoglobin 0.8 % (0.4-1.5); Oxygen Saturation ABG 92.7; PO2 ABG 56.7 mmHg (80.0-100.0); Potassium Level - ABG 3.5 mmol/L (3.5-5.0); Sodium Level - ABG 133.0 mmol/L (131-143)
--- NOTE | 2025-03-18 16:05 | CTR_ITS ---
PROCEDURE INFORMATION: Exam: CT Chest Without Contrast; Diagnostic Exam date and time: 03/18/2025 4:14 PM Age: 74 years old Clinical indication: Abnormal findings; Abnormal radiologic exam of lung or chest; Abnormal cxr; PT states productive cough, recently put on antibiotics, almost done but SOB is getting worse. PT o2 on arrival was in 80's; Additional info: Abnormal chest xray TECHNIQUE: Imaging protocol: Diagnostic computed tomography of the chest without contrast. Radiation optimization: All CT scans at this facility use at least one of these dose optimization techniques: automated exposure control; mA and/or kV adjustment per patient size (includes targeted exams where dose is matched to clinical indication); or iterative reconstruction. COMPARISON: CT angio chest PE protcl [id number] 03/11/2025 2:13 PM RADIATION DOSE METRICS: Total DLP (mGy-cm): 435.73 FINDINGS: Limitations: The absence of intravenous contrast lessens the sensitivity of this study for solid organ abnormalities. Tubes, catheters and devices: Infusion port catheter is in place with its tip in the superior vena cava. Lungs: Calcified granulomas are seen in both lungs. There are findings of paraseptal emphysema more prominent in the periphery of the upper lobes and subpleural reticulations in keeping with some pulmonary fibrosis and mild scattered ground-glass opacity at the lung bases not significantly changed compared with 02/27/2025 or 03/11/2025. Pleural spaces: Unremarkable. No pneumothorax. No pleural effusion. Heart: Unremarkable. No cardiomegaly. No pericardial effusion. Coronary arteries: There is severe atherosclerotic calcification of the coronary arteries. Lymph nodes: There are calcified hilar and mediastinal lymph nodes in keeping with old granulomatous disease. There is mildly prominent subcarinal lymph node measuring 13 x 15 mm not significantly changed from 03/11/2025. No new adenopathy is identified. Vasculature: Unremarkable. No aortic aneurysm. Gallbladder and biliary ducts: Multiple calcified gallstones are present. Bones/joints: There is no evidence of acute fracture. Soft tissues: Unremarkable. CT/CT chest wo con [id number] IMPRESSION: 1. Chronic emphysematous changes and fibrosis not significantly changed from 03/11/2025. 2. Cholelithiasis COMMENTS: The presence of pulmonary emphysema on CT is an independent risk factor for lung cancer. In the absence of a history or active diagnosis of lung cancer, it is recommended that this patient with emphysema be evaluated for enrollment in a low dose CT lung cancer screening program.
[2025-03-18 16:09] LABS: NT Pro B Type Natriuretic Pept 175 pg/mL (0-125); Procalcitonin 0.09 ng/mL (0-0.5)
[2025-03-18 16:16] LABS: Slide Review Slide Review Perform
[2025-03-18 16:20] LABS: Alanine Aminotransferase 18 U/L (0-41); Albumin Level 3.8 g/dL (3.5-5.2); Alkaline Phosphatase 92 U/L (40-130); Anion Gap 19.9 (5-19); Aspartate Amino Transferase 34 U/L (0-40); Blood Urea Nitrogen 8 mg/dL (8-23); Calcium 9.1 mg/dL (8.5-10.5); Carbon Dioxide 23 mmol/L (22-29); Chloride 94 mmol/L (98-107); Creatinine Clr Calc Pharmacy 91.0917; Globulin 2.9 g/dL (1.3-4.6); Glucose 123 mg/dL (65-115); Osmolality Calculated 276 mOsm/kg (285-295); Potassium 3.9 mmol/L (3.5-5.1); Sodium 133 mmol/L (136-145); Total Protein 6.7 g/dL (6.6-8.7)
[2025-03-18 16:48] LABS: Respiratory Syncytial Virus Ce NEGATIVE (Negative); SARS-CoV-2 PCR NEGATIVE (Negative)
[2025-03-18 17:26] LABS: Reflex Lactate Order REFLEX LACTIC ORDERD
[2025-03-18] MEDS: methylPREDNISolone sod succ 125 mg/2 mL INJ IVP (17:40)
--- NOTE | 2025-03-18 18:11 | USCV_ITS ---
Ricky Lobo Age: 74 Gender: M : 1950 Exam Date: 03/18/2025 18:31 Ordering Phys: Rojelio Osorio MD Technologist: RITA Exam Location: [facility] [place] Indication: sob COPD, non-Hodgkins lympoma s/p chemo BP: 114 / 83 HR: 82 Rhythm: Sinus Technical Quality: Adequate MEASUREMENTS (Male / Female) Normal Values 2D ECHO LV Diastolic Diameter PLAX 3.6 cm 4.2 - 5.9 / 3.9 - 5.3 cm IVS Diastolic Thickness 1.1 cm 0.6 - 1.0 / 0.6 - 0.9 cm IVS Systolic Thickness 2.1 cm LVPW Diastolic Thickness 1.0 cm 0.6 - 1.0 / 0.6 - 0.9 cm LVPW Systolic Thickness 2.2 cm LVOT Diameter 1.9 cm LV Ejection Fraction 2D Teich 63.0 % LV Ejection Fraction MOD 4C 70.8 % LV Ejection Fraction MOD 2C 50.1 % LV Ejection Fraction 2C AL 50.8 % LA Diameter 4.3 cm Aorta at Sinotubular Diameter 3.6 cm IVC Diameter 2.1 cm DOPPLER AV Peak Velocity 114.0 cm/s LVOT Peak Velocity 98.0 cm/s AV Area Cont Eq vti 2.6 cm squared AV Area Cont Eq pk 2.4 cm squared MV Peak Velocity 77.0 cm/s MV Area PHT 4.4 cm squared Mitral E to A Ratio 0.9 TV Peak Velocity 308.0 cm/s TR Peak Velocity 309.0 cm/s TR Peak Gradient 38.2 mmHg TV Peak E Velocity 38.0 cm/s PV Peak Velocity 108.0 cm/s FINDINGS Left Ventricle Normal left ventricular size, systolic function and wall thickness, with no regional wall motion abnormalities. Left ventricular ejection fraction is estimated at 63%. Grade I/IV diastolic dysfunction (abnormal relaxation filling pattern), normal to mildly elevated filling pressures. Right Ventricle Normal right ventricular size and systolic function. Mild pulmonary hypertension, RVSP 41mmHg. Right Atrium Normal right atrial size. Left Atrium Mildly increased left atrial size. IA Septum Normal interatrial septum appearance Mitral Valve No mitral valve stenosis. No mitral valve regurgitation. Aortic Valve Mild aortic valve regurgitation. Mild aortic valve calcification. No aortic valve stenosis. Tricuspid Valve Mild tricuspid valve regurgitation. Pulmonic Valve Mild pulmonary valve regurgitation. Pericardium No pericardial effusion. Aorta Normal size aortic root and proximal ascending aorta. IVC Normal inferior vena cava. CONCLUSIONS 1. Normal biventricualr systolic function 2. Mild aortic valve regurgitation 3. Mild pulmonary hypertension Wilmer Temple MD, FACC (Electronically Signed) Final Date: 19 March 2025 20:33 S
--- NOTE | 2025-03-18 18:12 | P.HP_ITS ---
Providers/Chief Complaint 2 Primary Care Provider: Nicolasa Trujillo MD Chief Complaint: Sob low grade fever History of Present Illness Ricky Lobo is a 74 year old male with a past medical history of follicular lymphoma, history of chemotherapy, completed in November, who presents [facility] for shortness of breath. Patient reports that back in February he presented to the ER for shortness of breath, was discharged for concerns for COPD, he was then hospitalized in early March for respiratory failure, but has persistent shortness of breath. Patient reports shortness of breath with exertion, nonproductive cough, no fevers, chills, no calf pain, no calf swelling, no hemoptysis, recent travel, does report orthopnea at times, no paroxysmal nocturnal dyspnea, does use 2 L, in the emergency room he is currently requiring 6 L, not in respiratory distress, but becomes short of breath with a few words Review of Systems 2 Card: Denies: chest pain Resp: Reports: dyspnea Medications/Allergies Home Medications ?Medication ?Instructions ?Recorded ?Confirmed ?Last Taken ?Type mesalamine 800 mg tablet,delayed 3,200 mg PO DAILY 03/11/25 03/11/25 08:00 History release omeprazole 40 mg capsule,delayed 40 mg PO DAILY 03/12/25 03/11/25 History release albuterol sulfate 90 mcg/actuation 2 inh inhalation Q4 H PRN shortness 02/27/25 03/11/25 Unknown Rx aerosol inhaler of breath or wheezing #18 gr ams urea 40 % topical cream 1 applic topical BID PRN Dry Skin 02/27/25 03/12/25 Unknown History cefdinir 300 mg capsule 300 mg PO BID 10 days #20 ca ps 03/13/25 Unknown Rx doxycycline monohydrate 100 mg 100 mg PO BID 7 days #1 4 caps 03/13/25 Unknown Rx capsule Allergies Allergy/AdvReac Type Severity Reaction Status Date / Time No Known Allergies Allergy Verified 03/18/25 15:21 PFSH Acute 2 PFSH: Medical History Avascular necrosis of bones of both hips History of nonmelanoma skin cancer Follicular lymphoma grade 3a Ulcerative colitis Surgical History History of bone marrow biopsy (05/04/18) History of lymph node biopsy (03/29/18) Right inguinal lymph node biopsy History of facial fracture repair Bilateral femur fractures History of shoulder surgery History of umbilical hernia repair Family History Father Cancer Lung Mother Dementia Other Clotting disorder Hypertension Denies family history of Diabetes CAD (coronary artery disease) Hyperlipidemia Psychiatric illness Chronic kidney disease (CKD) Suicide Anesthesia complication Bleeding disorder Lung disease Stroke Social History Smoking and tobacco/nicotine status: former use of tobacco/nicotine Quit status (tobacco/nicotine): has quit using Year quit tobacco: 1984 Former quit date comment: approx 35 years Second hand smoke exposure: Yes Alcohol intake: current Alcohol intake frequency: holidays/special occasions only Vitals/I&O/Wt Last Vital Signs Temp 98.2 F 03/18/25 15:18 Pulse 91 03/18/25 18:10 Resp 18 03/18/25 18:10 BP 114/83 03/18/25 18:10 Pulse Ox 93 03/18/25 18:10 O2 Del Method Nasal Cannula 03/18/25 18:10 O2 Flow Rate 6 03/18/25 18:10 Weight last 48 hrs Weight 83.4 kg Physical Exam 2 Const: COMMON NORMALS: no acute distress and patient oriented x3 HENMT: COMMON NORMALS: normocephalic HEAD & SCALP: normocephalic Eye: COMMON NORMALS: Equal, round and reactive pupils present Resp: COMMON NORMALS: normal respiratory effort, No retractions and No use of accessory muscles AUSCULTATION: wheezes Cardio: COMMON NORMALS: regular rate, regular rhythm, S1 normal heart sound present and S2 normal heart sound present RATE: regular rate RHYTHM: r egular rhythm HEART SOUNDS: S1 normal heart sound present and S2 normal heart sound present GI: COMMON NORMALS: Normal to inspection, nondistended, normoactive bowel sounds present, Soft to palpation and non-tender Extremity: COMMON NORMALS: no calf tenderness and no pedal edema Neuro: COMMON NORMALS: patient oriented x3, CN's II-XII intact bilaterally and moves all extremities Psych: COMMON NORMALS: mental status grossly normal Data 03/18/25 15:34 03/18/25 15:34 Micro: Microbiology 03/18/25 15:59 Blood Culture - Preliminary Blood SPECIMEN COLLECTED 03/18/25 15:34 Blood Culture - Preliminary Blood SPECIMEN COLLECTED A&P Assessment and plan 1. Acute hypoxic respiratory failure: 2. Healthcare-associated pneumonia: 3. Sepsis: Plan: Acute hypoxic respiratory failure - With healthcare associated pneumonia - With sepsis - Patient becomes short of breath with a few words, requiring 6 L at rest Plan - Sputum culture - Blood culture - Respiratory viral panel - Vancomycin - Zosyn -Solu-Medrol -DuoNeb, budesonide -Monitor respiratory status closely - Cardiac echo - Full code - Lovenox for DVT prophylaxis PDMP PDMP Reviewed: Not Reviewed Attestations 2 Medical Necessity Statement*: Patient requires hospitalization, inpatient, greater than 2 midnights, for acute hypoxic respiratory failure, healthcare associate pneumonia, sepsis Coding Level of Care Code Acute Code for Chg Fwd Diagnoses Acute hypoxic respiratory failure J96.01 Healthcare-associated pneumonia J18.9 Sepsis A41.9 Sepsis Event Note Evaluation Current stage of sepsis: sepsis Possible source: pulmonary Focused Exam Vital Signs Temp Pulse Resp BP Pulse Ox O2 Del Method O2 Flow Rate 03/18/25 18:10 91 18 114/83 93 Nasal Cannula 6 03/18/25 17:46 97 18 109/77 92 Nasal Cannula 6 03/18/25 17:08 107 H 18 104/76 92 Nasal Cannula 6 03/18/25 16:32 108 H 18 103/78 92 Nasal Cannula 6 03/18/25 15:54 117 H 18 123/95 94 Nasal Cannula 6 03/18/25 15:41 121 H 18 123/95 91 Nasal Cannula 2 03/18/25 15:18 98.2 F 126 H 18 126/81 90 Nasal Cannula 2 Respiratory exam: Present wheezes Capillary refill: < 3 Seconds Peripheral pulse strength: 2+ Slightly Diminished Peripheral pulse location: Radial Skin exam: normal turgor Date exam was performed: 03/18/25 Time exam was performed: 18:16
--- NOTE | 2025-03-18 18:21 | ECG_ITS ---
[facility] Date: 2025-03-18 Pat Name: Ricky Lobo Department: Room: Gender: Male Associate Director Of Sales: : 1950 Requested By: Rojelio Osorio Order Number: [id number] Del Real MD: Wilmer Temple M.D. Measurements Intervals [place] Rate: 91 P: 18 NE: 155 QRS: -4 QRSD: 138 T: -21 QT: 371 QTc: 459 Interpretive Statements SINUS RHYTHM RIGHT BUNDLE BRANCH BLOCK [120+ ms QRS DURATION, UPRIGHT V1, 40+ ms S IN I/aVL/V4/V5/V6] Compared to ECG 03/18/2025 15:15:33 Sinus tachycardia no longer present Electronically Signed On 03-20-2025 21:27:09 CDT by Wilmer Temple M.D. [email or web address]
[2025-03-18 18:42] LABS: Troponin(5th) Baseline 20 ng/L (0-15)
[2025-03-18 19:54] LABS: Lactic Acid level (Lactate) 1.1 mmol/L (0.5-2.2)
[2025-03-18 20:39] LABS: Troponin 5 2HR 19.19 ng/L (0-15)
[2025-03-18 20:40] LABS: Troponin 5 2HR Delta -0.81 ABS# (0-10)
[2025-03-18 20:52] LABS: Thyroid Stimulating Hormone 1.19 uIU/mL (0.27-4.20)
[2025-03-18] MEDS: pantoprazole 40 mg SDV IVP (21:16)
--- NOTE | 2025-03-18 21:41 | ECG_ITS ---
[facility] Test Date: 2025-03-18 Pat Name: Ricky Lobo Department: Room: 271 Gender: Male Programmer: : 1950 Requested By: Rojelio Osorio Order Number: [id number] Del Real MD: Wilmer Temple M.D. Measurements Intervals [place] Rate: 98 P: 33 [place]: 150 QRS: -4 QRSD: 142 T: -17 QT: 391 QTc: 499 Interpretive Statements SINUS RHYTHM RIGHT BUNDLE BRANCH BLOCK [120+ ms QRS DURATION, UPRIGHT V1, 40+ ms S IN I/aVL/V4/V5/V6] Compared to ECG 03/18/2025 18:21:04 No significant changes Electronically Signed On 03-20-2025 23:11:17 CDT by Wilmer Temple M.D. [email or web address]
[2025-03-18 22:12] LABS: MRSA PCR OZH (swab) NOT DETECTED (Negative)
[2025-03-18 22:48] LABS: Coronavirus 229E,HKU1,NL63,OC4 Not Detected (NOT DETECT); Parainfluenza Virus Type 1 Not Detected (NOT DETECT); Parainfluenza Virus Type 2 Not Detected (NOT DETECT); Parainfluenza Virus Type 3 Not Detected (NOT DETECT); Parainfluenza Virus Type 4 Not Detected (NOT DETECT); SARS-COV-2 Not Detected (NOT DETECT)
[2025-03-18] MEDS: piperacillin-tazobactam 3.375 GM in sodium chloride 0.9% (plus) 50 ML IV (22:59)
[2025-03-18 23:16] LABS: Add Urine Microscopic? NO
[2025-03-18 23:24] LABS: Glucose Urine UA Negative (Normal); Nitrate Urine Negative (Negative); Specific Gravity, Urine 1.008 (1.005-1.030)
[2025-03-18 23:50] LABS: Charge for UA Resulting for Rev
[2025-03-19] VITALS (12 sets, daily range): BP systolic 107–134; BP diastolic 64–81; PULSE 67–104; RESP 16–18; TEMP 36.3–37; O2SAT 90–95
--- NOTE | 2025-03-19 00:06 | ECG_ITS ---
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 Measurements Intervals [place] Rate: 71 P: 25 [place]: 156 QRS: 2 QRSD: 149 T: -14 QT: 431 QTc: 469 Interpretive Statements SINUS RHYTHM RIGHT BUNDLE BRANCH BLOCK PROBABLE LATERAL MYOCARDIAL INFARCTION , OF INDETERMINATE AGE [35 ms Q WAVE IN I/aVL/V5/V6] Compared to ECG 03/18/2025 21:41:56 NO SIGNIFICANT CHANGE Electronically Signed On 03-20-2025 23:13:19 CDT by Wilmer Temple M.D. [email or web address] [id number]
[2025-03-19 05:54] LABS: Hematocrit 35.6 % (37-53); Hemoglobin 12.10 g/dL (11.27-16.99); Mean Corpuscular HGB Conc 34.0 g/dL (30-55); Mean Corpuscular Hemoglobin 35.4 pg (27-33); Mean Corpuscular Volume 104.1 fl (82-101); Nucleated Red Blood Cells % 0 %; Platelet Count 205 10^3/cmm (157-399); Red Blood Count 3.42 10^6/uL (3.85-5.65); White Blood Count 2.01 10^3/uL (3.29-11.43)
[2025-03-19] MEDS: MESALAMINE 1200 MG 4800 EACH PO (05:55)
[2025-03-19] MEDS: methylPREDNISolone sod succ 40 mg/mL INJ IVP ×3 (05:56→23:01)
[2025-03-19 06:14] LABS: Troponin 5 6HR 14.08 ng/L (0-15)
[2025-03-19 06:15] LABS: Alanine Aminotransferase 15 U/L (0-41); Albumin Level 3.7 g/dL (3.5-5.2); Alkaline Phosphatase 88 U/L (40-130); Anion Gap 18.2 (5-19); Aspartate Amino Transferase 24 U/L (0-40); Blood Urea Nitrogen 11 mg/dL (8-23); Calcium 8.7 mg/dL (8.5-10.5); Carbon Dioxide 23 mmol/L (22-29); Chloride 102 mmol/L (98-107); Creatinine Clr Calc Pharmacy 89.9423; Globulin 2.2 g/dL (1.3-4.6); Glucose 161 mg/dL (65-115); Magnesium 2.4 mg/dL (1.7-2.3); Osmolality Calculated 291 mOsm/kg (285-295); Potassium 4.2 mmol/L (3.5-5.1); Sodium 139 mmol/L (136-145); Total Protein 5.9 g/dL (6.6-8.7)
[2025-03-19] MEDS: piperacillin-tazobactam 3.375 GM in sodium chloride 0.9% (plus) 50 ML IV ×3 (06:38→23:01)
[2025-03-19 06:43] LABS: Troponin 5 6HR Delta -5.92 ng/L (0-12)
--- NOTE | 2025-03-19 07:18 | PHA.VACGOAL ---
Vancomycin Goal - Goal Vancomycin Goal:: 15-20 mg/L Vancomycin Indication:: Other - Therapy Current therapy:: Pip/Tazo Day of therpy:: Day []of [] . Actual body weight (kg): 178 lb 8 oz - Data Labs: WBC 3.10 10^3/uL (3.29-11.43) L 03/18/25 15:34 RBC 3.59 10^6/uL (3.85-5.65) L 03/18/25 15:34 Hgb 12.70 g/dL (11.27-16.99) 03/18/25 15:34 Hct 37.2 % (37-53) 03/18/25 15:34 MCV 103.6 fl (82-101) H 03/18/25 15:34 MCH 35.4 pg (27-33) H 03/18/25 15:34 MCHC 34.1 g/dL (30-55) 03/18/25 15:34 RDW 13.3 % (12.1-15.1) 03/18/25 15:34 Sodium 139 mmol/L (136-145) 03/19/25 05:30 Potassium 4.2 mmol/L (3.5-5.1) 03/19/25 05:30 Chloride 102 mmol/L (98-107) 03/19/25 05:30 Carbon Dioxide 23 mmol/L (22-29) 03/19/25 05:30 Anion Gap 18.2 (5-19) 03/19/25 05:30 BUN 11 mg/dL (8-23) 03/19/25 05:30 Creatinine 0.7 mg/dL (0.7-1.2) 03/19/25 05:30 GFR Calculation Not Reportable 03/19/25 05:30 Last dialysis session:: N/A Treatment plan:: new consult Regimen:: STARTED ON MAINTENANCE DOSE OF 1250 MG Q12H Follow up:: WILL CONTINUE TO MONITOR AND FOLLOW UP DAILY
[2025-03-19 07:36] LABS: Slide Review Slide Review Perform
--- NOTE | 2025-03-19 09:17 | PC.CHAP ---
Pastoral Care Encounter/Spiritual Assessment Type of Contact [] Declined junior marketing associate visit [] Patient/Family/Request visit [] Outpatient visit [] Follow-up visit [] Physician referral [] Code/Alert [x] Routine visit [] Staff referral [] Actively dying [] Patient sleeping [x] Family support [] [] Out of room [] Palliative care [] [] Receiving care in room [] Pre-surgical visit [] Trauma [] Long length of stay [] ICU visit [] Other: Relational/Emotional Strength [x] Patient feels connected with others/family/visitors/staff [] Distress [] Loneliness/isolation [] Abandonment Spirituality of Patient [x] Person of Fatmata [x] Attends Hoahaoism of their Fatmata [x] Believes in Prayer [x] Reads Bible or Protestant materials [] There are Spiritual issues to be addressed Senior Telecommunications Consultant Interventions [x] Prayer [x] Active listening [x] Non-anxious presence [x] Spiritual/emotional support [] Crisis/trauma care [] Spiritual counseling [] Bereavement support [] Provided bereavement packet [] Provided Bible/devotional materials [] Provided toy/stuffed animal, coloring book to patient or family member [] Provided Communion [] Anointing/[place] [] Salvation [x] Completed spiritual assessment [] Other: Impact on Illness or Injury [] Angry [] Fearful [] Anxious [] Often cries [] Exhaustion [] Unable to work [] Unable to attend islam [] Unable to walk/stand [] Unable to read [] Unable to drive [] Unable to eat/drink [] Unable to sleep [] Unable to be with family [] Patient intubated [] Other: Summary Time spent with patient 10 min
[2025-03-19 12:26] LABS: Bacillus cereus group Not Detected (NOT DETECT); Bacillus subtillis group Not Detected (NOT DETECT); Corynebacterium Not Detected (NOT DETECT); Cutibacterium acnes (P.acnes) Not Detected (NOT DETECT); Enterococcus faecalis Not Detected (NOT DETECT); Enterococcus faecium Not Detected (NOT DETECT); Listeria Not Detected (NOT DETECT); Micrococcus Not Detected (NOT DETECT); Pan Candida Not Detected (NOT DETECT); Pan Gram-Negative Not Detected (NOT DETECT); Staphylococcus epidermidis Detected (NOT DETECT); Staphylococcus lugdunensis Not Detected (NOT DETECT); Staphylococcus species Detected (NOT DETECT); Streptococcus anginosus group Not Detected (NOT DETECT); Streptococcus pyogenes Not Detected (NOT DETECT); Streptococcus species Not Detected (NOT DETECT); mecA Detected (NOT DETECT); mecC Not Detected (NOT DETECT)
--- NOTE | 2025-03-19 16:07 | P.PN_ITS ---
Subjective 2 Subjective: Patient was seen this morning, currently alert oriented x 3, following all commands does report cough, shortness of breath, no fatigue, no malaise, no fevers Vitals/I&O/Wt Last Vital Signs Temp 97.5 F L 03/19/25 15:37 Pulse 83 03/19/25 15:37 Resp 18 03/19/25 15:37 BP 119/67 03/19/25 15:37 Pulse Ox 93 03/19/25 15:37 O2 Del Method Nasal Cannula 03/19/25 15:37 O2 Flow Rate 4 03/19/25 15:09 03/19/25 03/19/25 03/19/25 06:59 14:59 22:59 Intake Total 300 / 800 1140 / 1140 Output Total 675 / 675 Balance -375 / 125 1140 / 1140 Weight last 48 hrs Weight 80.966 kg Weight 81.817 kg Weight 83.4 kg Physical Exam 2 Const: COMMON NORMALS: no acute distress and patient oriented x3 Resp: COMMON NORMALS: normal respiratory effort, No retractions, No use of accessory muscles and clear to auscultation bilaterally AUSCULTATION: clear to auscultation bilaterally Cardio: COMMON NORMALS: regular rate, regular rhythm, S1 normal heart sound present and S2 normal heart sound present RATE: regular rate RHYTHM: r egular rhythm HEART SOUNDS: S1 normal heart sound present and S2 normal heart sound present GI: COMMON NORMALS: Normal to inspection, nondistended, normoactive bowel sounds present and non-tender Extremity: COMMON NORMALS: no calf tenderness and no pedal edema Neuro: COMMON NORMALS: patient oriented x3, CN's II-XII intact bilaterally and moves all extremities Psych: COMMON NORMALS: mental status grossly normal Data 03/19/25 05:30 03/19/25 05:30 Micro: Microbiology 03/18/25 15:34 Blood Culture - Preliminary Blood NEGATIVE TO DATE 03/18/25 15:59 Blood Culture - Preliminary Blood Staphylococcus epidermidis A&P Assessment and plan 1. Acute hypoxic respiratory failure: 2. Healthcare-associated pneumonia: 3. Sepsis: 4. Staphylococcus epidermidis bacteremia: Plan: Acute hypoxic respiratory failure - With healthcare associated pneumonia - With sepsis - Patient becomes short of breath with a few words, requiring 6 L at rest FINDINGS: Limitations: The absence of intravenous contrast lessens the sensitivity of this study for solid organ abnormalities. Tubes, catheters and devices: Infusion port catheter is in place with its tip in the superior vena cava. Lungs: Calcified granulomas are seen in both lungs. There are findings of paraseptal emphysema more prominent in the periphery of the upper lobes and subpleural reticulations in keeping with some pulmonary fibrosis and mild scattered ground-glass opacity at the lung bases not significantly changed compared with 02/27/2025 or 03/11/2025. Pleural spaces: Unremarkable. No pneumothorax. No pleural effusion. Heart: Unremarkable. No cardiomegaly. No pericardial effusion. Coronary arteries: There is severe atherosclerotic calcification of the coronary arteries. Lymph nodes: There are calcified hilar and mediastinal lymph nodes in keeping with old granulomatous disease. There is mildly prominent subcarinal lymph node measuring 13 x 15 mm not significantly changed from 03/11/2025. No new adenopathy is identified. Vasculature: Unremarkable. No aortic aneurysm. Gallbladder and biliary ducts: Multiple calcified gallstones are present. Bones/joints: There is no evidence of acute fracture. Soft tissues: Unremarkable. Plan - Sputum culture - Blood culture - Vancomycin - Zosyn -Solu-Medrol -DuoNeb, budesonide -Monitor respiratory status closely - Cardiac echo -Fungal studies ordered, beta 1 3 glucan, LDH, Aspergillus - Full code - Lovenox for DVT prophylaxis Staphylococcus epidermidis bacteremia - True infection versus contamination - Repeat blood cultures - IV vancomycin - Will continue to monitor closely PDMP PDMP Reviewed: Not Reviewed Attestations 2 Medical Necessity Statement*: Patient requires hospitalization for acute hypoxic respiratory failure secondary to healthcare associated pneumonia Diagnoses Acute hypoxic respiratory failure J96.01 Healthcare-associated pneumonia J18.9 Sepsis A41.9 Staphylococcus epidermidis bacteremia R78.81; B95.7
[2025-03-19] MEDS: pantoprazole 40 mg SDV IVP (20:57)
[2025-03-20] VITALS (9 sets, daily range): BP systolic 111–127; BP diastolic 67–83; PULSE 73–97; RESP 16–18; TEMP 36.4–36.5; O2SAT 92–98
[2025-03-20 05:38] LABS: Hematocrit 32.2 % (37-53); Hemoglobin 11.10 g/dL (11.27-16.99); Mean Corpuscular HGB Conc 34.5 g/dL (30-55); Mean Corpuscular Hemoglobin 35.4 pg (27-33); Mean Corpuscular Volume 102.5 fl (82-101); Nucleated Red Blood Cells % 0 %; Platelet Count 188 10^3/cmm (157-399); Red Blood Count 3.14 10^6/uL (3.85-5.65); White Blood Count 4.28 10^3/uL (3.29-11.43)
[2025-03-20] MEDS: methylPREDNISolone sod succ 40 mg/mL INJ IVP ×3 (05:53→21:06)
[2025-03-20] MEDS: MESALAMINE 1200 MG 4800 EACH PO (05:53)
[2025-03-20 06:06] LABS: Alanine Aminotransferase 14 U/L (0-41); Albumin Level 3.7 g/dL (3.5-5.2); Alkaline Phosphatase 77 U/L (40-130); Anion Gap 17.5 (5-19); Aspartate Amino Transferase 19 U/L (0-40); Blood Urea Nitrogen 11 mg/dL (8-23); Calcium 8.8 mg/dL (8.5-10.5); Carbon Dioxide 22 mmol/L (22-29); Chloride 106 mmol/L (98-107); Creatinine Clr Calc Pharmacy 89.9853; Globulin 1.8 g/dL (1.3-4.6); Glucose 145 mg/dL (65-115); Magnesium 2.6 mg/dL (1.7-2.3); Osmolality Calculated 294 mOsm/kg (285-295); Potassium 4.5 mmol/L (3.5-5.1); Sodium 141 mmol/L (136-145); Total Protein 5.5 g/dL (6.6-8.7)
[2025-03-20 07:03] LABS: Slide Review Slide Review Perform
[2025-03-20] MEDS: piperacillin-tazobactam 3.375 GM in sodium chloride 0.9% (plus) 50 ML IV ×3 (07:49→22:56)
--- NOTE | 2025-03-20 09:09 | PC.SOCIAL ---
IMM Update pg 2 of IMM Updated and reviewed w/ patient. Copy provided and copy dated, initialed and placed in chart.
--- NOTE | 2025-03-20 10:35 | XRR_ITS ---
PROCEDURE INFORMATION: Exam: XR Chest Exam date and time: 03/20/2025 10:57 AM Age: 74 years old Clinical indication: Shortness of breath and wheezing; Prior surgery; Surgery date: 6+ months; Surgery type: Port; HX of non hodgkins; Additional info: SOB, wheezing TECHNIQUE: Imaging protocol: Radiologic exam of the chest. Views: 1 view. COMPARISON: CT chest con [id number] 03/18/2025 4:14 PM FINDINGS: Tubes, catheters and devices: Left IJ Port-A-Cath tip is in the mid SVC. Lungs: Mild diffuse interstitial coarsening is similar to prior. Mild bibasilar opacities are also unchanged. No focal consolidation. Pleural spaces: Unremarkable. No pleural effusion. No pneumothorax. Heart/Mediastinum: Stable cardiomediastinal silhouette. Bones/joints: Unremarkable. XR/XR chest 1V portable [id number] IMPRESSION: 1. No acute findings. 2. Stable chronic findings.
--- NOTE | 2025-03-20 10:36 | PC.CHAP ---
Pastoral Care Encounter/Spiritual Assessment Type of Contact [] Declined car washer visit [] Patient/Family/Request visit [] Outpatient visit [] Follow-up visit [] Physician referral [] Code/Alert [x] Routine visit [] Staff referral [] Actively dying [] Patient sleeping [x] Family support [] [] Out of room [] Palliative care [] [] Receiving care in room [] Pre-surgical visit [] Trauma [] Long length of stay [] ICU visit [] Other: Relational/Emotional Strength [x] Patient feels connected with others/family/visitors/staff [] Distress [] Loneliness/isolation [] Abandonment Spirituality of Patient [x] Person of Fatmata [x] Attends Yarsanism of their Fatmata [x] Believes in Prayer [x] Reads Bible or Hinduism materials [] There are Spiritual issues to be addressed Insurance Administrative Assistant Interventions [x] Prayer [x] Active listening [] Non-anxious presence [x] Spiritual/emotional support [] Crisis/trauma care [] Spiritual counseling [] Bereavement support [] Provided bereavement packet [] Provided Bible/devotional materials [] Provided toy/stuffed animal, coloring book to patient or family member [] Provided Communion [] Anointing/[place] [] Salvation [x] Completed spiritual assessment [] Other: Impact on Illness or Injury [] Angry [] Fearful [] Anxious [] Often cries [] Exhaustion [] Unable to work [] Unable to attend restoration [] Unable to walk/stand [] Unable to read [] Unable to drive [] Unable to eat/drink [] Unable to sleep [] Unable to be with family [] Patient intubated [] Other: Summary Time spent with patient 5 min
--- NOTE | 2025-03-20 15:21 | P.PN_ITS ---
Subjective 2 Subjective: Patient was seen this morning, alert oriented x 3, following all commands, denies any fevers, no chills, has cough, shortness of breath persist, wheezing improving Vitals/I&O/Wt Last Vital Signs Temp 97.7 F 03/20/25 11:30 Pulse 89 03/20/25 12:00 Resp 18 03/20/25 12:00 BP 111/72 03/20/25 11:30 Pulse Ox 95 03/20/25 12:00 O2 Del Method Nasal Cannula 03/20/25 12:00 O2 Flow Rate 3 03/20/25 12:00 03/20/25 03/20/25 03/20/25 06:59 14:59 22:59 Intake Total 300 / 1970 900 / 900 Output Total 400 / 650 Balance -100 / 1320 900 / 900 Weight last 48 hrs Weight 81.057 kg Weight 80.966 kg Weight 81.817 kg Weight 83.4 kg Physical Exam 2 Const: COMMON NORMALS: no acute distress and patient oriented x3 Resp: COMMON NORMALS: normal respiratory effort, No retractions and No use of accessory muscles AUSCULTATION: wheezes Cardio: COMMON NORMALS: regular rate, regular rhythm, S1 normal heart sound present and S2 normal heart sound present RATE: regular rate RHYTHM: r egular rhythm HEART SOUNDS: S1 normal heart sound present and S2 normal heart sound present GI: COMMON NORMALS: Normal to inspection, nondistended, normoactive bowel sounds present and non-tender Extremity: COMMON NORMALS: no pedal edema Neuro: COMMON NORMALS: patient oriented x3 Psych: COMMON NORMALS: mental status grossly normal Data 03/20/25 05:12 03/20/25 05:12 Micro: Microbiology 03/19/25 16:45 Blood Culture - Preliminary Blood SPECIMEN COLLECTED 03/19/25 16:37 Blood Culture - Preliminary Blood SPECIMEN COLLECTED 03/18/25 15:34 Blood Culture - Preliminary Blood NEGATIVE TO DATE 03/18/25 15:59 Blood Culture - Preliminary Blood Staphylococcus epidermidis A&P Assessment and plan 1. Acute hypoxic respiratory failure: 2. Healthcare-associated pneumonia: 3. Sepsis: 4. Staphylococcus epidermidis bacteremia: Plan: Acute hypoxic respiratory failure - With healthcare associated pneumonia - With sepsis - Patient becomes short of breath with a few words, requiring 6 L at rest FINDINGS: Limitations: The absence of intravenous contrast lessens the sensitivity of this study for solid organ abnormalities. Tubes, catheters and devices: Infusion port catheter is in place with its tip in the superior vena cava. Lungs: Calcified granulomas are seen in both lungs. There are findings of paraseptal emphysema more prominent in the periphery of the upper lobes and subpleural reticulations in keeping with some pulmonary fibrosis and mild scattered ground-glass opacity at the lung bases not significantly changed compared with 02/27/2025 or 03/11/2025. Pleural spaces: Unremarkable. No pneumothorax. No pleural effusion. Heart: Unremarkable. No cardiomegaly. No pericardial effusion. Coronary arteries: There is severe atherosclerotic calcification of the coronary arteries. Lymph nodes: There are calcified hilar and mediastinal lymph nodes in keeping with old granulomatous disease. There is mildly prominent subcarinal lymph node measuring 13 x 15 mm not significantly changed from 03/11/2025. No new adenopathy is identified. Vasculature: Unremarkable. No aortic aneurysm. Gallbladder and biliary ducts: Multiple calcified gallstones are present. Bones/joints: There is no evidence of acute fracture. Soft tissues: Unremarkable. Plan - Sputum culture - Blood culture - Vancomycin - Zosyn -Solu-Medrol -DuoNeb, budesonide -Monitor respiratory status closely - Cardiac echo CONCLUSIONS 1. Normal biventricualr systolic function 2. Mild aortic valve regurgitation 3. Mild pulmonary hypertension -Fungal studies ordered, beta 1 3 glucan, LDH, Aspergillus - Full code - Lovenox for DVT prophylaxis Staphylococcus epidermidis bacteremia - True infection versus contamination - Repeat blood cultures - IV vancomycin - Will continue to monitor closely PDMP PDMP Reviewed: Not Reviewed Attestations 2 Medical Necessity Statement*: Patient requires hospitalization for acute hypoxic respiratory failure, healthcare associated pneumonia, Diagnoses Acute hypoxic respiratory failure J96.01 Healthcare-associated pneumonia J18.9 Sepsis A41.9 Staphylococcus epidermidis bacteremia R78.81; B95.7
[2025-03-20] MEDS: pantoprazole 40 mg SDV IVP (21:06)
[2025-03-21] VITALS: BP 114/70; PULSE 70; RESP 16; TEMP 36.5; O2SAT 92
[2025-03-21 04:00] VITALS: BP 110/69; PULSE 60; RESP 16; TEMP 36.4; O2SAT 97
[2025-03-21] MEDS: methylPREDNISolone sod succ 40 mg/mL INJ IVP (05:31)
[2025-03-21] MEDS: MESALAMINE 1200 MG 4800 EACH PO (05:31)
[2025-03-21 05:39] LABS: Hematocrit 32.4 % (37-53); Hemoglobin 10.80 g/dL (11.27-16.99); Mean Corpuscular HGB Conc 33.3 g/dL (30-55); Mean Corpuscular Hemoglobin 34.8 pg (27-33); Mean Corpuscular Volume 104.5 fl (82-101); Platelet Count 215 10^3/cmm (157-399); Red Blood Count 3.10 10^6/uL (3.85-5.65); White Blood Count 4.06 10^3/uL (3.29-11.43)
[2025-03-21 06:05] LABS: Absolute Segmented Neutrophil 3.6 10/cmm (1.6-7.1); Total Cells Counted 100 (0-100)
[2025-03-21 06:06] LABS: Alanine Aminotransferase 14 U/L (0-41); Albumin Level 3.4 g/dL (3.5-5.2); Alkaline Phosphatase 74 U/L (40-130); Anion Gap 18.4 (5-19); Aspartate Amino Transferase 16 U/L (0-40); Blood Urea Nitrogen 14 mg/dL (8-23); Calcium 9.0 mg/dL (8.5-10.5); Carbon Dioxide 22 mmol/L (22-29); Chloride 107 mmol/L (98-107); Creatinine Clr Calc Pharmacy 89.9853; Globulin 2.3 g/dL (1.3-4.6); Glucose 128 mg/dL (65-115); Magnesium 2.5 mg/dL (1.7-2.3); Osmolality Calculated 298 mOsm/kg (285-295); Potassium 4.4 mmol/L (3.5-5.1); Sodium 143 mmol/L (136-145); Total Protein 5.7 g/dL (6.6-8.7)
[2025-03-21] MEDS: piperacillin-tazobactam 3.375 GM in sodium chloride 0.9% (plus) 50 ML IV (06:39)
[2025-03-21 07:26] VITALS: BP 118/67; PULSE 74; RESP 16; TEMP 36.6; O2SAT 94
[2025-03-21 08:45] VITALS: PULSE 89; RESP 18; O2SAT 93
[2025-03-21 11:09] VITALS: BP 114/73; PULSE 63; RESP 17; TEMP 36.5; O2SAT 96
--- NOTE | 2025-03-21 12:12 | PM.DCS ---
Discharge Providers Date of Admission: 03/18/25 17:38 Date of Discharge: March 21, 2025 Attending Provider at Admission: Rojelio Osorio MD Attending Provider at Discharge: Rojelio Osorio MD Primary Care Provider: Nicolasa Trujillo MD Diagnoses at Discharge Discharge Diagnosis 1. Acute hypoxic respiratory failure: 2. Healthcare-associated pneumonia: 3. Sepsis: 4. Staphylococcus epidermidis bacteremia: Reason for Visit Reason for Visit: Sob low grade fever Hospital Course Hospital Course Ricky Lobo is a 74 year old male with a past medical history of follicular lymphoma, history of chemotherapy, completed in November, who presents [facility] for shortness of breath. Patient reports that back in February he presented to the ER for shortness of breath, was discharged for concerns for COPD, he was then hospitalized in early March for respiratory failure, but has persistent shortness of breath. Patient reports shortness of breath with exertion, nonproductive cough, no fevers, chills, no calf pain, no calf swelling, no hemoptysis, recent travel, does report orthopnea at times, no paroxysmal nocturnal dyspnea, does use 2 L, in the emergency room he is currently requiring 6 L, not in respiratory distress, but becomes short of breath with a few words Patient was admitted to acute hypoxic respiratory failure, with healthcare associated pneumonia, with sepsis -Acute hypoxic respiratory failure - With healthcare associated pneumonia - With sepsis - Patient becomes short of breath with a few words, requiring 6 L at rest FINDINGS: Limitations: The absence of intravenous contrast lessens the sensitivity of this study for solid organ abnormalities. Tubes, catheters and devices: Infusion port catheter is in place with its tip in the superior vena cava. Lungs: Calcified granulomas are seen in both lungs. There are findings of paraseptal emphysema more prominent in the periphery of the upper lobes and subpleural reticulations in keeping with some pulmonary fibrosis and mild scattered ground-glass opacity at the lung bases not significantly changed compared with 02/27/2025 or 03/11/2025. Pleural spaces: Unremarkable. No pneumothorax. No pleural effusion. Heart: Unremarkable. No cardiomegaly. No pericardial effusion. Coronary arteries: There is severe atherosclerotic calcification of the coronary arteries. Lymph nodes: There are calcified hilar and mediastinal lymph nodes in keeping with old granulomatous disease. There is mildly prominent subcarinal lymph node measuring 13 x 15 mm not significantly changed from 03/11/2025. No new adenopathy is identified. Vasculature: Unremarkable. No aortic aneurysm. Gallbladder and biliary ducts: Multiple calcified gallstones are present. Bones/joints: There is no evidence of acute fracture. Soft tissues: Unremarkable. - Patient was admitted received IV antibiotics, IV steroids, clinically monitored - Overall patient clinically improved - Will be discharged on p.o. antibiotics, Levaquin 5 days Patient is 1 out of 4 blood cultures positive for Staphylococcus epidermidis, repeat blood cultures are negative, - Overall patient clinically improved - Remains afebrile - Repeat blood cultures negative - Does have a left chest port in place - Area looks clean and dry - Cardiac echocardiogram no valvular vegetations - Discussed with patient that given that 1 out of 4 blood cultures were positive for Staphylococcus epidermidis, and that repeat blood cultures negative this is most likely an contamination - However it is difficult to rule out a true infection as he has a left chest port in place which could be a source of infection - Although port site is clinically looks clean and dry, remains afebrile, clinically improving -Discussed risks and benefits of all options, shared decision making, he voiced understanding, all questions answered, agreed to proceed - Nonetheless I am going to discharge him with 5 more days of p.o. Zyvox - Discussed with patient that if he does develop fevers, chills, nausea, vomiting, and recurrent Staphylococcus epidermidis bacteremia then at that point the port will likely need to be removed - He voiced understanding, all questions answered Physical Exam Const: COMMON NORMALS: no acute distress and patient oriented x3 Eye: COMMON NORMALS: Equal, round and reactive pupils present and EOMs intact bilaterally PUPIL: Yes Equal, round and reactive pupils present Resp: COMMON NORMALS: normal respiratory effort, No retractions, No use of accessory muscles and clear to auscultation bilaterally AUSCULTATION: clear to auscultation bilaterally Cardio: COMMON NORMALS: regular rate, regular rhythm, S1 normal heart sound present and S2 normal heart sound present RATE: regular rate RHYTHM: regular rhythm HEART SOUNDS: S1 normal heart sound present and S2 normal heart sound present GI: COMMON NORMALS: Normal to inspection, nondistended, normoactive bowel sounds present and non-tender Extremity: COMMON NORMALS: no pedal edema Neuro: COMMON NORMALS: patient oriented x3, CN's II-XII intact bilaterally and moves all extremities Psych: COMMON NORMALS: mental status grossly normal Discharge Data Studies Completed and Pending Completed Studies During Hospitalization Category Date Time Status CT chest wo con [id number] Stat Cat Scan 03/18/25 16:05 Completed CXRP [XR chest 1V portable [id number]] Routine Exams 03/20/25 10:35 Completed XR chest 1V portable [id number] Stat Exams 03/18/25 15:10 Completed CV. echo complete* [id number] Stat Ultrasound 03/18/25 18:11 Completed Pending at discharge Category Date Time Status 1-3 Beta D Glucan [Fungitell Glucan Assay (Blood)] Lab 03/18/25 15:34 Received Routine Aspergillus AG,EIA,Serum Stat Lab 03/19/25 16:37 Received BLASTOMYCES AG [MVista Blastomyces AG Quant] Routine Lab 03/19/25 16:37 Received Blood Culture Stat Lab 03/18/25 15:59 Results Blood Culture Stat Lab 03/19/25 16:45 Results Coccidioides AB Immunodiffusio Routine Lab 03/19/25 16:37 Received Fungal Culture not HR/SK/BL Routine Lab 03/19/25 16:15 Received Histoplasma Galactomannan Ag Routine Lab 03/19/25 16:05 Received PJP Qual Sputum [Pneumocystis jiroveci Qual PCR] Lab 03/19/25 16:05 Received Routine Sputum Culture and Gram Stain Stat Lab 03/20/25 16:51 Results Radiology Impressions Chest CT 03/18/25 16:05 IMPRESSION: 1. Chronic emphysematous changes and fibrosis not significantly changed from 03/11/2025. 2. Cholelithiasis COMMENTS: The presence of pulmonary emphysema on CT is an independent risk factor for lung cancer. In the absence of a history or active diagnosis of lung cancer, it is recommended that this patient with emphysema be evaluated for enrollment in a low dose CT lung cancer screening program. Chest X-Ray 03/20/25 10:35 IMPRESSION: 1. No acute findings. 2. Stable chronic findings. Laboratory Results WBC 4.06 10^3/uL (3.29-11.43) 03/21/25 05:05 RBC 3.10 10^6/uL (3.85-5.65) L 03/21/25 05:05 Hgb 10.80 g/dL (11.27-16.99) L 03/21/25 05:05 Hct 32.4 % (37-53) L 03/21/25 05:05 MCV 104.5 fl (82-101) H 03/21/25 05:05 MCH 34.8 pg (27-33) H 03/21/25 05:05 MCHC 33.3 g/dL (30-55) 03/21/25 05:05 RDW 13.7 % (12.1-15.1) 03/21/25 05:05 Plt Count 215 10^3/cmm (157-399) 03/21/25 05:05 MPV 9.2 fL (7.4-10.4) 03/21/25 05:05 Neut % (Auto) 73.7 % 03/20/25 05:12 Lymph % (Auto) Not Reportable 03/21/25 05:05 [place] % (Auto) Not Reportable 03/21/25 05:05 Eos % (Auto) 0.0 % 03/20/25 05:12 Baso % (Auto) 0.5 % 03/20/25 05:12 Neut # (Auto) 3.16 10^3/uL (1.8-7.7) 03/20/25 05:12 Lymph # (Auto) Not Reportable 03/21/25 05:05 [place] # (Auto) Not Reportable 03/21/25 05:05 Eos # (Auto) 0.0 10^3/uL (0.0-0.8) 03/20/25 05:12 Baso # (Auto) 0.0 10^3/uL (0.0-0.1) 03/20/25 05:12 Nucleated RBC % (auto) 0 % 03/20/25 05:12 Total Counted 100 (0-100) 03/21/25 05:05 Atypical Lymphs % Not Reportable 03/21/25 05:05 Segmented Neutrophils 88 % 03/21/25 05:05 Band Neutrophils Not Reportable 03/21/25 05:05 Lymphocytes (Manual) 5 % 03/21/25 05:05 Monocytes (Manual) 3.0 % 03/21/25 05:05 Absolute Monocytes 0.1 10^3/cmm (0.1-0.6) 03/21/25 05:05 Eosinophils (Manual) 0 % 03/21/25 05:05 Absolute Eosinophils 0.0 10^3/cmm (0.0-0.7) 03/21/25 05:05 Basophils (Manual) 1.0 % 03/21/25 05:05 Absolute Basophils 0.0 10^3/cmm (0.0-0.2) 03/21/25 05:05 Metamyelocytes 2.0 % 03/21/25 05:05 Myelocytes 1.0 % 03/21/25 05:05 Nucleated RBCs # 0.0 /100WBC 03/20/25 05:12 Platelet Estimate Normal (Normal) 03/21/25 05:05 Specimen Type Arterial 03/18/25 15:54 Sample Site Brachial, left 03/18/25 15:54 ABG pH 7.47 (7.35-7.45) H 03/18/25 15:54 ABG pCO2 32.8 mmHg (35-45) L 03/18/25 15:54 ABG pO2 56.7 mmHg (80.0-100.0) L 03/18/25 15:54 ABG HCO3 23.7 mmol/L (22-26) 03/18/25 15:54 ABG O2 Saturation 92.7 03/18/25 15:54 ABG Base Excess 0.5 mmol/L (-2.0-2.0) 03/18/25 15:54 Wilder Test N/a 03/18/25 15:54 A-a O2 Gradient 6.8 mmHg (5-10) 03/18/25 15:54 Hematocrit 40.0 % (42-52) L 03/18/25 15:54 Hgb O2 Saturation 90.7 % (95-100) L 03/18/25 15:54 Carboxyhemoglobin 1.3 %THgb (0.4-20.1) 03/18/25 15:54 Methemoglobin 0.8 % (0.4-1.5) 03/18/25 15:54 Total Hemoglobin 13.1 g/dL (14-18) L 03/18/25 15:54 Sodium 133.0 mmol/L (131-143) 03/18/25 15:54 Potassium 3.5 mmol/L (3.5-5.0) 03/18/25 15:54 Glucose 117.0 mg/dL (70-115) H 03/18/25 15:54 Ionized Calcium 1.2 mmol/L (1.1-1.4) 03/18/25 15:54 O2 Delivery Device Oxy mask 03/18/25 15:54 O2 Liters/Min 7.0 % 03/18/25 15:54 Licensing Analyst ID Amh 03/18/25 15:54 Sodium 143 mmol/L (136-145) 03/21/25 05:05 Potassium 4.4 mmol/L (3.5-5.1) 03/21/25 05:05 Chloride 107 mmol/L (98-107) 03/21/25 05:05 Carbon Dioxide 22 mmol/L (22-29) 03/21/25 05:05 Anion Gap 18.4 (5-19) 03/21/25 05:05 BUN 14 mg/dL (8-23) 03/21/25 05:05 Creatinine 0.7 mg/dL (0.7-1.2) 03/21/25 05:05 GFR Calculation Not Reportable 03/21/25 05:05 Glucose 128 mg/dL (65-115) H 03/21/25 05:05 Calculated Osmolality 298 mOsm/kg (285-295) H 03/21/25 05:05 Lactic Acid 3.1 mmol/L (0.5-2.2) H 03/18/25 15:34 Lactic Acid (Sepsis) 1.1 mmol/L (0.5-2.2) 03/18/25 19:20 Calcium 9.0 mg/dL (8.5-10.5) 03/21/25 05:05 Phosphorus 3.5 mg/dL (2.5-4.5) 03/21/25 05:05 Magnesium 2.5 mg/dL (1.7-2.3) H 03/21/25 05:05 Total Bilirubin 0.3 mg/dL (0.15-1.2) 03/21/25 05:05 AST 16 U/L (0-40) 03/21/25 05:05 ALT 14 U/L (0-41) 03/21/25 05:05 Alkaline Phosphatase 74 U/L (40-130) 03/21/25 05:05 Lactate Dehydrogenase 388 U/L (135-225) H 03/19/25 16:37 Troponin T Baseline 20 ng/L (0-15) H 03/18/25 15:34 Troponin T 120 Minute 19.19 ng/L (0-15) H 03/18/25 19:20 Delta Troponin T -0.81 ABS# (0-10) L 03/18/25 19:20 Troponin T Hi Sens 6Hr 14.08 ng/L (0-15) 03/19/25 05:30 Troponin T Hi Sens 6Hr Delta -5.92 ng/L (0-12) L 03/19/25 05:30 C-Reactive Protein 83.3 mg/L (0.0-4.9) H 03/18/25 15:34 NT-Pro-B Natriuret Pep 175 pg/mL (0-125) H 03/18/25 15:34 Total Protein 5.7 g/dL (6.6-8.7) L 03/21/25 05:05 Albumin 3.4 g/dL (3.5-5.2) L 03/21/25 05:05 Globulin 2.3 g/dL (1.3-4.6) 03/21/25 05:05 Procalcitonin 0.09 ng/mL (0-0.5) 03/18/25 15:34 TSH 1.19 uIU/mL (0.27-4.20) 03/18/25 19:20 Urine Color Yellow (Yellow) 03/18/25 23:05 Urine Appearance Clear (CLEAR) 03/18/25 23:05 Urine pH 5.5 (5-7) 03/18/25 23:05 Ur Specific [place] 1.008 (1.005-1.030) 03/18/25 23:05 Urine Protein Negative (Negative) 03/18/25 23:05 Urine Glucose (UA) Negative (Normal) 03/18/25 23:05 Urine Ketones 1+ (Negative) H 03/18/25 23:05 Urine Blood Negative (Negative) 03/18/25 23:05 Urine Nitrate Negative (Negative) 03/18/25 23:05 Urine Bilirubin Negative (Negative) 03/18/25 23:05 Urine Urobilinogen 0.2 mg/dL (Negative) 03/18/25 23:05 Ur Leukocyte Esterase Negative (Negative) 03/18/25 23:05 Amorphous Sediment Not Reportable 03/18/25 23:05 Nasal MRSA (PCR) Not detected (Negative) 03/18/25 20:43 Vancomycin Trough 14.0 ug/mL (10-15) 03/20/25 05:12 Adenovirus (PCR) Not detected (NOT DETECT) 03/18/25 20:45 C. pneumoniae DNA (PCR) Not detected (NOT DETECT) 03/18/25 20:45 Coronavirus 229E (PCR) Not detected (NOT DETECT) 03/18/25 20:45 Human Metapneumovir PCR Not detected (NOT DETECT) 03/18/25 20:45 Influenza A (H1) PCR Not detected (NOT DETECT) 03/18/25 20:45 Influenza A (PCR) Negative (Negative) 03/18/25 15:56 Influ A (H1/09) PCR Not detected (NOT DETECT) 03/18/25: Influenza A (H3) PCR Not detected (NOT DETECT) 03/18/25 20:45 Influenza Type A (PCR) Not detected (NOT DETECT) 03/18/25 20:45 Influenza Type B (PCR) Not detected (NOT DETECT) 03/18/25 20:45 M. pneumoniae (PCR) Not detected (NOT DETECT) 03/18/25 20:45 Parainfluenza 1 (PCR) Not detected (NOT DETECT) 03/18/25 20:45 Parainfluenza 2 (PCR) Not detected (NOT DETECT) 03/18/25 20:45 Parainfluenza 3 (PCR) Not detected (NOT DETECT) 03/18/25 20:45 Parainfluenza 4 (PCR) Not detected (NOT DETECT) 03/18/25 20:45 RSV (PCR) Negative (Negative) 03/18/25 15:56 RSV Type A (PCR) Not detected (NOT DETECT) 03/18/25 20:45 RSV Type B (PCR) Not detected (NOT DETECT) 03/18/25 20:45 Entero/Rhino (PCR) Not detected (NOT DETECT) 03/18/25 20:45 SARS-CoV-2 (PCR) Not detected (NOT DETECT) 03/18/25 20:45 Vitals Last Vital Signs Temp 97.7 F 03/21/25 11:09 Pulse 63 03/21/25 11:09 Resp 17 03/21/25 11:09 BP 114/73 03/21/25 11:09 Pulse Ox 96 03/21/25 11:09 O2 Del Method Nasal Cannula 10/16/25 11:09 O2 Flow Rate 2 03/21/25 11:09 Discharge Plan Discharge Patient Disposition: Home Condition: Stable Prescriptions: New prednisone 10 mg tablet 10 mg PO DIRECTED Qty: 30 0RF Rx Instructions: 4tabs(40mg) daily for 3 days, 3tabs(30mg) daily for 3 days, 2tabs(20mg) daily for 3 days, 1 tab daily for 3 days levofloxacin 750 mg tablet 750 mg PO DAILY 5 Days Qty: 5 0RF linezolid [Zyvox] 600 mg tablet 600 mg PO BID 7 Days Qty: 14 0RF ondansetron HCl 4 mg tablet 4 mg PO Q8H PRN (Reason: nausea and vomiting) 5 Days Qty: 15 0RF Continued omeprazole 40 mg capsule,delayed release(DR/EC) 20 mg PO 0700 Rx Instructions: Take 30 min prior to food mesalamine 800 mg tablet,delayed release (DR/EC) 3,200 mg PO DAILY Rx Instructions: take with food urea 40 % cream 1 applic topical BID PRN (Reason: Dry Skin) Rx Instructions: pt takes prn albuterol sulfate 90 mcg/actuation HFA aerosol inhaler 2 inh INHALATION Q4H PRN (Reason: shortness of breath or wheezing) Qty: 18 0RF ascorbic acid (vitamin C) 500 mg Tablet 500 mg PO DAILY zinc gluconate 50 mg Tablet 50 mg PO DAILY cholecalciferol (vitamin D3) 25 mcg (1,000 unit) Tablet 25 mcg PO DAILY Men's 50 Plus Multivitamin 400-20-370 mcg Tablet 1 tab PO DAILY turmeric 400 mg Capsule 500 mg PO DAILY Rx Instructions: otc coenzyme [id number] E 100-100 mg-unit Capsule 1 cap PO DAILY Discontinued cefdinir 300 mg capsule 300 mg PO BID 10 Days Qty: 20 0RF doxycycline monohydrate 100 mg capsule 100 mg PO BID 7 Days Qty: 14 0RF Director Of Business Services OK for DC: Cardiology Discharge Order = DC NOW: Discharge Order (Routine); Ordered 03/21/25 Ordered By: Rojelio Osorio Referrals: Ousmane Pimentel MD [Physician, Pulmonology] - 4-7 days Nicolasa Trujillo MD [Primary Care Provider, Family Practice] Discharge Diet: Regular Discharge Activity: Resume usual activity Patient Instructions: Prednisone (By mouth), Levofloxacin (By mouth) (Levaquin, Levaquin Leva-ingrid), Linezolid (By mouth), COPD Stoplight, Opioid Safety, Patient Portal & Shivani Instructions Activity Restrictions/Additional Instructions: - If you have any fevers or chills go to emergency room - If you have worsening shortness of breath go to emergency room - Follow-up with primary care provider -If you have fevers, chills, pain at port site please go to the emergency room Discharge Attestations Time Spent in Discharge Care*: greater than 30 min Quality Metrics Clinical Quality Measures [ No reported AMI, CVA or VTE this stay] Coding Level of Care Code 80271 Total time (in minutes) for Discharge: 45 Diagnoses Acute hypoxic respiratory failure J96.01 Healthcare-associated pneumonia J18.9 Sepsis A41.9 Staphylococcus epidermidis bacteremia R78.81; B95.7
[2025-03-21 14:06] VITALS: BP 114/73; PULSE 63; RESP 16; TEMP 36.5; O2SAT 96
[2025-03-22 13:13] LABS: Fungitell 1-3-B Glucan Assay 34 pg/mL (<60); Interpretation Negative (Negative)
[2025-03-23 16:50] LABS: Aspergillus AG,EIA,Serum NOT DETECTED; Aspergillus Galactomannan Inde <0.50
[2025-03-25 14:44] LABS: P. Jirovecii DNA QL PCR Not Detected (Not Detected); P. Jirovecii DNA QL PCR Source Sputum
[2025-03-25 17:49] LABS: Blastomyces Antigen Interpret NEGATIVE; Blastomyces Antigen Result None Detected
[2025-03-26 21:00] LABS: Coccidioides IgG Antibody NEGATIVE; Coccidioides IgM Antibody NEGATIVE
== END 2025-03-21 14:07 | disposition home or self-care (01) | DRG 871 ==
LOC: ER 18:02 → MEDSURG 20:04
PROVIDERS: Physician Assistant; Admitting Provider Family Medicine; Emergency Provider Emergency Medicine; PCP Family Medicine; Visit Provider Family Medicine
DX: A41.9 Sepsis, unspecified organism (principal); J18.9 Pneumonia, unspecified organism; J96.01 Acute respiratory failure with hypoxia; C82.3 Follicular lymphoma grade IIIa; M87.9 Osteonecrosis, unspecified; K51.90 Ulcerative colitis, unspecified, without complications; Y95 Nosocomial condition; B95.8 Unspecified staphylococcus as the cause of diseases classified elsewhere; Z79.899 Other long term (current) drug therapy; Z92.21 Personal history of antineoplastic chemotherapy; Z95.828 Presence of other vascular implants and grafts; Z85.828 Personal history of other malignant neoplasm of skin; Z87.891 Personal history of nicotine dependence
CPT/HCPCS: 36415; 36600; 71045; 71250; 80051; 80053; 80202; 81003; 82330; 82805; 83605; 83615; 83735; 83880; 84100; 84145; 84443; 84484; 85007; 85025; 86140; 86635; 87040; 87070; 87077; 87102; 87106; 87150; 87186; 87205; 87206; 87305; 87385; 87449; 87486; 87581; 87633; 87637; 87798; 93005; 93306; 94640; 94664; 96372; 96374; 99285; J1650; J2470; J2543; J2919; J3373; J7040; J7626; J9999

== ENCOUNTER 2025-03-27 11:06 | Oncology outpatient (recurring) (ONCR) | payer OTHER, SELFPAY ==
[2025-03-27 11:26] LABS: Hematocrit 36.8 % (37-53); Hemoglobin 12.30 g/dL (11.27-16.99); Mean Corpuscular HGB Conc 33.4 g/dL (30-55); Mean Corpuscular Hemoglobin 34.6 pg (27-33); Mean Corpuscular Volume 103.7 fl (82-101); Nucleated Red Blood Cells % 0 %; Platelet Count 208 10^3/cmm (157-399); Red Blood Count 3.55 10^6/uL (3.85-5.65); White Blood Count 3.70 10^3/uL (3.29-11.43)
[2025-03-27 11:41] LABS: Alanine Aminotransferase 18 U/L (0-41); Albumin Level 3.7 g/dL (3.5-5.2); Alkaline Phosphatase 89 U/L (40-130); Anion Gap 16.8 (5-19); Aspartate Amino Transferase 18 U/L (0-40); Blood Urea Nitrogen 10 mg/dL (8-23); Calcium 8.8 mg/dL (8.5-10.5); Carbon Dioxide 24 mmol/L (22-29); Chloride 103 mmol/L (98-107); Globulin 2.1 g/dL (1.3-4.6); Glucose 97 mg/dL (65-115); Osmolality Calculated 289 mOsm/kg (285-295); Potassium 3.8 mmol/L (3.5-5.1); Sodium 140 mmol/L (136-145); Total Protein 5.8 g/dL (6.6-8.7); Uric Acid 5.0 mg/dL (3.4-7.0)
[2025-03-27 12:14] LABS: Slide Review Slide Review Perform
[2025-03-28 07:21] LABS: PROTEIN, TOTAL 5.5 g/dL (6.1-8.1)
[2025-03-28 18:49] LABS: ALPHA 1 GLOBULIN 0.3 g/dL (0.2-0.3); ALPHA 2 GLOBULIN 0.9 g/dL (0.5-0.9); BETA 1 GLOBULIN 0.3 g/dL (0.4-0.6); BETA 2 GLOBULIN 0.3 g/dL (0.2-0.5)
== END 2025-04-05 23:59 | disposition home or self-care (01) ==
PROVIDERS: Absent Provider Family Medicine; PCP Family Medicine; Visit Provider Internal Medicine
DX: C44.91 Basal cell carcinoma of skin, unspecified (principal); Z85.72 Personal history of non-Hodgkin lymphomas; J44.9 Chronic obstructive pulmonary disease, unspecified; Z92.21 Personal history of antineoplastic chemotherapy; Z87.891 Personal history of nicotine dependence; Z95.828 Presence of other vascular implants and grafts
CPT/HCPCS: 36591; 80053; 83615; 84100; 84155; 84165; 84550; 85025; 86334; 99213

== ENCOUNTER → 2025-04-01 09:25 | Outpatient (BNVA) | payer OTHER, SELFPAY | PROVIDERS: PCP Family Medicine; Visit Provider Internal Medicine | DX: J84.10 Pulmonary fibrosis, unspecified (principal); C82.9A Follicular lymphoma, unspecified, in remission; Z87.891 Personal history of nicotine dependence; J44.1 Chronic obstructive pulmonary disease with (acute) exacerbation; J44.9 Chronic obstructive pulmonary disease, unspecified | CPT/HCPCS: 11721; 36415; 85025; 99205; Q3014 ==

== ENCOUNTER → 2025-04-24 08:56 | Outpatient (BNVA) | payer OTHER, SELFPAY | PROVIDERS: PCP Family Medicine; Visit Provider Dermatology | DX: L57.8 Other skin changes due to chronic exposure to nonionizing radiation (principal); C82.00 Follicular lymphoma grade I, unspecified site; Z08 Encounter for follow-up examination after completed treatment for malignant neoplasm; Z85.828 Personal history of other malignant neoplasm of skin; C44.42 Squamous cell carcinoma of skin of scalp and neck; L57.0 Actinic keratosis | CPT/HCPCS: 11623; 12042; 17000; 99213 ==

== ENCOUNTER 2025-04-24 10:15 | Oncology outpatient (recurring) (ONCR) | payer OTHER, SELFPAY ==
[2025-04-08 09:13] VITALS: O2SAT 87; O2SAT 92
[2025-04-08 09:42] VITALS: PULSE 122; RESP 20; O2SAT 95
--- NOTE | 2025-04-19 08:00 | PETR_ITS ---
PROCEDURE INFORMATION: Exam: PET/CT Skull Base to Mid-thigh Exam date and time: 04/19/2025 8:57 AM Age: 74 years old Clinical indication: Condition or disease; Primary cancer: Follicular lymphoma; Prior surgery; Surgery date: 6+ months; Surgery type: Port LABS AND CLINICAL REPORTS: Glucose: 136 mg/dl Treatment strategy for malignancy (PET staging): Restaging (PS) TECHNIQUE: Imaging protocol: Following at least four-hour fasting and following the injection of radiopharmaceutical, low dose CT images were obtained. Then, PET images were obtained. Attenuation corrected images were constructed using the CT scan. Fused images of PET and CT were reviewed. The standardized uptake values (SUV) reported below are maximum values within a region of interest, expressed in gm/ml. Exam includes orbital meatal line to mid-thigh. SUV normalization method: BodyWeight Radiopharmaceutical: 10.54 mCi F-18 FDG (Fluorodeoxyglucose), IV. Time of imaging post radiopharmaceutical administration: 44 minutes Injection site: right ac COMPARISON: CT chest 03/18/2025, PT PET skull to thigh SUBS [id number] 12/21/2024 9:07 AM FINDINGS: Tubes, catheters and devices: A left internal jugular central venous port catheter terminates in the proximal SVC. Brain: Visualized brain has normal physiologic uptake. Pharynx: No abnormal uptake. Larynx: No abnormal uptake. Lungs, pleura and trachea: No abnormal uptake. Calcified granulomas in the lungs are noted. Ezpa-dc-subriyjo peripheral bullous versus paraseptal emphysematous changes in the lungs are present. Mild uptake within areas of ill-defined dependent streaky and patchy density in the posteroinferior aspect of both lower lobes is likely inflammatory. Heart: Normal physiologic uptake. Mediastinal space: No abnormal uptake. Esophagus: There are multifocal foci of activity throughout the course of the esophagus, SUV max 4.3 on series 301, image 95. Liver: No abnormal uptake. Gallbladder and biliary ducts: No abnormal uptake. Stones in the gallbladder are noted. Pancreas: No abnormal uptake. Spleen: No abnormal uptake. Adrenal glands: No abnormal uptake. Kidneys and ureters: Normal physiologic uptake. Stomach and bowel: No abnormal uptake. Vasculature: No abnormal uptake. There are multifocal regions of atherosclerotic calcification. Lymph nodes: There are small calcified bilateral hilar and mediastinal lymph nodes. Uptake in a partially calcified lymph node in the subcarinal region is noted, SUV max 5.9 (previously 4.5) on image 115. Assessment of the size of this lymph node is limited without intravenous contrast. A focus of uptake in the posterior left hilar region likely within a non pathologically enlarged partially calcified lymph node demonstrates an SUV max 4.1 (previously 3.5) on image 103. A more inferiorly located subcentimeter partially calcified left hilar lymph node on image 110 demonstrates an SUV max 3.2 (previously 2.8). Skeleton: There is probable inflammatory uptake related to underlying degenerative changes in the right acromioclavicular joint, SUV max 5.5 on image 67. Degenerative changes throughout the spine are identified. Soft tissues: No abnormal uptake in the visualized head, neck, chest, abdomen, pelvis, and extremities. Surgical clips in the right inguinal region are identified. METRICS: Mediastinal blood pool: SUV max 2.5, SUV mean 2.2 Liver uptake: SUV max 3.2, SUV mean 2.6 PET/PET skull to thigh SUBS [id number] IMPRESSION: 1. Uptake within a partially calcified subcarinal lymph node has increased since the prior PET-CT, and uptake within small partially calcified left hilar lymph nodes has also increased. This uptake may be related to inflammatory or infectious in etiology, associated with old granulomatous infection. Malignancy-related uptake is not entirely excluded and would be consistent with a Deauville score 4. 2. Uptake along the course of the esophagus are present, likely physiologic or inflammatory. A malignant etiology is less likely. 3. Additional nonurgent findings as detailed above. Deauville Scorin: No uptake 2: Uptake < or = mediastinal blood pool (max SUV) 3: Uptake > mediastinal blood pool (max SUV) but < or = liver (max SUV) 4: Uptake moderately higher than liver (uptake > maximum SUV of the liver) 5: Uptake markedly higher than liver (uptake 2-3x > maximum SUV of the liver) and/or new lesions
[2025-04-24 10:08] LABS: Hematocrit 34.2 % (37-53); Hemoglobin 10.90 g/dL (11.27-16.99); Mean Corpuscular HGB Conc 31.9 g/dL (30-55); Mean Corpuscular Hemoglobin 34.5 pg (27-33); Mean Corpuscular Volume 108.2 fl (82-101); Nucleated Red Blood Cells % 0 %; Platelet Count 246 10^3/cmm (157-399); Red Blood Count 3.16 10^6/uL (3.85-5.65); White Blood Count 3.88 10^3/uL (3.29-11.43)
[2025-04-24 10:24] LABS: Alanine Aminotransferase 12 U/L (0-41); Albumin Level 3.7 g/dL (3.5-5.2); Alkaline Phosphatase 92 U/L (40-130); Anion Gap 13.8 (5-19); Aspartate Amino Transferase 18 U/L (0-40); Blood Urea Nitrogen 7 mg/dL (8-23); Calcium 8.6 mg/dL (8.5-10.5); Carbon Dioxide 24 mmol/L (22-29); Chloride 108 mmol/L (98-107); Ferritin 271 ng/mL (30-400); Globulin 2.3 g/dL (1.3-4.6); Glucose 102 mg/dL (65-115); Iron 77 ug/dL (59-158); Osmolality Calculated 292 mOsm/kg (285-295); Potassium 3.8 mmol/L (3.5-5.1); Sodium 142 mmol/L (136-145); Total Iron Binding Capacity 216 mcg/dl; Total Protein 6.0 g/dL (6.6-8.7); Unsaturated Iron Binding 139 ug/dL (112-347)
[2025-04-24 10:39] LABS: Vitamin B12 993 pg/mL (232-1245)
== END 2025-05-05 23:59 | disposition home or self-care (01) ==
PROVIDERS: Absent Provider Family Medicine; PCP Family Medicine; Visit Provider Internal Medicine
DX: C82.30 Follicular lymphoma grade IIIa, unspecified site; R22.1 Localized swelling, mass and lump, neck; D75.9 Disease of blood and blood-forming organs, unspecified; Z87.891 Personal history of nicotine dependence; Z53.9 Procedure and treatment not carried out, unspecified reason
CPT/HCPCS: 11623; 12042; 17000; 36591; 78815; 80053; 82607; 82728; 82746; 83010; 83540; 83550; 83615; 85025; 94060; 94618; 94726; 94729; 94760; 99213; 99214; A9552; J7613

== ENCOUNTER → 2025-04-25 13:27 | Outpatient (BNVA) | payer OTHER, SELFPAY | PROVIDERS: PCP Family Medicine; Visit Provider Internal Medicine | DX: J84.10 Pulmonary fibrosis, unspecified (principal); J96.11 Chronic respiratory failure with hypoxia; Z99.81 Dependence on supplemental oxygen; Z91.199 Patient's noncompliance with other medical treatment and regimen due to unspecified reason; R59.1 Generalized enlarged lymph nodes; C82.9A Follicular lymphoma, unspecified, in remission; Z87.891 Personal history of nicotine dependence | CPT/HCPCS: 99214; Q3014 ==

== ENCOUNTER 2025-05-06 06:00 | Oncology outpatient (recurring) (ONCR) | payer OTHER, SELFPAY | END 2025-05-13 23:55 | disposition home or self-care (01) | LOC: ONCMED 05-18 07:01 | PROVIDERS: Absent Provider Family Medicine; PCP Family Medicine; Visit Provider Internal Medicine | DX: C82.30 Follicular lymphoma grade IIIa, unspecified site (principal); R06.01 Orthopnea; I35.1 Nonrheumatic aortic (valve) insufficiency; Z87.891 Personal history of nicotine dependence | CPT/HCPCS: 99214 ==

== ENCOUNTER 2025-05-15 08:56 | Day surgery (SDC) | payer OTHER, SELFPAY ==
[2025-05-15] VITALS (11 sets, daily range): BP systolic 110–121; BP diastolic 71–80; PULSE 71–85; RESP 17–20; TEMP 36.1–36.4; O2SAT 93–96; BMI 24.7
[2025-05-15 09:32] LABS: Hematocrit 38.8 % (37-53); Hemoglobin 13.00 g/dL (11.27-16.99); Mean Corpuscular HGB Conc 33.5 g/dL (30-55); Mean Corpuscular Hemoglobin 35.1 pg (27-33); Mean Corpuscular Volume 104.9 fl (82-101); Nucleated Red Blood Cells % 0 %; Platelet Count 246 10^3/cmm (157-399); Red Blood Count 3.70 10^6/uL (3.85-5.65); White Blood Count 3.90 10^3/uL (3.29-11.43)
[2025-05-15 09:51] LABS: INR 0.93 (0.8-1.2); Prothrombin Time 13.10 SECONDS (12.1-14.9)
--- NOTE | 2025-05-15 10:15 | W.PM.OPSUD ---
Surgery/Procedure H&P Update DATE OF PROCEDURE: May 15, 2025 DATE H&P PERFORMED: 04/25/25 H&P UPDATE INFORMATION: I have reviewed H&P completed within last 30 days, I have examined patient prior to procedure, No changes to prior documentation, H&P is in [facility] EMR on date indicated and Risks and benefits of the procedure reviewed PLANNED PROCEDURE: Surgery/Procedure H&P Update DATE OF PROCEDURE: 04/25/25 DATE H&P PERFORMED: 05/15/25 1030 am CHANGES TO PREVIOUS DOCUMENTATION: Patient was seen and examined. No significant changes since I saw in the clinic. We will proceed with bronchoscopy as we planned. 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 - Ousmane Pimentel MD s Ebus - Ousmane Pimentel MD Operation Date: 05/15/25 11:10 Proposed Procedures p EBUS bronchoscopy with transbronchial biopsy under fluoroscopy(Not Applicable) - Ousmane Pimentel MD s Bronchoscopy with Transbronchial Biopsy under Fluoroscopy(Not Applicable) - Ousmane Pimentel MD
--- NOTE | 2025-05-15 10:30 | ANES.PREANE2 ---
Pre-Anesthetic Assessment Height/Weight: Height 5 ft 10 in Weight 172 lb Temp Pulse Resp BP Pulse Ox O2 Del Method 97.6 F 83 18 115/76 95 Room Air 05/15/25 09:10 05/15/25 09:10 05/15/25 09:10 05/15/25 09:10 05/15/25 09:10 05/15/25 09:10 Preop Diagnosis: pulmonary fibrosis Operation Date: 05/15/25 11:10 Proposed Procedures p EBUS bronchoscopy with transbronchial biopsy under fluoroscopy(Not Applicable) - Ousmane Pimentel MD s Bronchoscopy with Transbronchial Biopsy under Fluoroscopy(Not Applicable) - Ousmane Pimentel MD Was Beta Terrance taken within 24 hours: Yes Was Clonidine taken within 24 hours: N/A Last intake: Intake Last Liquid Date 05/14/25 Last Liquid Time 19:00 Last Solid Date 05/14/25 Last Solid Time 19:00 Social No alcohol and No tobacco Exam alert, oriented x 3 and regular rate & rhythm Airway Submandibular: within normal limits Cervical ROM: within normal limits Mallampati: Class II Dentition: full Comments: Comments: Multiple missing teeth. Denies any loose Anesthetic Plan ASA status: 4 Anesthesia: General Other: No prior issues with anesthesia NPO since yesterday evening History of hypertension on metoprolol GERD on omeprazole Patient was admitted 04/06/2025 for COPD exacerbation Follicular lymphoma in remission Pulmonary fibrosis noted Patient states that he was told to be on oxygen but he has not been using it because it does not make him feel any better SpO2 95% on room air currently Plan for GETA Medications/Allergies Home Medications ?Medication ?Instructions ?Recorded ?Confirmed ?Last Taken ?Type mesalamine 800 mg tablet,delayed 3,200 mg PO DAILY 09/01/21 05/15/25 05/14/25 History release omeprazole 40 mg capsule,delayed 20 mg PO 0700 09/01/21 05/15/25 05/15/25 History release urea 40 % topical cream 1 applic topical BID PRN Dry Skin 02/27/25 05/15/25 05/14/25 History ascorbic acid (vitamin C) 500 mg 500 mg PO DAILY 03/18/25 05/15/25 05/14/25 History tablet cholecalciferol (vitamin D3) 25 25 mcg PO DAILY 03/18/25 05/15/25 05/14/25 History mcg (1,000 unit) tablet coenzyme [id number]-[id number] E 100 mg-100 1 cap PO DAILY 03/18/25 05/15/25 05/14/25 History unit capsule ycbwtirjhisy-xjr-zwmyu acid-vit 1 tab PO DAILY 03/18/25 05/15/25 05/14/25 History K-lycop 400 mcg-20 mcg-370 mcg tablet (Men's 50 Plus Multivitamin) turmeric 400 mg capsule 500 mg PO DAILY 03/18/25 05/15/25 05/14/25 History zinc gluconate 50 mg tablet 50 mg PO DAILY 03/18/25 05/15/25 05/14/25 History ipratropium 20 mcg-albuterol 100 1 puff inhalation QID #4 grams 04/01/25 05/15/25 05/14/25 Rx mcg/actuation mist for inhalation (Combivent Respimat) Lactobacillus acidophilus 10 10,000 mmu cells PO DAILY 04/25/25 05/15/25 05/14/25 History billion cell capsule imiquimod 5 % topical cream packet 1 applic topical DAILY 04/25/25 05/15/25 05/14/25 History megestrol 20 mg tablet 10 mg PO QID 04/25/25 05/15/25 05/14/25 History metoprolol succinate 25 mg 12.5 mg PO BID 04/25/25 05/15/25 05/15/25 History tablet,extended release 24 hr Allergies Allergy/AdvReac Type Severity Reaction Status Date / Time No Known Allergies Allergy Verified 05/15/25 09:05 Current Medications Generic Name Dose Route Start Last Admin Trade Name Freq PRN Reason Stop Dose Admin Sodium Chloride 1,000 mls @ 30 mls/hr 05/15/25 09:00 05/15/25 09:25 Sodium Chloride 0.9% IV 05/16/25 08:59 30 mls/hr .Q24H SARAH Administration PFSH Anesthesia Medical History (Updated 05/06/25 @ 09:54 by David Cleaning M.D) Pulmonary fibrosis Avascular necrosis of bones of both hips History of nonmelanoma skin cancer Follicular lymphoma grade 3a Ulcerative colitis Surgical History History of bone marrow biopsy (05/04/18) History of lymph node biopsy (03/29/18) Right inguinal lymph node biopsy History of facial fracture repair Bilateral femur fractures History of shoulder surgery History of umbilical hernia repair Family History Father Cancer Lung Mother Dementia Other Clotting disorder Hypertension Denies family history of Diabetes CAD (coronary artery disease) Hyperlipidemia Psychiatric illness Chronic kidney disease (CKD) Suicide Anesthesia complication Bleeding disorder Lung disease Stroke Social History Smoking and tobacco/nicotine status: former use of tobacco/nicotine Quit status (tobacco/nicotine): has quit using Year quit tobacco: 1984 Former quit date comment: approx 35 years Second hand smoke exposure: Yes Alcohol intake: current Alcohol intake frequency: holidays/special occasions only Data Anesthesia 05/15/25 09:21 Short CBC 05/15/25 Range/Units 09:21 WBC 3.90 (3.29-11.43) 10^3/uL Hgb 13.00 (11.27-16.99) g/dL Hct 38.8 (37-53) % MCV 104.9 H (82-101) fl Plt Count 246 (157-399) 10^3/cmm Neut % (Auto) 68.1 % Neut # (Auto) 2.65 (1.8-7.7) 10^3/uL Coags 05/15/25 09:21 PT 13.10 INR 0.93 Cardiac Studies: Echocardiogram 03/18/25
--- NOTE | 2025-05-15 10:36 | SC_ITS ---
WS: [id number] EXAMINATION: C-arm FL for Bronchoscopy ORDER DATE: 05/15/2025 10:36 AM REASON FOR EXAM: BRONCH WITH FL COMPARISON: None available. FLUOROSCOPY TIME: 48.6 seconds # OF SPOT FILMS: 1 FINDINGS: Bronchoscopic device within the right lower lobe. SC/C-arm FL for Bronchoscopy IMPRESSION: Bronchoscopic localization as above.
--- NOTE | 2025-05-15 11:07 | SUR.OPER ---
DISPOSABLE SCOPE LOT#[id number] [facility]#[id number]
[2025-05-15] MEDS: EPINEPHrine 1 MG in sodium chloride 0.9% (100 ml) 19 ML XX (11:50)
--- NOTE | 2025-05-15 12:06 | W.PM.BPONFUL ---
Documented by User: Ousmane Pimentel MD 05/15/25 18:09 Pathology: [] Implant(s): [] Tourniquet Time: [] IV Fluids: [] Urine Output: [] Anesthesia: [] Complications: [] Brief history/preop diagnosis: [] Full operative report: [] Condition: [] Dispostion: [] Procedure: Flexible bronchoscopy with complete mediastinal staging Attending: Ousmane Pimentel MD Indication: Mediastinal Lymphedenopathy Anesthesia: General anesthesia per anesthesia team Procedure: Pre-Anesthesia Assessment [place] Protocol: Pre-procedure Verification: Prior to the procedure, the patient's identity was confirmed using full name, date of , and medical record number. Identity verification included a review of all relevant medical records, history, physical examination, medications, allergies, and previous anesthesia tolerance. Risks, benefits, sedation options, and associated risks were reviewed with the patient, and informed consent was obtained after addressing all questions. Time-Out: Immediately before the procedure, a time-out was conducted to confirm patient identification, procedure details, consent, image labeling, and the need for prophylactic antibiotics. This was verified by the physician, nurse, anesthesiologist, and order picker/assembler. Outcome: The procedure was completed without difficulty, and the patient tolerated it well. Findings: A thorough airway exam was performed after passage of the bronchoscope. The trachea was anatomically normal. The right sided airway was anatomically normal without endobronchial lesions. Tortuous airways seen most likely due to fibrosis and traction bronchiectasis . No secretions. The left sided airway was anatomically normal without endobronchial lesions. Tortuous airways seen most likely due to fibrosis and traction bronchiectasis. No secretions. Prior to sampling, confirmation of lesion location was done using: - Fluroscopy with a tool overlying the lesion on at least one visual plane. After confirming our location, we proceeded to sampling. Transbronchial biopsies of the lesion were performed using the captura 1.8 mm forceps). A total of 4 samples were obtained. ([id number]) A bronchoalveolar lavage was performed of the lobe containing the target lesion with 120mL of saline instilled and 60 mL of effluent returned. ([id number]) The prior bronchoscope was removed from the airway and the EBUS scope was inserted. A complete curvilinear EBUS procedure was performed of the following lymph nodes: Level 11R station was identified. No nodes met size criteria for biopsy. Level 4R station was identified. No nodes met size criteria for biopsy. Level 7 station was identified with the EBUS scope at the medial LMSB/RMSB and 4 passes were made using a 21G Olympus TBNA needle. Level 4L station was identified. No nodes met size criteria for biopsy. Level 11L station was identified. No nodes met size criteria for biopsy. [place] Bleeding Scale Grade 1: Suctioning <1 minute. Bleeding of no clinical consequence to patient or provider. Following completion of all diagnostic and therapeutic procedures, hemostasis was verified. The scope was removed and procedure concluded. In summary, the following procedures were performed: [id number] BAL, (Bronchoalveolar Lavage), [id number] TBBX, (Transbronchial biopsies, first lobe), [id number] cEBUS 1-2 lesions, (Central curvelinear EBUS 1-2 lesions) Ousmane Pimentel MD Pulmonary and Critical Care Documented by User: [email or web address] Simms 05/15/25 12:33 Pathology: [] Implant(s): [] Tourniquet Time: [] IV Fluids: [] Urine Output: [] Anesthesia: [] Complications: [] Brief history/preop diagnosis: [] Full operative report: [] Condition: [] Dispostion: []
--- NOTE | 2025-05-15 12:25 | XR_ITS ---
WS: [id number] PORTABLE CHEST HISTORY: post bronchoscopy/EBUS COMPARISON: 03/20/2025 Left-sided Mediport. Lung volumes are decreased with interstitial thickening. No pneumonia or pneumothorax is identified. No pleural effusion or pneumothorax. Cardiac size: Mildly enlarged cardiac silhouette. Mediastinum/Aorta: Normal mediastinum. No osseous abnormality seen. XR/XR chest 1V portable [id number] IMPRESSION: No pneumothorax identified post bronchoscopy.
[2025-05-15 13:20] LABS: Cyto Order Verification Order Verified
--- NOTE | 2025-05-15 13:30 | ANE.PACU2 ---
Inpatient post-anesthesia follow up: Airway intact: Yes Vital signs: Temperature 97.6 F Pulse Rate 71 Respiratory Rate 19 Blood Pressure 110/78 Pulse Oximetry 96 Oxygen Delivery Me thod Room Air Oxygen Flow Rate Fraction of Inspir ed Oxygen Hydration adequate: Yes Nausea and vomiting: No Pain level: 1 Mental status: Baseline
[2025-05-15 14:54] LABS: Apprearance, Bronch Wash Bloody (CLEAR); Total Cells Counted Bronch 200
[2025-05-15 14:55] LABS: Eosinophils % Bronch 1.00 % (0.13-0.25); Lymphocytes % Bronch 18.00 % (10.71-12.91); Macrophages % Bronch 36.00 % (83.6-86.8); Neutrophils % Bronch 45.00 % (0.9-2.3); PATH Referral Yes
[2025-05-16 15:27] LABS: Lymphoma Profile (BBPL) See Report
[2025-05-17 13:59] LABS: P. Jirovecii DNA QL PCR Not Detected (Not Detected); P. Jirovecii DNA QL PCR Source RLL BAL
== END 2025-05-15 13:30 | disposition home or self-care (01) ==
PROVIDERS: PCP Family Medicine; Visit Provider Internal Medicine
PROC: BB4BZZZ Ultrasonography of Pleura (ICD-10-PCS; principal; 2025-05-15 11:00)
PROC: 0BJ08ZZ Inspection of Tracheobronchial Tree, Via Natural or Artificial Opening Endoscopic (ICD-10-PCS; CPT 31622; 2025-05-15 11:00)
DX: R59.1 Generalized enlarged lymph nodes (principal); I10 Essential (primary) hypertension; K21.9 Gastro-esophageal reflux disease without esophagitis; Z85.72 Personal history of non-Hodgkin lymphomas; Z85.828 Personal history of other malignant neoplasm of skin; Z80.1 Family history of malignant neoplasm of trachea, bronchus and lung; Z87.891 Personal history of nicotine dependence; J44.9 Chronic obstructive pulmonary disease, unspecified
CPT/HCPCS: 31624; 31628; 31652; 36415; 71045; 76000; 80503; 85025; 85610; 87015; 87070; 87102; 87116; 87205; 87206; 87798; 87801; 88112; 88184; 88185; 88305; 89050; A9270; J0169; J1100; J2405; J2704; J3010; J3490; J7030; J9999

== ENCOUNTER → 2025-05-23 13:23 | Outpatient (BNVA) | payer OTHER, SELFPAY | PROVIDERS: PCP Family Medicine; Visit Provider Internal Medicine | DX: J84.10 Pulmonary fibrosis, unspecified (principal); R59.0 Localized enlarged lymph nodes; J96.11 Chronic respiratory failure with hypoxia; Z99.81 Dependence on supplemental oxygen; Z91.199 Patient's noncompliance with other medical treatment and regimen due to unspecified reason; C82.9A Follicular lymphoma, unspecified, in remission; Z98.890 Other specified postprocedural states; Z87.891 Personal history of nicotine dependence | CPT/HCPCS: 99214; Q3014 ==